=== PATIENT | female | born 1945 | race Caucasian/White ===

== ENCOUNTER 2021-11-02 18:25 | Inpatient (IN) | payer MEDICARE, MEDICAID, SELFPAY ==
--- NOTE | ~2021-11-02 | CT_ITS ---
EXAMINATION: CT ABDOMEN AND PELVIS WITHOUT CONTRAST CLINICAL INFORMATION: suspicion of cirrhosis . COMPARISON: No pertinent prior studies are available for comparison. TECHNIQUE: Multidetector volumetric imaging was performed from the superior aspect of the liver through the pubic symphysis without contrast per request. Sagittal and coronal reformatted images were obtained on the technologist workstation. This CT examination was performed using dose optimization techniques as appropriate, variously including the following: *Automated exposure control *Adjustment of mA and/or kV according to patient size (this includes techniques or standardized protocols for targeted exams where dose is matched to indication/reason for exam; i.e. extremities or head) *Use of iterative reconstruction technique DLP: 1305 mGy-cm. FINDINGS: Examination is degraded by beam hardening artifact and patient motion. LUNG BASES: Mild linear scarring or atelectasis at the left base LIVER, GALLBLADDER, BILIARY TREE: Nodular contour to the liver. No discrete mass lesion seen but this is a noncontrast study. No obvious biliary ductal dilatation. Gallstone in the dependent portion of the otherwise unremarkable gallbladder PANCREAS: Unremarkable. SPLEEN: Unremarkable. ADRENAL GLANDS: Unremarkable. KIDNEYS AND URETERS: The kidneys are normal in size, shape, and attenuation. No hydronephrosis, hydroureter, or calculi seen. No perinephric stranding. BLADDER: Decompressed with Austin catheter GASTROINTESTINAL TRACT: Tortuous colon with a few scattered colonic diverticula but no evidence for diverticulitis. Normal-appearing appendix in the right lower quadrant. Visualized small bowel unremarkable. Although the stomach is decompressed there does appear to be a suggestion of some subtle gastric wall thickening along the greater curve. This could be due to underlying gastritis but unable to be defined further on this study due to motion and lack of contrast ABDOMINAL WALL: Tiny fat-containing umbilical hernia LYMPHOVASCULAR STRUCTURES: Vascular calcification in aorta. Prominent splenic varicosities extending to a splenorenal shunt but otherwise the vessels are not well assessed on this noncontrast exam. PELVIC VISCERA: Uterus is presumably surgically absent OSSEUS STRUCTURES: Degenerative changes in the spine CT/CT abdomen pelvis wo con IMPRESSION: Examination limited by lack of contrast and patient motion. Nodular appearance to the liver could be due to underlying cirrhosis. There is prominent splenic varicosities with a spontaneous spleno renal shunt suggested sequela of portal hypertension. I do not appreciate any significant splenomegaly with the spleen at upper normal limits in size no significant ascites. Stomach likely decompressed although gastritis could have a similar appearance. This could be clinically correlated. Chronic appearing changes otherwise as described.
--- NOTE | ~2021-11-02 | XR_ITS ---
EXAMINATION: XR CHEST CLINICAL INFORMATION: Removal of NG tube. Previously misplaced. COMPARISON: 11/03/2021 TECHNIQUE: Frontal view of the chest was obtained. FINDINGS: Cardiac leads overlie the chest. Enteric tube has been removed. The lungs are well expanded. Patchy airspace opacities throughout both lungs. No edema or effusion. No pneumothorax. The cardiomediastinal silhouette is within normal limits. No acute osseous abnormality. XR/XR chest 1V IMPRESSION: No pneumothorax. Patchy bilateral airspace opacities remain.
--- NOTE | ~2021-11-02 | CT_ITS ---
EXAMINATION: CT HEAD WITHOUT CONTRAST CLINICAL INFORMATION: Altered mental status and headache COMPARISON: 02/12/2017 TECHNIQUE: Contiguous axial imaging was performed from the skull base to vertex without intravenous administration of contrast. This CT examination was performed using dose optimization techniques as appropriate, variously including the following: *Automated exposure control *Adjustment of mA and/or kV according to patient size (this includes techniques or standardized protocols for targeted exams where dose is matched to indication/reason for exam; i.e. extremities or head) *Use of iterative reconstruction technique DLP: 692 mGy-cm FINDINGS: There is no evidence of acute intracranial hemorrhage or territorial infarction. No abnormal mass effect or midline shift is seen. Mena to white matter differentiation is well preserved. No extra-axial fluid collections are identified. The ventricles are normal in size. Mild patchy subcortical and periventricular white matter low-attenuation changes statistically related to chronic white matter small vessel ischemic disease. Cavernous carotid calcifications. The osseous structures and soft tissues are normal. The mastoid air cells and visualized portions of the paranasal sinuses are well aerated. CT/CT head/brain wo con IMPRESSION: No acute intracranial pathology.
--- NOTE | ~2021-11-02 | XR_ITS ---
EXAMINATION: XR CHEST CLINICAL INFORMATION: Enteric tube. COMPARISON: Chest radiograph dated from 11/02/2021. TECHNIQUE: AP view of the chest was obtained. FINDINGS: The enteric tube terminates within the right lower lobe. Stable prominence of the cardiomediastinal silhouette. Similar patchy multifocal airspace opacities. No large pleural effusion or pneumothorax. No acute osseous abnormalities. XR/XR chest 1V IMPRESSION: Enteric tube terminates within the right lower lobe. Recommend repositioning. Multifocal airspace opacities are not significantly changed. This critical result was discussed with Arcenio Bynum MD at 11/03/2021 10:45 PM and it was ascertained that the content and urgency of the report was understood at the time of direct communication.
--- NOTE | ~2021-11-02 | XR_ITS ---
EXAMINATION: XR CHEST CLINICAL INFORMATION: CHF. COMPARISON: Most recent rib radiographs dated 02/13/2017. TECHNIQUE: Frontal view of the chest was obtained. FINDINGS: Interstitial and pulmonary vascular prominence with patchy left basilar airspace opacities. No pleural effusion or pneumothorax. Unremarkable cardiomediastinal silhouette. No acute osseous abnormality. XR/XR chest 1V IMPRESSION: Interstitial and pulmonary vascular prominence with patchy left basilar opacities. Findings can be seen in the setting of pulmonary edema. Alternatively, an infectious or inflammatory process could be considered in the appropriate clinical setting.
--- NOTE | 2021-11-02 18:57 | ECG_ITS ---
Test Reason : WEAKNESS Blood Pressure : / mmHG Vent. Rate : 092 BPM Atrial Rate : 092 BPM P-R Int : 186 ms QRS Dur : 082 ms QT Int : 362 ms P-R-T Axes : 046 -11 121 degrees QTc Int : 447 ms Artifact in tracing Normal sinus rhythm With limitations from artifact, no obvious abnormality When compared with ECG of 12-FEB-2017 12:36, No significant changes seen Referred By: Generic ED Physician Electronically Signed By:YAZMIN SHINE
[2021-11-02 19:02] VITALS: BP 147/60; BP 154/72; PULSE 93; PULSE 97; RESP 17; TEMP 36.4; O2SAT 96; O2SAT 98; BMI 32.7
--- NOTE | 2021-11-02 19:26 | ED_ITS ---
HPI - General Adult General Chief complaint: Weakness Stated complaint: high amonia level Time Seen by Provider: 11/02/21 19:02 Source: family and EMS Mode of arrival: EMS Limitations: altered mental status History of Present Illness HPI narrative: Patient comes to the emergency room by EMS. The family called the ambulance because the patient has altered mental status. Patient is known to have elevated ammonia. Patient traveled from [place] yesterday back to the [facility]. The daughter reports that earlier this afternoon around 14:00 they were shopping at [facility], previously the patient was doing well, at baseline, walking and talking. Then, patient started becoming more confused, talking without making any sense, then patient started becoming more sleepy and very confused. When I asked patient to open her eyes, patient verbalizes that she has a headache. Related Data Home Medications Medication Instructions Recorded Confirmed amlodipine 10 mg tablet (Norvasc) 10 mg PO DAILY 11/02/21 11/02/21 apixaban 2.5 mg tablet (Eliquis) 2.5 mg PO BID 11/02/21 11/02/21 cyanocobalamin (vitamin B-12) 1,000 mcg PO DAILY 11/02/21 11/02/21 1,000 mcg tablet (Vitamin B-12) ferrous fumarate 325 mg (106 mg 325 mg PO DAILY 11/02/21 11/02/21 iron) tablet folic acid 1 mg tablet 1 mg PO DAILY 11/02/21 11/02/21 hydralazine 50 mg tablet 50 mg PO TID 11/02/21 11/02/21 insulin glargine 100 unit/mL (3 20 unit SUBCUT BEDTIME 11/02/21 11/02/21 mL) subcutaneous pen (Lantus Solostar U-100 Insulin) insulin lispro 100 unit/mL 10 unit SUBCUT TIDWM 11/02/21 11/02/21 subcutaneous cartridge (Humalog U-100 Insulin) isosorbide dinitrate 10 mg tablet 10 mg PO BID 11/02/21 11/02/21 lactulose 20 gram/30 mL oral 20 g PO BID 11/02/21 11/02/21 solution levothyroxine 75 mcg tablet 75 mcg PO DAILY 11/02/21 11/02/21 (Synthroid) linagliptin 5 mg tablet (Tradjenta) 5 mg PO DAILY 11/02/21 11/02/21 montelukast 10 mg tablet 10 mg PO BEDTIME 11/02/21 11/02/21 (Singulair) pantoprazole 40 mg tablet,delayed 40 mg PO DAILY 11/02/21 11/02/21 release (Protonix) rifaximin 550 mg tablet 550 mg PO BID 11/02/21 11/02/21 spironolactone 50 mg tablet 50 mg PO DAILY 11/02/21 11/02/21 Allergies Allergy/AdvReac Type Severity Reaction Status Date / Time milk [Milk] AdvReac Mild DIARRHEA Unverified 07/31/20 17:28 Review of Systems Review of Systems: Complaining of a headache Yes Unobtainable due to mental condition and Unobtainable due to mental status PMFSH Past Medical History Medical History Congestive heart failure Diabetes Kidney failure Liver damage Skin cancer Social History Social History Alcohol intake: former Patient Tobacco Use Status: Never used Tobacco Substance Use Frequency: Chronic Longstanding Advance Directives: No Advance Directives Information Provided: No Physical Exam Vital Signs: Vital Signs: Last Vital Signs Temp 97.5 F 11/02/21 19:02 Pulse 93 11/02/21 19:02 Resp 17 11/02/21 19:02 BP 147/60 H 11/02/21 19:02 Pulse Ox 96 11/02/21 19:02 BMI result Body Mass Index 32.7 Const: Other: Appearance: No acute distress, altered, somnolent but easily arousable Eyes: Pupils equal, round and reactive to light. ENT: Pharynx normal. Neck: Normal inspection. Neck supple. No lymph nodes noted. No crepitus CVS: Normal heart rate and rhythm. S1-S2, loud systolic murmur in the left sternal border Respiratory: No respiratory distress. Breath sounds normal. No wheezing Abdomen: Soft and nontender. No rigidity. No distention. Does not seem to have significant ascites buildup Skin: Skin warm and dry. Normal skin color. Normal skin turgor. Extremities: +2 pitting edema bilaterally. No Lacerations. No Rash Neuro: Somnolent, follows some commands, cranial nerves 2-12 grossly intact, moves all extremities Course Course Course Narrative: Lactic acid is 2.6. At this time, we are starting to get labs back, white blood cell count within normal limits, sepsis is not suspected, patient's LFTs are elevated which is likely the cause of patient's elevated lactic. Sepsis is not suspected at this time. Patient's glucose is 345, patient is being given 10 units of insulin, at this time we will not give high-dose volume of IV fluids since patient may have CHF. Labs and x-ray report pending CT of the head and abdomen pending. Lipase is elevated at 178, patient does not seem to have any abdominal pain on abdominal palpation However, patient is a poor historian. Patient's troponin is slightly elevated, likely secondary to BNP, EKG was poor quality but does not show any acute changes to suspect STEMI, patient denies chest pain. I discussed the patient with Dr. Bynum, patient being admitted for hepatic encephalopathy Medical Decision Making Lab Data Result diagrams: 11/02/21 19:45 11/02/21 19:45 Labs: Lab Results 11/02/21 11/02/21 11/02/21 Range/Units 19:42 19:45 19:45 WBC 4.9 (4.8-10.8) X10*3/uL RBC 2.95 L (4.20-5.50) X10*6/uL Hgb 9.1 L (12.0-16.0) g/dl Hct 26.4 L (37.0-47.0) % MCV 89.5 (80.0-98.0) fL MCH 30.8 (27.0-33.0) pg MCHC 34.5 (31.0-35.0) g/dl RDW 14.0 (11.0-16.0) % Plt Count 137 L (160-400) X10*3/uL MPV 11.7 (9.4-12.3) fL Immature Gran % (Auto) 0.4 (0.0-0.4) % Neut % (Auto) 58.9 (45-73) % Lymph % (Auto) 17.6 L (20-40) % Divide % (Auto) 18.4 H (2-11) % Eos % (Auto) 3.9 (0-4) % Baso % (Auto) 0.8 (0-2) % Lymph # (Auto) 0.9 L (1.2-4.9) X10*3/uL Divide # (Auto) 0.9 (0.1-1.2) X10*3/uL Eos # (Auto) 0.2 (0.0-0.4) X10*3/uL Baso # (Auto) 0.0 (0.0-0.2) X10*3/uL Abs Immat Gran (auto) 0.02 (0.00-0.03) X10*3/uL Absolute Neuts (auto) 2.9 (2.0-8.3) x10*3/uL Absolute Nucleated RBC 0.000 (0.0-0.012) X10*3/uL Nucleated RBC % (auto) 0.0 (0.0-0.2) /100WBC PT (9.9-13.0) SEC INR (0.9-1.1) VBG pH 7.48 H (7.32-7.43) VBG pCO2 27 mmHg VBG pO2 142 mmHg VBG HCO3 20 L (22-26) mmol/L VBG O2 Saturation 99.0 % VBG Base Excess -1.9 mmol/L Sodium 137 (135-145) mmol/L Potassium 3.8 (3.3-5.1) mmol/L Chloride 103 (96-108) mmol/L Carbon Dioxide 23 (22-29) mmol/L Anion Gap 15 (12-20) BUN 50 H (9-16) mg/dL Creatinine 2.76 H (0.5-1.4) mg/dL Estim Creat Clear Calc 17.3 Estimated GFR 17 Random Glucose 345 H (60-115) mg/dL Lactic Acid (0.5-2.0) mmol/L Calcium 9.4 (8.4-10.2) mg/dL Magnesium (1.6-2.6) mg/dL Total Bilirubin (0.0-1.0) mg/dL Direct Bilirubin (0.0-0.5) mg/dL AST (5-31) U/L ALT (0-31) U/L Alkaline Phosphatase (39-117) U/L Ammonia (13-55) umol/L Troponin I High Sens (<3.5-17.0) ng/L B-Natriuretic Peptide (<100) pg/mL Total Protein (6.5-8.0) g/dL Albumin (3.5-5.0) g/dL Lipase (8-78) U/L TSH (0.32-4.0) uIU/mL Urine Color Urine Appearance Urine pH (5.0-8.0) Ur Specific [place] (1.005-1.025) Urine Protein (NEG-TRACE) MG/DL Urine Glucose (UA) (NEG) MG/DL Urine Ketones (NEG) MG/DL Urine Blood (NEG) Urine Nitrite (NEG) Ur Leukocyte Esterase (NEG) Ethyl Alcohol mg/dL Acetone, Qual (Negative) COVID-19 (BEN) (Negative) COVID-19 Clin Com 11/02/21 11/02/21 11/02/21 Range/Units 19:45 19:45 19:45 WBC (4.8-10.8) X10*3/uL RBC (4.20-5.50) X10*6/uL Hgb (12.0-16.0) g/dl Hct (37.0-47.0) % MCV (80.0-98.0) fL MCH (27.0-33.0) pg MCHC (31.0-35.0) g/dl RDW (11.0-16.0) % Plt Count (160-400) X10*3/uL MPV (9.4-12.3) fL Immature Gran % (Auto) (0.0-0.4) % Neut % (Auto) (45-73) % Lymph % (Auto) (20-40) % Divide % (Auto) (2-11) % Eos % (Auto) (0-4) % Baso % (Auto) (0-2) % Lymph # (Auto) (1.2-4.9) X10*3/uL Divide # (Auto) (0.1-1.2) X10*3/uL Eos # (Auto) (0.0-0.4) X10*3/uL Baso # (Auto) (0.0-0.2) X10*3/uL Abs Immat Gran (auto) (0.00-0.03) X10*3/uL Absolute Neuts (auto) (2.0-8.3) x10*3/uL Absolute Nucleated RBC (0.0-0.012) X10*3/uL Nucleated RBC % (auto) (0.0-0.2) /100WBC PT (9.9-13.0) SEC INR (0.9-1.1) VBG pH (7.32-7.43) VBG pCO2 mmHg VBG pO2 mmHg VBG HCO3 (22-26) mmol/L VBG O2 Saturation % VBG Base Excess mmol/L Sodium (135-145) mmol/L Potassium (3.3-5.1) mmol/L Chloride (96-108) mmol/L Carbon Dioxide (22-29) mmol/L Anion Gap (12-20) BUN (9-16) mg/dL Creatinine (0.5-1.4) mg/dL Estim Creat Clear Calc Estimated GFR Random Glucose (60-115) mg/dL Lactic Acid (0.5-2.0) mmol/L Calcium (8.4-10.2) mg/dL Magnesium 2.5 (1.6-2.6) mg/dL Total Bilirubin 1.3 H (0.0-1.0) mg/dL Direct Bilirubin 0.6 H (0.0-0.5) mg/dL AST 44 H (5-31) U/L ALT 28 (0-31) U/L Alkaline Phosphatase 138 H (39-117) U/L Ammonia (13-55) umol/L Troponin I High Sens 36.9 H (<3.5-17.0) ng/L B-Natriuretic Peptide (<100) pg/mL Total Protein 7.6 (6.5-8.0) g/dL Albumin 3.4 L (3.5-5.0) g/dL Lipase 178 H (8-78) U/L TSH 2.08 (0.32-4.0) uIU/mL Urine Color Urine Appearance Urine pH (5.0-8.0) Ur Specific [place] (1.005-1.025) Urine Protein (NEG-TRACE) MG/DL Urine Glucose (UA) (NEG) MG/DL Urine Ketones (NEG) MG/DL Urine Blood (NEG) Urine Nitrite (NEG) Ur Leukocyte Esterase (NEG) Ethyl Alcohol mg/dL Acetone, Qual (Negative) COVID-19 (BEN) Negative (Negative) COVID-19 Clin Com See Note 11/02/21 11/02/21 11/02/21 Range/Units 19:45 19:45 19:45 WBC (4.8-10.8) X10*3/uL RBC (4.20-5.50) X10*6/uL Hgb (12.0-16.0) g/dl Hct (37.0-47.0) % MCV (80.0-98.0) fL MCH (27.0-33.0) pg MCHC (31.0-35.0) g/dl RDW (11.0-16.0) % Plt Count (160-400) X10*3/uL MPV (9.4-12.3) fL Immature Gran % (Auto) (0.0-0.4) % Neut % (Auto) (45-73) % Lymph % (Auto) (20-40) % Divide % (Auto) (2-11) % Eos % (Auto) (0-4) % Baso % (Auto) (0-2) % Lymph # (Auto) (1.2-4.9) X10*3/uL Divide # (Auto) (0.1-1.2) X10*3/uL Eos # (Auto) (0.0-0.4) X10*3/uL Baso # (Auto) (0.0-0.2) X10*3/uL Abs Immat Gran (auto) (0.00-0.03) X10*3/uL Absolute Neuts (auto) (2.0-8.3) x10*3/uL Absolute Nucleated RBC (0.0-0.012) X10*3/uL Nucleated RBC % (auto) (0.0-0.2) /100WBC PT 16.2 H (9.9-13.0) SEC INR 1.4 H (0.9-1.1) VBG pH (7.32-7.43) VBG pCO2 mmHg VBG pO2 mmHg VBG HCO3 (22-26) mmol/L VBG O2 Saturation % VBG Base Excess mmol/L Sodium (135-145) mmol/L Potassium (3.3-5.1) mmol/L Chloride (96-108) mmol/L Carbon Dioxide (22-29) mmol/L Anion Gap (12-20) BUN (9-16) mg/dL Creatinine (0.5-1.4) mg/dL Estim Creat Clear Calc Estimated GFR Random Glucose (60-115) mg/dL Lactic Acid 2.6 H* (0.5-2.0) mmol/L Calcium (8.4-10.2) mg/dL Magnesium (1.6-2.6) mg/dL Total Bilirubin (0.0-1.0) mg/dL Direct Bilirubin (0.0-0.5) mg/dL AST (5-31) U/L ALT (0-31) U/L Alkaline Phosphatase (39-117) U/L Ammonia (13-55) umol/L Troponin I High Sens (<3.5-17.0) ng/L B-Natriuretic Peptide 276 H (<100) pg/mL Total Protein (6.5-8.0) g/dL Albumin (3.5-5.0) g/dL Lipase (8-78) U/L TSH (0.32-4.0) uIU/mL Urine Color Urine Appearance Urine pH (5.0-8.0) Ur Specific [place] (1.005-1.025) Urine Protein (NEG-TRACE) MG/DL Urine Glucose (UA) (NEG) MG/DL Urine Ketones (NEG) MG/DL Urine Blood (NEG) Urine Nitrite (NEG) Ur Leukocyte Esterase (NEG) Ethyl Alcohol mg/dL Acetone, Qual (Negative) COVID-19 (BEN) (Negative) COVID-19 Clin Com 11/02/21 11/02/21 11/02/21 Range/Units 19:45 19:58 20:00 WBC (4.8-10.8) X10*3/uL RBC (4.20-5.50) X10*6/uL Hgb (12.0-16.0) g/dl Hct (37.0-47.0) % MCV (80.0-98.0) fL MCH (27.0-33.0) pg MCHC (31.0-35.0) g/dl RDW (11.0-16.0) % Plt Count (160-400) X10*3/uL MPV (9.4-12.3) fL Immature Gran % (Auto) (0.0-0.4) % Neut % (Auto) (45-73) % Lymph % (Auto) (20-40) % Divide % (Auto) (2-11) % Eos % (Auto) (0-4) % Baso % (Auto) (0-2) % Lymph # (Auto) (1.2-4.9) X10*3/uL Divide # (Auto) (0.1-1.2) X10*3/uL Eos # (Auto) (0.0-0.4) X10*3/uL Baso # (Auto) (0.0-0.2) X10*3/uL Abs Immat Gran (auto) (0.00-0.03) X10*3/uL Absolute Neuts (auto) (2.0-8.3) x10*3/uL Absolute Nucleated RBC (0.0-0.012) X10*3/uL Nucleated RBC % (auto) (0.0-0.2) /100WBC PT (9.9-13.0) SEC INR (0.9-1.1) VBG pH (7.32-7.43) VBG pCO2 mmHg VBG pO2 mmHg VBG HCO3 (22-26) mmol/L VBG O2 Saturation % VBG Base Excess mmol/L Sodium (135-145) mmol/L Potassium (3.3-5.1) mmol/L Chloride (96-108) mmol/L Carbon Dioxide (22-29) mmol/L Anion Gap (12-20) BUN (9-16) mg/dL Creatinine (0.5-1.4) mg/dL Estim Creat Clear Calc Estimated GFR Random Glucose (60-115) mg/dL Lactic Acid (0.5-2.0) mmol/L Calcium (8.4-10.2) mg/dL Magnesium (1.6-2.6) mg/dL Total Bilirubin (0.0-1.0) mg/dL Direct Bilirubin (0.0-0.5) mg/dL AST (5-31) U/L ALT (0-31) U/L Alkaline Phosphatase (39-117) U/L Ammonia 137 H (13-55) umol/L Troponin I High Sens (<3.5-17.0) ng/L B-Natriuretic Peptide (<100) pg/mL Total Protein (6.5-8.0) g/dL Albumin (3.5-5.0) g/dL Lipase (8-78) U/L TSH (0.32-4.0) uIU/mL Urine Color Urine Appearance Urine pH (5.0-8.0) Ur Specific [place] (1.005-1.025) Urine Protein (NEG-TRACE) MG/DL Urine Glucose (UA) (NEG) MG/DL Urine Ketones (NEG) MG/DL Urine Blood (NEG) Urine Nitrite (NEG) Ur Leukocyte Esterase (NEG) Ethyl Alcohol < 10 mg/dL Acetone, Qual Negative (Negative) COVID-19 (BEN) (Negative) COVID-19 Clin Com 11/02/21 Range/Units 21:06 WBC (4.8-10.8) X10*3/uL RBC (4.20-5.50) X10*6/uL Hgb (12.0-16.0) g/dl Hct (37.0-47.0) % MCV (80.0-98.0) fL MCH (27.0-33.0) pg MCHC (31.0-35.0) g/dl RDW (11.0-16.0) % Plt Count (160-400) X10*3/uL MPV (9.4-12.3) fL Immature Gran % (Auto) (0.0-0.4) % Neut % (Auto) (45-73) % Lymph % (Auto) (20-40) % Divide % (Auto) (2-11) % Eos % (Auto) (0-4) % Baso % (Auto) (0-2) % Lymph # (Auto) (1.2-4.9) X10*3/uL [place] # (Auto) (0.1-1.2) X10*3/uL Eos # (Auto) (0.0-0.4) X10*3/uL Baso # (Auto) (0.0-0.2) X10*3/uL Abs Immat Gran (auto) (0.00-0.03) X10*3/uL Absolute Neuts (auto) (2.0-8.3) x10*3/uL Absolute Nucleated RBC (0.0-0.012) X10*3/uL Nucleated RBC % (auto) (0.0-0.2) /100WBC PT (9.9-13.0) SEC INR (0.9-1.1) VBG pH (7.32-7.43) VBG pCO2 mmHg VBG pO2 mmHg VBG HCO3 (22-26) mmol/L VBG O2 Saturation % VBG Base Excess mmol/L Sodium (135-145) mmol/L Potassium (3.3-5.1) mmol/L Chloride (96-108) mmol/L Carbon Dioxide (22-29) mmol/L Anion Gap (12-20) BUN (9-16) mg/dL Creatinine (0.5-1.4) mg/dL Estim Creat Clear Calc Estimated GFR Random Glucose (60-115) mg/dL Lactic Acid (0.5-2.0) mmol/L Calcium (8.4-10.2) mg/dL Magnesium (1.6-2.6) mg/dL Total Bilirubin (0.0-1.0) mg/dL Direct Bilirubin (0.0-0.5) mg/dL AST (5-31) U/L ALT (0-31) U/L Alkaline Phosphatase (39-117) U/L Ammonia (13-55) umol/L Troponin I High Sens (<3.5-17.0) ng/L B-Natriuretic Peptide (<100) pg/mL Total Protein (6.5-8.0) g/dL Albumin (3.5-5.0) g/dL Lipase (8-78) U/L TSH (0.32-4.0) uIU/mL Urine Color YELLOW Urine Appearance CLEAR Urine pH 6.0 (5.0-8.0) Ur Specific [place] 1.020 (1.005-1.025) Urine Protein 2+ H (NEG-TRACE) MG/DL Urine Glucose (UA) NEG (NEG) MG/DL Urine Ketones NEG (NEG) MG/DL Urine Blood NEG (NEG) Urine Nitrite NEG (NEG) Ur Leukocyte Esterase NEG (NEG) Ethyl Alcohol mg/dL Acetone, Qual (Negative) COVID-19 (BEN) (Negative) COVID-19 Clin Com Imaging Data Chest x-ray: Radiologist's impression: FINDINGS: Interstitial and pulmonary vascular prominence with patchy left basilar airspace opacities. No pleural effusion or pneumothorax. Unremarkable cardiomediastinal silhouette. No acute osseous abnormality. XR/XR chest 1V IMPRESSION: Interstitial and pulmonary vascular prominence with patchy left basilar opacities. Findings can be seen in the setting of pulmonary edema. Alternatively, an infectious or inflammatory process could be considered in the appropriate clinical setting. ? Discharge Plan Discharge Clinical Impression: Acute hepatic encephalopathy, MARJORIE (acute kidney injury) Patient Disposition: Admitted As Inpatient Prescriptions: No Action folic acid 1 mg Tablet 1 mg PO DAILY RF: 0 ferrous fumarate 325 mg (106 mg iron) Tablet 325 mg PO DAILY RF: 0 Eliquis 2.5 mg Tablet 2.5 mg PO BID RF: 0 isosorbide dinitrate 10 mg Tablet 10 mg PO BID RF: 0 levothyroxine [Synthroid] 75 mcg Tablet 75 mcg PO DAILY RF: 0 amlodipine [Norvasc] 10 mg Tablet 10 mg PO DAILY RF: 0 pantoprazole [Protonix] 40 mg Tablet,Delayed Release (Dr/Ec) 40 mg PO DAILY RF: 0 montelukast [Singulair] 10 mg Tablet 10 mg PO BEDTIME RF: 0 hydralazine 50 mg Tablet 50 mg PO TID RF: 0 spironolactone 50 mg Tablet 50 mg PO DAILY RF: 0 Humalog U-100 Insulin 100 unit/mL Cartridge 10 unit SUBCUT TIDWM RF: 0 Lantus Solostar U-100 Insulin 100 unit/mL (3 mL) Insulin Pen 20 unit SUBCUT BEDTIME RF: 0 rifaximin 550 mg Tablet 550 mg PO BID RF: 0 lactulose 20 gram/30 mL Solution 20 g PO BID RF: 0 cyanocobalamin (vitamin B-12) [Vitamin B-12] 1,000 mcg Tablet 1,000 mcg PO DAILY RF: 0 Tradjenta 5 mg Tablet 5 mg PO DAILY RF: 0
[2021-11-02 19:48] LABS: MANUAL DIFF FLAG NO; Venous Blood Gas Refer to POC result
[2021-11-02 19:49] LABS: VBG Base Excess -1.9 mmol/L; VBG HCO3 20 mmol/L (22-26); VBG pCO2 27 mmHg; VBG pH 7.48 (7.32-7.43); VBG pO2 142 mmHg
[2021-11-02 19:49] LABS: Basophils Percent Auto 0.8 % (0-2); Eosinophils Absolute Auto 0.2 X10*3/uL (0.0-0.4); Eosinophils Percent Auto 3.9 % (0-4); Hematocrit 26.4 % (37.0-47.0); Hemoglobin 9.1 g/dl (12.0-16.0); Imm Gran Abs Auto 0.02 X10*3/uL (0.00-0.03); Imm Gran Pct Auto 0.4 % (0.0-0.4); Lymphocytes Absolute Auto 0.9 X10*3/uL (1.2-4.9); Lymphocytes Percent Auto 17.6 % (20-40); Mean Corpuscular HGB Conc 34.5 g/dl (31.0-35.0); Mean Corpuscular Hemoglobin 30.8 pg (27.0-33.0); Mean Corpuscular Volume 89.5 fL (80.0-98.0); Mean Platelet Volume 11.7 fL (9.4-12.3); Monocytes Absolute Auto 0.9 X10*3/uL (0.1-1.2); Monocytes Percent Auto 18.4 % (2-11); Neutrophils Absolute Auto 2.9 x10*3/uL (2.0-8.3); Neutrophils Percent Auto 58.9 % (45-73); Platelet Count 137 X10*3/uL (160-400); Red Blood Count 2.95 X10*6/uL (4.20-5.50); White Blood Count 4.9 X10*3/uL (4.8-10.8)
[2021-11-02 19:54] LABS: INTERNATIONAL NORM RATIO 1.4 (0.9-1.1); Prothrombin Time 16.2 SEC (9.9-13.0)
[2021-11-02 19:59] LABS: COVID-19 Test Negative (Negative)
[2021-11-02 20:00] LABS: Acetone, serum QL Negative (Negative)
[2021-11-02 20:05] LABS: Anion Gap 15 (12-20); Blood Urea Nitrogen 50 mg/dL (9-16); Calcium 9.4 mg/dL (8.4-10.2); Carbon Dioxide 23 mmol/L (22-29); Chloride 103 mmol/L (96-108); Creatinine Clr Calc Pharmacy 17.3; Estimated Glomerular Filt Rate 17; Glucose Random 345 mg/dL (60-115); Potassium 3.8 mmol/L (3.3-5.1); Sodium 137 mmol/L (135-145)
[2021-11-02 20:06] LABS: Alanine Aminotransferase 28 U/L (0-31); Albumin Level 3.4 g/dL (3.5-5.0); Alkaline Phosphatase 138 U/L (39-117); Aspartate Amino Transferase 44 U/L (5-31); Bilirubin Direct 0.6 mg/dL (0.0-0.5); Bilirubin Total 1.3 mg/dL (0.0-1.0); Lipase 178 U/L (8-78); Magnesium 2.5 mg/dL (1.6-2.6); Total Protein 7.6 g/dL (6.5-8.0)
[2021-11-02 20:07] LABS: Lactic Acid 2.6 mmol/L (0.5-2.0)
[2021-11-02 20:08] LABS: Troponin-I High Sensitivity 36.9 ng/L (<3.5-17.0)
[2021-11-02 20:09] LABS: B Type Natriuretic Peptide 276 pg/mL (<100)
[2021-11-02 20:13] LABS: Ammonia 137 umol/L (13-55)
[2021-11-02 20:17] LABS: Ethanol < 10 mg/dL
[2021-11-02 20:26] LABS: TSH reflex Free T4 2.08 uIU/mL (0.32-4.0)
--- NOTE | 2021-11-02 20:59 | PHA.MEDREC ---
Pharmacy Consult ? Medication Reconciliation Pharmacy has completed the medication reconciliation.
[2021-11-02 21:11] LABS: Appearance Urine CLEAR; Color Urine YELLOW; Glucose Urine UA NEG (NEG); Leukocyte Esterase Urine NEG (NEG); Nitrite Urine NEG (NEG); UACC Culture Trigger NO; Urine Blood NEG (NEG); Urine Ketones NEG (NEG); Urine Protein 2+ MG/DL (NEG-TRACE)
[2021-11-02 21:30] LABS: Bacteria Urine TRACE /LPF; Mucus Urine TRACE /LPF; RBC Urine 0-2 /HPF (0); Renal Epithelial Cells Urine 1+ /LPF; Squamous Epithelial Cell Urine 3+ /LPF; WBC Urine 0-2 /HPF (0-4)
[2021-11-02 21:47] LABS: Reflex Lactate? Lactic Acid Added
--- NOTE | 2021-11-02 21:52 | P.HPHOSP_ITS ---
History of Present Illness Date of Service: 11/02/21 Chief Complaint: Altered mental status 76-year-old female with a past medical history of hypertension, hyperlipidemia, diabetes, COPD, LIUDMILA-noncompliant with CPAP, CHF, liver cirrhosis,? AFib on Eliquis presented to the hospital today with a chief complaint of altered mental status. Patient is drowsy, lying comfortably in the bed; response to simple commands; unable to provide the history; spoke to the patient's daughter at bedside-who mentions that patient has been in the [place] since 2017 and just landed yesterday to stay in [place]. Daughter reports that patient was noted to be generally weak, tired, limited energy to move around, noted to be dyspneic on exertion; denies patient complaining of abdominal pain chest pain, denied patient denied having any fevers. Denied patient complaining of any urinary symptoms. Reports that patient has history of LIUDMILA and has not been using the CPAP for about 6 months Reports that she had liver cirrhosis and had elevated ammonia levels in the past and has been taking lactulose. Also mentioned that patient used to drink but has not had any drink about ER. For patient's daughter in [place] patient was taking Eliquis patient AFib. Denies any history of blood clots. Today patient was noted to be more confused and hence border to the hospital for further evaluation. Denies any falls or trauma. Review of all other systems is limited as the patient is confused. ER course: For ER team patient noted to have drowsiness; lab showed elevated ammonia levels; chest x-ray showed mild conditions; urinalysis was pending; Austin was placed; on labs noted to have creatinine of 2.7; patient has prior and creatinine of 1.5 in 2017; admitted to the hospital for further management. [facility] Medical History Congestive heart failure Diabetes Kidney failure Liver damage Skin cancer Pertinent family history: Patient unable to provide information Social History Alcohol intake: former Patient Tobacco Use Status: Never used Tobacco Substance Use Frequency: Chronic Longstanding Advance Directives: No Advance Directives Information Provided: No Meds Allergies Allergy/AdvReac Type Severity Reaction Status Date / Time milk [Milk] AdvReac Mild DIARRHEA Unverified 07/31/20 17:28 Active Medications: Current Medications Albuterol/Ipratropium (Albuterol/Iprat 2.5/0.5mg 3 Ml Ampul.Neb) 3 ml INHALE RQ4H PRN PRN Reason: Shortness of Breath/Wheezing Apixaban (Apixaban 2.5 Mg Tablet) 2.5 mg PO BID [facility] Cyanocobalamin (Cyanocobalamin (Vitamin B-12) 1,000 Mcg Tablet) 1,000 mcg PO DAILY [facility] Isosorbide Dinitrate (Isosorbide Dinitrate 10 Mg Tablet) 10 mg PO BID [facility]; Protocol Lactulose (Lactulose 20 Gm/30 Ml Solution) 20 gm PO TID [facility] Levothyroxine Sodium (Levothyroxine Sodium 75 Mcg Tablet) 75 mcg PO DAILY [facility] Melatonin (Melatonin 3 Mg Tablet) 6 mg PO BEDTIME PRN PRN Reason: Insomnia Montelukast Sodium (Montelukast Sodium 10 Mg Tablet) 10 mg PO BEDTIME [facility] Non-Formulary Medication (Pantoprazole [Protonix]) 40 mg PO DAILY [facility] Pharmacy Consult (Consult Rx Perform Med Rec) 1 each MISCELLANE ONCE PRN PRN Reason: Consult order Rifaximin (Rifaximin 550 Mg Tablet) 550 mg PO BID [facility] Senna (Sennosides 8.6 Mg Tablet) 17.2 mg PO BEDTIME PRN PRN Reason: Constipation Sodium Chloride (0.9 % Sodium Chloride Flush 3 Ml Syringe) 3 ml IVFLUSH QSHIFT [facility] Home Medications Medication Instructions Recorded Confirmed Last Taken Type amlodipine 10 mg tablet (Norvasc) 10 mg PO DAILY 11/02/21 11/02/21 11/02/21 H istory apixaban 2.5 mg tablet (Eliquis) 2.5 mg PO BID 11/02/21 11/02/21 11/02/21 History cyanocobalamin (vitamin B-12) 1,000 mcg PO DAILY 11/02/21 11/02/21 11/02/21 History 1,000 mcg tablet (Vitamin B-12) ferrous fumarate 325 mg (106 mg 325 mg PO DAILY 11/02/21 11/02/21 11/02/21 History iron) tablet folic acid 1 mg tablet 1 mg PO DAILY 11/02/21 11/02/21 11/02/21 History hydralazine 50 mg tablet 50 mg PO TID 11/02/21 11/02/21 11/02/21 History insulin glargine 100 unit/mL (3 20 unit SUBCUT BEDTIME 11/02/21 11/02/21 11/01/21 History mL) subcutaneous pen (Lantus Solostar U-100 Insulin) insulin lispro 100 unit/mL 10 unit SUBCUT TIDWM 11/02/21 11/02/21 11/02/21 History subcutaneous cartridge (Humalog U-100 Insulin) isosorbide dinitrate 10 mg tablet 10 mg PO BID 11/02/21 11/02/21 11/02/21 History lactulose 20 gram/30 mL oral 20 g PO BID 11/02/21 11/02/21 Unknown History solution levothyroxine 75 mcg tablet 75 mcg PO DAILY 11/02/21 11/02/21 11/02/21 History (Synthroid) linagliptin 5 mg tablet (Tradjenta) 5 mg PO DAILY 11/02/21 11/02/21 11/02/21 History montelukast 10 mg tablet 10 mg PO BEDTIME 11/02/21 11/02/21 11/01/21 History (Singulair) pantoprazole 40 mg tablet,delayed 40 mg PO DAILY 11/02/21 11/02/21 11/02/21 History release (Protonix) rifaximin 550 mg tablet 550 mg PO BID 11/02/21 11/02/21 11/02/21 History spironolactone 50 mg tablet 50 mg PO DAILY 11/02/21 11/02/21 11/02/21 History Physical Exam Vital Signs and Narrative: Vital Signs: Last Vital Signs Temp 97.5 F 11/02/21 19:02 Pulse 93 11/02/21 19:02 Resp 17 11/02/21 19:02 BP 147/60 H 11/02/21 19:02 Pulse Ox 96 11/02/21 19:02 BMI result Body Mass Index 32.7 Gen: Appears be in no acute distress; HEENT: NCAT, Moist mucosa. Pulmonary: Crackles present at the bases. Breathing comfortably on room air. CVS: Normal S1-S2 Abdomen: BS+, Soft, Nontender Extremities: Warm well perfused Neuro: Drowsy; response to verbal commands; follows simple commands; able to m ove all extremities. Flapping tremor present. Results Labs CBC and Chem 7: 11/02/21 19:45 11/02/21 19:45 Labs: Laboratory Results - last 24 hr 11/02/21 11/02/21 11/02/21 19:42 19:45 19:45 MCV 89.5 MCH 30.8 MCHC 34.5 RDW 14.0 Plt Count 137 L MPV 11.7 Immature Gran % (Auto) 0.4 Neut % (Auto) 58.9 Lymph % (Auto) 17.6 L [place] % (Auto) 18.4 H Eos % (Auto) 3.9 Baso % (Auto) 0.8 Lymph # (Auto) 0.9 L [place] # (Auto) 0.9 Eos # (Auto) 0.2 Baso # (Auto) 0.0 Abs Immat Gran (auto) 0.02 Absolute Neuts (auto) 2.9 Absolute Nucleated RBC 0.000 Nucleated RBC % (auto) 0.0 PT INR VBG pH 7.48 H VBG pCO2 27 VBG pO2 142 VBG HCO3 20 L VBG O2 Saturation 99.0 VBG Base Excess -1.9 Anion Gap 15 Estim Creat Clear Calc 17.3 Estimated GFR 17 Random Glucose 345 H Lactic Acid Calcium 9.4 Magnesium Total Bilirubin Direct Bilirubin AST ALT Alkaline Phosphatase Ammonia Troponin I High Sens B-Natriuretic Peptide Total Protein Albumin Lipase TSH Urine Color Urine Appearance Urine pH Ur Specific [place] Urine Protein Urine Glucose (UA) Urine Ketones Urine Blood Urine Nitrite Ur Leukocyte Esterase Urine RBC Urine WBC Ur Squamous Epith Cells Ur Renal Epithelial Cell Urine Bacteria Urine Mucus Ethyl Alcohol Acetone, Qual COVID-19 (BEN) COVID-19 Clin Com 11/02/21 11/02/21 11/02/21 19:45 19:45 19:45 MCV MCH MCHC RDW Plt Count MPV Immature Gran % (Auto) Neut % (Auto) Lymph % (Auto) [place] % (Auto) Eos % (Auto) Baso % (Auto) Lymph # (Auto) [place] # (Auto) Eos # (Auto) Baso # (Auto) Abs Immat Gran (auto) Absolute Neuts (auto) Absolute Nucleated RBC Nucleated RBC % (auto) PT INR VBG pH VBG pCO2 VBG pO2 VBG HCO3 VBG O2 Saturation VBG Base Excess Anion Gap Estim Creat Clear Calc Estimated GFR Random Glucose Lactic Acid Calcium Magnesium 2.5 Total Bilirubin 1.3 H Direct Bilirubin 0.6 H AST 44 H ALT 28 Alkaline Phosphatase 138 H Ammonia Troponin I High Sens 36.9 H B-Natriuretic Peptide Total Protein 7.6 Albumin 3.4 L Lipase 178 H TSH 2.08 Urine Color Urine Appearance Urine pH Ur Specific [place] Urine Protein Urine Glucose (UA) Urine Ketones Urine Blood Urine Nitrite Ur Leukocyte Esterase Urine RBC Urine WBC Ur Squamous Epith Cells Ur Renal Epithelial Cell Urine Bacteria Urine Mucus Ethyl Alcohol Acetone, Qual COVID-19 (BEN) Negative COVID-19 Clin Com See Note 11/02/21 11/02/21 11/02/21 19:45 19:45 19:45 MCV MCH MCHC RDW Plt Count MPV Immature Gran % (Auto) Neut % (Auto) Lymph % (Auto) [place] % (Auto) Eos % (Auto) Baso % (Auto) Lymph # (Auto) [place] # (Auto) Eos # (Auto) Baso # (Auto) Abs Immat Gran (auto) Absolute Neuts (auto) Absolute Nucleated RBC Nucleated RBC % (auto) PT 16.2 H INR 1.4 H VBG pH VBG pCO2 VBG pO2 VBG HCO3 VBG O2 Saturation VBG Base Excess Anion Gap Estim Creat Clear Calc Estimated GFR Random Glucose Lactic Acid 2.6 H* Calcium Magnesium Total Bilirubin Direct Bilirubin AST ALT Alkaline Phosphatase Ammonia Troponin I High Sens B-Natriuretic Peptide 276 H Total Protein Albumin Lipase TSH Urine Color Urine Appearance Urine pH Ur Specific [place] Urine Protein Urine Glucose (UA) Urine Ketones Urine Blood Urine Nitrite Ur Leukocyte Esterase Urine RBC Urine WBC Ur Squamous Epith Cells Ur Renal Epithelial Cell Urine Bacteria Urine Mucus Ethyl Alcohol Acetone, Qual COVID-19 (BEN) COVID-19 Clin Com 11/02/21 11/02/21 11/02/21 19:45 19:58 20:00 MCV MCH MCHC RDW Plt Count MPV Immature Gran % (Auto) Neut % (Auto) Lymph % (Auto) [place] % (Auto) Eos % (Auto) Baso % (Auto) Lymph # (Auto) [place] # (Auto) Eos # (Auto) Baso # (Auto) Abs Immat Gran (auto) Absolute Neuts (auto) Absolute Nucleated RBC Nucleated RBC % (auto) PT INR VBG pH VBG pCO2 VBG pO2 VBG HCO3 VBG O2 Saturation VBG Base Excess Anion Gap Estim Creat Clear Calc Estimated GFR Random Glucose Lactic Acid Calcium Magnesium Total Bilirubin Direct Bilirubin AST ALT Alkaline Phosphatase Ammonia 137 H Troponin I High Sens B-Natriuretic Peptide Total Protein Albumin Lipase TSH Urine Color Urine Appearance Urine pH Ur Specific [place] Urine Protein Urine Glucose (UA) Urine Ketones Urine Blood Urine Nitrite Ur Leukocyte Esterase Urine RBC Urine WBC Ur Squamous Epith Cells Ur Renal Epithelial Cell Urine Bacteria Urine Mucus Ethyl Alcohol < 10 Acetone, Qual Negative COVID-19 (BEN) COVID-19 Clin Com 11/02/21 21:06 MCV MCH MCHC RDW Plt Count MPV Immature Gran % (Auto) Neut % (Auto) Lymph % (Auto) [place] % (Auto) Eos % (Auto) Baso % (Auto) Lymph # (Auto) [place] # (Auto) Eos # (Auto) Baso # (Auto) Abs Immat Gran (auto) Absolute Neuts (auto) Absolute Nucleated RBC Nucleated RBC % (auto) PT INR VBG pH VBG pCO2 VBG pO2 VBG HCO3 VBG O2 Saturation VBG Base Excess Anion Gap Estim Creat Clear Calc Estimated GFR Random Glucose Lactic Acid Calcium Magnesium Total Bilirubin Direct Bilirubin AST ALT Alkaline Phosphatase Ammonia Troponin I High Sens B-Natriuretic Peptide Total Protein Albumin Lipase TSH Urine Color YELLOW Urine Appearance CLEAR Urine pH 6.0 Ur Specific [place] 1.020 Urine Protein 2+ H Urine Glucose (UA) NEG Urine Ketones NEG Urine Blood NEG Urine Nitrite NEG Ur Leukocyte Esterase NEG Urine RBC 0-2 Urine WBC 0-2 Ur Squamous Epith Cells 3+ Ur Renal Epithelial Cell 1+ Urine Bacteria TRACE Urine Mucus TRACE Ethyl Alcohol Acetone, Qual COVID-19 (BEN) COVID-19 Clin Com Imaging Radiologist's Impressions: Impressions Chest X-Ray 11/02/21 19:50 IMPRESSION: Interstitial and pulmonary vascular prominence with patchy left basilar opacities. Findings can be seen in the setting of pulmonary edema. Alternatively, an infectious or inflammatory process could be considered in the appropriate clinical setting. Head CT 11/02/21 20:43 IMPRESSION: No acute intracranial pathology. Assessment and Plan 76-year-old female with a past medical history of hypertension, hyperlipidemia, diabetes, COPD, LIUDMILA-noncompliant with CPAP, CHF, liver cirrhosis,? AFib on Eliquis presented to the hospital today with a chief com plaint of altered mental status. Noted to have flapping tremor, elevated ammonia level; concern for hepatic encephalopathy. Admitted for further management. Hepatic encephalopathy: Patient currently easily arousable. Noted to have a ammonia level elevated to 137. Continue lactulose and rifaximin. Goal bowel movements 2-3 per day. Gastroenterology consult Supportive care Patient currently protecting airways okay. Will continue to monitor. Chest x-ray showed no evidence of pneumonia. Urinalysis negative History of liver cirrhosis: MELD score 21 Likely secondary to the prior history of heavy alcohol use. No mention of variceal status for ascites Gastroenterology consult/follow-up. CT abdomen pending Patient on spironolactone at home-will hold for now MARJORIE on CKD: Patient's creatinine on presentation was 2.7. Avoid nephrotoxins. Patient has prior baseline creatinine was 1.7 in 2017. Will continue to monitor. Renal consult. History of question AFib: Currently normal sinus. Likely paroxysmal AFib. Patient on Eliquis. Will continue for now. History of CHF: Patient noted of congestion chest x-ray. 1+ pitting edema. No prior echocardiogram available-will obtain an echocardiogram. Patient is only on Aldactone at home. Will hold for now. History of COPD: Stable. Nebulizers p.r.n.. Supplemental oxygen p.r.n. History of LIUDMILA: Patient was on CPAP in the past. Reports it is broken. Pulmonology follow-up. DVT prophylaxis: Patient on Eliquis Code status: Full code Quality Stroke Does the patient have a stroke diagnosis?: No VTE Prior VTE?: No VTE Risk Level:: Medical - moderate - high VTE Device Contraindication: Treatment Not Indicated VTE Drug Contraindication: N/A - Med Ordered
[2021-11-02 22:24] LABS: ~Lactic Acid-LAB USE ONLY 2.2 mmol/L (0.5-2.0)
[2021-11-02] MEDS: Lactulose 20 GM/30 ML SOLUTION 30 GM PO (22:47)
[2021-11-02] MEDS: Insulin Regular, Human 100 UNIT/ML 3 ML VIAL 10 UNIT IVPUSH (22:47)
--- NOTE | 2021-11-02 23:11 | MHC.CM.PN ---
CM met with patient and daughter/HCP Lindsay Nunezueroa ([phone]) with Gynecology Teacher, as Pt is Indian speaking. IMM reviewed with HCP and signed per protocol 11/02/2021@2250. Copy given to HCP and one to Medical Records. HCP on file not dated. HCP reviewed, completed and signed per protocol. HCP Lindsay Wilhelm #1 and #2 Moody Wilhelm ([phone]). Copies given and uploaded into [facility] and [facility] [employer]. Pt is fully vaccinted and boosted with Pfizer. Pt arrived from [place] on 11/01/21. Has Medicare of [place]. Referral sent to Financial Services at daughter's request for assistance with completion of application for [employer]. Given flyer. Contact card for CM given. Pt does not have a PCP. Daughter is requesting [facility]. Handout given with primary care contact information. Daughter may need assistance with F/U appointment with [facility]. Pt lives with daughter. Uses a walker and cane. Has no services at this time. D/C plan is to return home with daughter. VNA services dependent on establishment with PCP. Family to provide transportation home. CM to follow for d/c needs.
[2021-11-03] VITALS (7 sets, daily range): BP systolic 126–161; BP diastolic 47–67; PULSE 85–103; RESP 12–23; TEMP 36.6–36.8; O2SAT 95–98
[2021-11-03 00:04] LABS: Reflex Lactate? 2 Y
[2021-11-03 07:26] LABS: MANUAL DIFF FLAG NO
[2021-11-03 07:40] LABS: Basophils Percent Auto 0.5 % (0-2); Eosinophils Absolute Auto 0.1 X10*3/uL (0.0-0.4); Eosinophils Percent Auto 1.4 % (0-4); Hematocrit 25.8 % (37.0-47.0); Hemoglobin 8.8 g/dl (12.0-16.0); Imm Gran Abs Auto 0.01 X10*3/uL (0.00-0.03); Imm Gran Pct Auto 0.2 % (0.0-0.4); Lymphocytes Absolute Auto 0.8 X10*3/uL (1.2-4.9); Lymphocytes Percent Auto 15.2 % (20-40); Mean Corpuscular HGB Conc 34.1 g/dl (31.0-35.0); Mean Corpuscular Hemoglobin 30.7 pg (27.0-33.0); Mean Corpuscular Volume 89.9 fL (80.0-98.0); Monocytes Absolute Auto 0.8 X10*3/uL (0.1-1.2); Neutrophils Absolute Auto 3.7 x10*3/uL (2.0-8.3); Neutrophils Percent Auto 67.7 % (45-73); Platelet Count 129 X10*3/uL (160-400); Red Blood Count 2.87 X10*6/uL (4.20-5.50); Red Cell Distribution Width 14.1 % (11.0-16.0); White Blood Count 5.5 X10*3/uL (4.8-10.8)
[2021-11-03 07:58] LABS: Anion Gap 14 (12-20); Blood Urea Nitrogen 44 mg/dL (9-16); Calcium 9.5 mg/dL (8.4-10.2); Carbon Dioxide 23 mmol/L (22-29); Chloride 107 mmol/L (96-108); Creatinine Clr Calc Pharmacy 18.9; Estimated Glomerular Filt Rate 18; Glucose Random 224 mg/dL (60-115); Potassium 3.5 mmol/L (3.3-5.1); Sodium 140 mmol/L (135-145)
--- NOTE | 2021-11-03 10:08 | PC.NURSE ---
Patient sleeping was not able to assess mental status. Attempted to give thyroid and pantoprazole spit them out. Night nurse reported she was awake all night and had just fallen asleep when we came on at 645a. POC 173 at 1010a. Will attempt to give medications when she wakes up a little more. will continue to monitor.
[2021-11-03 10:12] LABS: Glucose, Whole Blood 173 mg/dL (60-115)
[2021-11-03] MEDS: 0.9 % Sodium Chloride Flush 3 ML SYRINGE IVFLUSH ×2 (10:12→18:36)
--- NOTE | 2021-11-03 10:48 | HO.PM.IMPN ---
Subjective Subjective Date of Service: 11/04/21 Interval History: Seen in f/u for acute encephalopathy d/t hepatic encephalopathy, she remains unresponsive Review of Systems Review of Systems: Yes Unobtainable due to mental status Physical Exam Vital Signs: Vital Signs: Last Vital Signs Temp 97.9 F 11/03/21 05:42 Pulse 91 11/03/21 07:51 Resp 16 11/03/21 07:51 BP 135/52 L 11/03/21 07:51 Pulse Ox 97 11/03/21 07:51 BMI result Body Mass Index 32.7 General: somonlent, difficult to arouse Resp: CTA bilateral CVS: S1,S2,RRR GI: +BS, NT, no distention Skin: No rash Neuro: motor grossly intact Psych: appropriate affect Objective Data Active Medications Albuterol/Ipratropium (Albuterol/Iprat 2.5/0.5mg 3 Ml Ampul.Neb) 3 ml INHALE RQ4H PRN PRN Reason: Shortness of Breath/Wheezing Apixaban (Apixaban 2.5 Mg Tablet) 2.5 mg PO BID [facility] Cyanocobalamin (Cyanocobalamin (Vitamin B-12) 1,000 Mcg Tablet) 1,000 mcg PO DAILY [facility] Dextrose (Dextrose 50 % 25 Gm/50 Ml Vial) 25 gm IVPUSH Q15M PRN; Protocol PRN Reason: per Hypoglycemia Standing Ord. Glucose (Glucose Gel 15 Gm Gel..Gram.) 15 gm PO Q15M PRN; Protocol PRN Reason: per Hypoglycemia Standing Ord. Insulin Human Lispro (Insulin Lispro 100 Unit/Ml 3 Ml Vial) 0 unit SUBCUT QIDACHS [facility]; Protocol Last Admin: 11/03/21 10:11 Dose: Not Given Documented by: OKSANA Non-Admin Reason: NPO Comments: poc 173 Isosorbide Dinitrate (Isosorbide Dinitrate 10 Mg Tablet) 10 mg PO BID [facility]; Protocol Lactulose (Lactulose 20 Gm/30 Ml Solution) 20 gm PO TID [facility] Levothyroxine Sodium (Levothyroxine Sodium 75 Mcg Tablet) 75 mcg PO DAILY@0630 [facility] Last Admin: 11/03/21 07:20 Dose: Not Given Documented by: [place] Non-Admin Reason: Patient Refused Melatonin (Melatonin 3 Mg Tablet) 6 mg PO BEDTIME PRN PRN Reason: Insomnia Montelukast Sodium (Montelukast Sodium 10 Mg Tablet) 10 mg PO BEDTIME [facility] Omeprazole (Omeprazole 20 Mg Capsule.Dr) 20 mg PO DAILY@0630 [facility] Last Admin: 11/03/21 07:20 Dose: Not Given Documented by: [place]NA Non-Admin Reason: Patient Refused Pharmacy Consult (Consult Rx Perform Med Rec) 1 each MISCELLANE ONCE PRN PRN Reason: Consult order Rifaximin (Rifaximin 550 Mg Tablet) 550 mg PO BID [facility] Senna (Sennosides 8.6 Mg Tablet) 17.2 mg PO BEDTIME PRN PRN Reason: Constipation Sodium Chloride (0.9 % Sodium Chloride Flush 3 Ml Syringe) 3 ml IVFLUSH QSHIFT [facility] Last Admin: 11/03/21 10:12 Dose: 3 ml Documented by: OKSANA Labs CBC & Chem 7: 11/03/21 07:14 11/04/21 11:25 Labs: Laboratory Results - last 24 hr 11/02/21 11/02/21 11/02/21 19:42 19:45 19:45 MCV 89.5 MCH 30.8 MCHC 34.5 RDW 14.0 Plt Count 137 L MPV 11.7 Immature Gran % (Auto) 0.4 Neut % (Auto) 58.9 Lymph % (Auto) 17.6 L [place] % (Auto) 18.4 H Eos % (Auto) 3.9 Baso % (Auto) 0.8 Lymph # (Auto) 0.9 L [place] # (Auto) 0.9 Eos # (Auto) 0.2 Baso # (Auto) 0.0 Abs Immat Gran (auto) 0.02 Absolute Neuts (auto) 2.9 Absolute Nucleated RBC 0.000 Nucleated RBC % (auto) 0.0 PT INR VBG pH 7.48 H VBG pCO2 27 VBG pO2 142 VBG HCO3 20 L VBG O2 Saturation 99.0 VBG Base Excess -1.9 Anion Gap 15 Estim Creat Clear Calc 17.3 Estimated GFR 17 POC Glucose Random Glucose 345 H Lactic Acid Lactic Acid F/U @ 2Hr Lactic Acid F/U @ 4Hr Calcium 9.4 Magnesium Total Bilirubin Direct Bilirubin AST ALT Alkaline Phosphatase Ammonia Troponin I High Sens B-Natriuretic Peptide Total Protein Albumin Lipase TSH Urine Color Urine Appearance Urine pH Ur Specific [place] Urine Protein Urine Glucose (UA) Urine Ketones Urine Blood Urine Nitrite Ur Leukocyte Esterase Urine RBC Urine WBC Ur Squamous Epith Cells Ur Renal Epithelial Cell Urine Bacteria Urine Mucus Ethyl Alcohol Acetone, Qual COVID-19 (BEN) COVID-19 [employer] Com 11/02/21 11/02/21 11/02/21 19:45 19:45 19:45 MCV MCH MCHC RDW Plt Count MPV Immature Gran % (Auto) Neut % (Auto) Lymph % (Auto) [place] % (Auto) Eos % (Auto) Baso % (Auto) Lymph # (Auto) [place] # (Auto) Eos # (Auto) Baso # (Auto) Abs Immat Gran (auto) Absolute Neuts (auto) Absolute Nucleated RBC Nucleated RBC % (auto) PT INR VBG pH VBG pCO2 VBG pO2 VBG HCO3 VBG O2 Saturation VBG Base Excess Anion Gap Estim Creat Clear Calc Estimated GFR POC Glucose Random Glucose Lactic Acid Lactic Acid F/U @ 2Hr Lactic Acid F/U @ 4Hr Calcium Magnesium 2.5 Total Bilirubin 1.3 H Direct Bilirubin 0.6 H AST 44 H ALT 28 Alkaline Phosphatase 138 H Ammonia Troponin I High Sens 36.9 H B-Natriuretic Peptide Total Protein 7.6 Albumin 3.4 L Lipase 178 H TSH 2.08 Urine Color Urine Appearance Urine pH Ur Specific [place] Urine Protein Urine Glucose (UA) Urine Ketones Urine Blood Urine Nitrite Ur Leukocyte Esterase Urine RBC Urine WBC Ur Squamous Epith Cells Ur Renal Epithelial Cell Urine Bacteria Urine Mucus Ethyl Alcohol Acetone, Qual COVID-19 (BEN) Negative COVID-19 Clin [facility] See Note 11/02/21 11/02/21 11/02/21 19:45 19:45 19:45 MCV MCH MCHC RDW Plt Count MPV Immature Gran % (Auto) Neut % (Auto) Lymph % (Auto) [place] % (Auto) Eos % (Auto) Baso % (Auto) Lymph # (Auto) [place] # (Auto) Eos # (Auto) Baso # (Auto) Abs Immat Gran (auto) Absolute Neuts (auto) Absolute Nucleated RBC Nucleated RBC % (auto) PT 16.2 H INR 1.4 H VBG pH VBG pCO2 VBG pO2 VBG HCO3 VBG O2 Saturation VBG Base Excess Anion Gap Estim Creat Clear Calc Estimated GFR POC Glucose Random Glucose Lactic Acid 2.6 H* Lactic Acid F/U @ 2Hr Lactic Acid F/U @ 4Hr Calcium Magnesium Total Bilirubin Direct Bilirubin AST ALT Alkaline Phosphatase Ammonia Troponin I High Sens B-Natriuretic Peptide 276 H Total Protein Albumin Lipase TSH Urine Color Urine Appearance Urine pH Ur Specific [place] Urine Protein Urine Glucose (UA) Urine Ketones Urine Blood Urine Nitrite Ur Leukocyte Esterase Urine RBC Urine WBC Ur Squamous Epith Cells Ur Renal Epithelial Cell Urine Bacteria Urine Mucus Ethyl Alcohol Acetone, Qual COVID-19 (BEN) COVID-19 [employer] 11/02/21 11/02/21 11/02/21 19:45 19:58 20:00 MCV MCH MCHC RDW Plt Count MPV Immature Gran % (Auto) Neut % (Auto) Lymph % (Auto) [place] % (Auto) Eos % (Auto) Baso % (Auto) Lymph # (Auto) [place] # (Auto) Eos # (Auto) Baso # (Auto) Abs Immat Gran (auto) Absolute Neuts (auto) Absolute Nucleated RBC Nucleated RBC % (auto) PT INR VBG pH VBG pCO2 VBG pO2 VBG HCO3 VBG O2 Saturation VBG Base Excess Anion Gap Estim Creat Clear Calc Estimated GFR POC Glucose Random Glucose Lactic Acid Lactic Acid F/U @ 2Hr Lactic Acid F/U @ 4Hr Calcium Magnesium Total Bilirubin Direct Bilirubin AST ALT Alkaline Phosphatase Ammonia 137 H Troponin I High Sens B-Natriuretic Peptide Total Protein Albumin Lipase TSH Urine Color Urine Appearance Urine pH Ur Specific [place] Urine Protein Urine Glucose (UA) Urine Ketones Urine Blood Urine Nitrite Ur Leukocyte Esterase Urine RBC Urine WBC Ur Squamous Epith Cells Ur Renal Epithelial Cell Urine Bacteria Urine Mucus Ethyl Alcohol < 10 Acetone, Qual Negative COVID-19 (BEN) COVID-19 [employer] 11/02/21 11/02/21 11/03/21 21:06 22:01 00:17 MCV MCH MCHC RDW Plt Count MPV Immature Gran % (Auto) Neut % (Auto) Lymph % (Auto) [place] % (Auto) Eos % (Auto) Baso % (Auto) Lymph # (Auto) [place] # (Auto) Eos # (Auto) Baso # (Auto) Abs Immat Gran (auto) Absolute Neuts (auto) Absolute Nucleated RBC Nucleated RBC % (auto) PT INR VBG pH VBG pCO2 VBG pO2 VBG HCO3 VBG O2 Saturation VBG Base Excess Anion Gap Estim Creat Clear Calc Estimated GFR POC Glucose Random Glucose Lactic Acid Lactic Acid F/U @ 2Hr 2.2 H* Lactic Acid F/U @ 4Hr 2.0 Calcium Magnesium Total Bilirubin Direct Bilirubin AST ALT Alkaline Phosphatase Ammonia Troponin I High Sens B-Natriuretic Peptide Total Protein Albumin Lipase TSH Urine Color YELLOW Urine Appearance CLEAR Urine pH 6.0 Ur Specific [place] 1.020 Urine Protein 2+ H Urine Glucose (UA) NEG Urine Ketones NEG Urine Blood NEG Urine Nitrite NEG Ur Leukocyte Esterase NEG Urine RBC 0-2 Urine WBC 0-2 Ur Squamous Epith Cells 3+ Ur Renal Epithelial Cell 1+ Urine Bacteria TRACE Urine Mucus TRACE Ethyl Alcohol Acetone, Qual COVID-19 (BEN) COVID-19 [employer] 11/03/21 11/03/21 11/03/21 07:14 07:14 10:09 MCV 89.9 MCH 30.7 MCHC 34.1 RDW 14.1 Plt Count 129 L MPV 12.0 Immature Gran % (Auto) 0.2 Neut % (Auto) 67.7 Lymph % (Auto) 15.2 L [place] % (Auto) 15.0 H Eos % (Auto) 1.4 Baso % (Auto) 0.5 Lymph # (Auto) 0.8 L [place] # (Auto) 0.8 Eos # (Auto) 0.1 Baso # (Auto) 0.0 Abs Immat Gran (auto) 0.01 Absolute Neuts (auto) 3.7 Absolute Nucleated RBC 0.000 Nucleated RBC % (auto) 0.0 PT INR VBG pH VBG pCO2 VBG pO2 VBG HCO3 VBG O2 Saturation VBG Base Excess Anion Gap 14 Estim Creat Clear Calc 18.9 Estimated GFR 18 POC Glucose 173 H Random Glucose 224 H Lactic Acid Lactic Acid F/U @ 2Hr Lactic Acid F/U @ 4Hr Calcium 9.5 Magnesium Total Bilirubin Direct Bilirubin AST ALT Alkaline Phosphatase Ammonia Troponin I High Sens B-Natriuretic Peptide Total Protein Albumin Lipase TSH Urine Color Urine Appearance Urine pH Ur Specific [place] Urine Protein Urine Glucose (UA) Urine Ketones Urine Blood Urine Nitrite Ur Leukocyte Esterase Urine RBC Urine WBC Ur Squamous Epith Cells Ur Renal Epithelial Cell Urine Bacteria Urine Mucus Ethyl Alcohol Acetone, Qual COVID-19 (BEN) COVID-19 [facility] Com Assessment and Plan (1) Alcoholic cirrhosis of liver: Status: Acute (2) Acute hepatic encephalopathy: Status: Acute (3) MARJORIE (acute kidney injury): Status: Acute Assessment and Plan: 76-year-old female with a past medical history of hypertension, hyperlipidemia, diabetes, COPD, LIUDMILA-noncompliant with CPAP, CHF, liver cirrhosis,? AFib on Eliquis presented to the hospital today with a chief complaint of altered mental status. Noted to have flapping tremor, elevated ammonia level; concern for hepatic encephalopathy. Admitted for further management. Hepatic encephalopathy: ammonia level was 137, increase Lactulose to 30 tid and follow clinically History of liver cirrhosis: MELD score 21 Likely secondary to the prior history of heavy alcohol use. No mention of variceal status for ascites Gastroenterology consult/follow-up. CT abdomen pending Patient on spironolactone at home-will hold for now MARJORIE on CKD: Patient's creatinine on presentation was 2.7. Avoid nephrotoxins. Patient has prior baseline creatinine was 1.7 in 2017. Will continue to monitor. Renal consult. History of question AFib: Currently normal sinus. Likely paroxysmal AFib. Patient on Eliquis. Will continue for now. History of CHF: Patient noted of congestion chest x-ray. 1+ pitting edema. No prior echocardiogram available-will obtain an echocardiogram. Patient is only on Aldactone at home. Will hold for now. History of COPD: Stable. Nebulizers p.r.n.. Supplemental oxygen p.r.n. History of LIUDMILA: Patient was on CPAP in the past. Reports it is broken. Pulmonology follow-up. Quality Stroke Does the patient have a stroke diagnosis?: No VTE Prior VTE?: No VTE Risk Level:: Medical - moderate - high VTE Device Contraindication: Treatment Not Indicated VTE Drug Contraindication: N/A - Med Ordered
[2021-11-03] MEDS: Lactulose 20 GM/30 ML SOLUTION PO (11:53)
[2021-11-03] MEDS: Isosorbide Dinitrate 10 MG TABLET PO (11:53)
[2021-11-03] MEDS: Apixaban 2.5 MG TABLET PO (11:53)
[2021-11-03] MEDS: Cyanocobalamin (Vitamin B-12) 1,000 MCG TABLET 1000 MCG PO (11:53)
--- NOTE | 2021-11-03 12:49 | PM.GICN ---
History of Present Illness Data of Consult Service Date: 11/03/21 Requesting physician: Arcenio Bynum Primary Care Provider: Unknown Physician HPI Reason for consult: Hepatic encephalopathy 76 YF with hypertension, hyperlipidemia, diabetes, COPD, LIUDMILA-noncompliant with CPAP, CHF, liver cirrhosis,?? AFib on Eliquis presented to [facility] on 11/02/21 with a change in his mental status.? History obtained from patient's daughter who was at the bedside. Pt was lethargic and confused and unable to provide a meaningful history. Per patient's daughter patient had been in the [place] since 2017 and landed on 11/01/21 to stay in [place].? Daughter reported that patient was noted to be generally weak, tired, limited energy to move around, noted to be dyspneic on exertion; She denied patient complaining of abdominal pain chest pain, fevers, urinary symptoms. Daughter noted that patient had weakness of both upper extremities and was unable to lift her arms to feed herself (hx of stroke in the past) Reports that patient has history of LIUDMILA and has not been using the CPAP for about 6 months Reports that she had liver cirrhosis and had elevated ammonia levels in the past and has been taking lactulose.? She was drinking heavily in the past and would pass out after drinking She quitted [facility] 2 yrs ago Per patient's daughter in [place] patient was taking Eliquis for AFib and Denied any history of blood clots. Daughter took the patient to [facility] and noted that she appeared confused and lethargic and brought pt to [facility]. Denies any falls or trauma. Pt is and has 4 children. 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 Daughter denies known FH of colon polyps. Patient's brother has DM and liver cancer (was an alcoholic). Review of all other systems is limited as the patient is confused. ER course:? For ER team patient noted to have drowsiness; lab showed elevated ammonia levels; chest x-ray showed mild conditions; urinalysis was pending; [place] was placed; on labs noted to have creatinine of 2.7; patient has prior and creatinine of 1.5 in 2017; admitted to the hospital for further management.? IMAGING STUDIES: 11/02/[address] SCAN SHOWED: Examination limited by lack of contrast and patient motion. Nodular appearance to the liver could be due to underlying cirrhosis. There is prominent splenic varicosities with a spontaneous spleno renal shunt suggested sequela of portal hypertension. I do not appreciate any significant splenomegaly with the spleen at upper normal limits in size no significant ascites. ? Stomach likely decompressed although gastritis could have a similar appearance. This could be clinically correlated. ? Chronic appearing changes otherwise as described. ? Review of Systems Review of Systems: Not obtainable due to altered mental status Constitutional: Constitutional: Reports headache(s) ENT: Reports headache(s) Neurologic: Reports confusion and Reports headache(s) Psychiatric: Psychiatric: Reports confusion [facility] Past Medical History Medical History (Updated 11/17/21 @ 10:41 by Noelle Delarosa RN) Alcoholic cirrhosis of liver Anemia Asthma Chronic diastolic CHF (congestive heart failure) CKD (chronic kidney disease) stage 4, GFR 15-29 ml/min CVA (cerebral vascular accident) Diabetes HCV (hepatitis C virus) Moderate pulmonary hypertension Paroxysmal atrial fibrillation Skin cancer Family History Family History Brother Liver cancer Social History Social History Household Members: Children Housing: House Do you presently have visiting nurse or other home services: No Unable to assess alcohol history related to: Unknown Alcohol intake: former Patient Tobacco Use Status: Never used Tobacco Advance Directives Date on File: 11/03/21 service: No Current occupational status: retired Meds Allergies Allergy/AdvReac Type Severity Reaction Status Date / Time milk [Milk] AdvReac Mild DIARRHEA Verified 11/03/21 05:24 Active Medications: Current Medications Albuterol/Ipratropium (Albuterol/Iprat 2.5/0.5mg 3 Ml Ampul.Neb) 3 ml INHALE RQ4H PRN PRN Reason: Shortness of Breath/Wheezing Apixaban (Apixaban 2.5 Mg Tablet) 2.5 mg PO BID [facility] Last Admin: 11/03/21 11:53 Dose: 2.5 mg Documented by: Cyanocobalamin (Cyanocobalamin (Vitamin B-12) 1,000 Mcg Tablet) 1,000 mcg PO DAILY [facility] Last Admin: 11/03/21 11:53 Dose: 1,000 mcg Documented by: Dextrose (Dextrose 50 % 25 Gm/50 Ml Vial) 25 gm IVPUSH Q15M PRN; Protocol PRN Reason: per Hypoglycemia Standing Ord. Glucose (Glucose Gel 15 Gm Gel..Gram.) 15 gm PO Q15M PRN; Protocol PRN Reason: per Hypoglycemia Standing Ord. Insulin Human Lispro (Insulin Lispro 100 Unit/Ml 3 Ml Vial) 0 unit SUBCUT QIDACHS [facility]; Protocol Last Admin: 11/03/21 10:11 Dose: Not Given Documented by: Isosorbide Dinitrate (Isosorbide Dinitrate 10 Mg Tablet) 10 mg PO BID [facility]; Protocol Last Admin: 11/03/21 11:53 Dose: 10 mg Documented by: Lactulose (Lactulose 20 Gm/30 Ml Solution) 20 gm PO TID [facility] Last Admin: 11/03/21 11:53 Dose: 20 gm Documented by: Levothyroxine Sodium (Levothyroxine Sodium 75 Mcg Tablet) 75 mcg PO DAILY@0630 [facility] Last Admin: 11/03/21 07:20 Dose: Not Given Documented by: Melatonin (Melatonin 3 Mg Tablet) 6 mg PO BEDTIME PRN PRN Reason: Insomnia Montelukast Sodium (Montelukast Sodium 10 Mg Tablet) 10 mg PO BEDTIME [facility] Omeprazole (Omeprazole 20 Mg Capsule.Dr) 20 mg PO DAILY@0630 [facility] Last Admin: 11/03/21 07:20 Dose: Not Given Documented by: Pharmacy Consult (Consult Rx Perform Med Rec) 1 each MISCELLANE ONCE PRN PRN Reason: Consult order Rifaximin (Rifaximin 550 Mg Tablet) 550 mg PO BID [facility] Last Admin: 11/03/21 11:57 Dose: Not Given Documented by: Senna (Sennosides 8.6 Mg Tablet) 17.2 mg PO BEDTIME PRN PRN Reason: Constipation Sodium Chloride (0.9 % Sodium Chloride Flush 3 Ml Syringe) 3 ml IVFLUSH QSHIFT [facility] Last Admin: 11/03/21 10:12 Dose: 3 ml Documented by: Home Medications Medication Instructions Recorded Confirmed Last Taken Type amlodipine 10 mg tablet (Norvasc) 10 mg PO DAILY 11/02/21 11/07/21 11/07/21 History apixaban 2.5 mg tablet (Eliquis) 2.5 mg PO BID 11/02/21 11/07/21 11/07/21 History cyanocobalamin (vitamin B-12) 1,000 mcg PO DAILY 11/02/21 11/07/21 11/07/21 History 1,000 mcg tablet (Vitamin B-12) ferrous fumarate 325 mg (106 mg 325 mg PO DAILY 11/02/21 11/07/21 11/07/21 History iron) tablet folic acid 1 mg tablet 1 mg PO DAILY 11/02/21 11/07/21 11/07/21 History hydralazine 50 mg tablet 50 mg PO TID 11/02/21 11/07/21 11/07/21 History insulin glargine 100 unit/mL (3 20 unit SUBCUT BEDTIME 11/02/21 11/07/21 11/06/21 History mL) subcutaneous pen (Lantus Solostar U-100 Insulin) insulin lispro 100 unit/mL 10 unit SUBCUT TIDWM 11/02/21 11/07/21 11/07/21 History subcutaneous cartridge (Humalog U-100 Insulin) isosorbide dinitrate 10 mg tablet 10 mg PO BID 11/02/21 11/07/21 11/07/21 History levothyroxine 75 mcg tablet 75 mcg PO DAILY 11/02/21 11/07/21 11/07/21 History (Synthroid) linagliptin 5 mg tablet (Tradjenta) 5 mg PO DAILY 11/02/21 11/07/21 11/07/21 History montelukast 10 mg tablet 10 mg PO BEDTIME 11/02/21 11/07/21 11/06/21 History (Singulair) pantoprazole 40 mg tablet,delayed 40 mg PO DAILY 11/02/21 11/07/21 11/07/21 History release (Protonix) rifaximin 550 mg tablet 550 mg PO BID 11/02/21 11/07/21 11/07/21 History spironolactone 50 mg tablet 50 mg PO DAILY 11/02/21 11/07/21 11/07/21 History ofloxacin QID 11/09/21 11/09/21 Unknown History timolol 1 BID 11/09/21 11/06/21 08:30 History Physical Exam Vital Signs: Vital Signs: Last Vital Signs Temp 97.9 F 11/03/21 05:42 Pulse 89 11/03/21 11:19 Resp 16 11/03/21 11:19 BP 144/56 H 11/03/21 11:19 Pulse Ox 95 11/03/21 11:19 BMI result Body Mass Index 32.7 Const: General: no acute distress, confusion, ill appearing and lethargic Nutritional Appearance: obese Orientation/consciousness: confusion and lethargic Limitations: No no limitations and language barrier HENMT: Head: Yes normal to inspection Ears: hearing grossly normal bilaterally Mouth: Normal oral and palatal mucosa present Eyes: Sclerae: sclerae normal Pupils: Equal, round and reactive pupils present Neck: Neck: Yes normal visual inspection Chest: Chest palpation & inspection: normal inspection of the chest Resp: Effort & Inspection: normal respiratory effort Auscultation: clear to auscultation bilaterally Cardio: Palpation: normal PMI Rate: regular rate Rhythm: regular rhythm Heart sounds: S1 normal heart sound present, S2 normal heart sound present and no murmurs GI: Palpation (GI): Soft to palpation, nontender and No hepatosplenomegaly present Auscultation: normal bowel sounds Rectal Exam - Female: deferred Skin: General skin exam: no rashes or lesions noted Neuro: General: gait normal, confusion and other (per daughter pt has been having difficulty lifting her upper arms ) Cranial nerves: Yes CN's II-XII intact bilaterally and Yes Equal, round and reactive pupils present Extrem: General: Yes venous stasis dermatitis (both lower extremities) Psych: Appearance: grossly normal Mental Status: mental status grossly normal Results Labs CBC & Chem 7: 11/03/21 07:14 11/05/21 13:19 Labs: Short CBC 11/02/21 11/03/21 Range/Units 19:45 07:14 WBC 4.9 5.5 (4.8-10.8) X10*3/uL Hgb 9.1 L 8.8 L (12.0-16.0) g/dl Hct 26.4 L 25.8 L (37.0-47.0) % Plt Count 137 L 129 L (160-400) X10*3/uL BMP 11/02/21 11/03/21 19:45 07:14 Sodium 137 140 Potassium 3.8 3.5 Chloride 103 107 Carbon Dioxide 23 23 BUN 50 H 44 H Creatinine 2.76 H 2.54 H Calcium 9.4 9.5 Liver Function 11/02/21 Range/Units 19:45 Total Bilirubin 1.3 H (0.0-1.0) mg/dL Direct Bilirubin 0.6 H (0.0-0.5) mg/dL AST 44 H (5-31) U/L ALT 28 (0-31) U/L Alkaline Phosphatase 138 H (39-117) U/L Albumin 3.4 L (3.5-5.0) g/dL Urine 11/02/21 Range/Units 21:06 Urine Color YELLOW Urine Appearance CLEAR Urine pH 6.0 (5.0-8.0) Ur Specific [place] 1.020 (1.005-1.025) Urine Protein 2+ H (NEG-TRACE) MG/DL Urine Glucose (UA) NEG (NEG) MG/DL Assessment and Plan (1) Alcoholic cirrhosis of liver: (2) Acute hepatic encephalopathy: Status: Resolved 76 YF with hypertension, hyperlipidemia, diabetes, COPD, LIUDMILA-noncompliant with CPAP, CHF, liver cirrhosis,?? AFib on Eliquis presented to [facility] ED on 11/02/21 with a change in his mental status due to hepatic encephalopathy possibly due to dehydration (elevated BUN and Cr). Labs showed anemia, thrombocytopenia, coagulopathy, mildly elevated LFTs and elevated ammonia levels. Abd CT scan showed nodular appearance to the liver due to cirrhosis and prominent splenic varicosities with a spontaneous spleno renal shunt suggested sequela of portal hypertension. Spleen at upper normal limits in size and no significant ascites. Per daughter, Pt's mental status has worsened since hospitalization. RECOMMENDATIONS: 1. Pass NG tube and give lactulose 30 ml every hour via NG tube until patient starts having BMs. 2. NG can be removed once patient's MS improves and she can take PO safely. 3. Hepatitis serologies - added to am labs 4. Pt needs to be referred to the GI clinic after discharge to establish care for FU of cirrhosis. 5. Out patient EGD can be scheduled to screen for varices. Procedures Date of Service Date of Service: 11/03/21
[2021-11-03 12:56] LABS: Ammonia 100 umol/L (13-55)
[2021-11-03 13:04] LABS: Anion Gap 12 (12-20); Blood Urea Nitrogen 42 mg/dL (9-16); Calcium 9.3 mg/dL (8.4-10.2); Carbon Dioxide 24 mmol/L (22-29); Chloride 109 mmol/L (96-108); Creatinine Clr Calc Pharmacy 19.6; Estimated Glomerular Filt Rate 19; Glucose Random 212 mg/dL (60-115); Potassium 3.5 mmol/L (3.3-5.1); Sodium 141 mmol/L (135-145)
[2021-11-03 14:49] LABS: Glucose, Whole Blood 171 mg/dL (60-115)
--- NOTE | 2021-11-03 18:28 | PC.NURSE ---
attempted to insert the ng tube, pt not tolerating the procedure at all, swinging and moving away from staff, dr burdick
[2021-11-03 18:49] LABS: Iron 37 mcg/dL (30-160); Percent Iron Saturation 11 % (15-50); Total Iron Binding Capacity 342 mcg/dL (228-428); Unsaturated Iron Binding 305 ug/dL
[2021-11-03 19:09] LABS: Ferritin 82 ng/mL (10-250)
[2021-11-03 19:12] LABS: Glucose, Whole Blood 160 mg/dL (60-115)
--- NOTE | 2021-11-03 21:07 | PC.NURSE ---
Assumed care of pt at 1900. Pt lethargic, sitter at bedside. Per day shift RN, lactulose not administered. NG attempt unsuccessful and daytime MD was made aware. This RN spoke w/ MD, plan to reattempt PO lactulose then to reattempt NG insertion w/ PRN sedation if PO administration unsuccessful.
--- NOTE | 2021-11-03 21:32 | PC.NURSE ---
Pt remains unable to take PO lactulose, agitated when woken for attempt at administration and spit medication out. notified
--- NOTE | 2021-11-03 21:34 | PM.EVENT ---
Event Note Date of Service: 11/04/21 Event Note: ammonia level remains high, not taking meds by mouth, on attempted to insert NGT very agitated and nearly pulled avila. Will try IM haldol to control agitation and insert NGT and if this doens't work then rectal lactulose which will require high amount of lactulose
[2021-11-03] MEDS: Haloperidol Lactate 5 MG/ML VIAL IM (21:56)
--- NOTE | 2021-11-03 22:32 | PC.NURSE ---
Re-attempted NG insertion w/ 5 staff members at bedside, pt unable to cooperate. XR attempted, tube does not seem to be in stomach, no gastric contents aspirated. Tube removed, unable to complete second attempt d/t pt agitation and AMS. notified
[2021-11-04] VITALS (8 sets, daily range): BP systolic 127–166; BP diastolic 52–87; PULSE 66–84; RESP 16–21; TEMP 36.1–38.1; O2SAT 95–98
[2021-11-04 02:07] LABS: Glucose, Whole Blood 177 mg/dL (60-115)
--- NOTE | 2021-11-04 06:05 | PC.NURSE ---
Lactulose given per rectum due to inability to tolerate NG tube insertion.
[2021-11-04 07:36] LABS: Glucose, Whole Blood 146 mg/dL (60-115)
--- NOTE | 2021-11-04 08:30 | CA_ITS ---
Transthoracic Echocardiogram Patient (Last, First, Middle): Michaela Simpson, Gender: Female Date of : 1945 Age: 76 Procedure Date: 11/04/2021 Procedure Type: Transthoracic Echocardiogram Location: ER Height: 157.48 cm Weight: 81.19 kg BSA: 1.82 m2 Heart Rate: bpm BP: 126 / 60 mmHg [employer]: Referring MD: Arcenio Bynum MD Symptoms: chf Study Quality: Fair ECG Rhythm: Sinus Conclusions: - The left ventricular systolic function is normal. The calculated ejection fraction is 60% by biplane method. - The basal inferior segment is hypokinetic. - Based on gradients, probable moderate mitral stenosis. But visually, the leaflets do open well. - There is mild aortic valve stenosis. - There is mild to moderate tricuspid valve regurgitation. - Moderate pulmonary hypertension is present. Findings Left Ventricle Normal left ventricular cavity size. There is mildly increased left ventricular wall thickness. The left ventricular systolic function is normal. The calculated ejection fraction is 60% by biplane method. E/E prime ratio is >15, consistent with elevated filling pressures. Evidence suggests grade I (mild) diastolic dysfunction. Wall Motion Rest Echo Findings The basal inferior segment is hypokinetic. Right Ventricle Normal right ventricular cavity size and systolic function. Atria The left atrium is severely dilated. The right atrium is mildly dilated. Aortic Valve The aortic valve was not well visualized. There is mild aortic valve stenosis. The peak aortic velocity is 2.88 m/s with a calculated peak gradient of 33 mmHg. The mean gradient is 18 mmHg. The aortic valve area is 1.86 cm2. There is no aortic valve regurgitation. Mitral Valve There is mild anterior mitral leaflet thickening. There is mild mitral annular calcification. There is mild mitral valve regurgitation. There is no mitral valve stenosis. Possibly rheumatic mitral involvement. Mean gradient across the mitral valve 7 mm Hg at 80/Min which could indicate moderate mitral stenosis. However, visually, the leaflets open well. Pulmonic Valve The pulmonic valve was not well visualized. Tricuspid Valve Normal tricuspid valve structure. There is mild to moderate tricuspid valve regurgitation. The right ventricular systolic pressure is 59 mmHg. Moderate pulmonary hypertension is present. Great Vessels The aortic annulus, sinuses of valsalva, and asc aorta are normal in size. Venous The inferior vena cava is mildly dilated and collapses greater than 50% with inspiration. Pericardium/Pleural There is no evidence of pericardial effusion. Prior Study Comparison Changes noted compared to prior study dated: 08/19/2014. See comments on valves; diastolic dysfunction not previously reported. Measurements 2D Linear Measurements IVSd: 1.22 0.6-0.9/0.6-1.0 cm LVIDd: 4.31 3.9-5.3/4.2-5.9 cm LVIDd Index: 2.37 2.4-3.2/2.2-3.1 cm/m2 LVIDs: 2.87 2.0-3.6 cm LVPWd: 1.22 0.7-1.1 cm Ao Root: 2.70 2.1-3.5 cm LA Diam: 4.00 2.7-3.8/3.0-4.0 cm LAIDs Index: 2.20 1.5-2.3 cm/m2 LV Mass: 236.58 67-162/88-224 g LV Mass Index: 129.99 43-95/49-115 g/m2 LVOT Diam: 2.10 3.0+(-)1.3 cm 2D Systolic Function EF 4C: 62.70 >55% EF 2C: 55.90 >55% EF BiP: 59.80 >55% Mitral Valve MV VTI: 0.62 MV Pk Jordy: 1.89 MV Mn Jordy: 1.29 MV Pk Grad: 14.00 MV Mn Grad: 7.00 MV Pk E: 1.60 MV PK A: 1.53 MV Decel Time: 265.00 E/A: 1.00 E'Lateral: 6.64 E'Medial: 5.11 E/E' Med: 31.30 E/E' Lat: 24.10 PHT: 78.00 MVA PHT: 2.82 MVA Continuity: 1.95 Decel [place]: 6.05 Aortic Valve AoV Pk Jordy: 2.88 AoV Mn Jordy: 2.00 AoV VTI: 0.65 AoV Pk Grad: 33.00 Aov Mn Grad: 18.00 LICHA Cont.VTI: 1.86 LVOT LVOT Pk Jordy: 1.53 LVOT Mn Jordy: 1.00 LVOT VTI: 0.35 LVOT Pk Grad: 9.00 LVOT Mn Grad: 5.00 LVOT Diam: 2.10 LVOT Area: 3.46 Diastolic Function MV Pk E: 1.60 MV Pk A: 1.53 E/A: 1.00 E'Medial: 5.11 E/E' Med: 31.30 E' Laterial: 6.64 E/E' Lat: 24.10 Right Ventricle TAPSE (mm): 26.00 TVS' Jordy: 19.00 Tricuspid Valve TR Pk Jordy: 3.45 TR Pk Grad: 48.00 RVSP: 59.00 Great Vessels Aorta Ao Root-2D: 2.70 2.0-3.7 cm Ao Asc: 3.10 2.1-3.4 cm Pulmonary Valve PV Pk Jordy: 1.43 Peak PV Grad: 8.00 Updated in Other Vendor System with Status of Final Jon Urbano MD electronically signed on 11/04/2021 5:00:26 PM with status of Final
--- NOTE | 2021-11-04 09:30 | PC.NURSE ---
pt seen by Dr. Kwok, pt no longer NPO, diet changed to regular diet. pt alert, oriented to self. pt asking for personal belongings, her daughter called and verified that she brought all her belongings home yesterday, pt aware. pt given po fluids tolerated well.
[2021-11-04 11:50] LABS: Ammonia 137 umol/L (13-55)
--- NOTE | 2021-11-04 11:59 | PC.NURSE ---
this web content writer attempted to give report, nurse unavailable. nurse to call back.
[2021-11-04 12:02] LABS: Anion Gap 8 (12-20); Blood Urea Nitrogen 33 mg/dL (9-16); Calcium 8.8 mg/dL (8.4-10.2); Carbon Dioxide 26 mmol/L (22-29); Chloride 110 mmol/L (96-108); Creatinine Clr Calc Pharmacy 26.4; Estimated Glomerular Filt Rate 27; Glucose Random 213 mg/dL (60-115); Potassium 3.4 mmol/L (3.3-5.1); Sodium 141 mmol/L (135-145)
--- NOTE | 2021-11-04 12:44 | PC.NURSE ---
report given to receiving nurse RAMIRO Uribe. pt will be transported to room 458 by dialysis registered nurse. pt currently has 1:1 staff at her bedside.
--- NOTE | 2021-11-04 15:27 | P.PNIM_ITS ---
Subjective Subjective Date of Service: 11/04/21 Interval History: f/u hepatic encephalopathy, she is more lucid, alert, talking and eating, ammonia level is still high however Review of Systems no fever no confusion Physical Exam Vital Signs: Vital Signs: Last Vital Signs Temp 100.6 F H 11/04/21 15:24 Pulse 66 11/04/21 15:24 Resp 20 11/04/21 15:24 BP 156/68 H 11/04/21 15:24 Pulse Ox 95 11/04/21 15:24 BMI result Body Mass Index 32.7 Const: Other: General: AO X 3, no acute distress Resp: CTA bilateral CVS: S1,S2,RRR GI: +BS, NT, no distention Skin: No rash Neuro: motor grossly intact Psych: appropriate affect Objective Data Active Medications Albuterol/Ipratropium (Albuterol/Iprat 2.5/0.5mg 3 Ml Ampul.Neb) 3 ml INHALE RQ4H PRN PRN Reason: Shortness of Breath/Wheezing Apixaban (Apixaban 2.5 Mg Tablet) 2.5 mg PO BID [facility] Last Admin: 11/03/21 11:53 Dose: 2.5 mg Documented by: OKSANA Cyanocobalamin (Cyanocobalamin (Vitamin B-12) 1,000 Mcg Tablet) 1,000 mcg PO DAILY [facility] Last Admin: 11/03/21 11:53 Dose: 1,000 mcg Documented by: OKSANA Dextrose (Dextrose 50 % 25 Gm/50 Ml Vial) 25 gm IVPUSH Q15M PRN; Protocol PRN Reason: per Hypoglycemia Standing Ord. Glucose (Glucose Gel 15 Gm Gel..Gram.) 15 gm PO Q15M PRN; Protocol PRN Reason: per Hypoglycemia Standing Ord. Insulin Human Lispro (Insulin Lispro 100 Unit/Ml 3 Ml Vial) 0 unit SUBCUT QIDACHS [facility]; Protocol Last Admin: 11/04/21 07:35 Dose: Not Given Documented by: ROBIN Non-Admin Reason: No Insulin Coverage Isosorbide Dinitrate (Isosorbide Dinitrate 10 Mg Tablet) 10 mg PO BID [facility]; Protocol Last Admin: 11/03/21 11:53 Dose: 10 mg Documented by: OKSANA Lactulose (Lactulose 20 Gm/30 Ml Solution) 30 gm PO TID [facility] Levothyroxine Sodium (Levothyroxine Sodium 75 Mcg Tablet) 75 mcg PO DAILY@30 [facility] Last Admin: 11/04/21 08:15 Dose: Not Given Documented by: ROBIN Non-Admin Reason: NPO Melatonin (Melatonin 3 Mg Tablet) 6 mg PO BEDTIME PRN PRN Reason: Insomnia Montelukast Sodium (Montelukast Sodium 10 Mg Tablet) 10 mg PO BEDTIME [facility] Omeprazole (Omeprazole 20 Mg Capsule.Dr) 20 mg PO DAILY@629 [facility] Last Admin: 11/04/21 08:15 Dose: Not Given Documented by: ROBIN Non-Admin Reason: NPO Pharmacy Consult (Consult Rx Perform Med Rec) 1 each MISCELLANE ONCE PRN PRN Reason: Consult order Rifaximin (Rifaximin 550 Mg Tablet) 550 mg PO BID [facility] Last Admin: 11/03/21 11:57 Dose: Not Given Documented by: OKSANA Non-Admin Reason: See Note Comments: pt unable to swallow Senna (Sennosides 8.6 Mg Tablet) 17.2 mg PO BEDTIME PRN PRN Reason: Constipation Sodium Chloride (0.9 % Sodium Chloride Flush 3 Ml Syringe) 3 ml IVFLUSH QSHIFT [facility] Last Admin: 11/03/21 18:36 Dose: 3 ml Documented by: ROSY Labs CBC & Chem 7: 11/03/21 07:14 11/04/21 11:25 Labs: Laboratory Results - last 24 hr 11/03/21 11/03/21 11/04/21 12:40 19:06 01:38 Anion Gap Estim Creat Clear Calc Estimated GFR POC Glucose 160 H 177 H Random Glucose Calcium Phosphorus 3.0 Iron 37 TIBC 342 % Saturation 11 L Unsat Iron Binding 305 Ferritin 82 Ammonia 11/04/21 11/04/21 11/04/21 07:31 11:25 11:25 Anion Gap 8 L Estim Creat Clear Calc 26.4 Estimated GFR 27 POC Glucose 146 H Random Glucose 213 H Calcium 8.8 Phosphorus Iron TIBC % Saturation Unsat Iron Binding Ferritin Ammonia 137 H Microbiology Microbiology Results: Microbiology 11/02/21 20:36 Blood Culture - Preliminary Blood - Venous No growth after 24 hours. 11/02/21 20:36 Blood Culture - Preliminary Blood - Venous No growth after 24 hours. Assessment and Plan (1) Alcoholic cirrhosis of liver: Status: Acute (2) Acute hepatic encephalopathy: Status: Acute (3) MARJORIE (acute kidney injury): Status: Acute Assessment and Plan: 76-year-old female with a past medical history of hypertension, hyperlipidemia, diabetes, COPD, LIUDMILA-noncompliant with CPAP, CHF, liver cirrhosis,? AFib on Eliquis presented to the hospital today with a chief complaint of altered mental status. Noted to have flapping tremor, elevated ammonia level; concern for hepatic encephalopathy. Admitted for further management. Hepatic encephalopathy: ammonia level was 137, changed lactulose from rectal to oral now that she awake History of liver cirrhosis: MELD score 21 Likely secondary to the prior history of heavy alcohol use. No mention of variceal status for ascites Gastroenterology consult/follow-up. CT abdomen pending Patient on spironolactone at home-will hold for now MARJORIE on CKD: Patient's creatinine on presentation was 2.7. Avoid nephrotoxins. Patient has prior baseline creatinine was 1.7 in 2017. Will continue to monitor. Renal consult. History of question AFib: Currently normal sinus. Likely paroxysmal AFib. Patient on Eliquis. Will continue for now. History of CHF: Patient noted of congestion chest x-ray. 1+ pitting edema. No prior echocardiogram available-will obtain an echocardiogram. Patient is only on Aldactone at home. Will hold for now. History of COPD: Stable. Nebulizers p.r.n.. Supplemental oxygen p.r.n. History of LIUDMILA: Patient was on CPAP in the past. Reports it is broken. Pulmonology follow-up. Quality Stroke Does the patient have a stroke diagnosis?: No VTE Prior VTE?: No VTE Risk Level:: Medical - moderate - high VTE Device Contraindication: Treatment Not Indicated VTE Drug Contraindication: N/A - Med Ordered
[2021-11-04 16:14] LABS: Glucose, Whole Blood 193 mg/dL (60-115)
--- NOTE | 2021-11-04 16:16 | CONS_ITS ---
DATE OF SERVICE: 11/03/2021 HISTORY OF PRESENT ILLNESS: I was asked to see patient to assist in evaluation management of patient's worsening renal function as reflected by BUN and creatinine of 44 and 2.5 for an admission and all we know is back in 2017, her creatinine is 1.7. I did get some information from the family member that stated that she has recently relocated from [place]. 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 In summary, patient is a 76-year-old female with a history of hypertension, hyperlipidemia, diabetes, COPD, obstructive sleep apnea, liver cirrhosis, AFib maintained on Eliquis, and chronic kidney disease severity, which we were not completely sure of, who was admitted to the hospital with altered mental status. Apparently, family noted that since she came from [place], she was doing okay until the past several days, where she became increasingly withdrawn and lethargic, and minimally responsive. Apparently, patient was in the hospital in [place], it is unclear exactly what transpired there, not too long ago. She is generally weak and tired with low energy levels at baseline. There is mention that in the past, she was a user of alcohol, but has not used alcohol for over a year if not longer. PAST MEDICAL HISTORY: As noted above, including congestive heart failure, diabetes, chronic kidney disease, liver cirrhosis, skin cancer, hyperlipidemia, COPD, obstructive sleep apnea, AFib maintained on Eliquis are all listed. MEDICATIONS: Her home medications are listed including Norvasc, Eliquis, hydralazine, insulin, lactulose, Synthroid, Protonix, rifaximin, and spironolactone are all listed. Her current medications are noted in the MAR. ALLERGIES: SHE HAS ALLERGIES TO MILK CAUSING DIARRHEA. OTHERWISE, NO LISTED ALLERGIES. SOCIAL HISTORY: As mentioned, she has a history of alcohol heavy use in the past, but not for least the past year. Nonsmoker. No illicit drug use. FAMILY HISTORY: Unobtainable. PHYSICAL EXAMINATION: GENERAL: Very lethargic, but opens eyes. Does not follow commands. VITAL SIGNS: Blood pressure 150/60, with a heart rate in the 80s, room air saturations are 96%. HEAD: Atraumatic and normocephalic. NECK: Supple. Mucous membranes are moist. LUNGS: Breath sounds bilaterally. CARDIAC: Regular rate and rhythm. ABDOMEN: Soft. EXTREMITIES: Minimal pedal edema. LABORATORY DATA: Sodium 141, potassium 3.5, chloride 109, bicarb 24, BUN 42, creatinine 2.44, blood sugar 212, calcium 9.3, ammonia level of 100, which is down from 137 when she was admitted. Hemoglobin 8.8, hematocrit 25.8, white blood cell count 5.5, platelet count 129. Blood gas; pH 7.48, pCO2 of 27, pO2 of 142. Urine showed 2+ protein by dipstick. She had a CAT scan without IV contrast showed the kidneys to be normal in size. No hydronephrosis. There is mention made of splenic varicosities with what appears to be a spontaneous splenorenal shunt suggestive of portal hypertension. There is also nodular liver suggestive of liver cirrhosis. IMPRESSION: 76-YEAR-OLD WITH MARKED RENAL DYSFUNCTION WITH A HISTORY OF CHRONIC KIDNEY DISEASE, LIVER CIRRHOSIS, DIABETES, ADMITTED WITH ALTERED MENTAL STATUS. 1. Advanced renal dysfunction. It is unclear what her baseline renal function is. We know back in 2017, she had stage 3 chronic kidney disease and is very likely she has progressive chronic kidney disease and is close to her baseline. Certainly, a new acute kidney injury insult is possible on top of chronic kidney disease. We will try and track down renal labs from [place]. 2. Chronic kidney disease. Her history is most consistent with a combination of diabetic nephropathy and perhaps hepatic-associated nephrosclerosis. She may have chronic hepatorenal syndrome type 2 with compromised renal perfusion chronically. 3. Other possibilities need to be ruled out with serologic and urine studies. 4. Altered mental status. This is likely to be from hepatic encephalopathy. She is on lactulose. Her ammonia level is coming down. Hopefully, her mental status will improve. 5. Anemia. Again, this is multifactorial. Needs further evaluation of the iron B12 deficiency. She may be an EPO candidate at some point. 6. Question of metabolic bone disease associated with chronic kidney disease. We will check an intact PTH and phosphorus level and treat accordingly. SUGGESTIONS: At this time include, continued treatment of her elevated ammonia level and what appears to be hepatic encephalopathy and track urine output and renal function. We will send urine studies and some serologies as we evaluate her renal dysfunction. Further evaluation depending on what these labs show. Avoid nephrotoxins. We will follow patient closely with the team. MD EVA Pineda/JANIE / [phone]
--- NOTE | 2021-11-04 18:42 | PM.PNNEP ---
Subjective Subjective Date of Service: 11/04/21 Principal diagnosis: MARJORIE, CKD Interval history: Seen and examined, evets noted More awake this am Physical Exam Vital Signs: Vital Signs: Last Vital Signs Temp 100.6 F H 11/04/21 15:24 Pulse 66 11/04/21 15:24 Resp 20 11/04/21 15:24 BP 156/68 H 11/04/21 15:24 Pulse Ox 95 11/04/21 15:24 BMI result Body Mass Index 32.7 Resp: Effort & Inspection: normal respiratory effort Cardio: Jugular venous distension: no JVD Objective Data Labs CBC & Chem 7: 11/03/21 07:14 11/04/21 11:25 Labs: Laboratory Results - last 24 hr 11/03/21 11/03/21 11/04/21 12:40 19:06 01:38 Sodium Potassium Chloride Carbon Dioxide Anion Gap BUN Creatinine Estim Creat Clear Calc Estimated GFR POC Glucose 160 H 177 H Random Glucose Calcium Phosphorus 3.0 Iron 37 TIBC 342 % Saturation 11 L Unsat Iron Binding 305 Ferritin 82 Ammonia 11/04/21 11/04/21 11/04/21 07:31 11:25 11:25 Sodium 141 Potassium 3.4 Chloride 110 H Carbon Dioxide 26 Anion Gap 8 L BUN 33 H Creatinine 1.82 H Estim Creat Clear Calc 26.4 Estimated GFR 27 POC Glucose 146 H Random Glucose 213 H Calcium 8.8 Phosphorus Iron TIBC % Saturation Unsat Iron Binding Ferritin Ammonia 137 H 11/04/21 16:11 Sodium Potassium Chloride Carbon Dioxide Anion Gap BUN Creatinine Estim Creat Clear Calc Estimated GFR POC Glucose 193 H Random Glucose Calcium Phosphorus Iron TIBC % Saturation Unsat Iron Binding Ferritin Ammonia Microbiology Microbiology Results: Microbiology 11/02/21 20:36 Blood - Venous Blood Culture - Preliminary No growth after 24 hours. 11/02/21 20:36 Blood - Venous Blood Culture - Preliminary No growth after 24 hours. Procedures Date of Service Date of Service: 11/04/21 Assessment & Plan Assessment and plan (1) MARJORIE (acute kidney injury): Status: Acute Assessment and Plan: 1. Non-Oliguric MARJORIE: resolving with IVF 2. CKD4: ques SCr close to bsl vs furhter improvement; suspect DN 3. Anemia 4. AMS: incr NH3 c/w HEncephalopathy 5. Cirrhosis REC: cont to track UOP/renal func; avoid Ntoxins Time Spent With Patient Time: Total time spent is greater than 50% in coordination of care (as documented) at patient's floor/unit and/or counseling patient: Progress Note: Quality Stroke Does the patient have a stroke diagnosis?: No
[2021-11-04 19:42] LABS: Glucose, Whole Blood 209 mg/dL (60-115)
[2021-11-04] MEDS: Apixaban 2.5 MG TABLET PO (19:48)
[2021-11-04] MEDS: Montelukast Sodium 10 MG TABLET PO (19:49)
[2021-11-04] MEDS: rifAXIMin 550 MG TABLET PO (19:49)
[2021-11-04] MEDS: Lactulose 20 GM/30 ML SOLUTION 30 GM PO (19:50)
[2021-11-04] MEDS: Isosorbide Dinitrate 10 MG TABLET PO (19:52)
[2021-11-04] MEDS: 0.9 % Sodium Chloride Flush 3 ML SYRINGE IVFLUSH (19:56)
[2021-11-04] MEDS: Insulin Lispro 100 UNIT/ML 3 ML VIAL SUBCUT (20:09)
[2021-11-05] VITALS (8 sets, daily range): BP systolic 128–154; BP diastolic 58–63; PULSE 68–74; RESP 17–20; TEMP 37.1–37.6; O2SAT 94–98
[2021-11-05] MEDS: Omeprazole 20 MG CAPSULE.DR PO (05:23)
[2021-11-05] MEDS: Levothyroxine Sodium 75 MCG TABLET PO (05:23)
--- NOTE | 2021-11-05 05:35 | PC.NURSE ---
Pt is more alert and oriented but still forgetfull during the shift, mostly off with time, tolerated po meds, slept good during the night, woke upo later with a sore throat, nofever noted, Dr. Bynum was paged for some prn tylenol.
[2021-11-05 07:02] LABS: HBc Num1 0.21 S/CO (0.00-0.79); HBsAGNum1 0.28 S/CO (0.00-0.99); Hepatitis B Core Antibody Nonreactive (Nonreactive); Hepatitis B Surface Antigen Negative (Negative); ~HepC Num1 2.52 S/CO (0.00-0.79); ~Hepatitis C Antibody Reactive (Nonreactive)
[2021-11-05 07:05] LABS: HBS Num1 1.04 mIU/mL (0-7.99); ~Hepatitis B Surface Antibody NONREACTIVE (Nonreactive)
[2021-11-05 07:20] LABS: Glucose, Whole Blood 123 mg/dL (60-115)
[2021-11-05] MEDS: Cyanocobalamin (Vitamin B-12) 1,000 MCG TABLET 1000 MCG PO (09:26)
[2021-11-05] MEDS: rifAXIMin 550 MG TABLET PO ×2 (09:26→20:39)
[2021-11-05] MEDS: Apixaban 2.5 MG TABLET PO ×2 (09:26→20:38)
[2021-11-05] MEDS: Lactulose 20 GM/30 ML SOLUTION 30 GM PO ×3 (09:28→20:39)
[2021-11-05] MEDS: Isosorbide Dinitrate 10 MG TABLET PO ×2 (09:30→20:38)
[2021-11-05] MEDS: 0.9 % Sodium Chloride Flush 3 ML SYRINGE IVFLUSH ×2 (09:30→14:41)
[2021-11-05 11:03] LABS: Glucose, Whole Blood 148 mg/dL (60-115)
--- NOTE | 2021-11-05 11:50 | P.PNIM_ITS ---
Subjective Subjective Date of Service: 11/05/21 Interval History: f/u on hepatic encephalopathy, renal failure Review of Systems less confused no fever Physical Exam Vital Signs: Vital Signs: Last Vital Signs Temp 99.2 F 11/05/21 11:08 Pulse 69 11/05/21 11:08 Resp 17 11/05/21 11:08 BP 128/60 11/05/21 11:08 Pulse Ox 96 11/05/21 11:08 BMI result Body Mass Index 32.7 Const: Other: General: AO X2, no acute distress Resp: CTA bilateral CVS: S1,S2,RRR GI: +BS, NT, no distention Skin: No rash Neuro: motor grossly intact Psych: appropriate affect Objective Data Active Medications Albuterol/Ipratropium (Albuterol/Iprat 2.5/0.5mg 3 Ml Ampul.Neb) 3 ml INHALE RQ4H PRN PRN Reason: Shortness of Breath/Wheezing Apixaban (Apixaban 2.5 Mg Tablet) 2.5 mg PO BID [facility] Last Admin: 11/05/21 09:26 Dose: 2.5 mg Documented by: SAVAGE Cyanocobalamin (Cyanocobalamin (Vitamin B-12) 1,000 Mcg Tablet) 1,000 mcg PO DAILY [facility] Last Admin: 11/05/21 09:26 Dose: 1,000 mcg Documented by: SAVAGE Dextrose (Dextrose 50 % 25 Gm/50 Ml Vial) 25 gm IVPUSH Q15M PRN; Protocol PRN Reason: per Hypoglycemia Standing Ord. Glucose (Glucose Gel 15 Gm Gel..Gram.) 15 gm PO Q15M PRN; Protocol PRN Reason: per Hypoglycemia Standing Ord. Insulin Human Lispro (Insulin Lispro 100 Unit/Ml 3 Ml Vial) 0 unit SUBCUT QIDACHS [facility]; Protocol Last Admin: 11/05/21 07:38 Dose: Not Given Documented by: ADINA Non-Admin Reason: No Insulin Coverage Isosorbide Dinitrate (Isosorbide Dinitrate 10 Mg Tablet) 10 mg PO BID [facility]; Protocol Last Admin: 11/05/21 09:30 Dose: 10 mg Documented by: SAVAGE Lactulose (Lactulose 20 Gm/30 Ml Solution) 30 gm PO TID [facility] Last Admin: 11/05/21 09:28 Dose: 30 gm Documented by: SAVAGE Levothyroxine Sodium (Levothyroxine Sodium 75 Mcg Tablet) 75 mcg PO DAILY@0630 [facility] Last Admin: 11/05/21 05:23 Dose: 75 mcg Documented by: FREDDY Melatonin (Melatonin 3 Mg Tablet) 6 mg PO BEDTIME PRN PRN Reason: Insomnia Montelukast Sodium (Montelukast Sodium 10 Mg Tablet) 10 mg PO BEDTIME [facility] Last Admin: 11/04/21 19:49 Dose: 10 mg Documented by: FREDDY Omeprazole (Omeprazole 20 Mg Capsule.) 20 mg PO DAILY@629 [facility] Last Admin: 11/05/21 05:23 Dose: 20 mg Documented by: FREDDY Pharmacy Consult (Consult Rx Perform Med Rec) 1 each MISCELLANE ONCE PRN PRN Reason: Consult order Rifaximin (Rifaximin 550 Mg Tablet) 550 mg PO BID [facility] Last Admin: 11/05/21 09:26 Dose: 550 mg Documented by: SAVAGE Senna (Sennosides 8.6 Mg Tablet) 17.2 mg PO BEDTIME PRN PRN Reason: Constipation Sodium Chloride (0.9 % Sodium Chloride Flush 3 Ml Syringe) 3 ml IVFLUSH QSHIFT [facility] Last Admin: 11/05/21 09:30 Dose: 3 ml Documented by: SAVAGE Labs CBC & Chem 7: 11/03/21 07:14 11/04/21 11:25 Labs: Laboratory Results - last 24 hr 11/04/21 11/04/21 11/04/21 11:25 11:25 16:11 Anion Gap 8 L Estim Creat Clear Calc 26.4 Estimated GFR 27 POC Glucose 193 H Random Glucose 213 H Calcium 8.8 Ammonia 137 H Hep Bs Antigen Hep Bs Antibody Hep B Core Total Ab Hepatitis C Ab (EIA) 11/04/21 11/05/21 11/05/21 19:36 06:19 07:03 Anion Gap Estim Creat Clear Calc Estimated GFR POC Glucose 209 H 123 H Random Glucose Calcium Ammonia Hep Bs Antigen Negative Hep Bs Antibody NONREACTIVE Hep B Core Total Ab Nonreactive Hepatitis C Ab (EIA) Reactive H 11/05/21 10:56 Anion Gap Estim Creat Clear Calc Estimated GFR POC Glucose 148 H Random Glucose Calcium Ammonia Hep Bs Antigen Hep Bs Antibody Hep B Core Total Ab Hepatitis C Ab (EIA) Microbiology Microbiology Results: Microbiology 11/02/21 20:36 Blood Culture - Preliminary Blood - Venous No growth after 48 hours. 11/02/21 20:36 Blood Culture - Preliminary Blood - Venous No growth after 48 hours. Assessment and Plan (1) Alcoholic cirrhosis of liver: Status: Acute (2) Acute hepatic encephalopathy: Status: Acute (3) MARJORIE (acute kidney injury): Status: Acute Assessment and Plan: 76-year-old female with a past medical history of hypertension, hyperlipidemia, diabetes, COPD, LIUDMILA-noncompliant with CPAP, CHF, liver cirrhosis,? AFib on Eliquis presented to the hospital today with a chief complaint of altered mental status. Noted to have flapping tremor, elevated ammonia level; concern for hepatic encephalopathy. Admitted for further management. Hepatic encephalopathy: ammonia level was 137, changed lactulose from rectal to oral now that she awake--For some reason did not get meds yesterday, continue Lctulose, recheck ammonia tomorrow History of liver cirrhosis: MELD score 21 Likely secondary to the prior history of heavy alcohol use. No mention of variceal status for ascites Gastroenterology consult/follow-up. CT abdomen pending Patient on spironolactone at home-will hold for now MARJORIE on CKD: Patient's creatinine on presentation was 2.7. Avoid nephrotoxins. Patient has prior baseline creatinine was 1.7 in 2017. Will continue to monitor. Renal consult. History of question AFib: Currently normal sinus. Likely paroxysmal AFib. Patient on Eliquis. Will continue for now. History of CHF: Patient noted of congestion chest x-ray. 1+ pitting edema. No prior echocardiogram available-will obtain an echocardiogram. Patient is only on Aldactone at home. Will hold for now. History of COPD: Stable. Nebulizers p.r.n.. Supplemental oxygen p.r.n. History of LIUDMILA: Patient was on CPAP in the past. Reports it is broken. Pulmonology follow-up. Positive hepatitis C serology, no prior history.. Will need viral load check this can be done on outpatient basis Quality Stroke Does the patient have a stroke diagnosis?: No VTE Prior VTE?: No VTE Risk Level:: Medical - moderate - high VTE Device Contraindication: Treatment Not Indicated VTE Drug Contraindication: N/A - Med Ordered
[2021-11-05 12:14] LABS: Ammonia 93 umol/L (13-55)
--- NOTE | 2021-11-05 13:07 | P.PNNP_ITS ---
Subjective Subjective Date of Service: 11/05/21 Principal diagnosis: MARJORIE, CKD Interval history: Seen and examined, events noted Physical Exam Vital Signs: Vital Signs: Last Vital Signs Temp 99.2 F 11/05/21 11:08 Pulse 69 11/05/21 11:08 Resp 17 11/05/21 11:08 BP 128/60 11/05/21 11:08 Pulse Ox 96 11/05/21 11:08 BMI result Body Mass Index 32.7 Resp: Effort & Inspection: normal respiratory effort Cardio: Jugular venous distension: no JVD Objective Data Labs CBC & Chem 7: 11/03/21 07:14 11/04/21 11:25 Labs: Laboratory Results - last 24 hr 11/04/21 11/04/21 11/05/21 16:11 19:36 06:19 POC Glucose 193 H 209 H Ammonia Hep Bs Antigen Negative Hep Bs Antibody NONREACTIVE Hep B Core Total Ab Nonreactive Hepatitis C Ab (EIA) Reactive H 11/05/21 11/05/21 11/05/21 07:03 10:56 11:58 POC Glucose 123 H 148 H Ammonia 93 H Hep Bs Antigen Hep Bs Antibody Hep B Core Total Ab Hepatitis C Ab (EIA) Microbiology Microbiology Results: Microbiology 11/02/21 20:36 Blood - Venous Blood Culture - Preliminary No growth after 48 hours. 11/02/21 20:36 Blood - Venous Blood Culture - Preliminary No growth after 48 hours. Procedures Date of Service Date of Service: 11/05/21 Assessment & Plan Assessment and plan (1) MARJORIE (acute kidney injury): Start date: 11/05/21 Start time: 13:09 Status: Acute Assessment and Plan: 1. Non-Oliguric MARJORIE: resolving with IVF 2. CKD4: ques SCr close to bsl vs furhter improvement; suspect underlying DN 3. Anemia 4. AMS: incr NH3 c/w HEncephalopathy 5. Cirrhosis REC: cont to track UOP/renal func; avoid Ntoxins; check Fe studies as may need IV FE and/or EPO Time Spent With Patient Time: Total time spent is greater than 50% in coordination of care (as documente d) at patient's floor/unit and/or counseling patient: Progress Note: Quality Stroke Does the patient have a stroke diagnosis?: No
[2021-11-05 13:58] LABS: Anion Gap 11 (12-20); Blood Urea Nitrogen 29 mg/dL (9-16); Calcium 8.5 mg/dL (8.4-10.2); Carbon Dioxide 23 mmol/L (22-29); Chloride 105 mmol/L (96-108); Creatinine Clr Calc Pharmacy 25.1; Estimated Glomerular Filt Rate 26; Glucose Random 216 mg/dL (60-115); Iron 46 mcg/dL (30-160); Percent Iron Saturation 15 % (15-50); Potassium 3.4 mmol/L (3.3-5.1); Sodium 136 mmol/L (135-145); Total Iron Binding Capacity 310 mcg/dL (228-428); Unsaturated Iron Binding 264 ug/dL
[2021-11-05 14:17] LABS: Ferritin 81 ng/mL (10-250)
[2021-11-05 16:25] LABS: Glucose, Whole Blood 215 mg/dL (60-115)
[2021-11-05] MEDS: Insulin Lispro 100 UNIT/ML 3 ML VIAL SUBCUT (16:42)
[2021-11-05 20:09] LABS: Glucose, Whole Blood 125 mg/dL (60-115)
[2021-11-05] MEDS: Montelukast Sodium 10 MG TABLET PO (20:38)
[2021-11-05] MEDS: Melatonin 3 MG TABLET 6 MG PO (20:38)
[2021-11-06] VITALS: BP 121/59; PULSE 70; RESP 16; TEMP 36.6; O2SAT 97
[2021-11-06] MEDS: 0.9 % Sodium Chloride Flush 3 ML SYRINGE IVFLUSH (00:15)
[2021-11-06 02:53] LABS: Creatinine Urine 79.45 mg/dL; Sodium Urine Random < 20.0 mmol/L; Total Protein Urine Random 52 mg/dL (<12)
[2021-11-06 04:00] VITALS: BP 126/62; PULSE 75; RESP 17; TEMP 36.6; O2SAT 97
[2021-11-06] MEDS: Levothyroxine Sodium 75 MCG TABLET PO (05:34)
[2021-11-06] MEDS: Omeprazole 20 MG CAPSULE.DR PO (05:34)
[2021-11-06 07:33] VITALS: BP 137/64; PULSE 64; RESP 18; TEMP 37.1; O2SAT 96
[2021-11-06 07:40] LABS: Glucose, Whole Blood 119 mg/dL (60-115)
[2021-11-06 08:12] LABS: Hepatitis A Antibody IgG REACTIVE (Nonreactive); ~Hepatitis A Antibody IgG 7.76 S/CO (0.00-0.99)
[2021-11-06 09:23] VITALS: BP 137/64; PULSE 64
[2021-11-06] MEDS: rifAXIMin 550 MG TABLET PO (09:23)
[2021-11-06] MEDS: Isosorbide Dinitrate 10 MG TABLET PO (09:23)
[2021-11-06] MEDS: Apixaban 2.5 MG TABLET PO (09:23)
[2021-11-06] MEDS: Cyanocobalamin (Vitamin B-12) 1,000 MCG TABLET 1000 MCG PO (09:23)
--- NOTE | 2021-11-06 09:50 | PM.PNNEP ---
Subjective Subjective Date of Service: 11/06/21 Principal diagnosis: MARJORIE, CKD Interval history: Seen and examined, events noted no complaints Physical Exam Vital Signs: Vital Signs: Last Vital Signs Temp 98.8 F 11/06/21 07:33 Pulse 64 11/06/21 09:23 Resp 18 11/06/21 07:33 BP 137/64 11/06/21 09:23 Pulse Ox 96 11/06/21 07:33 BMI result Body Mass Index 32.7 Const: General: no acute distress HENMT: Head: Yes normocephalic and Yes atraumatic Neck: Neck: Yes supple Resp: Auscultation: diminished lung sounds Cardio: Heart sounds: S1 normal heart sound present and S2 normal heart sound present GI: Palpation (GI): Soft to palpation and nontender Extrem: General: Yes edema Objective Data Labs CBC & Chem 7: 11/03/21 07:14 11/05/21 13:19 Labs: Laboratory Results - last 24 hr 11/05/21 11/05/21 11/05/21 06:19 10:56 11:58 Sodium Potassium Chloride Carbon Dioxide Anion Gap BUN Creatinine Estim Creat Clear Calc Estimated GFR POC Glucose 148 H Random Glucose Calcium Iron TIBC % Saturation Unsat Iron Binding Ferritin Ammonia 93 H U Random Total Protein Ur Random Sodium Urine Creatinine Urine Microalbumin Microalb/Creat Ratio Hepatitis A IgG Ab REACTIVE 11/05/21 11/05/21 11/05/21 12:01 13:19 16:22 Sodium 136 Potassium 3.4 Chloride 105 Carbon Dioxide 23 Anion Gap 11 L BUN 29 H Creatinine 1.91 H Estim Creat Clear Calc 25.1 Estimated GFR 26 POC Glucose 215 H Random Glucose 216 H Calcium 8.5 Iron 46 TIBC 310 % Saturation 15 Unsat Iron Binding 264 Ferritin 81 Ammonia Cancelled U Random Total Protein Ur Random Sodium Urine Creatinine Urine Microalbumin Microalb/Creat Ratio Hepatitis A IgG Ab 11/05/21 11/06/21 11/06/21 20:00 02:00 07:36 Sodium Potassium Chloride Carbon Dioxide Anion Gap BUN Creatinine Estim Creat Clear Calc Estimated GFR POC Glucose 125 H 119 H Random Glucose Calcium Iron TIBC % Saturation Unsat Iron Binding Ferritin Ammonia U Random Total Protein 52 H Ur Random Sodium < 20.0 Urine Creatinine 79.45 Urine Microalbumin 325.0 Microalb/Creat Ratio 409.0 Hepatitis A IgG Ab Microbiology Microbiology Results: Microbiology 11/02/21 20:36 Blood - Venous Blood Culture - Preliminary No growth after 48 hours. 11/02/21 20:36 Blood - Venous Blood Culture - Preliminary No growth after 48 hours. Procedures Date of Service Date of Service: 11/06/21 Assessment & Plan Assessment and plan (1) MARJORIE (acute kidney injury): Status: Acute (2) Alcoholic cirrhosis of liver: Status: Acute (3) Anemia: Status: Acute (4) CKD (chronic kidney disease) stage 4, GFR 15-29 ml/min: Status: Acute Assessment and Plan: MARJORIE due to renal hypoperfusion urine sodium < 20 history of ETOH cirrhosis known severe CKD anemia in the setting of liver disease and CKD serum immunofixaion pending REC no need for further IVF follow kidney function and electrolytes Time Spent With Patient Time: Total time spent is greater than 50% in coordination of care (as documented) at patient's floor/unit and/or counseling patient: Progress Note: Quality Stroke Does the patient have a stroke diagnosis?: No
[2021-11-06 10:06] LABS: Ammonia 94 umol/L (13-55)
--- NOTE | 2021-11-06 10:49 | P.DS_ITS ---
DS: Providers Provider Date of Service: 11/06/21 Date of admission: 11/02/21 21:47 Primary care physician: Unknown Physician Consults: 11/02/21 21:47 Consult to Gastroenterology Routine Consulting Provider: Haris Malik Reason for consultation: Hepatic encephalopathy Consult to Nephrology Routine Consulting Provider: Keith Redmond Reason for consultation: MARJORIE on CKD DS: Diagnosis Discharge Diagnosis (1) MARJORIE (acute kidney injury): Status: Resolved (2) Alcoholic cirrhosis of liver: (3) Anemia: Status: Acute (4) CKD (chronic kidney disease) stage 4, GFR 15-29 ml/min: Status: Acute DS: Summary Hospital Course Hospital Course: Patient with known liver cirrosis and CKD presented with confusion and found to have elevated ammonia level consitent with hepatic encephlopathy, also noted to have MARJORIE on CKD, there was no evidence of infection. She was treated wtih lactulose, initially with rectal lactulse as she was unable to take it by mouth at that time and once awake was given oral lactulose as is now lucid. Ammonia level has come down from 137 to 90, I will increase lactulse to 30 tid from 20 and to continue rifaximin. Hepatic serology shows positive Hep C antiboies and should have viral load check on outpatient basis and be considered for antiviral therapy. As for MARJORIE on CKD, her creatine has improved to 1.91from 2.76, baseline is not quite clear and should follow up with Nephrology. Se was hydratated for this. 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 New 4d Resp 18 11/06/21 07:33 BP 137/64 11/06/21 09:23 Pulse Ox 96 11/06/21 07:33 BMI result Body Mass Index 32.7 Const: Other: General: AO X 3, no acute distress Resp: CTA bilateral CVS: S1,S2,RRR GI: +BS, NT, no distention Skin: No rash Neuro: motor grossly intact Psych: appropriate affect DS: Data Data Completed and Pending Labs on day of discharge: Laboratory Results - last 24 hr 11/05/21 11/05/21 11/05/21 06:19 10:56 11:58 Sodium Potassium Chloride Carbon Dioxide Anion Gap BUN Creatinine Estim Creat Clear Calc Estimated GFR POC Glucose 148 H Random Glucose Calcium Iron TIBC % Saturation Unsat Iron Binding Ferritin Ammonia 93 H U Random Total Protein Ur Random Sodium Urine Creatinine Urine Microalbumin Microalb/Creat Ratio Hepatitis A IgG Ab REACTIVE 11/05/21 11/05/21 11/05/21 12:01 13:19 16:22 Sodium 136 Potassium 3.4 Chloride 105 Carbon Dioxide 23 Anion Gap 11 L BUN 29 H Creatinine 1.91 H Estim Creat Clear Calc 25.1 Estimated GFR 26 POC Glucose 215 H Random Glucose 216 H Calcium 8.5 Iron 46 TIBC 310 % Saturation 15 Unsat Iron Binding 264 Ferritin 81 Ammonia Cancelled U Random Total Protein Ur Random Sodium Urine Creatinine Urine Microalbumin Microalb/Creat Ratio Hepatitis A IgG Ab 11/05/21 11/06/21 11/06/21 20:00 02:00 07:36 Sodium Potassium Chloride Carbon Dioxide Anion Gap BUN Creatinine Estim Creat Clear Calc Estimated GFR POC Glucose 125 H 119 H Random Glucose Calcium Iron TIBC % Saturation Unsat Iron Binding Ferritin Ammonia U Random Total Protein 52 H Ur Random Sodium < 20.0 Urine Creatinine 79.45 Urine Microalbumin 325.0 Microalb/Creat Ratio 409.0 Hepatitis A IgG Ab 11/06/21 09:20 Sodium Potassium Chloride Carbon Dioxide Anion Gap BUN Creatinine Estim Creat Clear Calc Estimated GFR POC Glucose Random Glucose Calcium Iron TIBC % Saturation Unsat Iron Binding Ferritin Ammonia 94 H U Random Total Protein Ur Random Sodium Urine Creatinine Urine Microalbumin Microalb/Creat Ratio Hepatitis A IgG Ab Preliminary micro results at discharge 11/02/21 20:36 Blood Culture - Preliminary Blood - Venous No growth after 48 hours. 11/02/21 20:36 Blood Culture - Preliminary Blood - Venous No growth after 48 hours. Discharge Plan Discharge Anticipated Discharge Date/Time: 11/06/21 10:45 Patient Disposition: Home Health Service Discharge Diagnosis: Hepatic encephalopathy, and MARJORIE Referrals: Physician,Unknown J [Primary Care Provider] - 1 Week Discharge Medications: Discontinued lactulose 20 gram/30 mL Solution 20 g PO BID 0RF No Action pantoprazole [Protonix] 40 mg tablet,delayed release (DR/EC) 40 mg PO DAILY Qty: 30 1RF hydralazine 50 mg tablet 50 mg PO TID Qty: 90 0RF (DME) pen needle, diabetic [BD Ultra-Fine Mini Pen Needle] 31 gauge x 3/16 needle See Rx Instructions .Route Qty: 100 0RF Rx Instructions: As directed ofloxacin 0.3 % Drops 1 drp ophthalmic-Right QID 0RF levothyroxine [Synthroid] 75 mcg tablet 75 mcg PO DAILY@0600 0RF timolol 0.5 % drops 1 drp ophthalmic-Right BID 0RF Rx Instructions: right eye sodium bicarbonate 650 mg Tablet 650 mg PO BID Qty: 60 0RF rifaximin 550 mg tablet 550 mg PO BID Qty: 60 0RF lactulose 20 gram/30 mL solution 45 g PO TID Qty: 3000 0RF amlodipine [Norvasc] 10 mg tablet 10 mg PO DAILY Qty: 90 0RF Eliquis 2.5 mg tablet 2.5 mg PO BID Qty: 180 0RF cyanocobalamin (vitamin B-12) [Vitamin B-12] 1,000 mcg tablet 1,000 mcg PO DAILY Qty: 90 0RF ferrous fumarate 325 mg (106 mg iron) tablet 325 mg PO DAILY Qty: 90 0RF folic acid 1 mg tablet 1 mg PO DAILY Qty: 90 0RF Lantus Solostar U-100 Insulin 100 unit/mL (3 mL) insulin pen 20 unit SUBCUT BEDTIME Qty: 15 0RF Humalog U-100 Insulin 100 unit/mL cartridge 10 unit SUBCUT TIDWM Qty: 15 0RF isosorbide dinitrate 10 mg tablet 10 mg PO BID Qty: 180 0RF Tradjenta 5 mg tablet 5 mg PO DAILY Qty: 90 0RF montelukast [Singulair] 10 mg tablet 10 mg PO BEDTIME Qty: 90 0RF (DME) diabetic supplies, miscellan. Misc See Rx Instructions .Route Qty: 1 0RF Rx Instructions: glucose monitor (DME) diabetic supplies, miscellan. Misc See Rx Instructions .Route Qty: 25 0RF Rx Instructions: lancets for diabetic monitor furosemide [Lasix] 20 mg tablet 10 mg PO QAM 4 Days Qty: 2 0RF Discharge Orders: Discharge Order (Routine); Ordered 11/06/21 Ordered By: Troy Tillman Diet: advance to usual diet Activity on Discharge: As tolerated Stand Alone Forms: Patient Portal Discharge page Care Plan Goals: To prevent rehospitalization and encephalopath Health Concerns: Hepatic encephalopathy Plan of Treatment: Take Lacutlose at increased dose of 30 mg tid a day, follow up with your doctor in a week Assessment: as above Discharge Date/Time: 11/06/21 13:52
--- NOTE | 2021-11-06 10:54 | P.F2F_ITS ---
Service Date Service Date: 11/06/21 Reasons for Services Signs and symptoms assessed: Homebound due to weakness, confusion from hepatic encephalopathy, needs directing and supervision and therefore needs the assitance of another person Reason for [facility]: medication treatment and teach disease management Reason for physical therapy: home safety and mobility, therapeutic exercises and ADL training Homebound: Leaving the home is medically contraindicated at this time without the asist of a device and/or another person due th the listed conditions above and below. Certification: Based on the above findings, I certify that this patient is confined to the home and needs intermittent [facility] care, physical therapy and/or speech therapy, or continues to need occupational therapy. The patient is under my care, and I have initiated the establishment of the plan of care. The patient will be followed by a physician who will periodically review the plan of care.
[2021-11-06] MEDS: Lactulose 20 GM/30 ML SOLUTION 30 GM PO (10:55)
[2021-11-06 12:01] VITALS: BP 139/63; PULSE 69; RESP 18; TEMP 36.9; O2SAT 96
[2021-11-06 12:25] LABS: Glucose, Whole Blood 150 mg/dL (60-115)
--- NOTE | 2021-11-06 14:40 | MHC.CM.PN ---
PT IS CLEARED TO DC HOME TODAY WITH [facility] HOWEVER BECAUSE SHE DOES NOT HAVE A PCP SHE IS NOT ELIGIBLE FOR SKILLED HOME CARE. INFORMED PT WILL DC HOME WITH NO SERVICES. FAMILY TO TRANSPORT
[2021-11-09 21:41] LABS: Kappa Light Chain, Free Serum 124.8 mg/L (3.3-19.4); Kappa/Lambda Lt Ch Free Ratio 1.45 (0.26-1.65); Lambda Light Chain, Free Serum 86.2 mg/L (5.7-26.3)
[2021-11-09 21:47] LABS: IgA 502 mg/dL (70-320); IgG 1830 mg/dL (600-1540); IgM 56 mg/dL (50-300)
== END 2021-11-06 13:52 | disposition home health service (06) | DRG 442 ==
LOC: HO.ED 21:17 → HO.EDOVER 21:54 → HO.IMC 11-04 11:24
PROVIDERS: Internal Medicine Gastroenterology; Internal Medicine Nephrology; Admitting Provider Hospitalist; Emergency Provider Emergency Medicine; Visit Provider Internal Medicine
DX: K72.00 Acute and subacute hepatic failure without coma (principal); N17.9 Acute kidney failure, unspecified; I50.32 Chronic diastolic (congestive) heart failure; N18.4 Chronic kidney disease, stage 4 (severe); E78.5 Hyperlipidemia, unspecified; E11.65 Type 2 diabetes mellitus with hyperglycemia; I48.91 Unspecified atrial fibrillation; K70.30 Alcoholic cirrhosis of liver without ascites; E11.22 Type 2 diabetes mellitus with diabetic chronic kidney disease; D63.1 Anemia in chronic kidney disease; G47.33 Obstructive sleep apnea (adult) (pediatric); Z99.89 Dependence on other enabling machines and devices; Z91.19 Patient's noncompliance with other medical treatment and regimen; Z20.822 Contact with and (suspected) exposure to COVID-19; Z79.4 Long term (current) use of insulin; Z79.01 Long term (current) use of anticoagulants; Z79.899 Other long term (current) drug therapy
CPT/HCPCS: 36415; 70450; 71045; 74176; 80048; 80076; 81001; 82009; 82043; 82077; 82140; 82728; 82784; 82803; 82947; 83520; 83540; 83605; 83690; 83735; 83880; 84100; 84156; 84300; 84443; 84484; 85025; 85610; 86334; 86704; 86706; 86708; 86803; 87040; 87340; 87635; 93005; 93306; 96374; 97116; 97162; 99285

== ENCOUNTER 2021-11-07 13:49 | Inpatient (IN) | payer MEDICARE, MEDICAID, SELFPAY ==
--- NOTE | ~2021-11-07 | XR_ITS ---
EXAMINATION: XR BILATERAL HIPS WITH AP PELVIS CLINICAL INFORMATION: Status post fall. COMPARISON: CT abdomen/pelvis dated from 11/02/2021. TECHNIQUE: AP view of the pelvis and single views of each hip were obtained. FINDINGS: No evidence of acute fractures or malalignment. The femoral heads are well-seated in their respective acetabula. There are mild to moderate degenerative change in both hips with joint space narrowing, subcortical sclerosis and bony productive changes. Enthesophytes are identified in the right greater than left greater trochanters and ischial tuberosities. There are also mild degenerative changes in the pubic symphysis and sacroiliac joints. No unexpected radiopaque foreign bodies. XR/XR hip BI w [id number] IMPRESSION: No acute fractures or malalignment. 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
--- NOTE | ~2021-11-07 | XR_ITS ---
EXAMINATION: XR CHEST CLINICAL INFORMATION: Increased lethargy/confusion COMPARISON: November 03, 2021 TECHNIQUE: AP portable view of the chest was obtained. FINDINGS: There are again noted to be some bilateral regions of interstitial disease but with improvement from previous study. No pneumothorax or pleural effusion. Heart upper limits of normal in size. No evidence of pulmonary edema. There is calcific tendinitis of the left shoulder. XR/XR chest 1V IMPRESSION: Improving bilateral regions of parenchymal disease.
[2021-11-07 14:07] VITALS: BP 131/62; PULSE 72; O2SAT 99
[2021-11-07 14:08] VITALS: BP 136/59; PULSE 72; RESP 18; TEMP 36.6; O2SAT 97; BMI 18.5
--- NOTE | 2021-11-07 14:23 | PC.NURSE ---
dtr states that initially the pt was fine on discharge yesterday but has become more weak since 2099 last night, now id more confused than usual and needed to be fed by the dtr this morning, sleeping more than usual, ? ammonia high, JIMMY Carmona informed, dtr will attempt to come in to be w pt
--- NOTE | 2021-11-07 14:26 | ECG_ITS ---
Test Reason : confusion Blood Pressure : / mmHG Vent. Rate : 073 BPM Atrial Rate : 073 BPM P-R Int : 154 ms QRS Dur : 078 ms QT Int : 412 ms P-R-T Axes : 057 -02 037 degrees QTc Int : 453 ms Artifact in tracing Normal sinus rhythm Possibly Nonspecific ST and T wave abnormality Abnormal ECG When compared with ECG of 02-NOV-2021 19:03, No significant changes seen Referred By: Kristine Ledesma Electronically Signed By:YAZMIN SHINE
--- NOTE | 2021-11-07 14:31 | ED_ITS ---
HPI - General Adult General Chief complaint: General Medical Stated complaint: malaise Time Seen by Provider: 11/07/21 14:12 Source: patient Mode of arrival: EMS History of Present Illness HPI narrative: 76-year-old female with a PMHx of liver cirrhosis, CKD, discharged from our facility yesterday for elevated ammonia/hepatic encephalopathy, presenting to the ED today for increasing confusion/lethargy and urinary retention since 9:00 p.m. last night. 521 cc noted on bladder scan. Patient reports mild abdominal discomfort and headache although poor historian. Per daughter patient confused at baseline however worse than normal. Denies fever, nausea/vomiting, CP/SOB. Onset (ago): hour(s) Related Data Home Medications Medication Instructions Recorded Confirmed amlodipine 10 mg tablet (Norvasc) 10 mg PO DAILY 11/02/21 11/07/21 apixaban 2.5 mg tablet (Eliquis) 2.5 mg PO BID 11/02/21 11/07/21 cyanocobalamin (vitamin B-12) 1,000 mcg PO DAILY 11/02/21 11/07/21 1,000 mcg tablet (Vitamin B-12) ferrous fumarate 325 mg (106 mg 325 mg PO DAILY 11/02/21 11/07/21 iron) tablet folic acid 1 mg tablet 1 mg PO DAILY 11/02/21 11/07/21 hydralazine 50 mg tablet 50 mg PO TID 11/02/21 11/07/21 insulin glargine 100 unit/mL (3 20 unit SUBCUT BEDTIME 11/02/21 11/07/21 mL) subcutaneous pen (Lantus Solostar U-100 Insulin) insulin lispro 100 unit/mL 10 unit SUBCUT TIDWM 11/02/21 11/07/21 subcutaneous cartridge (Humalog U-100 Insulin) isosorbide dinitrate 10 mg tablet 10 mg PO BID 11/02/21 11/07/21 levothyroxine 75 mcg tablet 75 mcg PO DAILY 11/02/21 11/07/21 (Synthroid) linagliptin 5 mg tablet (Tradjenta) 5 mg PO DAILY 11/02/21 11/07/21 montelukast 10 mg tablet 10 mg PO BEDTIME 11/02/21 11/07/21 (Singulair) pantoprazole 40 mg tablet,delayed 40 mg PO DAILY 11/02/21 11/07/21 release (Protonix) rifaximin 550 mg tablet 550 mg PO BID 11/02/21 11/07/21 spironolactone 50 mg tablet 50 mg PO DAILY 11/02/21 11/07/21 Previous Rx's Medication Instructions Recorded lactulose 20 gram/30 mL oral 30 g (45 mL) PO BID #0 ml 11/06/21 solution Allergies Allergy/AdvReac Type Severity Reaction Status Date / Time milk [Milk] AdvReac Mild DIARRHEA Verified 11/03/21 05:24 Review of Systems Review of Systems: Constitutional: No Fever, No Chills,+ Fatigue, + [place] Cardiovascular: No Chest Pain, No SOB Respiratory: No Cough, No Dyspnea Gastrointestinal: No Nausea, No Vomiting, No Diarrhea, +Abdominal pain Genitourinary: + urinary retention Musculoskeletal: No joint pain, No Myalgias, No Joint Swelling Skin: No Skin Lesions, No rash Neuro: + Weakness, + confusion ROS limited secondary to patient's acute mental status Yes all other systems are reviewed and are negative [facility] Past Medical History Attestation statement: The following information was validated with the patient. Medical History (Updated 11/07/21 @ 17:05 by Francis Gomez MD) Congestive heart failure Diabetes HCV (hepatitis C virus) Kidney failure Liver damage Skin cancer Family History Family History (Updated 11/07/21 @ 17:06 by Francis Gomez MD) Brother Liver cancer Social History Social History Household Members: Family and Other Housing: House Do you presently have visiting nurse or other home services: No Unable to assess alcohol history related to: Unknown Alcohol intake: former Patient Tobacco Use Status: Never used Tobacco Advance Directives: Yes Advance Directives on File: Yes Advance Directives Date on File: 11/03/21 service: No Current occupational status: retired Physical Exam Vital Signs: Vital Signs: Last Vital Signs Temp 98 F 11/07/21 14:08 Pulse 72 11/07/21 14:08 Resp 18 11/07/21 14:08 BP 136/59 L 11/07/21 14:08 Pulse Ox 97 11/07/21 14:08 BMI result Body Mass Index 18.5 Const: Other: increasingly lethargic/confused. easily arousable General: lethargic Orientation/consciousness: patient oriented x3 and lethargic HENMT: Head: Yes normal to inspection and Yes atraumatic Ears: hearing grossly normal bilaterally General nose exam: Normal external nose present Face and sinus: Yes normal facial exam Eyes: General: appearance normal, both eyes and all related structures EOM: EOMs intact bilaterally Neck: Neck: Yes normal visual inspection and Yes no meningeal signs Resp: Effort & Inspection: normal respiratory effort Auscultation: clear to auscultation bilaterally, no rales, no rhonchi and no wheezes Cardio: Rate: regular rate Heart sounds: S1 normal heart sound present and S2 normal heart sound present GI: Inspection: Yes normal to inspection Palpation (GI): Soft to palpation, nontender, no guarding and not rigid : General: Yes no CVA tenderness Back/Spine/Pelvis: Back: no CVA tenderness Skin: Rashes: no rashes Wounds: no wounds Neuro: General: patient oriented x3, tone normal, moves all extremities and no meningeal signs Extrem: Other: +1 bilaterally LE pitting edema General: Yes normal to inspection Course Course Course Narrative: -[id number]--no leukocytosis. H&H stable. Acute on chronic CKD. Bilirubin/AST/ALT chronically elevated -ammonia 94 > rectal lactulose ordered. Troponin 139.9 > likely from renal dysfunction, patient already on Eliquis, will obtain 3 hour repeat. BNP 507 XR chest 1V IMPRESSION: Improving bilateral regions of parenchymal disease. ? > plan for admission Medical Decision Making MDM Narrative Medical decision making narrative: 76-year-old female with a PMHx of liver cirrhosis, CKD, discharged from our facility yesterday for elevated ammonia/hepatic encephalopathy, presenting to the ED today for increasing confusion/lethargy and urinary retention since 9:00 p.m. last night. On exam vital signs stable, NAD, lethargic however easily arousable. Bladder scan of 521 cc noted abdomen is soft/nontender. Concern for hepatic encephalopathy vs infectious/metabolic etiologies. Low concern for severe sepsis at this time Plan: EKG, labs, UA, CXR. No need to repeat head/abdomen/pelvis CT at this time as was obtained 5 days ago when patient presented for similar symptoms Medical Records Medical records reviewed: Yes I reviewed the patient's medical records. Lab Data Lab results reviewed: Yes I reviewed the patient's lab results. Result diagrams: 11/07/21 15:34 11/07/21 15:34 Labs: Lab Results 11/07/21 11/07/21 11/07/21 Range/Units 14:57 15:34 15:34 WBC 6.0 (4.8-10.8) X10*3/uL RBC 2.85 L (4.20-5.50) X10*6/uL Hgb 8.5 L (12.0-16.0) g/dl Hct 25.8 L (37.0-47.0) % MCV 90.5 (80.0-98.0) fL MCH 29.8 (27.0-33.0) pg MCHC 32.9 (31.0-35.0) g/dl RDW 13.5 (11.0-16.0) % Plt Count 142 L (160-400) X10*3/uL MPV 11.4 (9.4-12.3) fL Immature Gran % (Auto) 0.5 H (0.0-0.4) % Neut % (Auto) 57.3 (45-73) % Lymph % (Auto) 16.4 L (20-40) % [place] % (Auto) 20.7 H (2-11) % Eos % (Auto) 4.6 H (0-4) % Baso % (Auto) 0.5 (0-2) % Lymph # (Auto) 1.0 L (1.2-4.9) X10*3/uL [place] # (Auto) 1.3 H (0.1-1.2) X10*3/uL Eos # (Auto) 0.3 (0.0-0.4) X10*3/uL Baso # (Auto) 0.0 (0.0-0.2) X10*3/uL Abs Immat Gran (auto) 0.03 (0.00-0.03) X10*3/uL Absolute Neuts (auto) 3.5 (2.0-8.3) x10*3/uL Absolute Nucleated RBC 0.000 (0.0-0.012) X10*3/uL Nucleated RBC % (auto) 0.0 (0.0-0.2) /100WBC Smear Tech's Comments VERIFIED Sodium 140 (135-145) mmol/L Potassium 3.6 (3.3-5.1) mmol/L Chloride 109 H (96-108) mmol/L Carbon Dioxide 23 (22-29) mmol/L Anion Gap 12 (12-20) BUN 40 H (9-16) mg/dL Creatinine 2.06 H (0.5-1.4) mg/dL Estim Creat Clear Calc 18.2 Estimated GFR 23 Random Glucose 110 (60-115) mg/dL Lactic Acid (0.5-2.0) mmol/L Calcium 8.6 (8.4-10.2) mg/dL Magnesium 2.3 (1.6-2.6) mg/dL Total Bilirubin 1.1 H (0.0-1.0) mg/dL Direct Bilirubin 0.6 H (0.0-0.5) mg/dL AST 56 H (5-31) U/L ALT 38 H (0-31) U/L Alkaline Phosphatase 190 H D (39-117) U/L Ammonia (13-55) umol/L Troponin I High Sens (<3.5-17.0) ng/L B-Natriuretic Peptide (<100) pg/mL Total Protein 6.7 (6.5-8.0) g/dL Albumin 2.9 L (3.5-5.0) g/dL Lipase 73 (8-78) U/L Urine Color YELLOW Urine Appearance CLEAR Urine pH 6.0 (5.0-8.0) Ur Specific [place] <= 1.005 (1.005-1.025) Urine Protein 2+ H (NEG-TRACE) MG/DL Urine Glucose (UA) NEG (NEG) MG/DL Urine Ketones NEG (NEG) MG/DL Urine Blood NEG (NEG) Urine Nitrite NEG (NEG) Ur Leukocyte Esterase NEG (NEG) Urine RBC 1-4 (0) /HPF Urine WBC 0-2 (0-4) /HPF Ur Squamous Epith Cells TRACE /LPF Urine Bacteria NONE /LPF COVID-19 (BEN) (Negative) COVID-19 Clin Com 11/07/21 11/07/21 11/07/21 Range/Units 15:34 15:34 15:34 WBC (4.8-10.8) X10*3/uL RBC (4.20-5.50) X10*6/uL Hgb (12.0-16.0) g/dl Hct (37.0-47.0) % MCV (80.0-98.0) fL MCH (27.0-33.0) pg MCHC (31.0-35.0) g/dl RDW (11.0-16.0) % Plt Count (160-400) X10*3/uL MPV (9.4-12.3) fL Immature Gran % (Auto) (0.0-0.4) % Neut % (Auto) (45-73) % Lymph % (Auto) (20-40) % [place] % (Auto) (2-11) % Eos % (Auto) (0-4) % Baso % (Auto) (0-2) % Lymph # (Auto) (1.2-4.9) X10*3/uL [place] # (Auto) (0.1-1.2) X10*3/uL Eos # (Auto) (0.0-0.4) X10*3/uL Baso # (Auto) (0.0-0.2) X10*3/uL Abs Immat Gran (auto) (0.00-0.03) X10*3/uL Absolute Neuts (auto) (2.0-8.3) x10*3/uL Absolute Nucleated RBC (0.0-0.012) X10*3/uL Nucleated RBC % (auto) (0.0-0.2) /100WBC Smear Tech's Comments Sodium (135-145) mmol/L Potassium (3.3-5.1) mmol/L Chloride (96-108) mmol/L Carbon Dioxide (22-29) mmol/L Anion Gap (12-20) BUN (9-16) mg/dL Creatinine (0.5-1.4) mg/dL Estim Creat Clear Calc Estimated GFR Random Glucose (60-115) mg/dL Lactic Acid 1.1 (0.5-2.0) mmol/L Calcium (8.4-10.2) mg/dL Magnesium (1.6-2.6) mg/dL Total Bilirubin (0.0-1.0) mg/dL Direct Bilirubin (0.0-0.5) mg/dL AST (5-31) U/L ALT (0-31) U/L Alkaline Phosphatase (39-117) U/L Ammonia 94 H (13-55) umol/L Troponin I High Sens 139.9 H* D (<3.5-17.0) ng/L B-Natriuretic Peptide (<100) pg/mL Total Protein (6.5-8.0) g/dL Albumin (3.5-5.0) g/dL Lipase (8-78) U/L Urine Color Urine Appearance Urine pH (5.0-8.0) Ur Specific [place] (1.005-1.025) Urine Protein (NEG-TRACE) MG/DL Urine Glucose (UA) (NEG) MG/DL Urine Ketones (NEG) MG/DL Urine Blood (NEG) Urine Nitrite (NEG) Ur Leukocyte Esterase (NEG) Urine RBC (0) /HPF Urine WBC (0-4) /HPF Ur Squamous Epith Cells /LPF Urine Bacteria /LPF COVID-19 (BEN) (Negative) COVID-19 Clin Com 11/07/21 11/07/21 Range/Units 15:34 15:34 WBC (4.8-10.8) X10*3/uL RBC (4.20-5.50) X10*6/uL Hgb (12.0-16.0) g/dl Hct (37.0-47.0) % MCV (80.0-98.0) fL MCH (27.0-33.0) pg MCHC (31.0-35.0) g/dl RDW (11.0-16.0) % Plt Count (160-400) X10*3/uL MPV (9.4-12.3) fL Immature Gran % (Auto) (0.0-0.4) % Neut % (Auto) (45-73) % Lymph % (Auto) (20-40) % [place] % (Auto) (2-11) % Eos % (Auto) (0-4) % Baso % (Auto) (0-2) % Lymph # (Auto) (1.2-4.9) X10*3/uL [place] # (Auto) (0.1-1.2) X10*3/uL Eos # (Auto) (0.0-0.4) X10*3/uL Baso # (Auto) (0.0-0.2) X10*3/uL Abs Immat Gran (auto) (0.00-0.03) X10*3/uL Absolute Neuts (auto) (2.0-8.3) x10*3/uL Absolute Nucleated RBC (0.0-0.012) X10*3/uL Nucleated RBC % (auto) (0.0-0.2) /100WBC Smear Tech's Comments Sodium (135-145) mmol/L Potassium (3.3-5.1) mmol/L Chloride (96-108) mmol/L Carbon Dioxide (22-29) mmol/L Anion Gap (12-20) BUN (9-16) mg/dL Creatinine (0.5-1.4) mg/dL Estim Creat Clear Calc Estimated GFR Random Glucose (60-115) mg/dL Lactic Acid (0.5-2.0) mmol/L Calcium (8.4-10.2) mg/dL Magnesium (1.6-2.6) mg/dL Total Bilirubin (0.0-1.0) mg/dL Direct Bilirubin (0.0-0.5) mg/dL AST (5-31) U/L ALT (0-31) U/L Alkaline Phosphatase (39-117) U/L Ammonia (13-55) umol/L Troponin I High Sens (<3.5-17.0) ng/L B-Natriuretic Peptide 507 H (<100) pg/mL Total Protein (6.5-8.0) g/dL Albumin (3.5-5.0) g/dL Lipase (8-78) U/L Urine Color Urine Appearance Urine pH (5.0-8.0) Ur Specific [place] (1.005-1.025) Urine Protein (NEG-TRACE) MG/DL Urine Glucose (UA) (NEG) MG/DL Urine Ketones (NEG) MG/DL Urine Blood (NEG) Urine Nitrite (NEG) Ur Leukocyte Esterase (NEG) Urine RBC (0) /HPF Urine WBC (0-4) /HPF Ur Squamous Epith Cells /LPF Urine Bacteria /LPF COVID-19 (BEN) Negative (Negative) COVID-19 Clin Com See Note ECG Data Attestation: I personally reviewed and interpreted this ECG as follows: Interpretation: EKG normal sinus rhythm at a rate of 73. QTC 453. No STEMI. AK interval 154. Artifact present Critical Care Time Critical Care Time Critical Care Time: Yes Total Critical Care Time: 36 Attestation: I have personally provided critical care time exclusive of time spent on separately billable procedures. Time includes review of lab data, radiology results, discussion with consultants, and monitoring for potential decompensation. Intervention performed as documented. Discharge Plan Discharge Clinical Impression: Acute hepatic encephalopathy, Acute kidney injury superimposed on CKD, Acute urinary retention Patient Disposition: Admitted As Inpatient
--- NOTE | 2021-11-07 14:55 | PHA.MEDREC ---
Pharmacy Consult ? Medication Reconciliation Pharmacy has completed the medication reconciliation. Per daughter, patient did not take lactulose today
[2021-11-07 15:06] LABS: Appearance Urine CLEAR; Color Urine YELLOW; Glucose Urine UA NEG (NEG); Leukocyte Esterase Urine NEG (NEG); Nitrite Urine NEG (NEG); Specific Gravity - Urine <= 1.005 (1.005-1.025); UACC Culture Trigger NO; Urine Blood NEG (NEG); Urine Ketones NEG (NEG); Urine Protein 2+ MG/DL (NEG-TRACE)
[2021-11-07 15:47] LABS: Basophils Percent Auto 0.5 % (0-2); Eosinophils Absolute Auto 0.3 X10*3/uL (0.0-0.4); Eosinophils Percent Auto 4.6 % (0-4); Hematocrit 25.8 % (37.0-47.0); Hemoglobin 8.5 g/dl (12.0-16.0); Imm Gran Abs Auto 0.03 X10*3/uL (0.00-0.03); Imm Gran Pct Auto 0.5 % (0.0-0.4); Lymphocytes Percent Auto 16.4 % (20-40); MANUAL DIFF FLAG SCAN; Mean Corpuscular HGB Conc 32.9 g/dl (31.0-35.0); Mean Corpuscular Hemoglobin 29.8 pg (27.0-33.0); Mean Corpuscular Volume 90.5 fL (80.0-98.0); Mean Platelet Volume 11.4 fL (9.4-12.3); Monocytes Absolute Auto 1.3 X10*3/uL (0.1-1.2); Monocytes Percent Auto 20.7 % (2-11); Neutrophils Absolute Auto 3.5 x10*3/uL (2.0-8.3); Neutrophils Percent Auto 57.3 % (45-73); Platelet Count 142 X10*3/uL (160-400); Red Blood Count 2.85 X10*6/uL (4.20-5.50); Red Cell Distribution Width 13.5 % (11.0-16.0); SCAN SMEAR FLAG 1
[2021-11-07 15:48] LABS: Squamous Epithelial Cell Urine TRACE /LPF; WBC Urine 0-2 /HPF (0-4)
[2021-11-07 15:56] LABS: Ammonia 94 umol/L (13-55)
[2021-11-07 16:00] LABS: Lactic Acid 1.1 mmol/L (0.5-2.0)
[2021-11-07 16:06] LABS: COVID-19 Test Negative (Negative)
[2021-11-07 16:08] LABS: B Type Natriuretic Peptide 507 pg/mL (<100)
[2021-11-07 16:14] LABS: Troponin-I High Sensitivity 139.9 ng/L (<3.5-17.0)
[2021-11-07 16:16] LABS: Alanine Aminotransferase 38 U/L (0-31); Albumin Level 2.9 g/dL (3.5-5.0); Alkaline Phosphatase 190 U/L (39-117); Anion Gap 12 (12-20); Aspartate Amino Transferase 56 U/L (5-31); Bilirubin Direct 0.6 mg/dL (0.0-0.5); Bilirubin Total 1.1 mg/dL (0.0-1.0); Blood Urea Nitrogen 40 mg/dL (9-16); Calcium 8.6 mg/dL (8.4-10.2); Carbon Dioxide 23 mmol/L (22-29); Chloride 109 mmol/L (96-108); Creatinine Clr Calc Pharmacy 18.2; Estimated Glomerular Filt Rate 23; Glucose Random 110 mg/dL (60-115); Lipase 73 U/L (8-78); Magnesium 2.3 mg/dL (1.6-2.6); Potassium 3.6 mmol/L (3.3-5.1); Sodium 140 mmol/L (135-145); Total Protein 6.7 g/dL (6.5-8.0)
[2021-11-07 16:26] LABS: SLIDE REVIEW VERIFIED
--- NOTE | 2021-11-07 17:27 | P.HPHOSP_ITS ---
History of Present Illness Date of Service: 11/07/21 Chief Complaint: ams 76F with alcohol and HCV cirrhosis, discharged one day ptp after hospitalization for hepatic encephalopathy. at discharge patient was alert oriented times three and ambulating with assistance. daughter notes that patient did well that day un til the evening at which point she started to become more confused, delerius, hallucinating. she did not sleep very well. the next morning patient was even more confused, unable to feed herself as she was the day before. she also had not urinated since night before. so she decided to bring her back to ED. in ED patient noted to have about 500cc urinary retention. ammonia 94, same as on discharge. creatinine around 2, at baseline. avila was placed, patient now more calm, but not quite at baseline. Review of Systems Review of Systems: Constitutional: Denies fever, denies Chills Eyes: denies blurry vision ENT: denies sore throat CVS: denies chest pain Respiratory: Denies dyspnea GI: no abdominal pain : denies dysuria MSK: denies neck pain Skin: denies rash Neuro: denies specific motor weakness Psych: denies suicidal ideation Endocrine: denies heat/cold intolerance Hematologic: denies easy bleeding Allergy: denies hives [facility] Medical History (Updated 11/07/21 @ 17:33 by Francis Gomez MD) Alcoholic cirrhosis of liver Anemia Chronic diastolic CHF (congestive heart failure) CKD (chronic kidney disease) stage 4, GFR 15-29 ml/min CVA (cerebral vascular accident) Diabetes HCV (hepatitis C virus) Moderate pulmonary hypertension Paroxysmal atrial fibrillation Skin cancer Family History Brother Liver cancer Social History Household Members: Family and Other Housing: House Do you presently have visiting nurse or other home services: No Unable to assess alcohol history related to: Unknown Alcohol intake: former Patient Tobacco Use Status: Never used Tobacco Advance Directives: Yes Advance Directives on File: Yes Advance Directives Date on File: 11/03/21 service: No Current occupational status: retired Meds Allergies Allergy/AdvReac Type Severity Reaction Status Date / Time milk [Milk] AdvReac Mild DIARRHEA Verified 11/03/21 05:24 Active Medications: Current Medications Amlodipine Besylate (Amlodipine Besylate 10 Mg Tablet) 10 mg PO DAILY [facility]; Protocol Apixaban (Apixaban 2.5 Mg Tablet) 2.5 mg PO BID [facility] Cyanocobalamin (Cyanocobalamin (Vitamin B-12) 1,000 Mcg Tablet) 1,000 mcg PO DAILY [facility] Dextrose (Dextrose 50 % 25 Gm/50 Ml Vial) 25 gm IVPUSH Q15M PRN; Protocol PRN Reason: per Hypoglycemia Standing Ord. Ferrous Sulfate (Ferrous Sulfate 324 Mg Tablet.) 324 mg PO DAILY [facility] Folic Acid (Folic Acid 1 Mg Tablet) 1 mg PO DAILY [facility] Glucose (Glucose Gel 15 Gm Gel..Gram.) 15 gm PO Q15M PRN; Protocol PRN Reason: per Hypoglycemia Standing Ord. Hydralazine HCl (Hydralazine Hcl 50 Mg Tablet) 50 mg PO TID [facility]; Protocol Insulin Glargine (Insulin Glargine,Hum.Rec.Anlog 100 Unit/Ml 10 Ml Vial) 20 unit SUBCUT BEDTIME [facility] Insulin Human Lispro (Insulin Lispro 100 Unit/Ml 3 Ml Vial) 0 unit SUBCUT QIDACHS [facility]; Protocol Isosorbide Dinitrate (Isosorbide Dinitrate 10 Mg Tablet) 10 mg PO BID [facility]; Protocol Lactulose (Lactulose 20 Gm/30 Ml Solution) 30 gm PO BID [facility] Levothyroxine Sodium (Levothyroxine Sodium 75 Mcg Tablet) 75 mcg PO DAILY@0600 [facility] Montelukast Sodium (Montelukast Sodium 10 Mg Tablet) 10 mg PO BEDTIME [facility] Omeprazole (Omeprazole 20 Mg Capsule.) 20 mg PO DAILY@0630 [facility] Pharmacy Consult (Consult Rx Perform Med Rec) 1 each MISCELLANE ONCE PRN PRN Reason: Consult order Rifaximin (Rifaximin 550 Mg Tablet) 550 mg PO BID [facility] Sodium Chloride (0.9 % Sodium Chloride Flush 3 Ml Syringe) 3 ml IVFLUSH QSHIFT [facility] Spironolactone (Spironolactone 25 Mg Tablet) 50 mg PO DAILY [facility]; Protocol Home Medications Medication Instructions Recorded Confirmed Last Taken Type amlodipine 10 mg tablet (Norvasc) 10 mg PO DAILY 11/02/21 11/07/21 11/07/21 History apixaban 2.5 mg tablet (Eliquis) 2.5 mg PO BID 11/02/21 11/07/2111/07/21 History cyanocobalamin (vitamin B-12) 1,000 mcg PO DAILY 11/02/21 11/07/21 11/07/21 History 1,000 mcg tablet (Vitamin B-12) ferrous fumarate 325 mg (106 mg 325 mg PO DAILY 11/02/21 11/07/21 11/07/21 History iron) tablet folic acid 1 mg tablet 1 mg PO DAILY 11/02/21 11/07/21 11/07/21 History hydralazine 50 mg tablet 50 mg PO TID 11/02/21 11/07/21 11/07/21 History insulin glargine 100 unit/mL (3 20 unit SUBCUT BEDTIME 11/02/21 11/07/21 11/06/21 History mL) subcutaneous pen (Lantus Solostar U-100 Insulin) insulin lispro 100 unit/mL 10 unit SUBCUT TIDWM 11/02/21 11/07/21 11/07/21 History subcutaneous cartridge (Humalog U-100 Insulin) isosorbide dinitrate 10 mg tablet 10 mg PO BID 11/02/21 11/07/21 11/07/21 History levothyroxine 75 mcg tablet 75 mcg PO DAILY 11/02/21 11/07/21 11/07/21 History (Synthroid) linagliptin 5 mg tablet (Tradjenta) 5 mg PO DAILY 11/02/21 11/07/21 11/07/21 History montelukast 10 mg tablet 10 mg PO BEDTIME 11/02/21 11/07/21 11/06/21 History (Singulair) pantoprazole 40 mg tablet,delayed 40 mg PO DAILY 11/02/21 11/07/21 11/07/21 History release (Protonix) rifaximin 550 mg tablet 550 mg PO BID 11/02/21 11/07/21 11/07/21 History spironolactone 50 mg tablet 50 mg PO DAILY 11/02/21 11/07/21 11/07/21 History Physical Exam Vital Signs and Narrative: Vital Signs: Last Vital Signs Temp 98 F 11/07/21 14:08 Pulse 72 11/07/21 14:08 Resp 18 11/07/21 14:08 BP 136/59 L 11/07/21 14:08 Pulse Ox 97 11/07/21 14:08 BMI result Body Mass Index 18.5 General: no acute distress HEENT: atraumatic Neck: normal to visual inspection CVS: S1, S2, RRR Resp: CTA bilateral Chest: non tender GI: soft, non tender, non distended : no CVA tenderness Skin: no rashes Extremities: no edema Neuro: Oriented X3, grossly intact Psych: cooperative Results Labs CBC and Chem 7: 11/07/21 15:34 11/07/21 15:34 Labs: Laboratory Results - last 24 hr 11/07/21 11/07/21 11/07/21 14:57 15:34 15:34 MCV 90.5 MCH 29.8 MCHC 32.9 RDW 13.5 Plt Count 142 L MPV 11.4 Immature Gran % (Auto) 0.5 H Neut % (Auto) 57.3 Lymph % (Auto) 16.4 L [place] % (Auto) 20.7 H Eos % (Auto) 4.6 H Baso % (Auto) 0.5 Lymph # (Auto) 1.0 L [place] # (Auto) 1.3 H Eos # (Auto) 0.3 Baso # (Auto) 0.0 Abs Immat Gran (auto) 0.03 Absolute Neuts (auto) 3.5 Absolute Nucleated RBC 0.000 Nucleated RBC % (auto) 0.0 Smear Tech's Comments VERIFIED Anion Gap 12 Estim Creat Clear Calc 18.2 Estimated GFR 23 Random Glucose 110 Lactic Acid Calcium 8.6 Magnesium 2.3 Total Bilirubin 1.1 H Direct Bilirubin 0.6 H AST 56 H ALT 38 H Alkaline Phosphatase 190 H D Ammonia Troponin I High Sens B-Natriuretic Peptide Total Protein 6.7 Albumin 2.9 L Lipase 73 Urine Color YELLOW Urine Appearance CLEAR Urine pH 6.0 Ur Specific [place] <= 1.005 Urine Protein 2+ H Urine Glucose (UA) NEG Urine Ketones NEG Urine Blood NEG Urine Nitrite NEG Ur Leukocyte Esterase NEG Urine RBC 1-4 Urine WBC 0-2 Ur Squamous Epith Cells TRACE Urine Bacteria NONE COVID-19 ([facility]) COVID-19 Clin Com 11/07/21 11/07/21 11/07/21 15:34 15:34 15:34 MCV MCH MCHC RDW Plt Count MPV Immature Gran % (Auto) Neut % (Auto) Lymph % (Auto) [place] % (Auto) Eos % (Auto) Baso % (Auto) Lymph # (Auto) [place] # (Auto) Eos # (Auto) Baso # (Auto) Abs Immat Gran (auto) Absolute Neuts (auto) Absolute Nucleated RBC Nucleated RBC % (auto) Smear Tech's Comments Anion Gap Estim Creat Clear Calc Estimated GFR Random Glucose Lactic Acid 1.1 Calcium Magnesium Total Bilirubin Direct Bilirubin AST ALT Alkaline Phosphatase Ammonia 94 H Troponin I High Sens 139.9 H* D B-Natriuretic Peptide Total Protein Albumin Lipase Urine Color Urine Appearance Urine pH Ur Specific [place] Urine Protein Urine Glucose (UA) Urine Ketones Urine Blood Urine Nitrite Ur Leukocyte Esterase Urine RBC Urine WBC Ur Squamous Epith Cells Urine Bacteria COVID-19 (BEN) COVID-19 Clin Com 11/07/21 11/07/21 15:34 15:34 MCV MCH MCHC RDW Plt Count MPV Immature Gran % (Auto) Neut % (Auto) Lymph % (Auto) [place] % (Auto) Eos % (Auto) Baso % (Auto) Lymph # (Auto) [place] # (Auto) Eos # (Auto) Baso # (Auto) Abs Immat Gran (auto) Absolute Neuts (auto) Absolute Nucleated RBC Nucleated RBC % (auto) Smear Tech's Comments Anion Gap Estim Creat Clear Calc Estimated GFR Random Glucose Lactic Acid Calcium Magnesium Total Bilirubin Direct Bilirubin AST ALT Alkaline Phosphatase Ammonia Troponin I High Sens B-Natriuretic Peptide 507 H Total Protein Albumin Lipase Urine Color Urine Appearance Urine pH Ur Specific [place] Urine Protein Urine Glucose (UA) Urine Ketones Urine Blood Urine Nitrite Ur Leukocyte Esterase Urine RBC Urine WBC Ur Squamous Epith Cells Urine Bacteria COVID-19 ([facility]EN) Negative COVID-19 Clin Com See Note Imaging Radiologist's Impressions: Impressions Chest X-Ray 11/07/21 14:40 IMPRESSION: Improving bilateral regions of parenchymal disease. Assessment and Plan (1) Paroxysmal atrial fibrillation: Status: Acute (2) Alcoholic cirrhosis of liver: Status: Acute (3) Acute urinary retention: Status: Acute 76F presented with confusion acute metabolic encephalopathy due to: delerium from urinary retention vs recurrent hepatic encephalopathy (less likely, as she was clear yesterday, ammonia unchanged, and was compliant with lactulose, and significant improvement after avila) continue avila for now lactulose, rifaximin alcohol and hcv cirhosis continue aldactone htn amlodinpie, isodril, hydralazine chronic diastolic chf euvolemic dm basal bolus insulin, monitor poc CKD IV at baseline, monitor paroxysmal atrial fibrilaliton eliquis history of CVA reported mild residual defecits, unable to detect on exam continue eliquis debility pt eval hypothryoid synthroid Quality Stroke Does the patient have a stroke diagnosis?: No VTE Prior VTE?: No VTE Risk Level:: Medical - moderate - high VTE Device Contraindication: Treatment Not Indicated VTE Drug Contraindication: N/A - Med Ordered
[2021-11-07] MEDS: Lactulose 20 GM/30 ML SOLUTION 200 GM PR (18:33)
[2021-11-07 19:22] LABS: Troponin-I High Sensitivity 124.5 ng/L (<3.5-17.0)
[2021-11-07 20:22] VITALS: BP 110/39; PULSE 73; RESP 18; TEMP 37.1; O2SAT 95
[2021-11-07 20:38] LABS: Glucose, Whole Blood 98 mg/dL (60-115)
[2021-11-07 20:41] VITALS: BP 137/41; PULSE 71
[2021-11-07] MEDS: Isosorbide Dinitrate 10 MG TABLET PO (20:41)
[2021-11-07] MEDS: Lactulose 20 GM/30 ML SOLUTION 30 GM PO (20:41)
[2021-11-07] MEDS: Insulin Glargine,Hum.rec.anlog 100 UNIT/ML 10 ML VIAL 20 UNIT SUBCUT (20:41)
[2021-11-07 20:42] VITALS: BP 137/41; PULSE 71
[2021-11-07] MEDS: Montelukast Sodium 10 MG TABLET PO (20:42)
[2021-11-07] MEDS: Apixaban 2.5 MG TABLET PO (20:42)
[2021-11-07] MEDS: hydrALAZINE HCl 50 MG TABLET PO (20:42)
[2021-11-07] MEDS: rifAXIMin 550 MG TABLET PO (20:42)
[2021-11-08] VITALS (9 sets, daily range): BP systolic 116–156; BP diastolic 51–64; PULSE 69–81; RESP 14–18; TEMP 36.8–37.4; O2SAT 96–97; BMI 18.5
[2021-11-08] MEDS: 0.9 % Sodium Chloride Flush 3 ML SYRINGE IVFLUSH ×3 (01:02→18:02)
[2021-11-08 02:49] LABS: Glucose, Whole Blood 84 mg/dL (60-115)
[2021-11-08] MEDS: Levothyroxine Sodium 75 MCG TABLET PO (05:47)
[2021-11-08] MEDS: Omeprazole 20 MG CAPSULE.DR PO (05:47)
[2021-11-08 07:46] LABS: Glucose, Whole Blood 79 mg/dL (60-115)
[2021-11-08 08:03] LABS: Hematocrit 22.7 % (37.0-47.0); Hemoglobin 7.6 g/dl (12.0-16.0); Mean Corpuscular HGB Conc 33.5 g/dl (31.0-35.0); Mean Corpuscular Hemoglobin 30.3 pg (27.0-33.0); Mean Corpuscular Volume 90.4 fL (80.0-98.0); Platelet Count 128 X10*3/uL (160-400); Red Blood Count 2.51 X10*6/uL (4.20-5.50); Red Cell Distribution Width 13.5 % (11.0-16.0); White Blood Count 4.3 X10*3/uL (4.8-10.8)
[2021-11-08 08:24] LABS: Anion Gap 10 (12-20); Blood Urea Nitrogen 38 mg/dL (9-16); Calcium 8.5 mg/dL (8.4-10.2); Carbon Dioxide 22 mmol/L (22-29); Chloride 111 mmol/L (96-108); Creatinine Clr Calc Pharmacy 19.6; Estimated Glomerular Filt Rate 25; Glucose Fasting 83 mg/dL (60-99); Magnesium 2.4 mg/dL (1.6-2.6); Potassium 3.3 mmol/L (3.3-5.1); Sodium 140 mmol/L (135-145)
[2021-11-08 08:47] LABS: Glucose, Whole Blood 131 mg/dL (60-115)
--- NOTE | 2021-11-08 09:43 | MHC.CM.PN ---
PATIENT WAS RECENTLY DC HOME WITH FAMILY. SHE HAS NO PCP AND NO [facility] (YET, ALTHOUGH ATTEMPTS ARE IN PROCESS) PER REVIEW OF RECENT STAY, PATIENT MADE HER DAUGHTER [facility] ([phone]) HER PRIMARY HCP AGENT. PATIENT RELIES ON A CANE AND A WALKER. FAMILY TO PROVIDE TRANSPORT AT TIME OF DISCHARGE. CASE MANAGEMENT TO FOLLOW UP ON M/S UNIT.
[2021-11-08] MEDS: Folic Acid 1 MG TABLET PO (09:52)
[2021-11-08] MEDS: Spironolactone 25 MG TABLET 50 MG PO (09:52)
[2021-11-08] MEDS: Isosorbide Dinitrate 10 MG TABLET PO ×2 (09:52→21:27)
[2021-11-08] MEDS: hydrALAZINE HCl 50 MG TABLET PO ×3 (09:53→21:27)
[2021-11-08] MEDS: Cyanocobalamin (Vitamin B-12) 1,000 MCG TABLET 1000 MCG PO (09:53)
[2021-11-08] MEDS: Lactulose 20 GM/30 ML SOLUTION 30 GM PO ×2 (09:53→21:27)
[2021-11-08] MEDS: Ferrous Sulfate 324 MG TABLET.DR PO (09:53)
[2021-11-08] MEDS: Apixaban 2.5 MG TABLET PO ×2 (09:53→21:27)
[2021-11-08] MEDS: amLODIPine Besylate 10 MG TABLET PO (09:53)
[2021-11-08] MEDS: rifAXIMin 550 MG TABLET PO ×2 (09:54→21:27)
--- NOTE | 2021-11-08 10:43 | P.PNIM_ITS ---
Subjective Subjective Date of Service: 11/09/21 Interval History: Seen in f/u for delirium... She is kelsey lucid today Review of Systems Baseline confusion, no fever Physical Exam Vital Signs: Vital Signs: Last Vital Signs Temp 99.0 F 11/08/21 09:37 Pulse 69 11/08/21 09:53 Resp 14 11/08/21 09:37 BP 140/57 H 11/08/21 09:53 Pulse Ox 97 11/08/21 09:37 BMI result Body Mass Index 18.5 Const: Other: General: AO X 2, no acute distress Resp: CTA bilateral CVS: S1,S2,RRR GI: +BS, NT, no distention Skin: No rash Neuro: motor grossly intact Psych: appropriate affect Objective Data Active Medications Amlodipine Besylate (Amlodipine Besylate 10 Mg Tablet) 10 mg PO DAILY [facility]; Protocol Last Admin: 11/08/21 09:53 Dose: 10 mg Documented by: IVANIA Apixaban (Apixaban 2.5 Mg Tablet) 2.5 mg PO BID [facility] Last Admin: 11/08/21 09:53 Dose: 2.5 mg Documented by: IVANIA Cyanocobalamin (Cyanocobalamin (Vitamin B-12) 1,000 Mcg Tablet) 1,000 mcg PO DAILY [facility] Last Admin: 11/08/21 09:53 Dose: 1,000 mcg Documented by: IVANIA Dextrose (Dextrose 50 % 25 Gm/50 Ml Vial) 25 gm IVPUSH Q15M PRN; Protocol PRN Reason: per Hypoglycemia Standing Ord. Ferrous Sulfate (Ferrous Sulfate 324 Mg Lindsay.) 324 mg PO DAILY [facility] Last Admin: 11/08/21 09:53 Dose: 324 mg Documented by: IVANIA Folic Acid (Folic Acid 1 Mg Tablet) 1 mg PO DAILY [facility] Last Admin: 11/08/21 09:52 Dose: 1 mg Documented by: IVANIA Glucose (Glucose Gel 15 Gm Gel..Gram.) 15 gm PO Q15M PRN; Protocol PRN Reason: per Hypoglycemia Standing Ord. Hydralazine HCl (Hydralazine Hcl 50 Mg Tablet) 50 mg PO TID [facility]; Protocol Last Admin: 11/08/21 09:53 Dose: 50 mg Documented by: IVANIA Insulin Glargine (Insulin Glargine,Hum.Rec.Anlog 100 Unit/Ml 10 Ml Vial) 20 unit SUBCUT BEDTIME [facility] Last Admin: 11/07/21 20:41 Dose: 20 unit Documented by: STEFANO Insulin Human Lispro (Insulin Lispro 100 Unit/Ml 3 Ml Vial) 0 unit SUBCUT QIDACHS [facility]; Protocol Last Admin: 11/08/21 07:51 Dose: Not Given Documented by: IVANIA Non-Admin Reason: No Insulin Coverage Isosorbide Dinitrate (Isosorbide Dinitrate 10 Mg Tablet) 10 mg PO BID [facility]; Protocol Last Admin: 11/08/21 09:52 Dose: 10 mg Documented by: IVNAIA Lactulose (Lactulose 20 Gm/30 Ml Solution) 30 gm PO BID [facility] Last Admin: 11/08/21 09:53 Dose: 30 gm Documented by: IVANIA Levothyroxine Sodium (Levothyroxine Sodium 75 Mcg Tablet) 75 mcg PO DAILY@0600 [facility] Last Admin: 11/08/21 05:47 Dose: 75 mcg Documented by: REYNOLD Montelukast Sodium (Montelukast Sodium 10 Mg Tablet) 10 mg PO BEDTIME [facility] Last Admin: 11/07/21 20:42 Dose: 10 mg Documented by: STEFANO Omeprazole (Omeprazole 20 Mg Capsule.) 20 mg PO DAILY@0630 [facility] Last Admin: 11/08/21 05:47 Dose: 20 mg Documented by: REYNOLD Pharmacy Consult (Consult Rx Perform Med Rec) 1 each MISCELLANE ONCE PRN PRN Reason: Consult order Rifaximin (Rifaximin 550 Mg Tablet) 550 mg PO BID [facility] Last Admin: 11/08/21 09:54 Dose: 550 mg Documented by: IVANIA Sodium Chloride (0.9 % Sodium Chloride Flush 3 Ml Syringe) [facility] Last Admin: 11/08/21 09:53 Dose: 3 ml Documented by: IVANIA Spironolactone (Spironolactone 25 Mg Tablet) 50 mg PO DAILY [facility]; Protocol Last Admin: 11/08/21 09:52 Dose: 50 mg Documented by: IVANIA Labs CBC & Chem 7: 11/08/21 07:21 11/09/21 09:13 Labs: Laboratory Results - last 24 hr 11/07/21 11/07/21 11/07/21 14:57 15:34 15:34 MCV 90.5 MCH 29.8 MCHC 32.9 RDW 13.5 Plt Count 142 L MPV 11.4 Immature Gran % (Auto) 0.5 H Neut % (Auto) 57.3 Lymph % (Auto) 16.4 L Lassen % (Auto) 20.7 H Eos % (Auto) 4.6 H Baso % (Auto) 0.5 Lymph # (Auto) 1.0 L Lassen # (Auto) 1.3 H Eos # (Auto) 0.3 Baso # (Auto) 0.0 Abs Immat Gran (auto) 0.03 Absolute Neuts (auto) 3.5 Absolute Nucleated RBC 0.000 Nucleated RBC % (auto) 0.0 Smear Tech's Comments VERIFIED Anion Gap 12 Estim Creat Clear Calc 18.2 Estimated GFR 23 POC Glucose Random Glucose 110 Fasting Glucose Lactic Acid Calcium 8.6 Magnesium 2.3 Total Bilirubin 1.1 H Direct Bilirubin 0.6 H AST 56 H ALT 38 H Alkaline Phosphatase 190 H D Ammonia Troponin I High Sens B-Natriuretic Peptide Total Protein 6.7 Albumin 2.9 L Lipase 73 Urine Color YELLOW Urine Appearance CLEAR Urine pH 6.0 Ur Specific [place] <= 1.005 Urine Protein 2+ H Urine Glucose (UA) NEG Urine Ketones NEG Urine Blood NEG Urine Nitrite NEG Ur Leukocyte Esterase NEG Urine RBC 1-4 Urine WBC 0-2 Ur Squamous Epith Cells TRACE Urine Bacteria NONE COVID-19 (BEN) COVID-19 Clin Com 11/07/21 11/07/21 11/07/21 15:34 15:34 15:34 MCV MCH MCHC RDW Plt Count MPV Immature Gran % (Auto) Neut % (Auto) Lymph % (Auto) Lassen % (Auto) Eos % (Auto) Baso % (Auto) Lymph # (Auto) Lassen # (Auto) Eos # (Auto) Baso # (Auto) Abs Immat Gran (auto) Absolute Neuts (auto) Absolute Nucleated RBC Nucleated RBC % (auto) Smear Tech's Comments Anion Gap Estim Creat Clear Calc Estimated GFR POC Glucose Random Glucose Fasting Glucose Lactic Acid 1.1 Calcium Magnesium Total Bilirubin Direct Bilirubin AST ALT Alkaline Phosphatase Ammonia 94 H Troponin I High Sens 139.9 H* D B-Natriuretic Peptide Total Protein Albumin Lipase Urine Color Urine Appearance Urine pH Ur Specific [place] Urine Protein Urine Glucose (UA) Urine Ketones Urine Blood Urine Nitrite Ur Leukocyte Esterase Urine RBC Urine WBC Ur Squamous Epith Cells Urine Bacteria COVID-19 (BEN) COVID-19 Clin Com 11/07/21 11/07/21 11/07/21 15:34 15:34 18:45 MCV MCH MCHC RDW Plt Count MPV Immature Gran % (Auto) Neut % (Auto) Lymph % (Auto) Lassen % (Auto) Eos % (Auto) Baso % (Auto) Lymph # (Auto) Lassen # (Auto) Eos # (Auto) Baso # (Auto) Abs Immat Gran (auto) Absolute Neuts (auto) Absolute Nucleated RBC Nucleated RBC % (auto) Smear Tech's Comments Anion Gap Estim Creat Clear Calc Estimated GFR POC Glucose Random Glucose Fasting Glucose Lactic Acid Calcium Magnesium Total Bilirubin Direct Bilirubin AST ALT Alkaline Phosphatase Ammonia Troponin I High Sens 124.5 H* B-Natriuretic Peptide 507 H Total Protein Albumin Lipase Urine Color Urine Appearance Urine pH Ur Specific [place] Urine Protein Urine Glucose (UA) Urine Ketones Urine Blood Urine Nitrite Ur Leukocyte Esterase Urine RBC Urine WBC Ur Squamous Epith Cells Urine Bacteria COVID-19 (BEN) Negative COVID-19 Clin Com See Note 11/07/21 11/08/21 11/08/21 20:32 02:44 07:21 MCV 90.4 MCH 30.3 MCHC 33.5 RDW 13.5 Plt Count 128 L MPV 12.0 Immature Gran % (Auto) Neut % (Auto) Lymph % (Auto) Lassen % (Auto) Eos % (Auto) Baso % (Auto) Lymph # (Auto) Lassen # (Auto) Eos # (Auto) Baso # (Auto) Abs Immat Gran (auto) Absolute Neuts (auto) Absolute Nucleated RBC 0.000 Nucleated RBC % (auto) 0.0 Smear Tech's Comments Anion Gap Estim Creat Clear Calc Estimated GFR POC Glucose 98 84 Random Glucose Fasting Glucose Lactic Acid Calcium Magnesium Total Bilirubin Direct Bilirubin AST ALT Alkaline Phosphatase Ammonia Troponin I High Sens B-Natriuretic Peptide Total Protein Albumin Lipase Urine Color Urine Appearance Urine pH Ur Specific [place] Urine Protein Urine Glucose (UA) Urine Ketones Urine Blood Urine Nitrite Ur Leukocyte Esterase Urine RBC Urine WBC Ur Squamous Epith Cells Urine Bacteria COVID-19 (BEN) COVID-19 Clin Com 11/08/21 11/08/21 11/08/21 07:21 07:39 08:43 MCV MCH MCHC RDW Plt Count MPV Immature Gran % (Auto) Neut % (Auto) Lymph % (Auto) Lassen % (Auto) Eos % (Auto) Baso % (Auto) Lymph # (Auto) Lassen # (Auto) Eos # (Auto) Baso # (Auto) Abs Immat Gran (auto) Absolute Neuts (auto) Absolute Nucleated RBC Nucleated RBC % (auto) Smear Tech's Comments Anion Gap 10 L Estim Creat Clear Calc 19.6 Estimated GFR 25 POC Glucose 79 131 H Random Glucose Fasting Glucose 83 Lactic Acid Calcium 8.5 Magnesium 2.4 Total Bilirubin Direct Bilirubin AST ALT Alkaline Phosphatase Ammonia Troponin I High Sens B-Natriuretic Peptide Total Protein Albumin Lipase Urine Color Urine Appearance Urine pH Ur Specific [place] Urine Protein Urine Glucose (UA) Urine Ketones Urine Blood Urine Nitrite Ur Leukocyte Esterase Urine RBC Urine WBC Ur Squamous Epith Cells Urine Bacteria COVID-19 (BEN) COVID-19 Clin Com Assessment and Plan (1) Paroxysmal atrial fibrillation: Status: Acute (2) Moderate pulmonary hypertension: Status: Acute (3) Chronic diastolic CHF (congestive heart failure): Status: Acute (4) Anemia: Status: Acute (5) CKD (chronic kidney disease) stage 4, GFR 15-29 ml/min: Status: Acute Assessment and Plan: 76F presented with confusion acute metabolic encephalopathy due to: delerium from urinary retention vs recurrent hepatic encephalopathy (less likely, as she was clear yesterday, ammonia unchanged, and was compliant with lactulose, and significant improvement after avila) continue avila for now lactulose, rifaximin alcohol and hcv cirhosis continue aldactone htn amlodinpie, isodril, hydralazine chronic diastolic chf euvolemic dm basal bolus insulin, monitor poc CKD IV at baseline, monitor paroxysmal atrial fibrilaliton eliquis Quality Stroke Does the patient have a stroke diagnosis?: No VTE Prior VTE?: No VTE Risk Level:: Medical - moderate - high VTE Device Contraindication: Treatment Not Indicated VTE Drug Contraindication: N/A - Med Ordered
--- NOTE | 2021-11-08 11:03 | PC.NURSE ---
Patient's POC at 0730 was 79, recheck after breakfast was 131.
[2021-11-08 13:03] LABS: Glucose, Whole Blood 115 mg/dL (60-115)
[2021-11-08 17:28] LABS: Glucose, Whole Blood 202 mg/dL (60-115)
[2021-11-08] MEDS: Insulin Lispro 100 UNIT/ML 3 ML VIAL SUBCUT (18:02)
[2021-11-08 21:22] LABS: Glucose, Whole Blood 156 mg/dL (60-115)
[2021-11-08] MEDS: Montelukast Sodium 10 MG TABLET PO (21:27)
[2021-11-08] MEDS: Insulin Glargine,Hum.rec.anlog 100 UNIT/ML 10 ML VIAL 20 UNIT SUBCUT (21:28)
[2021-11-09] VITALS (11 sets, daily range): BP systolic 127–146; BP diastolic 58–80; PULSE 79–84; RESP 17–18; TEMP 36.7–37; O2SAT 96–97
[2021-11-09] MEDS: 0.9 % Sodium Chloride Flush 3 ML SYRINGE IVFLUSH ×4 (02:08→21:16)
[2021-11-09] MEDS: Levothyroxine Sodium 75 MCG TABLET PO (06:44)
[2021-11-09] MEDS: Omeprazole 20 MG CAPSULE.DR PO (06:44)
[2021-11-09 07:44] LABS: Glucose, Whole Blood 125 mg/dL (60-115)
[2021-11-09] MEDS: Cyanocobalamin (Vitamin B-12) 1,000 MCG TABLET 1000 MCG PO (08:36)
[2021-11-09] MEDS: Spironolactone 25 MG TABLET 50 MG PO (08:36)
[2021-11-09] MEDS: hydrALAZINE HCl 50 MG TABLET PO ×3 (08:37→21:02)
[2021-11-09] MEDS: rifAXIMin 550 MG TABLET PO ×2 (08:37→21:03)
[2021-11-09] MEDS: Folic Acid 1 MG TABLET PO (08:37)
[2021-11-09] MEDS: Ferrous Sulfate 324 MG TABLET.DR PO (08:37)
[2021-11-09] MEDS: Apixaban 2.5 MG TABLET PO ×2 (08:37→21:03)
[2021-11-09] MEDS: Isosorbide Dinitrate 10 MG TABLET PO ×2 (08:38→21:03)
[2021-11-09] MEDS: amLODIPine Besylate 10 MG TABLET PO (08:38)
[2021-11-09] MEDS: Lactulose 20 GM/30 ML SOLUTION 30 GM PO ×2 (08:40→21:03)
[2021-11-09 09:28] LABS: Ammonia 146 umol/L (13-55)
[2021-11-09 09:36] LABS: Anion Gap 12 (12-20); Blood Urea Nitrogen 36 mg/dL (9-16); Calcium 8.8 mg/dL (8.4-10.2); Carbon Dioxide 22 mmol/L (22-29); Chloride 109 mmol/L (96-108); Creatinine Clr Calc Pharmacy 16.8; Estimated Glomerular Filt Rate 21; Glucose Random 161 mg/dL (60-115); Potassium 3.7 mmol/L (3.3-5.1); Sodium 139 mmol/L (135-145)
[2021-11-09 12:07] LABS: Glucose, Whole Blood 225 mg/dL (60-115)
[2021-11-09] MEDS: Insulin Lispro 100 UNIT/ML 3 ML VIAL SUBCUT ×2 (12:11→16:58)
--- NOTE | 2021-11-09 13:13 | MHC.CLN ---
Addendum entered by Stephanie Grover, EVANGELINA 11/09/21 14:04: ADDED 2 GRAM SODIUM TO DIABETIC 1800 KCAL DIET DUE TO DX CKD STAGE 4. Original Note: NUTRITION WEIGHT AT PRIOR VISIT, 11/02/21=81.193 KG. WEIGHT 11/08/21=49 KG (UNDERWEIGHT WITH BMI=18.5). VISITED WITH PATIENT IN ROOM AND APPEARS OVERWEIGHT. LIKELY ERROR IN WEIGHT=49 KG. IF WEIGHT=81.193 KG, BMI=30.8, OBESE. ATE WELL ATE LUNCH TODAY.
--- NOTE | 2021-11-09 14:29 | P.PNIM_ITS ---
Subjective Subjective Date of Service: 11/09/21 Interval History: Seen in f/u for delirium... She is alert, and clear, despite ammonia level going up, she reportedly refused her doses Review of Systems no fever, some confusion but seems baseline Physical Exam Vital Signs: Vital Signs: Last Vital Signs Temp 98.4 F 11/09/21 11:47 Pulse 79 11/09/21 11:47 Resp 18 11/09/21 11:47 BP 146/64 H 11/09/21 11:47 Pulse Ox 97 11/09/21 11:47 BMI result Body Mass Index 18.5 Const: Other: General: AO X 2, no acute distress Resp: CTA bilateral CVS: S1,S2,RRR GI: +BS, NT, no distention Skin: No rash Neuro: motor grossly intact Psych: appropriate affect Objective Data Active Medications Amlodipine Besylate (Amlodipine Besylate 10 Mg Tablet) 10 mg PO DAILY [facility]; Protocol Last Admin: 11/09/21 08:38 Dose: 10 mg Documented by: SPENCER Apixaban (Apixaban 2.5 Mg Tablet) 2.5 mg PO BID [facility] Last Admin: 11/09/21 08:37 Dose: 2.5 mg Documented by: SPENCER Cyanocobalamin (Cyanocobalamin (Vitamin B-12) 1,000 Mcg Tablet) 1,000 mcg PO DAILY [facility] Last Admin: 11/09/21 08:36 Dose: 1,000 mcg Documented by: SPENCER Dextrose (Dextrose 50 % 25 Gm/50 Ml Vial) 25 gm IVPUSH Q15M PRN; Protocol PRN Reason: per Hypoglycemia Standing Ord. Ferrous Sulfate (Ferrous Sulfate 324 Mg Tablet.) 324 mg PO DAILY [facility] Last Admin: 11/09/21 08:37 Dose: 324 mg Documented by: SPENCER Folic Acid (Folic Acid 1 Mg Tablet) 1 mg PO DAILY [facility] Last Admin: 11/09/21 08:37 Dose: 1 mg Documented by: SPENCER Glucose (Glucose Gel 15 Gm Gel..Gram.) 15 gm PO Q15M PRN; Protocol PRN Reason: per Hypoglycemia Standing Ord. Hydralazine HCl (Hydralazine Hcl 50 Mg Tablet) 50 mg PO TID [facility]; Protocol Last Admin: 11/09/21 08:37 Dose: 50 mg Documented by: SPENCER Insulin Glargine (Insulin Glargine,Hum.Rec.Anlog 100 Unit/Ml 10 Ml Vial) 20 uni t SUBCUT BEDTIME [facility] Last Admin: 11/08/21 21:28 Dose: 20 unit Documented by: SAM Insulin Human Lispro (Insulin Lispro 100 Unit/Ml 3 Ml Vial) 0 unit SUBCUT QIDACHS [facility]; Protocol Last Admin: 11/09/21 12:11 Dose: 4 unit Documented by: BONNIE Isosorbide Dinitrate (Isosorbide Dinitrate 10 Mg Tablet) 10 mg PO BID [facility]; Protocol Last Admin: 11/09/21 08:38 Dose: 10 mg Documented by: SPENCER Lactulose (Lactulose 20 Gm/30 Ml Solution) 30 gm PO BID [facility] Last Admin: 11/09/21 08:40 Dose: 30 gm Documented by: SPENCER Levothyroxine Sodium (Levothyroxine Sodium 75 Mcg Tablet) 75 mcg PO DAILY@0600 [facility] Last Admin: 11/09/21 06:44 Dose: 75 mcg Documented by: LEONIE Montelukast Sodium (Montelukast Sodium 10 Mg Tablet) 10 mg PO BEDTIME [facility] Last Admin: 11/08/21 21:27 Dose: 10 mg Documented by: SAM Omeprazole (Omeprazole 20 Mg Capsule.Dr) 20 mg PO DAILY@0630 [facility] Last Admin: 11/09/21 06:44 Dose: 20 mg Documented by: LEONIE Pharmacy Consult (Consult Rx Perform Med Rec) 1 each MISCELLANE ONCE PRN PRN Reason: Consult order Rifaximin (Rifaximin 550 Mg Tablet) 550 mg PO BID [facility] Last Admin: 11/09/21 08:37 Dose: 550 mg Documented by: SPENCER Sodium Chloride (0.9 % Sodium Chloride Flush 3 Ml Syringe) 3 ml IVFLUSH QSHIFT [facility] Last Admin: 11/09/21 09:23 Dose: 3 ml Documented by: SPENCER Spironolactone (Spironolactone 25 Mg Tablet) 50 mg PO DAILY [facility]; Protocol Last Admin: 11/09/21 08:36 Dose: 50 mg Documented by: SPENCER Labs CBC & Chem 7: 11/08/21 07:21 11/09/21 09:13 Labs: Laboratory Results - last 24 hr 11/08/21 11/08/21 11/09/21 17:23 21:17 07:16 Anion Gap Estim Creat Clear Calc Estimated GFR POC Glucose 202 H 156 H 125 H Random Glucose Calcium Ammonia 11/09/21 11/09/21 11/09/21 09:13 09:13 11:46 Anion Gap 12 Estim Creat Clear Calc 16.8 Estimated GFR 21 POC Glucose 225 H Random Glucose 161 H Calcium 8.8 Ammonia 146 H Microbiology Microbiology Results: Microbiology 11/07/21 17:38 Blood Culture - Preliminary Blood - Venous No growth after 24 hours. 11/07/21 15:34 Blood Culture - Preliminary Blood - Venous No growth after 24 hours. Assessment and Plan (1) Paroxysmal atrial fibrillation: Status: Acute (2) Moderate pulmonary hypertension: Status: Acute (3) Chronic diastolic CHF (congestive heart failure): Status: Acute (4) Anemia: Status: Acute (5) CKD (chronic kidney disease) stage 4, GFR 15-29 ml/min: Status: Acute Assessment and Plan: 76F presented with confusion acute metabolic encephalopathy due hepatic encephalopathy, ammonia level has gone up to 145 today. She is taking the doses today, continue Rifaximin and present dose of lactulose, and repeat level tomorrow alcohol and hcv cirhosis continue aldactone htn amlodinpie, isodril, hydralazine chronic diastolic chf euvolemic dm basal bolus insulin, monitor poc CKD IV at baseline, monitor paroxysmal atrial fibrilaliton eliquis Quality Stroke Does the patient have a stroke diagnosis?: No VTE Prior VTE?: No VTE Risk Level:: Medical - moderate - high VTE Device Contraindication: Treatment Not Indicated VTE Drug Contraindication: N/A - Med Ordered
[2021-11-09 16:41] LABS: Glucose, Whole Blood 214 mg/dL (60-115)
[2021-11-09 20:10] LABS: Glucose, Whole Blood 112 mg/dL (60-115)
[2021-11-09] MEDS: Montelukast Sodium 10 MG TABLET PO (21:02)
[2021-11-09] MEDS: Insulin Glargine,Hum.rec.anlog 100 UNIT/ML 10 ML VIAL 20 UNIT SUBCUT (21:03)
[2021-11-09] MEDS: timoloL maleate 0.5 % Oph Sol 5 ML DRBTL 1 DROP EYE-RIGHT (21:16)
[2021-11-10] VITALS (8 sets, daily range): BP systolic 110–145; BP diastolic 61–65; PULSE 71–85; RESP 17–20; TEMP 36.3–37; O2SAT 94–98
[2021-11-10] MEDS: Omeprazole 20 MG CAPSULE.DR PO (05:28)
[2021-11-10] MEDS: Levothyroxine Sodium 75 MCG TABLET PO (05:28)
[2021-11-10 07:53] LABS: Glucose, Whole Blood 94 mg/dL (60-115)
[2021-11-10] MEDS: 0.9 % Sodium Chloride Flush 3 ML SYRINGE IVFLUSH ×3 (09:27→21:28)
[2021-11-10] MEDS: Cyanocobalamin (Vitamin B-12) 1,000 MCG TABLET 1000 MCG PO (09:28)
[2021-11-10] MEDS: Folic Acid 1 MG TABLET PO (09:28)
[2021-11-10] MEDS: hydrALAZINE HCl 50 MG TABLET PO ×3 (09:28→21:26)
[2021-11-10] MEDS: Spironolactone 25 MG TABLET 50 MG PO (09:29)
[2021-11-10] MEDS: amLODIPine Besylate 10 MG TABLET PO (09:29)
[2021-11-10] MEDS: Ferrous Sulfate 324 MG TABLET.DR PO (09:30)
[2021-11-10] MEDS: rifAXIMin 550 MG TABLET PO ×2 (09:30→21:26)
[2021-11-10] MEDS: Isosorbide Dinitrate 10 MG TABLET PO ×2 (09:31→21:26)
[2021-11-10] MEDS: Apixaban 2.5 MG TABLET PO ×2 (09:31→21:26)
[2021-11-10] MEDS: Lactulose 20 GM/30 ML SOLUTION 30 GM PO ×2 (09:34→14:56)
[2021-11-10] MEDS: timoloL maleate 0.5 % Oph Sol 5 ML DRBTL 1 DROP EYE-RIGHT ×2 (09:46→21:35)
[2021-11-10 11:31] LABS: Glucose, Whole Blood 134 mg/dL (60-115)
--- NOTE | 2021-11-10 13:36 | HO.PM.IMPN ---
Subjective Subjective Date of Service: 11/10/21 Interval History: Seen in f/u for delirium... She is alert, and clear, despite ammonia level going up. Review of Systems seems more awake , trying to talk to her daughter over the phone As per her daughter - she is somewhat more talkative than yesterday, could able to feed herself little bit but seems weak denies any abdominal pain or nausea or vomiting or chest pain or shortness of breath answers only few questions Physical Exam Vital Signs: Vital Signs: Last Vital Signs Temp 97.4 F 11/10/21 11:43 Pulse 73 11/10/21 11:43 Resp 20 11/10/21 11:43 BP 134/61 11/10/21 11:43 Pulse Ox 97 11/10/21 11:43 BMI result Body Mass Index 18.5 General: AO X 2, no acute distress Resp:? CTA bilateral CVS: S1,S2,RRR GI: +BS, NT, no distention Skin: No rash Neuro:? motor grossly intact Psych: appropriate affect Objective Data Active Medications Amlodipine Besylate (Amlodipine Besylate 10 Mg Tablet) 10 mg PO DAILY [facility]; Protocol Last Admin: 11/10/21 09:29 Dose: 10 mg Documented by: BONNIE Apixaban (Apixaban 2.5 Mg Tablet) 2.5 mg PO BID [facility] Last Admin: 11/10/21 09:31 Dose: 2.5 mg Documented by: BONNIE Cyanocobalamin (Cyanocobalamin (Vitamin B-12) 1,000 Mcg Tablet) 1,000 mcg PO DAILY [facility] Last Admin: 11/10/21 09:28 Dose: 1,000 mcg Documented by: BONNIE Dextrose (Dextrose 50 % 25 Gm/50 Ml Vial) 25 gm IVPUSH Q15M PRN; Protocol PRN Reason: per Hypoglycemia Standing Ord. Ferrous Sulfate (Ferrous Sulfate 324 Mg Lindsay.) 324 mg PO DAILY [facility] Last Admin: 11/10/21 09:30 Dose: 324 mg Documented by: BONNIE Folic Acid (Folic Acid 1 Mg Tablet) 1 mg PO DAILY [facility] Last Admin: 11/10/21 09:28 Dose: 1 mg Documented by: BONNIE Glucose (Glucose Gel 15 Gm Gel..Gram.) 15 gm PO Q15M PRN; Protocol PRN Reason: per Hypoglycemia Standing Ord. Hydralazine HCl (Hydralazine Hcl 50 Mg Tablet) 50 mg PO TID [facility]; Protocol Last Admin: 11/10/21 09:28 Dose: 50 mg Documented by: BONNIE Insulin Glargine (Insulin Glargine,Hum.Rec.Anlog 100 Unit/Ml 10 Ml Vial) 20 unit SUBCUT BEDTIME [facility] Last Admin: 11/09/21 21:03 Dose: 20 unit Documented by: PATRICIA Insulin Human Lispro (Insulin Lispro 100 Unit/Ml 3 Ml Vial) 0 unit SUBCUT QIDACHS [facility]; Protocol Last Admin: 11/10/21 12:39 Dose: Not Given Documented by: WILLIAM Non-Admin Reason: No Insulin Coverage Isosorbide Dinitrate (Isosorbide Dinitrate 10 Mg Tablet) 10 mg PO BID [facility]; Protocol Last Admin: 11/10/21 09:31 Dose: 10 mg Documented by: BONNIE Lactulose (Lactulose 20 Gm/30 Ml Solution) 30 gm PO TID [facility] Last Admin: 11/10/21 09:34 Dose: 30 gm Documented by: BONNIE Levothyroxine Sodium (Levothyroxine Sodium 75 Mcg Tablet) 75 mcg PO DAILY@0600 [facility] Last Admin: 11/10/21 05:28 Dose: 75 mcg Documented by: PATRICIA Montelukast Sodium (Montelukast Sodium 10 Mg Tablet) 10 mg PO BEDTIME [facility] Last Admin: 11/09/21 21:02 Dose: 10 mg Documented by: PATRICIA Omeprazole (Omeprazole 20 Mg Guy.) 20 mg PO DAILY@0630 [facility] Last Admin: 11/10/21 05:28 Dose: 20 mg Documented by: PATRICIA Pharmacy Consult (Consult Rx Perform Med Rec) 1 each MISCELLANE ONCE PRN PRN Reason: Consult order Rifaximin (Rifaximin 550 Mg Tablet) 550 mg PO BID [facility] Last Admin: 11/10/21 09:30 Dose: 550 mg Documented by: BONNIE Sodium Chloride (0.9 % Sodium Chloride Flush 3 Ml Syringe) [address] [facility] Last Admin: 11/10/21 09:27 Dose: 3 ml Documented by: BONNIE Spironolactone (Spironolactone 25 Mg Tablet) 50 mg PO DAILY [facility]; Protocol Last Admin: 11/10/21 09:29 Dose: 50 mg Documented by: BONNIE Timolol Maleate (Timolol Maleate 0.5 % Oph Alexandra 5 Ml Drbtl) 1 drop EYE-RIGHT BID [facility] Last Admin: 11/10/21 09:46 Dose: 1 drop Documented by: BONNIE Labs CBC & Chem 7: 11/08/21 07:21 11/09/21 09:13 Labs: Laboratory Results - last 24 hr 11/09/21 11/09/21 11/10/21 16:05 19:38 07:33 POC Glucose 214 H 112 94 11/10/21 11:18 POC Glucose 134 H Microbiology Microbiology Results: Microbiology 11/07/21 17:38 Blood Culture - Preliminary Blood - Venous No growth after 48 hours. 11/07/21 15:34 Blood Culture - Preliminary Blood - Venous No growth after 48 hours. Assessment and Plan (1) Acute hepatic encephalopathy: Status: Acute (2) CKD (chronic kidney disease) stage 4, GFR 15-29 ml/min: Status: Acute Assessment and Plan: 76F presented with confusion 2.acute metabolic encephalopathy due? hepatic encephalopathy, ammonia level has gone up to 145 yesterday as per staff -taking her lactulose , but no bm's over night patient is passing gases , no abd pain continue Rifaximin and adjusted lactulose 30 mg tid , also we will add 1 dose IA lactulose if helps with bm and repeat ammonis level tomorrow 3.alcohol and hcv cirhosis continue aldactone 4.htn: continue amlodinpie, isodril, hydralazine 5.chronic diastolic chf euvolemic 6.dm:fs flactuating between 100-200 range basal bolus insulin, adjusted lantus to 10 units, monitor poc avoid coverage below 200 mg/dl 7.CKD IV at baseline, monitor 8.paroxysmal atrial fibrilaliton eliquis Quality Stroke Does the patient have a stroke diagnosis?: No VTE Prior VTE?: No VTE Risk Level:: Medical - moderate - high VTE Device Contraindication: Treatment Not Indicated VTE Drug Contraindication: N/A - Med Ordered
--- NOTE | 2021-11-10 15:44 | MHC.CM.PN ---
NURSE CLASSROOM ASSISTANT NOTE CASE DISCUSSED ON UTLIPLE DISCIPLAINRY ROUNDS, MESSAGE SENT TO [employer] IN FINANCIAL COUNSEL[employer] TO CHECK TO SEE IF PATIENTS DAUGHTER HAD CHANGED FROM [place] MEDICARE TO AND APPLIED YET FOR [employer] , DISCHARGE PLAN FOLLOW UP WITH FINANCIAL SERVICES , CURRENTLY NO INS FOR PCP COVERAGE, LIVES WITH DAUGHTER
[2021-11-10 16:28] LABS: Glucose, Whole Blood 134 mg/dL (60-115)
[2021-11-10] MEDS: Albumin Human 25 % 100 ML IV ×2 (18:14→21:30)
--- NOTE | 2021-11-10 19:30 | MHC.PIE ---
P- elvated ammonia level of 146 I- Luctalose administered TID E-Pt had 2xlg BMs thius evening. Luctulose RI not given due to pt having a BM.
[2021-11-10 19:40] LABS: Glucose, Whole Blood 168 mg/dL (60-115)
[2021-11-10] MEDS: Montelukast Sodium 10 MG TABLET PO (21:26)
[2021-11-10] MEDS: Insulin Glargine,Hum.rec.anlog 100 UNIT/ML 10 ML VIAL 10 UNIT SUBCUT (21:27)
[2021-11-11] VITALS (12 sets, daily range): BP systolic 128–142; BP diastolic 51–63; PULSE 68–85; RESP 16–18; TEMP 36.5–37.3; O2SAT 97–99
[2021-11-11 06:12] LABS: Anion Gap 10 (12-20); Blood Urea Nitrogen 33 mg/dL (9-16); Calcium 9.2 mg/dL (8.4-10.2); Carbon Dioxide 23 mmol/L (22-29); Chloride 106 mmol/L (96-108); Creatinine Clr Calc Pharmacy 19.2; Estimated Glomerular Filt Rate 25; Glucose Random 73 mg/dL (60-115); Potassium 3.7 mmol/L (3.3-5.1); Sodium 135 mmol/L (135-145)
[2021-11-11 06:15] LABS: Ammonia 80 umol/L (13-55)
[2021-11-11] MEDS: Levothyroxine Sodium 75 MCG TABLET PO (06:26)
[2021-11-11] MEDS: Omeprazole 20 MG CAPSULE.DR PO (06:26)
[2021-11-11 07:58] LABS: Glucose, Whole Blood 76 mg/dL (60-115)
[2021-11-11 09:10] LABS: Hematocrit 23.1 % (37.0-47.0); Hemoglobin 7.7 g/dl (12.0-16.0)
[2021-11-11] MEDS: hydrALAZINE HCl 50 MG TABLET PO ×3 (09:39→22:44)
[2021-11-11] MEDS: Lactulose 20 GM/30 ML SOLUTION 30 GM PO ×3 (09:39→22:47)
[2021-11-11] MEDS: 0.9 % Sodium Chloride Flush 3 ML SYRINGE IVFLUSH ×3 (09:40→22:48)
[2021-11-11] MEDS: Isosorbide Dinitrate 10 MG TABLET PO ×2 (09:40→22:45)
[2021-11-11] MEDS: Spironolactone 25 MG TABLET 50 MG PO (09:40)
[2021-11-11] MEDS: amLODIPine Besylate 10 MG TABLET PO (09:40)
[2021-11-11] MEDS: Folic Acid 1 MG TABLET PO (09:40)
[2021-11-11] MEDS: Apixaban 2.5 MG TABLET PO ×2 (09:41→22:45)
[2021-11-11] MEDS: Cyanocobalamin (Vitamin B-12) 1,000 MCG TABLET 1000 MCG PO (09:41)
[2021-11-11] MEDS: rifAXIMin 550 MG TABLET PO ×2 (09:41→22:44)
[2021-11-11] MEDS: Ferrous Sulfate 324 MG TABLET.DR PO (09:41)
[2021-11-11] MEDS: timoloL maleate 0.5 % Oph Sol 5 ML DRBTL 1 DROP EYE-RIGHT ×2 (09:42→22:59)
[2021-11-11 10:18] LABS: Folate > 20.0 ng/mL (> or = 4.0); Vitamin B12 1644 pg/mL (200-900)
[2021-11-11 11:38] LABS: Glucose, Whole Blood 144 mg/dL (60-115)
--- NOTE | 2021-11-11 13:18 | P.PNIM_ITS ---
Subjective Subjective Date of Service: 11/11/21 Interval History: hepatic encephalopathy Review of Systems patient seems more awake today, but still somewhat confused denies any chest pain or abdominal pain or fever or chills. Physical Exam Vital Signs: Vital Signs: Last Vital Signs Temp 98.9 F 11/11/21 11:17 Pulse 68 11/11/21 11:17 Resp 18 11/11/21 11:17 BP 135/53 L 11/11/21 11:17 Pulse Ox 98 11/11/21 11:17 BMI result Body Mass Index 18.5 ? General: AO X 2, no acute distress Resp:? CTA bilateral CVS: S1,S2,RRR GI: +BS, NT, no distention Skin: No rash Neuro:? motor grossly intact Psych: appropriate affect Objective Data Active Medications Amlodipine Besylate (Amlodipine Besylate 10 Mg Tablet) 10 mg PO DAILY [facility]; Protocol Last Admin: 11/11/21 09:40 Dose: 10 mg Documented by: SPENCER Apixaban (Apixaban 2.5 Mg Tablet) 2.5 mg PO BID [facility] Last Admin: 11/11/21 09:41 Dose: 2.5 mg Documented by: SPENCER Cyanocobalamin (Cyanocobalamin (Vitamin B-12) 1,000 Mcg Tablet) 1,000 mcg PO DAILY [facility] Last Admin: 11/11/21 09:41 Dose: 1,000 mcg Documented by: SPENCER Dextrose (Dextrose 50 % 25 Gm/50 Ml Vial) 25 gm IVPUSH Q15M PRN; Protocol PRN Reason: per Hypoglycemia Standing Ord. Ferrous Sulfate (Ferrous Sulfate 324 Mg Lindsay.) 324 mg PO DAILY [facility] Last Admin: 11/11/21 09:41 Dose: 324 mg Documented by: SPENCER Folic Acid (Folic Acid 1 Mg Tablet) 1 mg PO DAILY [facility] Last Admin: 11/11/21 09:40 Dose: 1 mg Documented by: SPENCER Glucose (Glucose Gel 15 Gm Gel..Gram.) 15 gm PO Q15M PRN; Protocol PRN Reason: per Hypoglycemia Standing Ord. Hydralazine HCl (Hydralazine Hcl 50 Mg Tablet) 50 mg PO TID [facility]; Protocol Last Admin: 11/11/21 09:39 Dose: 50 mg Documented by: SPENCER Insulin Glargine (Insulin Glargine,Hum.Rec.Anlog 100 Unit/Ml 10 Ml Vial) 10 unit SUBCUT BEDTIME [facility] Last Admin: 11/10/21 21:27 Dose: 10 unit Documented by: PATRICIA Insulin Human Lispro (Insulin Lispro 100 Unit/Ml 3 Ml Vial) 0 unit SUBCUT QIDACHS [facility]; Protocol Last Admin: 11/11/21 11:45 Dose: Not Given Documented by: SPENCER Non-Admin Reason: No Insulin Coverage Isosorbide Dinitrate (Isosorbide Dinitrate 10 Mg Tablet) 10 mg PO BID [facility]; Protocol Last Admin: 11/11/21 09:40 Dose: 10 mg Documented by: SPENCER Lactulose (Lactulose 20 Gm/30 Ml Solution) 30 gm PO TID [facility] Last Admin: 11/11/21 09:39 Dose: 30 gm Documented by: SPENCER Levothyroxine Sodium (Levothyroxine Sodium 75 Mcg Tablet) 75 mcg PO DAILY@0600 [facility] Last Admin: 11/11/21 06:26 Dose: 75 mcg Documented by: PATRICIA Montelukast Sodium (Montelukast Sodium 10 Mg Tablet) 10 mg PO BEDTIME [facility] Last Admin: 11/10/21 21:26 Dose: 10 mg Documented by: PATRICIA Omeprazole (Omeprazole 20 Mg Capsule.Dr) 20 mg PO DAILY@0630 [facility] Last Admin: 11/11/21 06:26 Dose: 20 mg Documented by: PATRICIA Pharmacy Consult (Consult Rx Perform Med Rec) 1 each MISCELLANE ONCE PRN PRN Reason: Consult order Rifaximin (Rifaximin 550 Mg Tablet) 550 mg PO BID [facility] Last Admin: 11/11/21 09:41 Dose: 550 mg Documented by: SPENCER Sodium Chloride (0.9 % Sodium Chloride Flush 3 Ml Syringe) 3 ml IVFLUSH QSHIFT [facility] Last Admin: 11/11/21 09:40 Dose: 3 ml Documented by: SPECNER Spironolactone (Spironolactone 25 Mg Tablet) 50 mg PO DAILY [facility]; Protocol Last Admin: 11/11/21 09:40 Dose: 50 mg Documented by: SPENCER Timolol Maleate (Timolol Maleate 0.5 % Oph Alexandra 5 Ml Drbtl) 1 drop EYE-RIGHT BID [facility] Last Admin: 11/11/21 09:42 Dose: 1 drop Documented by: SPENCER Labs CBC & Chem 7: 11/11/21 08:46 11/11/21 05:30 Labs: Laboratory Results - last 24 hr 11/10/21 11/10/21 11/11/21 16:18 19:24 05:30 Anion Gap 10 L Estim Creat Clear Calc 19.2 Estimated GFR 25 POC Glucose 134 H 168 H Random Glucose 73 Calcium 9.2 Ammonia Vitamin B12 Folate Blood Type Antibody Screen 11/11/21 11/11/21 11/11/21 05:30 07:51 08:46 Anion Gap Estim Creat Clear Calc Estimated GFR POC Glucose 76 Random Glucose Calcium Ammonia 80 H Vitamin B12 Folate Blood Type O Positive Antibody Screen NEGATIVE 11/11/21 11/11/21 08:46 11:25 Anion Gap Estim Creat Clear Calc Estimated GFR POC Glucose 144 H Random Glucose Calcium Ammonia Vitamin B12 1644 H Folate > 20.0 Blood Type Antibody Screen Assessment and Plan (1) Acute hepatic encephalopathy: Status: Acute (2) CKD (chronic kidney disease) stage 4, GFR 15-29 ml/min: Status: Acute Assessment and Plan: 76F presented with confusion 1..acute metabolic encephalopathy due? hepatic encephalopathy, ammonia level has gone up to 145 yesterday as per staff -taking her lactulose , but no bm's over night patient is passing gases , bm's also overnight x3,no abd pain continue Rifaximin and lactulose 30 mg tid , also we will add 1 dose [place] lactulose if helps with bm and repeat ammonis level tomorrow 2.alcohol and hcv cirhosis continue aldactone 3.htn: continue amlodinpie, isodril, hydralazine 4.chronic diastolic chf euvolemic 5.dm:fs flactuating between 100-200 range basal bolus insulin, adjusted lantus to 10 units, monitor poc avoid coverage below 200 mg/dl 6.CKD IV at baseline, monitor 7.paroxysmal atrial fibrilaliton eliquis Quality Stroke Does the patient have a stroke diagnosis?: No VTE Prior VTE?: No VTE Risk Level:: Medical - moderate - high VTE Device Contraindication: Treatment Not Indicated VTE Drug Contraindication: N/A - Med Ordered
[2021-11-11 16:35] LABS: Glucose, Whole Blood 175 mg/dL (60-115)
[2021-11-11 20:54] LABS: Glucose, Whole Blood 173 mg/dL (60-115)
[2021-11-11] MEDS: Montelukast Sodium 10 MG TABLET PO (22:44)
[2021-11-11] MEDS: Insulin Glargine,Hum.rec.anlog 100 UNIT/ML 10 ML VIAL 10 UNIT SUBCUT (22:46)
[2021-11-12 03:21] VITALS: BP 135/77; PULSE 75; RESP 18; TEMP 37; O2SAT 97
[2021-11-12] MEDS: Omeprazole 20 MG CAPSULE.DR PO (05:29)
[2021-11-12] MEDS: Levothyroxine Sodium 75 MCG TABLET PO (05:29)
[2021-11-12 07:42] VITALS: BP 169/73; PULSE 78; RESP 18; TEMP 36.2; O2SAT 98
[2021-11-12 07:49] LABS: Glucose, Whole Blood 139 mg/dL (60-115)
[2021-11-12 09:27] VITALS: BP 169/73; PULSE 78; O2SAT 98
[2021-11-12] MEDS: Ferrous Sulfate 324 MG TABLET.DR PO (09:49)
[2021-11-12] MEDS: Apixaban 2.5 MG TABLET PO ×2 (09:49→22:30)
[2021-11-12] MEDS: amLODIPine Besylate 10 MG TABLET PO (09:49)
[2021-11-12] MEDS: Spironolactone 25 MG TABLET 50 MG PO (09:49)
[2021-11-12] MEDS: rifAXIMin 550 MG TABLET PO ×2 (09:49→22:30)
[2021-11-12] MEDS: hydrALAZINE HCl 50 MG TABLET PO ×3 (09:49→22:30)
[2021-11-12] MEDS: Isosorbide Dinitrate 10 MG TABLET PO ×2 (09:49→22:30)
[2021-11-12] MEDS: Folic Acid 1 MG TABLET PO (09:49)
[2021-11-12] MEDS: Cyanocobalamin (Vitamin B-12) 1,000 MCG TABLET 1000 MCG PO (09:49)
[2021-11-12] MEDS: 0.9 % Sodium Chloride Flush 3 ML SYRINGE IVFLUSH ×3 (09:50→22:32)
[2021-11-12] MEDS: timoloL maleate 0.5 % Oph Sol 5 ML DRBTL 1 DROP EYE-RIGHT ×2 (09:51→22:33)
[2021-11-12 11:35] LABS: Glucose, Whole Blood 145 mg/dL (60-115)
[2021-11-12 12:00] VITALS: BP 131/54; PULSE 74; RESP 18; TEMP 36.7; O2SAT 97
[2021-11-12] MEDS: Lactulose 20 GM/30 ML SOLUTION 30 GM PO ×3 (13:03→22:31)
--- NOTE | 2021-11-12 13:03 | HO.PM.IMPN ---
Subjective Subjective Date of Service: 11/12/21 Interval History: toxic metabolic encephalopathy, fall Review of Systems this morning patient still feels is awake but was slightly confused than yesterday and slid down from her chair she said on her buttocks- did not hit her head. denies any chest pain or shortness of breath or abdominal pain Physical Exam Vital Signs: Vital Signs: Last Vital Signs Temp 98.1 F 11/12/21 12:00 Pulse 74 11/12/21 12:00 Resp 18 11/12/21 12:00 BP 131/54 L 11/12/21 12:00 Pulse Ox 97 11/12/21 12:00 BMI result Body Mass Index 18.5 General: AO X 2, no acute distress Resp:? CTA bilateral CVS: S1,S2,RRR GI: +BS, NT, no distention Skin: No rash Neuro:? motor grossly intact Psych: appropriate affect Objective Data Active Medications Amlodipine Besylate (Amlodipine Besylate 10 Mg Tablet) 10 mg PO DAILY [facility]; Protocol Last Admin: 11/12/21 09:49 Dose: 10 mg Documented by: AIDA Apixaban (Apixaban 2.5 Mg Tablet) 2.5 mg PO BID [facility] Last Admin: 11/12/21 09:49 Dose: 2.5 mg Documented by: AIDA Cyanocobalamin (Cyanocobalamin (Vitamin B-12) 1,000 Mcg Tablet) 1,000 mcg PO DAILY [facility] Last Admin: 11/12/21 09:49 Dose: 1,000 mcg Documented by: AIDA Dextrose (Dextrose 50 % 25 Gm/50 Ml Vial) 25 gm IVPUSH Q15M PRN; Protocol PRN Reason: per Hypoglycemia Standing Ord. Ferrous Sulfate (Ferrous Sulfate 324 Mg Tablet.) 324 mg PO DAILY [facility] Last Admin: 11/12/21 09:49 Dose: 324 mg Documented by: AIDA Folic Acid (Folic Acid 1 Mg Tablet) 1 mg PO DAILY [facility] Last Admin: 11/12/21 09:49 Dose: 1 mg Documented by: AIDA Glucose (Glucose Gel 15 Gm Gel..Gram.) 15 gm PO Q15M PRN; Protocol PRN Reason: per Hypoglycemia Standing Ord. Hydralazine HCl (Hydralazine Hcl 50 Mg Tablet) 50 mg PO TID [facility]; Protocol Last Admin: 11/12/21 09:49 Dose: 50 mg Documented by: AIDA Insulin Glargine (Insulin Glargine,Hum.Rec.Anlog 100 Unit/Ml 10 Ml Vial) 10 unit SUBCUT BEDTIME [facility] Last Admin: 11/11/21 22:46 Dose: 10 unit Documented by: ALEJANDRA Insulin Human Lispro (Insulin Lispro 100 Unit/Ml 3 Ml Vial) 0 unit SUBCUT QIDACHS [facility]; Protocol Last Admin: 11/12/21 09:50 Dose: Not Given Documented by: AIDA Non-Admin Reason: No Insulin Coverage Isosorbide Dinitrate (Isosorbide Dinitrate 10 Mg Tablet) 10 mg PO BID [facility]; Protocol Last Admin: 11/12/21 09:49 Dose: 10 mg Documented by: AIDA Lactulose (Lactulose 20 Gm/30 Ml Solution) 30 gm PO QID [facility] Levothyroxine Sodium (Levothyroxine Sodium 75 Mcg Tablet) 75 mcg PO DAILY@0600 [facility] Last Admin: 11/12/21 05:29 Dose: 75 mcg Documented by: ALEJANDRA Montelukast Sodium (Montelukast Sodium 10 Mg Tablet) 10 mg PO BEDTIME [facility] Last Admin: 11/11/21 22:44 Dose: 10 mg Documented by: ALEJANDRA Omeprazole (Omeprazole 20 Mg Capsule.Dr) 20 mg PO DAILY@0630 [facility] Last Admin: 11/12/21 05:29 Dose: 20 mg Documented by: ALEJANDRA Pharmacy Consult (Consult Rx Perform Med Rec) 1 each MISCELLANE ONCE PRN PRN Reason: Consult order Rifaximin (Rifaximin 550 Mg Tablet) 550 mg PO BID [facility] Last Admin: 11/12/21 09:49 Dose: 550 mg Documented by: AIDA Sodium Chloride (0.9 % Sodium Chloride Flush 3 Ml Syringe) [facility] Last Admin: 11/12/21 09:50 Dose: 3 ml Documented by: AIDA Spironolactone (Spironolactone 25 Mg Tablet) 50 mg PO DAILY [facility]; Protocol Last Admin: 11/12/21 09:49 Dose: 50 mg Documented by: AIDA Timolol Maleate (Timolol Maleate 0.5 % Oph Alexandra 5 Ml Drbtl) 1 drop EYE-RIGHT BID [facility] Last Admin: 11/12/21 09:51 Dose: 1 drop Documented by: AIDA Labs CBC & Chem 7: 11/11/21 08:46 11/11/21 05:30 Labs: Laboratory Results - last 24 hr 11/11/21 11/11/21 11/12/21 16:28 20:44 07:25 POC Glucose 175 H 173 H 139 H 11/12/21 11:17 POC Glucose 145 H Assessment and Plan (1) Acute hepatic encephalopathy: Status: Acute Assessment and Plan: 76F presented with confusion 1..acute metabolic encephalopathy due? hepatic encephalopathy, ammonia level has gone down to 80 as per staff -taking her lactulose , but no bm's over night bm's also overnight x2,no abd pain continue Rifaximin and adjusted lactulose 30 mg qid , also we will add 1 dose [place] lactulose if helps with bm and repeat ammonis level tomorrow fall added-hip/pevis xary-otherwise non focal and moving all extermities. 2.alcohol and hcv cirhosis continue aldactone 3.htn: continue amlodinpie, isodril, hydralazine 4.chronic diastolic chf euvolemic 5.dm:fs flactuating between 100-200 range basal bolus insulin, adjusted lantus to 10 units, monitor poc avoid coverage below 200 mg/dl 6.CKD IV at baseline, monitor 7.paroxysmal atrial fibrilaliton eliquis Pt-recomended rehab . Quality Stroke Does the patient have a stroke diagnosis?: No VTE Prior VTE?: No VTE Risk Level:: Medical - moderate - high VTE Device Contraindication: Treatment Not Indicated VTE Drug Contraindication: N/A - Med Ordered
[2021-11-12 15:46] LABS: Glucose, Whole Blood 167 mg/dL (60-115)
[2021-11-12 20:00] VITALS: BP 164/67; PULSE 82; RESP 18; TEMP 36.4; O2SAT 98
[2021-11-12 21:02] LABS: Glucose, Whole Blood 151 mg/dL (60-115)
[2021-11-12 22:30] VITALS: BP 164/67; PULSE 82
[2021-11-12] MEDS: Montelukast Sodium 10 MG TABLET PO (22:30)
[2021-11-12] MEDS: Insulin Glargine,Hum.rec.anlog 100 UNIT/ML 10 ML VIAL 10 UNIT SUBCUT (22:31)
[2021-11-13] VITALS (10 sets, daily range): BP systolic 133–161; BP diastolic 63–75; PULSE 69–76; RESP 17–18; TEMP 36.2–36.8; O2SAT 95–98
[2021-11-13] MEDS: Levothyroxine Sodium 75 MCG TABLET PO (06:20)
[2021-11-13] MEDS: Omeprazole 20 MG CAPSULE.DR PO (06:20)
[2021-11-13 06:54] LABS: Anion Gap 11 (12-20); Blood Urea Nitrogen 35 mg/dL (9-16); Calcium 9.3 mg/dL (8.4-10.2); Carbon Dioxide 21 mmol/L (22-29); Chloride 108 mmol/L (96-108); Creatinine Clr Calc Pharmacy 17.2; Estimated Glomerular Filt Rate 22; Glucose Random 111 mg/dL (60-115); Potassium 3.8 mmol/L (3.3-5.1); Sodium 136 mmol/L (135-145)
[2021-11-13 06:54] LABS: Ammonia 74 umol/L (13-55)
[2021-11-13 08:51] LABS: Hemoglobin 6.7 g/dl (12.0-16.0)
[2021-11-13] MEDS: Lactulose 20 GM/30 ML SOLUTION 30 GM PO ×4 (09:16→22:13)
[2021-11-13] MEDS: Cyanocobalamin (Vitamin B-12) 1,000 MCG TABLET 1000 MCG PO (09:16)
[2021-11-13] MEDS: rifAXIMin 550 MG TABLET PO ×2 (09:16→22:19)
[2021-11-13] MEDS: Ferrous Sulfate 324 MG TABLET.DR PO (09:16)
[2021-11-13] MEDS: 0.9 % Sodium Chloride Flush 3 ML SYRINGE IVFLUSH ×3 (09:16→22:10)
[2021-11-13] MEDS: hydrALAZINE HCl 50 MG TABLET PO ×3 (09:16→22:09)
[2021-11-13] MEDS: timoloL maleate 0.5 % Oph Sol 5 ML DRBTL 1 DROP EYE-RIGHT ×2 (09:16→22:10)
[2021-11-13] MEDS: amLODIPine Besylate 10 MG TABLET PO (09:17)
[2021-11-13] MEDS: Folic Acid 1 MG TABLET PO (09:17)
[2021-11-13] MEDS: Isosorbide Dinitrate 10 MG TABLET PO ×2 (09:17→22:05)
[2021-11-13] MEDS: Spironolactone 25 MG TABLET 50 MG PO (09:17)
--- NOTE | 2021-11-13 10:30 | P.PNIM_ITS ---
Subjective Subjective Date of Service: 11/13/21 Interval History: ?toxic metabolic encephalopathy, Review of Systems Seems more awake today, denies any chest pain or shortness of breath or any buttock pain. Ammonia levels improving, H&H dropping down. Patient denies any zechariah blood in the stool or any melena history. Physical Exam Vital Signs: Vital Signs: Last Vital Signs Temp 97.7 F 11/13/21 08:00 Pulse 72 11/13/21 08:00 Resp 18 11/13/21 08:00 BP 134/64 11/13/21 08:00 Pulse Ox 97 11/13/21 08:00 BMI result Body Mass Index 18.5 General: AO X 2, no acute distress Resp:? CTA bilateral CVS: S1,S2,RRR GI: +BS, NT, no distention Skin: No rash Neuro:? motor grossly intact Psych: appropriate affect Objective Data Active Medications Amlodipine Besylate (Amlodipine Besylate 10 Mg Tablet) 10 mg PO DAILY [facility]; Protocol Last Admin: 11/13/21 09:17 Dose: 10 mg Documented by: ELENA Cyanocobalamin (Cyanocobalamin (Vitamin B-12) 1,000 Mcg Tablet) 1,000 mcg PO DAILY [facility] Last Admin: 11/13/21 09:16 Dose: 1,000 mcg Documented by: ELENA Dextrose (Dextrose 50 % 25 Gm/50 Ml Vial) 25 gm IVPUSH Q15M PRN; Protocol PRN Reason: per Hypoglycemia Standing Ord. Ferrous Sulfate (Ferrous Sulfate 324 Mg Tablet.) 324 mg PO DAILY [facility] Last Admin: 11/13/21 09:16 Dose: 324 mg Documented by: ELENA Folic Acid (Folic Acid 1 Mg Tablet) 1 mg PO DAILY [facility] Last Admin: 11/13/21 09:17 Dose: 1 mg Documented by: ELENA Glucose (Glucose Gel 15 Gm Gel..Gram.) 15 gm PO Q15M PRN; Protocol PRN Reason: per Hypoglycemia Standing Ord. Hydralazine HCl (Hydralazine Hcl 50 Mg Tablet) 50 mg PO TID [facility]; Protocol Last Admin: 11/13/21 09:16 Dose: 50 mg Documented by: ELENA Insulin Glargine (Insulin Glargine,Hum.Rec.Anlog 100 Unit/Ml 10 Ml Vial) 10 unit SUBCUT BEDTIME [facility] Last Admin: 11/12/21 22:31 Dose: 10 unit Documented by: ALEJANDRA Insulin Human Lispro (Insulin Lispro 100 Unit/Ml 3 Ml Vial) 0 unit SUBCUT QIDACHS [facility]; Protocol Last Admin: 11/13/21 07:47 Dose: Not Given Documented by: ELENA Non-Admin Reason: No Insulin Coverage Isosorbide Dinitrate (Isosorbide Dinitrate 10 Mg Tablet) 10 mg PO BID [facility]; Protocol Last Admin: 11/13/21 09:17 Dose: 10 mg Documented by: ELENA Lactulose (Lactulose 20 Gm/30 Ml Solution) 30 gm PO QID [facility] Last Admin: 11/13/21 09:16 Dose: 30 gm Documented by: ELENA Levothyroxine Sodium (Levothyroxine Sodium 75 Mcg Tablet) 75 mcg PO DAILY@0600 [facility] Last Admin: 11/13/21 06:20 Dose: 75 mcg Documented by: ALEJANDRA Montelukast Sodium (Montelukast Sodium 10 Mg Tablet) 10 mg PO BEDTIME [facility] Last Admin: 11/12/21 22:30 Dose: 10 mg Documented by: ALEJANDRA Omeprazole (Omeprazole 20 Mg Capsule.Dr) 20 mg PO DAILY@0630 [facility] Last Admin: 11/13/21 06:20 Dose: 20 mg Documented by: ALEJANDRA Pharmacy Consult (Consult Rx Perform Med Rec) 1 each MISCELLANE ONCE PRN PRN Reason: Consult order Rifaximin (Rifaximin 550 Mg Tablet) 550 mg PO BID [facility] Last Admin: 11/13/21 09:16 Dose: 550 mg Documented by: ELENA Sodium Chloride (0.9 % Sodium Chloride Flush 3 Ml Syringe) 3 ml IVFLUSH QSHIFT [facility] Last Admin: 11/13/21 09:16 Dose: 3 ml Documented by: ELENA Spironolactone (Spironolactone 25 Mg Tablet) 50 mg PO DAILY [facility]; Protocol Last Admin: 11/13/21 09:17 Dose: 50 mg Documented by: ELENA Timolol Maleate (Timolol Maleate 0.5 % Oph Alexandra 5 Ml Drbtl) 1 drop EYE-RIGHT BID [facility] Last Admin: 11/13/21 09:16 Dose: 1 drop Documented by: HO.VENLA Labs CBC & Chem 7: 11/13/21 08:29 11/13/21 05:58 Labs: Laboratory Results - last 24 hr 11/11/21 11/12/21 11/12/21 08:46 11:17 15:32 Anion Gap Estim Creat Clear Calc Estimated GFR POC Glucose 145 H 167 H Random Glucose Calcium Ammonia Blood Type O Positive Antibody Screen NEGATIVE Crossmatch See Detail 11/12/21 11/13/21 11/13/21 20:53 05:58 06:39 Anion Gap 11 L Estim Creat Clear Calc 17.2 Estimated GFR 22 POC Glucose 151 H Random Glucose 111 Calcium 9.3 Ammonia 74 H Blood Type Antibody Screen Crossmatch Microbiology Microbiology Results: Microbiology 11/07/21 17:38 Blood Culture - Final Blood - Venous No growth after 5 days. 11/07/21 15:34 Blood Culture - Final Blood - Venous No growth after 5 days. Assessment and Plan (1) Anemia: Status: Acute (2) CKD (chronic kidney disease) stage 4, GFR 15-29 ml/min: Status: Acute Assessment and Plan: 76F presented with confusion 1.acute metabolic encephalopathy due? hepatic encephalopathy, ammonia level has gone down to 80-74 as per staff -taking her lactulose , but no bm's over night ?bm's also overnight x2,no abd pain continue Rifaximin and adjusted lactulose 30 mg qid , also we will add 1 dose [place] lactulose if helps with bm and repeat ammonia level tomorrow fall added-hip/pevis xary-otherwise non focal and moving all extermities. 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 multifactorial hold eliquis iron panel-studies normal, b12 and folate normal, fobt added. added 1 prbc . Pt-recomended rehab . Quality Stroke Does the patient have a stroke diagnosis?: No VTE Prior VTE?: No VTE Risk Level:: Medical - moderate - high VTE Device Contraindication: Treatment Not Indicated VTE Drug Contraindication: N/A - Med Ordered
[2021-11-13] MEDS: Acetaminophen 325 MG TABLET 650 MG PO (10:47)
[2021-11-13 11:53] LABS: Glucose, Whole Blood 180 mg/dL (60-115)
[2021-11-13 11:53] LABS: Glucose, Whole Blood 106 mg/dL (60-115)
--- NOTE | 2021-11-13 13:10 | MHC.CM.PN ---
Addendum entered by Sarah Finch 11/13/21 13:42: t/c to justin glynn i informed her of the message financial services sent me , she was very happy her mother was approved , she is accepting of having her mother go to short term rehab and hopes we can find one in the near [place] area, ([facility], [facility] , [facility]) Addendum entered by Sarah Finch 11/13/21 13:34: [facility] was approved (ID # [id number])- EFFECTIVE 10/14/2021. Her daughter did call Medicare to update her information, the Medicare y [employer] should be canceling at the end of this month. 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
[2021-11-13 16:51] LABS: Glucose, Whole Blood 135 mg/dL (60-115)
[2021-11-13 20:39] LABS: Glucose, Whole Blood 167 mg/dL (60-115)
[2021-11-13] MEDS: Lactulose 20 GM/30 ML SOLUTION 200 GM PR (22:03)
[2021-11-13] MEDS: Insulin Glargine,Hum.rec.anlog 100 UNIT/ML 10 ML VIAL 10 UNIT SUBCUT (22:12)
[2021-11-13] MEDS: Montelukast Sodium 10 MG TABLET PO (22:23)
[2021-11-14] VITALS (7 sets, daily range): BP systolic 121–154; BP diastolic 57–83; PULSE 71–77; RESP 17–19; TEMP 36.3–36.8; O2SAT 95–97
[2021-11-14] MEDS: Omeprazole 20 MG CAPSULE.DR PO (05:58)
[2021-11-14] MEDS: Levothyroxine Sodium 75 MCG TABLET PO (05:58)
[2021-11-14 07:16] LABS: Hematocrit 22.6 % (37.0-47.0); Hemoglobin 7.7 g/dl (12.0-16.0)
[2021-11-14 07:45] LABS: Glucose, Whole Blood 104 mg/dL (60-115)
[2021-11-14] MEDS: Cyanocobalamin (Vitamin B-12) 1,000 MCG TABLET 1000 MCG PO (10:11)
[2021-11-14] MEDS: hydrALAZINE HCl 50 MG TABLET PO ×3 (10:11→21:17)
[2021-11-14] MEDS: Ferrous Sulfate 324 MG TABLET.DR PO (10:11)
[2021-11-14] MEDS: Lactulose 20 GM/30 ML SOLUTION 30 GM PO ×4 (10:11→21:18)
[2021-11-14] MEDS: amLODIPine Besylate 10 MG TABLET PO (10:11)
[2021-11-14] MEDS: Folic Acid 1 MG TABLET PO (10:11)
[2021-11-14] MEDS: Isosorbide Dinitrate 10 MG TABLET PO ×2 (10:11→21:17)
[2021-11-14] MEDS: polyethylene glycoL 3350 17 GM POWD.PACK PO (10:11)
[2021-11-14] MEDS: rifAXIMin 550 MG TABLET PO (10:11)
[2021-11-14] MEDS: 0.9 % Sodium Chloride Flush 3 ML SYRINGE IVFLUSH ×2 (10:12→18:59)
[2021-11-14] MEDS: Spironolactone 25 MG TABLET 50 MG PO (10:12)
[2021-11-14] MEDS: timoloL maleate 0.5 % Oph Sol 5 ML DRBTL 1 DROP EYE-RIGHT ×2 (10:15→21:20)
--- NOTE | 2021-11-14 11:33 | P.PNIM_ITS ---
Subjective Subjective Date of Service: 11/14/21 Interval History: anemia , hepatic encephalopathy Review of Systems seems more awake , denies any chest pain or sob generlaly weak denies any blood in stool Physical Exam Vital Signs: Vital Signs: Last Vital Signs Temp 97.8 F 11/14/21 08:00 Pulse 76 11/14/21 08:00 Resp 17 11/14/21 08:00 BP 130/83 11/14/21 08:00 Pulse Ox 97 11/14/21 08:00 BMI result Body Mass Index 18.5 General: AO X 2, no acute distress Resp:? CTA bilateral CVS: S1,S2,RRR GI: +BS, NT, no distention Skin: No rash Neuro:? motor grossly intact Psych: appropriate affect Objective Data Active Medications Amlodipine Besylate (Amlodipine Besylate 10 Mg Tablet) 10 mg PO DAILY [facility]; Protocol Last Admin: 11/14/21 10:11 Dose: 10 mg Documented by: ELENA Cyanocobalamin (Cyanocobalamin (Vitamin B-12) 1,000 Mcg Tablet) 1,000 mcg PO DAILY [facility] Last Admin: 11/14/21 10:11 Dose: 1,000 mcg Documented by: ELENA Dextrose (Dextrose 50 % 25 Gm/50 Ml Vial) 25 gm IVPUSH Q15M PRN; Protocol PRN Reason: per Hypoglycemia Standing Ord. Ferrous Sulfate (Ferrous Sulfate 324 Mg Tablet.Dr) 324 mg PO DAILY [facility] Last Admin: 11/14/21 10:11 Dose: 324 mg Documented by: ELENA Folic Acid (Folic Acid 1 Mg Tablet) 1 mg PO DAILY [facility] Last Admin: 11/14/21 10:11 Dose: 1 mg Documented by: ELENA Glucose (Glucose Gel 15 Gm Gel..Gram.) 15 gm PO Q15M PRN; Protocol PRN Reason: per Hypoglycemia Standing Ord. Hydralazine HCl (Hydralazine Hcl 50 Mg Tablet) 50 mg PO TID [facility]; Protocol Last Admin: 11/14/21 10:11 Dose: 50 mg Documented by: ELENA Insulin Glargine (Insulin Glargine,Hum.Rec.Anlog 100 Unit/Ml 10 Ml Vial) 10 unit SUBCUT BEDTIME [facility] Last Admin: 11/13/21 22:12 Dose: 10 unit Documented by: RENNY Insulin Human Lispro (Insulin Lispro 100 Unit/Ml 3 Ml Vial) 0 unit SUBCUT QIDACHS [facility]; Protocol Last Admin: 11/14/21 07:39 Dose: Not Given Documented by: ELENA Non-Admin Reason: No Insulin Coverage Isosorbide Dinitrate (Isosorbide Dinitrate 10 Mg Tablet) 10 mg PO BID [facility]; Protocol Last Admin: 11/14/21 10:11 Dose: 10 mg Documented by: ELENA Lactulose (Lactulose 20 Gm/30 Ml Solution) 30 gm PO QID [facility] Last Admin: 11/14/21 10:11 Dose: 30 gm Documented by: ELENA Levothyroxine Sodium (Levothyroxine Sodium 75 Mcg Tablet) 75 mcg PO DAILY@0600 [facility] Last Admin: 11/14/21 05:58 Dose: 75 mcg Documented by: LEONIE Montelukast Sodium (Montelukast Sodium 10 Mg Tablet) 10 mg PO BEDTIME [facility] Last Admin: 11/13/21 22:23 Dose: 10 mg Documented by: RENNY Omeprazole (Omeprazole 20 Mg Capsule.Dr) 20 mg PO DAILY@0630 [facility] Last Admin: 11/14/21 05:58 Dose: 20 mg Documented by: LEONIE Pharmacy Consult (Consult Rx Perform Med Rec) 1 each MISCELLANE ONCE PRN PRN Reason: Consult order Polyethylene Glycol (Polyethylene Glycol 3350 17 Gm Powd.Pack) 17 gm PO DAILY [facility] Last Admin: 11/14/21 10:11 Dose: 17 gm Documented by: ELENA Rifaximin (Rifaximin 550 Mg Tablet) 550 mg PO BID [facility] Last Admin: 11/14/21 10:11 Dose: 550 mg Documented by: ELENA Sodium Chloride (0.9 % Sodium Chloride Flush 3 Ml Syringe) 3 ml IVFLUSH QSHIFT [facility] Last Admin: 11/14/21 10:12 Dose: 3 ml Documented by: ELENA Spironolactone (Spironolactone 25 Mg Tablet) 50 mg PO DAILY [facility]; Protocol Last Admin: 11/14/21 10:12 Dose: 50 mg Documented by: ELENA Timolol Maleate (Timolol Maleate 0.5 % Oph Alexandra 5 Ml Drbtl) 1 drop EYE-RIGHT BID [facility] Last Admin: 11/14/21 10:15 Dose: 1 drop Documented by: ELENA Labs CBC & Chem 7: 11/14/21 06:05 11/13/21 05:58 Labs: Laboratory Results - last 24 hr 11/11/21 11/13/21 11/13/21 08:46 07:21 11:23 POC Glucose 106 180 H Crossmatch See Detail 11/13/21 11/13/21 11/14/21 16:40 19:58 07:29 POC Glucose 135 H 167 H 104 Crossmatch Assessment and Plan (1) Hepatic encephalopathy: Status: Acute Assessment and Plan: 76F presented with confusion 1.acute metabolic encephalopathy due? hepatic encephalopathy, ammonia level has gone down to 80-74 as per staff -taking her lactulose , but no bm's over night ?bm's also overnight x2,no abd pain continue Rifaximin and adjusted lactulose 30 mg qid , also we will add 1 dose [place] lactulose if helps with bm and repeat ammonia level tomorrow fall added-hip/pevis xary-otherwise non focal and moving all extermities. 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 multifactorial ckd , poor oral inatke hold eliquis iron panel-studies normal, b12 and folate? normal, fobt added-staff is aware. s/p 1 prbc:7.7/22.6 . Pt-recomended rehab . Quality Stroke Does the patient have a stroke diagnosis?: No VTE Prior VTE?: No VTE Risk Level:: Medical - moderate - high VTE Device Contraindication: Treatment Not Indicated VTE Drug Contraindication: N/A - Med Ordered
[2021-11-14 11:37] LABS: Glucose, Whole Blood 101 mg/dL (60-115)
[2021-11-14 17:05] LABS: Glucose, Whole Blood 132 mg/dL (60-115)
[2021-11-14 18:47] LABS: OBS Int Ctl Valid YES; OBS1 POSITIVE (NEGATIVE)
--- NOTE | 2021-11-14 18:54 | PC.NURSE ---
P stool positive for OB IDr. Drew notified E will monitor
[2021-11-14 20:31] LABS: Glucose, Whole Blood 135 mg/dL (60-115)
[2021-11-14] MEDS: Insulin Glargine,Hum.rec.anlog 100 UNIT/ML 10 ML VIAL 10 UNIT SUBCUT (21:16)
[2021-11-14] MEDS: Montelukast Sodium 10 MG TABLET PO (21:16)
[2021-11-15] VITALS (8 sets, daily range): BP systolic 119–143; BP diastolic 57–65; PULSE 65–71; RESP 17–20; TEMP 36.4–37.2; O2SAT 91–98
[2021-11-15] MEDS: 0.9 % Sodium Chloride Flush 3 ML SYRINGE IVFLUSH ×3 (00:46→15:54)
--- NOTE | 2021-11-15 03:20 | PC.NURSE ---
Addendum entered by Sarah Alexander RN 11/15/21 19:26: NOTE ON WRONG PATIENT, THIS PERTAINS TO ROOM 370 Original Note: PATIENT NOTED ON [employer]ELOPMENT ANALYST WITH RHYTHM OF ATRIAL FIBRILLATION, HR RANGE 118-150. HOSPITALIST ON DUTY ALERTED, NURSING RADIO ANTENNA INSTALLER TO UNIT. MD ORDERED IVP CARDIZEM, THEN WITH LITTLE EFFECT ORDERS FOR CARDIZEM DRIP. BOTH IVP AND DRIP INITIATED BY NURSING RADIO ANTENNA INSTALLER AND PATIENT TRANSFERRED TO [facility], ROOM 444-1. REPORT GIVEN TO [facility] RN AND PT TRANSPORTED BY NSG RADIO ANTENNA INSTALLER AND IMC RN AT APPROX., 0150
[2021-11-15] MEDS: Omeprazole 20 MG CAPSULE.DR PO (06:09)
[2021-11-15] MEDS: Levothyroxine Sodium 75 MCG TABLET PO (06:09)
[2021-11-15 07:56] LABS: Glucose, Whole Blood 93 mg/dL (60-115)
[2021-11-15] MEDS: Folic Acid 1 MG TABLET PO (08:03)
[2021-11-15] MEDS: Isosorbide Dinitrate 10 MG TABLET PO ×2 (08:03→21:09)
[2021-11-15] MEDS: Lactulose 20 GM/30 ML SOLUTION 30 GM PO ×3 (08:04→17:18)
[2021-11-15] MEDS: hydrALAZINE HCl 50 MG TABLET PO ×2 (08:04→21:09)
[2021-11-15] MEDS: Cyanocobalamin (Vitamin B-12) 1,000 MCG TABLET 1000 MCG PO (08:04)
[2021-11-15] MEDS: Ferrous Sulfate 324 MG TABLET.DR PO (08:04)
[2021-11-15] MEDS: Spironolactone 25 MG TABLET 50 MG PO (08:04)
[2021-11-15] MEDS: amLODIPine Besylate 10 MG TABLET PO (08:04)
[2021-11-15] MEDS: timoloL maleate 0.5 % Oph Sol 5 ML DRBTL 1 DROP EYE-RIGHT ×2 (08:12→21:14)
[2021-11-15 08:41] LABS: Hematocrit 23.1 % (37.0-47.0); Hemoglobin 7.7 g/dl (12.0-16.0); Mean Corpuscular HGB Conc 33.3 g/dl (31.0-35.0); Mean Corpuscular Hemoglobin 30.1 pg (27.0-33.0); Mean Corpuscular Volume 90.2 fL (80.0-98.0); Mean Platelet Volume 11.8 fL (9.4-12.3); Platelet Count 113 X10*3/uL (160-400); Red Blood Count 2.56 X10*6/uL (4.20-5.50); White Blood Count 4.5 X10*3/uL (4.8-10.8)
--- NOTE | 2021-11-15 10:54 | P.PNIM_ITS ---
Subjective Subjective Date of Service: 11/16/21 Interval History: Toxic metabolic encephalopathy secondary to hepatic disease. Right conjunctivitis Question of GI bleed Review of Systems Patient denies any chest pain or shortness of breath or abdominal pain or range blood in the stool Has right eye pain and very little discharge Physical Exam Vital Signs: Vital Signs: Last Vital Signs Temp 97.7 F 11/15/21 07:36 Pulse 71 11/15/21 07:36 Resp 18 11/15/21 07:36 BP 143/65 H 11/15/21 07:36 Pulse Ox 97 11/15/21 07:36 BMI result Body Mass Index 18.5 HEENT: Right eye: Has conductiveerythema, mild discharge serous Also has eye pain Vision seems fine,eomi AO X 2, no acute distress Resp:? CTA bilateral CVS: S1,S2,RRR GI: +BS, NT, no distention Skin: No rash Neuro:? motor grossly intact Psych: appropriate affect ysical exam: Objective Data Active Medications Amlodipine Besylate (Amlodipine Besylate 10 Mg Tablet) 10 mg PO DAILY [facility]; Protocol Last Admin: 11/15/21 08:04 Dose: 10 mg Documented by: RIKKI Cyanocobalamin (Cyanocobalamin (Vitamin B-12) 1,000 Mcg Tablet) 1,000 mcg PO DAILY [facility] Last Admin: 11/15/21 08:04 Dose: 1,000 mcg Documented by: RIKKI Dextrose (Dextrose 50 % 25 Gm/50 Ml Vial) 25 gm IVPUSH Q15M PRN; Protocol PRN Reason: per Hypoglycemia Standing Ord. Erythromycin (Erythromycin Base 0.5% Oph Oin 1 Gm Tube) 1 cm EYE-RIGHT TID [facility] Ferrous Sulfate (Ferrous Sulfate 324 Mg Tablet.) 324 mg PO DAILY [facility] Last Admin: 11/15/21 08:04 Dose: 324 mg Documented by: RIKKI Folic Acid (Folic Acid 1 Mg Tablet) 1 mg PO DAILY [facility] Last Admin: 11/15/21 08:03 Dose: 1 mg Documented by: RIKKI Glucose (Glucose Gel 15 Gm Gel..Gram.) 15 gm PO Q15M PRN; Protocol PRN Reason: per Hypoglycemia Standing Ord. Hydralazine HCl (Hydralazine Hcl 50 Mg Tablet) 50 mg PO TID [facility]; Protocol Last Admin: 11/15/21 08:04 Dose: 50 mg Documented by: RIKKI Insulin Glargine (Insulin Glargine,Hum.Rec.Anlog 100 Unit/Ml 10 Ml Vial) 10 unit SUBCUT BEDTIME [facility] Last Admin: 11/14/21 21:16 Dose: 10 unit Documented by: CARMEN Insulin Human Lispro (Insulin Lispro 100 Unit/Ml 3 Ml Vial) 0 unit SUBCUT QIDACHS [facility]; Protocol Last Admin: 11/15/21 08:06 Dose: Not Given Documented by: RIKKI Non-Admin Reason: No Insulin Coverage Isosorbide Dinitrate (Isosorbide Dinitrate 10 Mg Tablet) 10 mg PO BID [facility]; Protocol Last Admin: 11/15/21 08:03 Dose: 10 mg Documented by: RIKKI Lactulose (Lactulose 20 Gm/30 Ml Solution) 30 gm PO QID [facility] Last Admin: 11/15/21 08:04 Dose: 30 gm Documented by: RIKKI Levothyroxine Sodium (Levothyroxine Sodium 75 Mcg Tablet) 75 mcg PO DAILY@0600 [facility] Last Admin: 11/15/21 06:09 Dose: 75 mcg Documented by: LEONIE Montelukast Sodium (Montelukast Sodium 10 Mg Tablet) 10 mg PO BEDTIME [facility] Last Admin: 11/14/21 21:16 Dose: 10 mg Documented by: CARMEN Omeprazole (Omeprazole 20 Mg Capsule.Dr) 20 mg PO DAILY@0630 [facility] Last Admin: 11/15/21 06:09 Dose: 20 mg Documented by: LEONIE Pharmacy Consult (Consult Rx Perform Med Rec) 1 each MISCELLANE ONCE PRN PRN Reason: Consult order Polyethylene Glycol (Polyethylene Glycol 3350 17 Gm Powd.Pack) 17 gm PO DAILY [facility] Last Admin: 11/15/21 09:47 Dose: Not Given Documented by: RIKKI Non-Admin Reason: Patient Refused Sodium Chloride (0.9 % Sodium Chloride Flush 3 Ml Syringe) 3 ml IVFLUSH QSHIFT [facility] Last Admin: 11/15/21 08:05 Dose: 3 ml Documented by: RIKKI Spironolactone (Spironolactone 25 Mg Tablet) 50 mg PO DAILY [facility]; Protocol Last Admin: 11/15/21 08:04 Dose: 50 mg Documented by: RIKKI Timolol Maleate (Timolol Maleate 0.5 % Oph Alexandra 5 Ml Drbtl) 1 drop EYE-RIGHT BID [facility] Last Admin: 11/15/21 08:12 Dose: 1 drop Documented by: RIKKI Labs CBC & Chem 7: 11/16/21 05:32 11/16/21 05:32 Labs: Laboratory Results - last 24 hr 11/14/21 11/14/21 11/14/21 11:10 16:33 18:20 MCV MCH MCHC RDW Plt Count MPV Absolute Nucleated RBC Nucleated RBC % (auto) POC Glucose 101 132 H Stool Occult Blood POSITIVE 11/14/21 11/15/21 11/15/21 20:04 07:33 07:40 MCV 90.2 MCH 30.1 MCHC 33.3 RDW 14.0 Plt Count 113 L MPV 11.8 Absolute Nucleated RBC 0.000 Nucleated RBC % (auto) 0.0 POC Glucose 135 H 93 Stool Occult Blood Assessment and Plan (1) Hepatic encephalopathy: Status: Acute Assessment and Plan: 76F presented with confusion 1.acute metabolic encephalopathy due? hepatic encephalopathy, ammonia level has gone down to 80-74 as per staff -taking her lactulose , but no bm's over night ?bm's also overnight x1 big bm,no abd pain continue Rifaximin and adjusted lactulose 30 mg qid , she is somewhat sleepy in afternoon but still easy aurosable and tried ngt for lactluse she declined ammonia seems improving from 210-to 195 GI- recomended continue po lactulose-dose adjusted 45 mg qid, one dose pr lactulose also given-after that also had 1 bm in afternoon morninglabs added fall few days back-hip/pevis xary-otherwise non focal and moving all extermities. 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 multifactorial ckd , poor oral inatke hold eliquis iron panel-studies normal, b12 and folate? normal, fobt added-staff is aware. s/p 1 prbc on -h/h today:7.6/22.6 . may need egd once hepati encephalopathy improves. Pt-recomended rehab? Quality Stroke Does the patient have a stroke diagnosis?: No VTE Prior VTE?: No VTE Risk Level:: Medical - moderate - high VTE Device Contraindication: Treatment Not Indicated VTE Drug Contraindication: N/A - Med Ordered
[2021-11-15 12:13] LABS: Glucose, Whole Blood 170 mg/dL (60-115)
[2021-11-15] MEDS: Erythromycin Base 0.5% Oph Oin 1 GM TUBE 1 CM EYE-RIGHT ×2 (12:15→21:09)
[2021-11-15 15:26] LABS: MANUAL DIFF FLAG NO
[2021-11-15 15:29] LABS: Basophils Percent Auto 0.4 % (0-2); Eosinophils Absolute Auto 0.2 X10*3/uL (0.0-0.4); Hematocrit 22.7 % (37.0-47.0); Hemoglobin 7.6 g/dl (12.0-16.0); Imm Gran Abs Auto 0.02 X10*3/uL (0.00-0.03); Imm Gran Pct Auto 0.4 % (0.0-0.4); Lymphocytes Absolute Auto 1.1 X10*3/uL (1.2-4.9); Lymphocytes Percent Auto 22.4 % (20-40); Mean Corpuscular HGB Conc 33.5 g/dl (31.0-35.0); Mean Corpuscular Hemoglobin 30.4 pg (27.0-33.0); Mean Corpuscular Volume 90.8 fL (80.0-98.0); Mean Platelet Volume 10.9 fL (9.4-12.3); Monocytes Absolute Auto 0.7 X10*3/uL (0.1-1.2); Monocytes Percent Auto 14.5 % (2-11); Neutrophils Absolute Auto 2.7 x10*3/uL (2.0-8.3); Neutrophils Percent Auto 57.3 % (45-73); Platelet Count 123 X10*3/uL (160-400); Red Cell Distribution Width 14.1 % (11.0-16.0); White Blood Count 4.8 X10*3/uL (4.8-10.8)
--- NOTE | 2021-11-15 15:34 | PM.EVENT ---
Event Note Date of Service: 11/15/21 Event Note: GI Consult-Hx via RN, EMR, and hospitalist Imp: 76 yo female with EtOH-related cirrhosis with associated encephalopathy. She was just discharged in late 10/2021 after a similar presentation. She remains sleepy but is arouseable. Her last NH3 was improved on 11/13 and a repeat is pending. She had a drop in Hgb on 11/13 requiring 1 u PRBC's, but without any reported signs of bleeding and a subsequent stable Hgb since then. Her abdominal exam is benign and without obvious ascites. She has apparently been on Eliquis and Iron at home. Diff dx: Hepatic encephalopathy, ? GI bleed. No clinical signs of SBP. Rec: NPO for now except meds/ice/sips. IV PPI. F/U labs this afternoon and in AM including NH3, PT/INR, CBC, BMP, LFT's. Continue lactulose, preferably po, and Rifaximin. May need an EGD at some point if she shows signs of GI bleeding. D/W RN and Dr. Russell. Thanks
[2021-11-15 15:37] LABS: INTERNATIONAL NORM RATIO 1.2 (0.9-1.1); Prothrombin Time 14.1 SEC (9.9-13.0)
[2021-11-15 15:38] LABS: Ammonia 210 umol/L (13-55)
[2021-11-15 15:48] LABS: Alanine Aminotransferase 22 U/L (0-31); Albumin Level 3.2 g/dL (3.5-5.0); Alkaline Phosphatase 84 U/L (39-117); Aspartate Amino Transferase 31 U/L (5-31); Bilirubin Direct 0.5 mg/dL (0.0-0.5); Bilirubin Total 1.1 mg/dL (0.0-1.0); Total Protein 6.8 g/dL (6.5-8.0)
[2021-11-15 15:48] LABS: Anion Gap 9 (12-20); Blood Urea Nitrogen 27 mg/dL (9-16); Calcium 9.7 mg/dL (8.4-10.2); Carbon Dioxide 22 mmol/L (22-29); Chloride 111 mmol/L (96-108); Estimated Glomerular Filt Rate 23; Glucose Random 159 mg/dL (60-115); Potassium 4.1 mmol/L (3.3-5.1); Sodium 138 mmol/L (135-145)
[2021-11-15] MEDS: Dextrose 5 % and 0.45 % NaCl 1,000 ML 80 ML IVCONT (15:54)
--- NOTE | 2021-11-15 15:54 | PC.NURSE ---
at lunchtime pt was very difficult to arouse. was unable to to arouse enough to eat lunch. Bp 119/65 p 65 r 20 sat 95% room air. blood sugar was 170. pt was evaluated by Dr Russell. ammonia level drawn was wnl. lactulose give pr did not retain well.
[2021-11-15 16:07] LABS: Glucose, Whole Blood 149 mg/dL (60-115)
[2021-11-15 16:25] LABS: Ammonia 195 umol/L (13-55)
[2021-11-15] MEDS: rifAXIMin 550 MG TABLET PO ×2 (16:26→21:09)
[2021-11-15] MEDS: Lactulose 20 GM/30 ML SOLUTION 200 GM PR (16:53)
[2021-11-15] MEDS: Pantoprazole Sodium 40 MG/10 ML VIAL IVPUSH (17:17)
[2021-11-15] MEDS: Lactulose 20 GM/30 ML SOLUTION 15 GM PO (17:49)
--- NOTE | 2021-11-15 19:16 | PC.NURSE ---
PATIENT REPORT AT 1500 INDICATED PT WAS VERY SLEEPY, NOT TAKING PO, AND NOT OPENING EYES WITH CALLING NAME OR GENTLE SHAKE. HOSPITALIST CONCERNED AND LACTULOSE CT WAS ORDERED AND GIVEN BY 7-3 RN. PT NOTED IN BED RESTING AT 1515, DR FRIEND ON GI CONSULT IN TO SEE PT, PT NOW OPENING HER EYES, AND HOSPITALIST ENTERED ORDERS FOR LABWORK, NPO DIET, AND NGT FOR LACTULOSE ADMINISTRATION. AMMONIA LEVEL NOTED ELEVATED AT B210, AND SECOND LACTULOSE ENEMA GIVEN BY THIS DIRECTOR OF OPERATIONS SUPPORT ORDERED. RN COWORKER WAS AT BEDSIDE TO ASSIST WITH NGT INSERTION AND PT AWAKENED FOR EXPLANATION, VERY AGITATED WITH START OF PROCEDURE, YELLING OUT AND PULLING AT TUBE. RN COWORKER UNABLE TO ADVANCE AND SCANT AMOUNT OF NOSEBLEED PRESENT. PATIENT NOW VERBAL, WISHING TO SPEAK TO HER DAUGHTER, ASSISTED TO COMMODE WITH SMALL BM, AMBULATED WITH WALKER AND ASSIST OF ONE TO RECLINER PER CHOICE. FAMILY MEMBER CALLED AND SPOKE TO PT, ALSO UPDATED ON ALL WRITTEN IN THIS NOTE BY THIS DIRECTOR OF OPERATIONS SUPPORT. EXPLAINED LAB VALUES AND NO NGT FOR NOW. PT ABLE TO TOLERATE PO LACTULOSE. POC 149 WITH NO COVERAGE PER ISS. IVF INITIATED AFTER NEW IV SITE OF 22 ANGIO AT RIGHT AC. HOSPITALIST UPDATED ON ALL.
[2021-11-15 19:56] LABS: Glucose, Whole Blood 130 mg/dL (60-115)
[2021-11-15] MEDS: Lactulose 20 GM/30 ML SOLUTION 45 GM PO (21:08)
[2021-11-15] MEDS: Montelukast Sodium 10 MG TABLET PO (21:09)
--- NOTE | 2021-11-15 21:20 | CONS_ITS ---
DATE OF SERVICE: 11/15/2021 REASON FOR CONSULTATION: Hepatic encephalopathy, cirrhosis, and anemia. HISTORY OF PRESENT ILLNESS: This has been obtained from the medical record, her nurse, and the hospitalist. The patient is a 76-year-old female with underlying alcohol-related cirrhosis, who had just been admitted here toward the end of October. According to the GI consultation from , she has a history of alcohol-related cirrhosis and encephalopathy. During the hospitalization on November 03, she was treated with lactulose, which appears to have been given through nasogastric tube for part of the hospitalization with improvement in her mental status. There was no sign of any GI bleeding at that time and she was discharged on November 06. She returned to the hospital the following day with recurrent mental status issues and was readmitted on November 07 and has remained in the hospital. She has been receiving oral lactulose, but has presently required some lactulose enemas as her mental status has been waxing and waning. She did have a drop in hemoglobin on November 13 requiring 1 unit of blood, but without any obvious signs of GI bleeding. At the present time, she has not shown any signs of melena nor hematochezia. She has been afebrile. There has been no vomiting. MEDICATIONS: From home included Eliquis, iron, amlodipine, folic acid, insulin, hydralazine, isosorbide, lactulose, rifaximin, pantoprazole, Singulair, spironolactone, and Tradjenta. Her medications here in the hospital include amlodipine, iron, folic acid, hydralazine, insulin, isosorbide, lactulose, levothyroxine, Singulair, MiraLAX, spironolactone, and omeprazole. PAST MEDICAL HISTORY: Cirrhosis in relation to apparent alcohol abuse according to the medical record, encephalopathy, CHF, renal insufficiency, history of previous cerebrovascular disease, diabetes, atrial fibrillation, anemia. She does have COPD, sleep apnea, hypertension, and hyperlipidemia as well. SOCIAL HISTORY: She is from [place], but recently moved back here. She apparently has not used any alcohol for a couple of years. She lives with her family. FAMILY HISTORY: Noncontributory. REVIEW OF SYSTEMS: Not obtainable given her mental status. PHYSICAL EXAMINATION: GENERAL: The patient is sleepy, but is arousable to voice. She does open her eyes and answer some questions, although not completely appropriately. Anicteric sclerae. She has multiple spider angiomata on her chest wall. NECK: Supple. ABDOMEN: Soft, nondistended and without any signs of ascites. There is no focal tenderness nor mass. Neuro:There was no definitive asterixis, but she cannot hold her hands up in the air. LABORATORY DATA: From this afternoon showed sodium 138, potassium 4.1, BUN 27, creatinine 2.1, glucose 159, total bilirubin 1.1, AST 31, ALT 22, alkaline phosphatase 84, ammonia level 210, albumin 3.2. White blood cell count 4.8, hemoglobin stable at 7.6, platelets 123,000. PT 14.1 with INR 1.2. Most recent abdominal imaging was on November 02, which was a CT scan describing cirrhosis, but no discrete liver lesion. No biliary disease. There was a gallstone noted in the gallbladder, but there was no sign of cholecystitis. Pancreas and spleen were unremarkable. There is no evidence of any significant GI tract disease. There was no significant ascites at that time. IMPRESSION: The patient is a 76-year-old female with cirrhosis, presumably due to alcohol use, presenting with recurrent encephalopathy, which has persisted here in the hospital. She did have a slight drop in hemoglobin, but no signs of any active bleeding. She may have some slow and chronic GI bleeding that is contributing to the ongoing encephalopathy. At this point, I would continue lactulose, but try to do it orally as that tends to work better than lactulose enemas. If need be, she would require a temporary placement of a nasogastric tube for that. I would restart her rifaximin. I shall switch her to IV PPI and keep her n.p.o. for now to be sure there is no evidence of bleeding in the next 24 hours that might require upper endoscopy. She does not have any sign of ascites that would suggest spontaneous bacterial peritonitis. She did have the above-mentioned laboratories just this afternoon and she will have repeat laboratories tomorrow. If things stabilize with her mental status and no sign of bleeding, I would then restart her diet. I will continue to follow blood count closely as well as her other laboratories including the ammonia level and renal function. This has been discussed with the hospitalist. Thank you for the consultation. MD KEVIN Alvarez/JANIE / [id number] [email or web address]
[2021-11-16] VITALS (8 sets, daily range): BP systolic 117–142; BP diastolic 61–90; PULSE 10–76; RESP 17–20; TEMP 36.2–36.8; O2SAT 96–98
[2021-11-16 05:49] LABS: MANUAL DIFF FLAG NO
[2021-11-16 05:56] LABS: Basophils Percent Auto 0.9 % (0-2); Eosinophils Absolute Auto 0.2 X10*3/uL (0.0-0.4); Eosinophils Percent Auto 5.1 % (0-4); Hematocrit 23.1 % (37.0-47.0); Hemoglobin 7.4 g/dl (12.0-16.0); Imm Gran Abs Auto 0.02 X10*3/uL (0.00-0.03); Imm Gran Pct Auto 0.5 % (0.0-0.4); Lymphocytes Absolute Auto 1.2 X10*3/uL (1.2-4.9); Lymphocytes Percent Auto 27.6 % (20-40); Mean Corpuscular Hemoglobin 29.5 pg (27.0-33.0); Mean Platelet Volume 11.5 fL (9.4-12.3); Monocytes Absolute Auto 0.6 X10*3/uL (0.1-1.2); Monocytes Percent Auto 14.8 % (2-11); Neutrophils Absolute Auto 2.2 x10*3/uL (2.0-8.3); Neutrophils Percent Auto 51.1 % (45-73); Platelet Count 112 X10*3/uL (160-400); Red Blood Count 2.51 X10*6/uL (4.20-5.50); Red Cell Distribution Width 14.1 % (11.0-16.0); White Blood Count 4.3 X10*3/uL (4.8-10.8)
[2021-11-16] MEDS: Pantoprazole Sodium 40 MG/10 ML VIAL IVPUSH ×2 (05:57→17:09)
[2021-11-16] MEDS: Levothyroxine Sodium 75 MCG TABLET PO (05:57)
[2021-11-16 05:59] LABS: Ammonia 73 umol/L (13-55)
[2021-11-16] MEDS: Dextrose 5 % and 0.45 % NaCl 1,000 ML 80 ML IVCONT ×2 (06:08→18:31)
[2021-11-16 06:11] LABS: Anion Gap 10 (12-20); Blood Urea Nitrogen 22 mg/dL (9-16); Calcium 9.7 mg/dL (8.4-10.2); Carbon Dioxide 19 mmol/L (22-29); Chloride 113 mmol/L (96-108); Estimated Glomerular Filt Rate 22; Glucose Fasting 123 mg/dL (60-99); Potassium 3.6 mmol/L (3.3-5.1); Sodium 138 mmol/L (135-145)
[2021-11-16 07:49] LABS: Glucose, Whole Blood 121 mg/dL (60-115)
[2021-11-16] MEDS: Folic Acid 1 MG TABLET PO (08:01)
[2021-11-16] MEDS: Isosorbide Dinitrate 10 MG TABLET PO ×2 (08:01→21:58)
[2021-11-16] MEDS: hydrALAZINE HCl 50 MG TABLET PO ×3 (08:01→21:59)
[2021-11-16] MEDS: polyethylene glycoL 3350 17 GM POWD.PACK PO (08:02)
[2021-11-16] MEDS: rifAXIMin 550 MG TABLET PO ×2 (08:02→21:58)
[2021-11-16] MEDS: Ferrous Sulfate 324 MG TABLET.DR PO (08:02)
[2021-11-16] MEDS: Erythromycin Base 0.5% Oph Oin 1 GM TUBE 1 CM EYE-RIGHT ×3 (08:02→21:59)
[2021-11-16] MEDS: Cyanocobalamin (Vitamin B-12) 1,000 MCG TABLET 1000 MCG PO (08:02)
[2021-11-16] MEDS: amLODIPine Besylate 10 MG TABLET PO (08:02)
[2021-11-16] MEDS: timoloL maleate 0.5 % Oph Sol 5 ML DRBTL 1 DROP EYE-RIGHT ×2 (08:09→22:01)
[2021-11-16] MEDS: 0.9 % Sodium Chloride Flush 3 ML SYRINGE IVFLUSH ×2 (08:09→17:09)
--- NOTE | 2021-11-16 09:58 | MHC.CM.PN ---
PER HOSPITALIST PT SLOWLY IMPROVING, PT WILL NEED SCOPE PRIOR TO D/C AND ANTIC PT WILL REMAIN INPT 1-2 DAYS, CM WILL CONT TO FOLLOW D/C NEEDS.
[2021-11-16] MEDS: Lactulose 20 GM/30 ML SOLUTION 45 GM PO ×4 (10:13→21:59)
--- NOTE | 2021-11-16 10:48 | P.PNIM_ITS ---
Subjective Subjective Date of Service: 11/16/21 Interval History: anemia, hepatic encephalopathy Review of Systems She seems little more awake today, passed 3 BMs overnight as per staff. Declined NG tube yesterday, probably does not need since more awake today Physical Exam Vital Signs: Vital Signs: Last Vital Signs Temp 98.1 F 11/16/21 08:00 Pulse 10 L 11/16/21 08:02 Resp 17 11/16/21 08:00 BP 136/63 11/16/21 08:02 Pulse Ox 98 11/16/21 08:00 BMI result Body Mass Index 18.5 Right eye:? Has conductive erythema mild improvemnt, no discharge, eye pain Vision seems fine ?AO X 2, no acute distress Resp:? CTA bilateral CVS: S1,S2,RRR GI: +BS, NT, no distention Skin: No rash Neuro:? motor grossly intact Psych: appropriate affect ysical exam: Objective Data Active Medications Amlodipine Besylate (Amlodipine Besylate 10 Mg Tablet) 10 mg PO DAILY [facility]; Protocol Last Admin: 11/16/21 08:02 Dose: 10 mg Documented by: KERRI Cyanocobalamin (Cyanocobalamin (Vitamin B-12) 1,000 Mcg Tablet) 1,000 mcg PO DAILY [facility] Last Admin: 11/16/21 08:02 Dose: 1,000 mcg Documented by: KERRI Dextrose (Dextrose 50 % 25 Gm/50 Ml Vial) 25 gm IVPUSH Q15M PRN; Protocol PRN Reason: per Hypoglycemia Standing Ord. Erythromycin (Erythromycin Base 0.5% Oph Oin 1 Gm Tube) 1 cm EYE-RIGHT TID [facility] Last Admin: 11/16/21 08:02 Dose: 1 cm Documented by: KERRI Ferrous Sulfate (Ferrous Sulfate 324 Mg Tablet.Dr) 324 mg PO DAILY [facility] Last Admin: 11/16/21 08:02 Dose: 324 mg Documented by: KERRI Folic Acid (Folic Acid 1 Mg Tablet) 1 mg PO DAILY [facility] Last Admin: 11/16/21 08:01 Dose: 1 mg Documented by: KERRI Glucose (Glucose Gel 15 Gm Gel..Gram.) 15 gm PO Q15M PRN; Protocol PRN Reason: per Hypoglycemia Standing Ord. Hydralazine HCl (Hydralazine Hcl 50 Mg Tablet) 50 mg PO TID [facility]; Protocol Last Admin: 11/16/21 08:01 Dose: 50 mg Documented by: KERRI Dextrose/Sodium Chloride (D51/2ns) 1,000 mls @ 80 mls/hr IVCONT .[id number] [facility] Last Admin: 11/16/21 06:08 Dose: 80 mls/hr Documented by: SAM Insulin Glargine (Insulin Glargine,Hum.Rec.Anlog 100 Unit/Ml 10 Ml Vial) 10 unit SUBCUT BEDTIME [facility] Last Admin: 11/14/21 21:16 Dose: 10 unit Documented by: CARMEN Insulin Human Lispro (Insulin Lispro 100 Unit/Ml 3 Ml Vial) 0 unit SUBCUT QIDACHS [facility]; Protocol Last Admin: 11/16/21 07:49 Dose: Not Given Documented by: KERRI Non-Admin Reason: No Insulin Coverage Isosorbide Dinitrate (Isosorbide Dinitrate 10 Mg Tablet) 10 mg PO BID [facility]; Protocol Last Admin: 11/16/21 08:01 Dose: 10 mg Documented by: KERRI Lactulose (Lactulose 20 Gm/30 Ml Solution) 45 gm PO QID [facility] Last Admin: 11/16/21 10:13 Dose: 45 gm Documented by: KERRI Levothyroxine Sodium (Levothyroxine Sodium 75 Mcg Tablet) 75 mcg PO DAILY@0600 [facility] Last Admin: 11/16/21 05:57 Dose: 75 mcg Documented by: SAM Montelukast Sodium (Montelukast Sodium 10 Mg Tablet) 10 mg PO BEDTIME [facility] Last Admin: 11/15/21 21:09 Dose: 10 mg Documented by: SAM Pantoprazole Sodium (Pantoprazole Sodium 40 Mg/10 Ml Vial) 40 mg IVPUSH BID@0630,1630 [facility] Last Admin: 11/16/21 05:57 Dose: 40 mg Documented by: SAM Pharmacy Consult (Consult Rx Perform Med Rec) 1 each MISCELLANE ONCE PRN PRN Reason: Consult order Polyethylene Glycol (Polyethylene Glycol 3350 17 Gm Powd.Pack) 17 gm PO DAILY [facility] Last Admin: 11/16/21 08:02 Dose: 17 gm Documented by: KERRI Rifaximin (Rifaximin 550 Mg Tablet) 550 mg PO BID [facility] Last Admin: 11/16/21 08:02 Dose: 550 mg Documented by: KERRI Sodium Chloride (0.9 % Sodium Chloride Flush 3 Ml Syringe) 3 ml IVFLUSH QSHIFT [facility] Last Admin: 11/16/21 08:09 Dose: 3 ml Documented by: KERRI Spironolactone (Spironolactone 25 Mg Tablet) 50 mg PO DAILY [facility]; Protocol Last Admin: 11/15/21 08:04 Dose: 50 mg Documented by: RIKKI Timolol Maleate (Timolol Maleate 0.5 % Oph Alexandra 5 Ml Drbtl) 1 drop EYE-RIGHT BID [facility] Last Admin: 11/16/21 08:09 Dose: 1 drop Documented by: KERRI Labs CBC & Chem 7: 11/16/21 05:32 11/16/21 05:32 Labs: Laboratory Results - last 24 hr 11/13/21 11/15/21 11/15/21 08:29 12:08 15:16 MCV MCH MCHC RDW Plt Count MPV Immature Gran % (Auto) Neut % (Auto) Lymph % (Auto) [place] % (Auto) Eos % (Auto) Baso % (Auto) Lymph # (Auto) [place] # (Auto) Eos # (Auto) Baso # (Auto) Abs Immat Gran (auto) Absolute Neuts (auto) Absolute Nucleated RBC Nucleated RBC % (auto) Smear Path Review SEE NOTE PT INR Anion Gap 9 L Estim Creat Clear Calc 18.0 Estimated GFR 23 POC Glucose 170 H Random Glucose 159 H Fasting Glucose Calcium 9.7 Total Bilirubin Direct Bilirubin AST ALT Alkaline Phosphatase Ammonia Total Protein Albumin 11/15/21 11/15/21 11/15/21 15:16 15:18 15:18 MCV 90.8 MCH 30.4 MCHC 33.5 RDW 14.1 Plt Count 123 L MPV 10.9 Immature Gran % (Auto) 0.4 Neut % (Auto) 57.3 Lymph % (Auto) 22.4 [place] % (Auto) 14.5 H Eos % (Auto) 5.0 H Baso % (Auto) 0.4 Lymph # (Auto) 1.1 L [place] # (Auto) 0.7 Eos # (Auto) 0.2 Baso # (Auto) 0.0 Abs Immat Gran (auto) 0.02 Absolute Neuts (auto) 2.7 Absolute Nucleated RBC 0.000 Nucleated RBC % (auto) 0.0 Smear Path Review PT 14.1 H INR 1.2 H Anion Gap Estim Creat Clear Calc Estimated GFR POC Glucose Random Glucose Fasting Glucose Calcium Total Bilirubin Direct Bilirubin AST ALT Alkaline Phosphatase Ammonia 210 H Total Protein Albumin 11/15/21 11/15/21 11/15/21 15:18 15:32 16:11 MCV MCH MCHC RDW Plt Count MPV Immature Gran % (Auto) Neut % (Auto) Lymph % (Auto) [place] % (Auto) Eos % (Auto) Baso % (Auto) Lymph # (Auto) [place] # (Auto) Eos # (Auto) Baso # (Auto) Abs Immat Gran (auto) Absolute Neuts (auto) Absolute Nucleated RBC Nucleated RBC % (auto) Smear Path Review PT INR Anion Gap Estim Creat Clear Calc Estimated GFR POC Glucose 149 H Random Glucose Fasting Glucose Calcium Total Bilirubin 1.1 H Direct Bilirubin 0.5 AST 31 D ALT 22 Alkaline Phosphatase 84 D Ammonia 195 H Total Protein 6.8 Albumin 3.2 L 11/15/21 11/16/21 11/16/21 19:23 05:32 05:32 MCV 92.0 MCH 29.5 MCHC 32.0 RDW 14.1 Plt Count 112 L MPV 11.5 Immature Gran % (Auto) 0.5 H Neut % (Auto) 51.1 Lymph % (Auto) 27.6 [place] % (Auto) 14.8 H Eos % (Auto) 5.1 H Baso % (Auto) 0.9 Lymph # (Auto) 1.2 [place] # (Auto) 0.6 Eos # (Auto) 0.2 Baso # (Auto) 0.0 Abs Immat Gran (auto) 0.02 Absolute Neuts (auto) 2.2 Absolute Nucleated RBC 0.000 Nucleated RBC % (auto) 0.0 Smear Path Review PT INR Anion Gap Estim Creat Clear Calc Estimated GFR POC Glucose 130 H Random Glucose Fasting Glucose Calcium Total Bilirubin Direct Bilirubin AST ALT Alkaline Phosphatase Ammonia 73 H Total Protein Albumin 11/16/21 11/16/21 11/16/21 05:32 05:32 07:24 MCV MCH MCHC RDW Plt Count MPV Immature Gran % (Auto) Neut % (Auto) Lymph % (Auto) [place] % (Auto) Eos % (Auto) Baso % (Auto) Lymph # (Auto) [place] # (Auto) Eos # (Auto) Baso # (Auto) Abs Immat Gran (auto) Absolute Neuts (auto) Absolute Nucleated RBC Nucleated RBC % (auto) Smear Path Review PT INR Anion Gap 10 L Cancelled Estim Creat Clear Calc 17.0 Cancelled Estimated GFR 22 Cancelled POC Glucose 121 H Random Glucose Cancelled Fasting Glucose 123 H Calcium 9.7 Cancelled Total Bilirubin Direct Bilirubin AST ALT Alkaline Phosphatase Ammonia Total Protein Albumin Assessment and Plan (1) Hepatic encephalopathy: Status: Acute Assessment and Plan: 76F presented with confusion 1.acute metabolic encephalopathy due? hepatic encephalopathy, ammonia level has gone down to 80-74 adjusted lactulose 45 mg qid , but no bm's over night ?bm's also overnight x3 ,no abd pain continue Rifaximin and adjusted lactulose 30 mg qid , seems more awake ammonia seems improving from 210-to 195-73 GI- recomended continue po lactulose-dose adjusted 45 mg qid,rifaximine GI follow up for possible egd when encephalopathy improves. fall few days back-hip/pevis xary-otherwise non focal and moving all extermities. 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 multifactorial ckd , poor oral inatke hold eliquis iron panel-studies normal, b12 and folate? normal, fobt added-staff is aware. s/p 1 prbc on -h/h today:7.6/22.6 . may need egd once hepati encephalopathy improves. Pt-recomended rehab? Quality Stroke Does the patient have a stroke diagnosis?: No VTE Prior VTE?: No VTE Risk Level:: Medical - moderate - high VTE Device Contraindication: Treatment Not Indicated VTE Drug Contraindication: N/A - Med Ordered
[2021-11-16 11:58] LABS: Glucose, Whole Blood 142 mg/dL (60-115)
--- NOTE | 2021-11-16 12:02 | MHC.CLN ---
F/U PATIENT APPEARS OVERWEIGHT AND SUSPECT 11/02/21=81.193 KG MORE ACCURATE THAN CURRENT RECORDED WEIGHT. INTAKE VARIABLE WITH MOST MEALS 50-100%. DECREASE IN INTAKE NOTED 1/2 DUE TO DIFFICULT TO AROUSE. CURRENTLY NPO. CONTINUE TO FOLLOW FOR DIET ADVANCEMENT AND INTAKE.
[2021-11-16 16:11] LABS: Glucose, Whole Blood 154 mg/dL (60-115)
[2021-11-16 19:53] LABS: Glucose, Whole Blood 137 mg/dL (60-115)
[2021-11-16] MEDS: Montelukast Sodium 10 MG TABLET PO (21:58)
[2021-11-17] VITALS (10 sets, daily range): BP systolic 113–146; BP diastolic 48–67; PULSE 68–87; RESP 16–20; TEMP 36.5–37.2; O2SAT 93–100
[2021-11-17] MEDS: Pantoprazole Sodium 40 MG/10 ML VIAL IVPUSH ×2 (05:38→17:08)
[2021-11-17] MEDS: Levothyroxine Sodium 75 MCG TABLET PO (05:38)
[2021-11-17 06:09] LABS: Hematocrit 22.5 % (37.0-47.0); Hemoglobin 7.3 g/dl (12.0-16.0); Mean Corpuscular HGB Conc 32.4 g/dl (31.0-35.0); Mean Corpuscular Hemoglobin 29.9 pg (27.0-33.0); Mean Corpuscular Volume 92.2 fL (80.0-98.0); Mean Platelet Volume 11.9 fL (9.4-12.3); Platelet Count 107 X10*3/uL (160-400); Red Blood Count 2.44 X10*6/uL (4.20-5.50); Red Cell Distribution Width 14.3 % (11.0-16.0); White Blood Count 3.8 X10*3/uL (4.8-10.8)
[2021-11-17 06:37] LABS: Alanine Aminotransferase 23 U/L (0-31); Albumin Level 3.1 g/dL (3.5-5.0); Alkaline Phosphatase 75 U/L (39-117); Anion Gap 11 (12-20); Aspartate Amino Transferase 33 U/L (5-31); Bilirubin Direct 0.5 mg/dL (0.0-0.5); Bilirubin Total 0.9 mg/dL (0.0-1.0); Blood Urea Nitrogen 19 mg/dL (9-16); Calcium 9.5 mg/dL (8.4-10.2); Carbon Dioxide 19 mmol/L (22-29); Chloride 114 mmol/L (96-108); Creatinine Clr Calc Pharmacy 15.7; Estimated Glomerular Filt Rate 20; Glucose Random 183 mg/dL (60-115); Potassium 3.5 mmol/L (3.3-5.1); Sodium 140 mmol/L (135-145); Total Protein 6.5 g/dL (6.5-8.0)
[2021-11-17 07:40] LABS: Glucose, Whole Blood 140 mg/dL (60-115)
[2021-11-17] MEDS: Dextrose 5 % and 0.45 % NaCl 1,000 ML 80 ML IVCONT (09:00)
[2021-11-17] MEDS: Isosorbide Dinitrate 10 MG TABLET PO ×2 (09:03→20:19)
[2021-11-17] MEDS: Folic Acid 1 MG TABLET PO (09:03)
[2021-11-17] MEDS: rifAXIMin 550 MG TABLET PO ×2 (09:03→20:19)
[2021-11-17] MEDS: Ferrous Sulfate 324 MG TABLET.DR PO (09:03)
[2021-11-17] MEDS: amLODIPine Besylate 10 MG TABLET PO (09:03)
[2021-11-17] MEDS: hydrALAZINE HCl 50 MG TABLET PO ×3 (09:03→20:20)
[2021-11-17] MEDS: Lactulose 20 GM/30 ML SOLUTION 45 GM PO ×3 (09:04→20:22)
[2021-11-17] MEDS: Cyanocobalamin (Vitamin B-12) 1,000 MCG TABLET 1000 MCG PO (09:04)
[2021-11-17] MEDS: timoloL maleate 0.5 % Oph Sol 5 ML DRBTL 1 DROP EYE-RIGHT ×2 (09:04→20:30)
[2021-11-17] MEDS: Erythromycin Base 0.5% Oph Oin 1 GM TUBE 1 CM EYE-RIGHT ×3 (09:04→20:20)
--- NOTE | 2021-11-17 10:28 | P.CONAN_ITS ---
HPI - Anesthesia Eval Consult details Narrative: 76 F for EGD metabolic encephalopathy , HCV Cirrhosis , pA-fib, dHF , CKD , Asthma, Anemia , LIUDMILA , pulmonary HTN . [facility] Active Problems Active Problems: All Active Problems (Updated 11/14/21 @ 11:40 by Gilbert Russell MD) Hepatic encephalopathy (Acute) Paroxysmal atrial fibrillation (Acute) Moderate pulmonary hypertension (Acute) Chronic diastolic CHF (congestive heart failure) (Acute) HCV (hepatitis C virus) (Acute) Acute urinary retention (Acute) Past Medical History Medical History (Updated 11/17/21 @ 10:41 by Noelle Delarosa RN) Alcoholic cirrhosis of liver Anemia Asthma Chronic diastolic CHF (congestive heart failure) CKD (chronic kidney disease) stage 4, GFR 15-29 ml/min CVA (cerebral vascular accident) Diabetes HCV (hepatitis C virus) Moderate pulmonary hypertension Paroxysmal atrial fibrillation Skin cancer Family History Family History Brother Liver cancer Family history of problems with anesthesia: No Surgical History History of Problems with Anesthesia: No Social History Social History Household Members: Children Housing: House Do you presently have visiting nurse or other home services: No Unable to assess alcohol history related to: Unknown Alcohol intake: former Patient Tobacco Use Status: Never used Tobacco Advance Directives Date on File: 11/03/21 service: No Current occupational status: retired Meds Allergies Allergy/AdvReac Type Severity Reaction Status Date / Time milk [Milk] AdvReac Mild DIARRHEA Verified 11/03/21 05:24 Active Medications: Current Medications Amlodipine Besylate (Amlodipine Besylate 10 Mg Tablet) 10 mg PO DAILY JACK; Protocol Last Admin: 11/17/21 09:03 Dose: 10 mg Documented by: Cyanocobalamin (Cyanocobalamin (Vitamin B-12) 1,000 Mcg Tablet) 1,000 mcg PO DAILY JACK Last Admin: 11/17/21 09:04 Dose: 1,000 mcg Documented by: Dextrose (Dextrose 50 % 25 Gm/50 Ml Vial) 25 gm IVPUSH Q15M PRN; Protocol PRN Reason: per Hypoglycemia Standing Ord. Erythromycin (Erythromycin Base 0.5% Oph Oin 1 Gm Tube) 1 cm EYE-RIGHT TID JACK Last Admin: 11/17/21 09:04 Dose: 1 cm Documented by: Ferrous Sulfate (Ferrous Sulfate 324 Mg Tablet.) 324 mg PO DAILY REPLACED BY [facility] Last Admin: 11/17/21 09:03 Dose: 324 mg Documented by: Folic Acid (Folic Acid 1 Mg Tablet) 1 mg PO DAILY REPLACED BY [facility] Last Admin: 11/17/21 09:03 Dose: 1 mg Documented by: Glucose (Glucose Gel 15 Gm Gel..Gram.) 15 gm PO Q15M PRN; Protocol PRN Reason: per Hypoglycemia Standing Ord. Hydralazine HCl (Hydralazine Hcl 50 Mg Tablet) 50 mg PO TID REPLACED BY [facility]; Protocol Last Admin: 11/17/21 09:03 Dose: 50 mg Documented by: Dextrose/Sodium Chloride (D51/2ns) 1,000 mls @ 80 mls/hr IVCONT .[id number] REPLACED BY [facility] Last Infusion: 11/17/21 09:46 Dose: 0 mls/hr Documented by: Insulin Glargine (Insulin Glargine,Hum.Rec.Anlog 100 Unit/Ml 10 Ml Vial) 10 unit SUBCUT BEDTIME REPLACED BY [facility] Last Admin: 11/14/21 21:16 Dose: 10 unit Documented by: Insulin Human Lispro (Insulin Lispro 100 Unit/Ml 3 Ml Vial) 0 unit SUBCUT QIDACHS REPLACED BY [facility]; Protocol Last Admin: 11/17/21 08:10 Dose: Not Given Documented by: Isosorbide Dinitrate (Isosorbide Dinitrate 10 Mg Tablet) 10 mg PO BID REPLACED BY [facility]; Protocol Last Admin: 11/17/21 09:03 Dose: 10 mg Documented by: Lactulose (Lactulose 20 Gm/30 Ml Solution) 45 gm PO QID REPLACED BY [facility] Last Admin: 11/17/21 09:04 Dose: 45 gm Documented by: Levothyroxine Sodium (Levothyroxine Sodium 75 Mcg Tablet) 75 mcg PO DAILY@0600 REPLACED BY [facility] Last Admin: 11/17/21 05:38 Dose: 75 mcg Documented by: Montelukast Sodium (Montelukast Sodium 10 Mg Tablet) 10 mg PO BEDTIME REPLACED BY [facility] Last Admin: 11/16/21 21:58 Dose: 10 mg Documented by: Pantoprazole Sodium (Pantoprazole Sodium 40 Mg/10 Ml Vial) 40 mg IVPUSH BID@0630,1630 REPLACED BY [facility] Last Admin: 11/17/21 05:38 Dose: 40 mg Documented by: Pharmacy Consult (Consult Rx Perform Med Rec) 1 each MISCELLANE ONCE PRN PRN Reason: Consult order Polyethylene Glycol (Polyethylene Glycol 3350 17 Gm Powd.Pack) 17 gm PO DAILY REPLACED BY [facility] Last Admin: 11/17/21 09:09 Dose: Not Given Documented by: Rifaximin (Rifaximin 550 Mg Tablet) 550 mg PO BID REPLACED BY [facility] Last Admin: 11/17/21 09:03 Dose: 550 mg Documented by: Sodium Chloride (0.9 % Sodium Chloride Flush 3 Ml Syringe) 3 ml IVFLUSH QSHIFT REPLACED BY [facility] Last Admin: 11/17/21 07:26 Dose: Not Given Documented by: Spironolactone (Spironolactone 25 Mg Tablet) 50 mg PO DAILY REPLACED BY [facility]; Protocol Last Admin: 11/15/21 08:04 Dose: 50 mg Documented by: Timolol Maleate (Timolol Maleate 0.5 % Oph Alexandra 5 Ml Drbtl) 1 drop EYE-RIGHT BID REPLACED BY [facility] Last Admin: 11/17/21 09:04 Dose: 1 drop Documented by: Home Medications Medication Instructions Recorded Confirmed Last Taken Type amlodipine 10 mg tablet (Norvasc) 10 mg PO DAILY 11/02/21 11/07/21 11/07/21 History apixaban 2.5 mg tablet (Eliquis) 2.5 mg PO BID 11/02/21 11/07/21 11/07/21 History cyanocobalamin (vitamin B-12) 1,000 mcg PO DAILY 11/02/21 11/07/21 11/07/21 History 1,000 mcg tablet (Vitamin B-12) ferrous fumarate 325 mg (106 mg 325 mg PO DAILY 11/02/21 11/07/21 11/07/21 History iron) tablet folic acid 1 mg tablet 1 mg PO DAILY 11/02/21 11/07/21 11/07/21 History hydralazine 50 mg tablet 50 mg PO TID 11/02/21 11/07/21 11/07/21 History insulin glargine 100 unit/mL (3 20 unit SUBCUT BEDTIME 11/02/21 11/07/21 11/06/21 History mL) subcutaneous pen (Lantus Solostar U-100 Insulin) insulin lispro 100 unit/mL 10 unit SUBCUT TIDWM 11/02/21 11/07/21 11/07/21 History subcutaneous cartridge (Humalog U-100 Insulin) isosorbide dinitrate 10 mg tablet 10 mg PO BID 11/02/21 11/07/21 11/07/21 History levothyroxine 75 mcg tablet 75 mcg PO DAILY 11/02/21 11/07/21 11/07/21 History (Synthroid) linagliptin 5 mg tablet (Tradjenta) 5 mg PO DAILY 11/02/21 11/07/21 11/07/21 History montelukast 10 mg tablet 10 mg PO BEDTIME 11/02/21 11/07/21 11/06/21 History (Singulair) pantoprazole 40 mg tablet,delayed 40 mg PO DAILY 11/02/21 11/07/21 11/07/21 History release (Protonix) rifaximin 550 mg tablet 550 mg PO BID 11/02/21 11/07/21 11/07/21 History spironolactone 50 mg tablet 50 mg PO DAILY 11/02/21 11/07/21 11/07/21 History ofloxacin QID 11/09/21 11/09/21 Unknown History timolol 1 BID 11/09/21 11/06/21 08:30 History Exam Exam Date and Time: November 17, 2021 1028 Height,Weight and Vital Signs: Height 5 ft 4 in Weight 49 kg Last Vital Signs Temp 97.9 F 11/17/21 07:25 Pulse 68 11/17/21 07:25 Resp 17 11/17/21 07:25 BP 142/66 H 11/17/21 07:25 Pulse Ox 98 11/17/21 07:25 Pertinent Lab Results Pertinent Lab Results: Laboratory Tests 11/07/21 11/07/21 11/07/21 14:57 15:34 15:34 WBC 6.0 RBC 2.85 L Hgb 8.5 L Hct 25.8 L MCV 90.5 MCH 29.8 MCHC 32.9 RDW 13.5 Plt Count 142 L MPV 11.4 Immature Gran % (Auto) 0.5 H Neut % (Auto) 57.3 Lymph % (Auto) 16.4 L [place] % (Auto) 20.7 H Eos % (Auto) 4.6 H Baso % (Auto) 0.5 Lymph # (Auto) 1.0 L [place] # (Auto) 1.3 H Eos # (Auto) 0.3 Baso # (Auto) 0.0 Abs Immat Gran (auto) 0.03 Absolute Neuts (auto) 3.5 Absolute Nucleated RBC 0.000 Nucleated RBC % (auto) 0.0 Smear Tech's Comments VERIFIED Smear Path Review PT INR Sodium 140 Potassium 3.6 Chloride 109 H Carbon Dioxide 23 Anion Gap 12 BUN 40 H Creatinine 2.06 H Estim Creat Clear Calc 18.2 Estimated GFR 23 POC Glucose Random Glucose 110 Fasting Glucose Lactic Acid Calcium 8.6 Magnesium 2.3 Total Bilirubin 1.1 H Direct Bilirubin 0.6 H AST 56 H ALT 38 H Alkaline Phosphatase 190 H D Ammonia Troponin I High Sens B-Natriuretic Peptide Total Protein 6.7 Albumin 2.9 L Lipase 73 Vitamin B12 Folate Urine Color YELLOW Urine Appearance CLEAR Urine pH 6.0 Ur Specific [place] <= 1.005 Urine Protein 2+ H Urine Glucose (UA) NEG Urine Ketones NEG Urine Blood NEG Urine Nitrite NEG Ur Leukocyte Esterase NEG Urine RBC 1-4 Urine WBC 0-2 Ur Squamous Epith Cells TRACE Urine Bacteria NONE Stool Occult Blood COVID-19 (BEN) COVID-19 [employer] Blood Type Antibody Screen Crossmatch 11/07/21 11/07/21 11/07/21 15:34 15:34 15:34 WBC RBC Hgb Hct MCV MCH MCHC RDW Plt Count MPV Immature Gran % (Auto) Neut % (Auto) Lymph % (Auto) [place] % (Auto) Eos % (Auto) Baso % (Auto) Lymph # (Auto) [place] # (Auto) Eos # (Auto) Baso # (Auto) Abs Immat Gran (auto) Absolute Neuts (auto) Absolute Nucleated RBC Nucleated RBC % (auto) Smear Tech's Comments Smear Path Review PT INR Sodium Potassium Chloride Carbon Dioxide Anion Gap BUN Creatinine Estim Creat Clear Calc Estimated GFR POC Glucose Random Glucose Fasting Glucose Lactic Acid 1.1 Calcium Magnesium Total Bilirubin Direct Bilirubin AST ALT Alkaline Phosphatase Ammonia 94 H Troponin I High Sens 139.9 H* D B-Natriuretic Peptide Total Protein Albumin Lipase Vitamin B12 Folate Urine Color Urine Appearance Urine pH Ur Specific [place] Urine Protein Urine Glucose (UA) Urine Ketones Urine Blood Urine Nitrite Ur Leukocyte Esterase Urine RBC Urine WBC Ur Squamous Epith Cells Urine Bacteria Stool Occult Blood COVID-19 (BEN) COVID-19 [employer] Blood Type Antibody Screen Crossmatch 11/07/21 11/07/21 11/07/21 15:34 15:34 18:45 WBC RBC Hgb Hct MCV MCH MCHC RDW Plt Count MPV Immature Gran % (Auto) Neut % (Auto) Lymph % (Auto) [place] % (Auto) Eos % (Auto) Baso % (Auto) Lymph # (Auto) [place] # (Auto) Eos # (Auto) Baso # (Auto) Abs Immat Gran (auto) Absolute Neuts (auto) Absolute Nucleated RBC Nucleated RBC % (auto) Smear Tech's Comments Smear Path Review PT INR Sodium Potassium Chloride Carbon Dioxide Anion Gap BUN Creatinine Estim Creat Clear Calc Estimated GFR POC Glucose Random Glucose Fasting Glucose Lactic Acid Calcium Magnesium Total Bilirubin Direct Bilirubin AST ALT Alkaline Phosphatase Ammonia Troponin I High Sens 124.5 H* B-Natriuretic Peptide 507 H Total Protein Albumin Lipase Vitamin B12 Folate Urine Color Urine Appearance Urine pH Ur Specific [place] Urine Protein Urine Glucose (UA) Urine Ketones Urine Blood Urine Nitrite Ur Leukocyte Esterase Urine RBC Urine WBC Ur Squamous Epith Cells Urine Bacteria Stool Occult Blood COVID-19 (BEN) Negative COVID-19 Vidient Com See Note Blood Type Antibody Screen Crossmatch 11/07/21 11/08/21 11/08/21 20:32 02:44 07:21 WBC 4.3 L RBC 2.51 L Hgb 7.6 L Hct 22.7 L MCV 90.4 MCH 30.3 MCHC 33.5 RDW 13.5 Plt Count 128 L MPV 12.0 Immature Gran % (Auto) Neut % (Auto) Lymph % (Auto) [place] % (Auto) Eos % (Auto) Baso % (Auto) Lymph # (Auto) [place] # (Auto) Eos # (Auto) Baso # (Auto) Abs Immat Gran (auto) Absolute Neuts (auto) Absolute Nucleated RBC 0.000 Nucleated RBC % (auto) 0.0 Smear Tech's Comments Smear Path Review PT INR Sodium Potassium Chloride Carbon Dioxide Anion Gap BUN Creatinine Estim Creat Clear Calc Estimated GFR POC Glucose 98 84 Random Glucose Fasting Glucose Lactic Acid Calcium Magnesium Total Bilirubin Direct Bilirubin AST ALT Alkaline Phosphatase Ammonia Troponin I High Sens B-Natriuretic Peptide Total Protein Albumin Lipase Vitamin B12 Folate Urine Color Urine Appearance Urine pH Ur Specific [place] Urine Protein Urine Glucose (UA) Urine Ketones Urine Blood Urine Nitrite Ur Leukocyte Esterase Urine RBC Urine WBC Ur Squamous Epith Cells Urine Bacteria Stool Occult Blood COVID-19 (BEN) COVID-19 [facility]ient Com Blood Type Antibody Screen Crossmatch 11/08/21 11/08/21 11/08/21 07:21 07:39 08:43 WBC RBC Hgb Hct MCV MCH MCHC RDW Plt Count MPV Immature Gran % (Auto) Neut % (Auto) Lymph % (Auto) [place] % (Auto) Eos % (Auto) Baso % (Auto) Lymph # (Auto) [place] # (Auto) Eos # (Auto) Baso # (Auto) Abs Immat Gran (auto) Absolute Neuts (auto) Absolute Nucleated RBC Nucleated RBC % (auto) Smear Tech's Comments Smear Path Review PT INR Sodium 140 Potassium 3.3 Chloride 111 H Carbon Dioxide 22 Anion Gap 10 L BUN 38 H Creatinine 1.92 H Estim Creat Clear Calc 19.6 Estimated GFR 25 POC Glucose 79 131 H Random Glucose Fasting Glucose 83 Lactic Acid Calcium 8.5 Magnesium 2.4 Total Bilirubin Direct Bilirubin AST ALT Alkaline Phosphatase Ammonia Troponin I High Sens B-Natriuretic Peptide Total Protein Albumin Lipase Vitamin B12 Folate Urine Color Urine Appearance Urine pH Ur Specific [place] Urine Protein Urine Glucose (UA) Urine Ketones Urine Blood Urine Nitrite Ur Leukocyte Esterase Urine RBC Urine WBC Ur Squamous Epith Cells Urine Bacteria Stool Occult Blood COVID-19 (BEN) [employer] Blood Type Antibody Screen Crossmatch 11/08/21 11/08/21 11/08/21 12:53 17:23 21:17 WBC RBC Hgb Hct MCV MCH MCHC RDW Plt Count MPV Immature Gran % (Auto) Neut % (Auto) Lymph % (Auto) [place] % (Auto) Eos % (Auto) Baso % (Auto) Lymph # (Auto) [place] # (Auto) Eos # (Auto) Baso # (Auto) Abs Immat Gran (auto) Absolute Neuts (auto) Absolute Nucleated RBC Nucleated RBC % (auto) Smear Tech's Comments Smear Path Review PT INR Sodium Potassium Chloride Carbon Dioxide Anion Gap BUN Creatinine Estim Creat Clear Calc Estimated GFR POC Glucose 115 202 H 156 H Random Glucose Fasting Glucose Lactic Acid Calcium Magnesium Total Bilirubin Direct Bilirubin AST ALT Alkaline Phosphatase Ammonia Troponin I High Sens B-Natriuretic Peptide Total Protein Albumin Lipase Vitamin B12 Folate Urine Color Urine Appearance Urine pH Ur Specific [place] Urine Protein Urine Glucose (UA) Urine Ketones Urine Blood Urine Nitrite Ur Leukocyte Esterase Urine RBC Urine WBC Ur Squamous Epith Cells Urine Bacteria Stool Occult Blood COVID-19 (BEN) [employer] Blood Type Antibody Screen Crossmatch 11/09/21 11/09/21 11/09/21 07:16 09:13 09:13 WBC RBC Hgb Hct MCV MCH MCHC RDW Plt Count MPV Immature Gran % (Auto) Neut % (Auto) Lymph % (Auto) [place] % (Auto) Eos % (Auto) Baso % (Auto) Lymph # (Auto) [place] # (Auto) Eos # (Auto) Baso # (Auto) Abs Immat Gran (auto) Absolute Neuts (auto) Absolute Nucleated RBC Nucleated RBC % (auto) Smear Tech's Comments Smear Path Review PT INR Sodium 139 Potassium 3.7 Chloride 109 H Carbon Dioxide 22 Anion Gap 12 BUN 36 H Creatinine 2.23 H Estim Creat Clear Calc 16.8 Estimated GFR 21 POC Glucose 125 H Random Glucose 161 H Fasting Glucose Lactic Acid Calcium 8.8 Magnesium Total Bilirubin Direct Bilirubin AST ALT Alkaline Phosphatase Ammonia 146 H Troponin I High Sens B-Natriuretic Peptide Total Protein Albumin Lipase Vitamin B12 Folate Urine Color Urine Appearance Urine pH Ur Specific [place] Urine Protein Urine Glucose (UA) Urine Ketones Urine Blood Urine Nitrite Ur Leukocyte Esterase Urine RBC Urine WBC Ur Squamous Epith Cells Urine Bacteria Stool Occult Blood COVID-19 (BEN) [employer] Blood Type Antibody Screen Crossmatch 11/09/21 11/09/21 11/09/21 11:46 16:05 19:38 WBC RBC Hgb Hct MCV MCH MCHC RDW Plt Count MPV Immature Gran % (Auto) Neut % (Auto) Lymph % (Auto) [place] % (Auto) Eos % (Auto) Baso % (Auto) Lymph # (Auto) [place] # (Auto) Eos # (Auto) Baso # (Auto) Abs Immat Gran (auto) Absolute Neuts (auto) Absolute Nucleated RBC Nucleated RBC % (auto) Smear Tech's Comments Smear Path Review PT INR Sodium Potassium Chloride Carbon Dioxide Anion Gap BUN Creatinine Estim Creat Clear Calc Estimated GFR POC Glucose 225 H 214 H 112 Random Glucose Fasting Glucose Lactic Acid Calcium Magnesium Total Bilirubin Direct Bilirubin AST ALT Alkaline Phosphatase Ammonia Troponin I High Sens B-Natriuretic Peptide Total Protein Albumin Lipase Vitamin B12 Folate Urine Color Urine Appearance Urine pH Ur Specific [place] Urine Protein Urine Glucose (UA) Urine Ketones Urine Blood Urine Nitrite Ur Leukocyte Esterase Urine RBC Urine WBC Ur Squamous Epith Cells Urine Bacteria Stool Occult Blood COVID-19 (BEN) [employer] Blood Type Antibody Screen Crossmatch 11/10/21 11/10/21 11/10/21 07:33 11:18 16:18 WBC RBC Hgb Hct MCV MCH MCHC RDW Plt Count MPV Immature Gran % (Auto) Neut % (Auto) Lymph % (Auto) [place] % (Auto) Eos % (Auto) Baso % (Auto) Lymph # (Auto) [place] # (Auto) Eos # (Auto) Baso # (Auto) Abs Immat Gran (auto) Absolute Neuts (auto) Absolute Nucleated RBC Nucleated RBC % (auto) Smear Tech's Comments Smear Path Review PT INR Sodium Potassium Chloride Carbon Dioxide Anion Gap BUN Creatinine Estim Creat Clear Calc Estimated GFR POC Glucose 94 134 H 134 H Random Glucose Fasting Glucose Lactic Acid Calcium Magnesium Total Bilirubin Direct Bilirubin AST ALT Alkaline Phosphatase Ammonia Troponin I High Sens B-Natriuretic Peptide Total Protein Albumin Lipase Vitamin B12 Folate Urine Color Urine Appearance Urine pH Ur Specific [place] Urine Protein Urine Glucose (UA) Urine Ketones Urine Blood Urine Nitrite Ur Leukocyte Esterase Urine RBC Urine WBC Ur Squamous Epith Cells Urine Bacteria Stool Occult Blood COVID-19 (BEN) COVID-[address] [facility] Blood Type Antibody Screen Crossmatch 11/10/21 11/11/21 11/11/21 19:24 05:30 05:30 WBC RBC Hgb Hct MCV MCH MCHC RDW Plt Count MPV Immature Gran % (Auto) Neut % (Auto) Lymph % (Auto) [place] % (Auto) Eos % (Auto) Baso % (Auto) Lymph # (Auto) [place] # (Auto) Eos # (Auto) Baso # (Auto) Abs Immat Gran (auto) Absolute Neuts (auto) Absolute Nucleated RBC Nucleated RBC % (auto) Smear Tech's Comments Smear Path Review PT INR Sodium 135 Potassium 3.7 Chloride 106 Carbon Dioxide 23 Anion Gap 10 L BUN 33 H Creatinine 1.95 H Estim Creat Clear Calc 19.2 Estimated GFR 25 POC Glucose 168 H Random Glucose 73 Fasting Glucose Lactic Acid Calcium 9.2 Magnesium Total Bilirubin Direct Bilirubin AST ALT Alkaline Phosphatase Ammonia 80 H Troponin I High Sens B-Natriuretic Peptide Total Protein Albumin Lipase Vitamin B12 Folate Urine Color Urine Appearance Urine pH Ur Specific [place] Urine Protein Urine Glucose (UA) Urine Ketones Urine Blood Urine Nitrite Ur Leukocyte Esterase Urine RBC Urine WBC Ur Squamous Epith Cells Urine Bacteria Stool Occult Blood COVID-19 (BEN) COVID-[address] [facility] Blood Type Antibody Screen Crossmatch 11/11/21 11/11/21 11/11/21 07:51 08:46 08:46 WBC RBC Hgb 7.7 L Hct 23.1 L MCV MCH MCHC RDW Plt Count MPV Immature Gran % (Auto) Neut % (Auto) Lymph % (Auto) [place] % (Auto) Eos % (Auto) Baso % (Auto) Lymph # (Auto) [place] # (Auto) Eos # (Auto) Baso # (Auto) Abs Immat Gran (auto) Absolute Neuts (auto) Absolute Nucleated RBC Nucleated RBC % (auto) Smear Tech's Comments Smear Path Review PT INR Sodium Potassium Chloride Carbon Dioxide Anion Gap BUN Creatinine Estim Creat Clear Calc Estimated GFR POC Glucose 76 Random Glucose Fasting Glucose Lactic Acid Calcium Magnesium Total Bilirubin Direct Bilirubin AST ALT Alkaline Phosphatase Ammonia Troponin I High Sens B-Natriuretic Peptide Total Protein Albumin Lipase Vitamin B12 Folate Urine Color Urine Appearance Urine pH Ur Specific [place] Urine Protein Urine Glucose (UA) Urine Ketones Urine Blood Urine Nitrite Ur Leukocyte Esterase Urine RBC Urine WBC Ur Squamous Epith Cells Urine Bacteria Stool Occult Blood COVID-19 (BEN) COVID-Float: [place] Blood Type O Positive Antibody Screen NEGATIVE Crossmatch See Detail 11/11/21 11/11/21 11/11/21 08:46 11:25 16:28 WBC RBC Hgb Hct MCV MCH MCHC RDW Plt Count MPV Immature Gran % (Auto) Neut % (Auto) Lymph % (Auto) [place] % (Auto) Eos % (Auto) Baso % (Auto) Lymph # (Auto) [place] # (Auto) Eos # (Auto) Baso # (Auto) Abs Immat Gran (auto) Absolute Neuts (auto) Absolute Nucleated RBC Nucleated RBC % (auto) Smear Tech's Comments Smear Path Review PT INR Sodium Potassium Chloride Carbon Dioxide Anion Gap BUN Creatinine Estim Creat Clear Calc Estimated GFR POC Glucose 144 H 175 H Random Glucose Fasting Glucose Lactic Acid Calcium Magnesium Total Bilirubin Direct Bilirubin AST ALT Alkaline Phosphatase Ammonia Troponin I High Sens B-Natriuretic Peptide Total Protein Albumin Lipase Vitamin B12 1644 H Folate > 20.0 Urine Color Urine Appearance Urine pH Ur Specific [place] Urine Protein Urine Glucose (UA) Urine Ketones Urine Blood Urine Nitrite Ur Leukocyte Esterase Urine RBC Urine WBC Ur Squamous Epith Cells Urine Bacteria Stool Occult Blood COVID-19 (BEN) COVID-Float: [place] Blood Type Antibody Screen Crossmatch 12/11/12/21 11/12/21 20:44 07:25 11:17 WBC RBC Hgb Hct MCV MCH MCHC RDW Plt Count MPV Immature Gran % (Auto) Neut % (Auto) Lymph % (Auto) [place] % (Auto) Eos % (Auto) Baso % (Auto) Lymph # (Auto) [place] # (Auto) Eos # (Auto) Baso # (Auto) Abs Immat Gran (auto) Absolute Neuts (auto) Absolute Nucleated RBC Nucleated RBC % (auto) Smear Tech's Comments Smear Path Review PT INR Sodium Potassium Chloride Carbon Dioxide Anion Gap BUN Creatinine Estim Creat Clear Calc Estimated GFR POC Glucose 173 H 139 H 145 H Random Glucose Fasting Glucose Lactic Acid Calcium Magnesium Total Bilirubin Direct Bilirubin AST ALT Alkaline Phosphatase Ammonia Troponin I High Sens B-Natriuretic Peptide Total Protein Albumin Lipase Vitamin B12 Folate Urine Color Urine Appearance Urine pH Ur Specific [place] Urine Protein Urine Glucose (UA) Urine Ketones Urine Blood Urine Nitrite Ur Leukocyte Esterase Urine RBC Urine WBC Ur Squamous Epith Cells Urine Bacteria Stool Occult Blood COVID-19 (BEN) COVID-19 [facility] Blood Type Antibody Screen Crossmatch 11/12/21 11/12/21 11/13/21 15:32 20:53 05:58 WBC RBC Hgb Hct MCV MCH MCHC RDW Plt Count MPV Immature Gran % (Auto) Neut % (Auto) Lymph % (Auto) [place] % (Auto) Eos % (Auto) Baso % (Auto) Lymph # (Auto) [place] # (Auto) Eos # (Auto) Baso # (Auto) Abs Immat Gran (auto) Absolute Neuts (auto) Absolute Nucleated RBC Nucleated RBC % (auto) Smear Tech's Comments Smear Path Review PT INR Sodium 136 Potassium 3.8 Chloride 108 Carbon Dioxide 21 L Anion Gap 11 L BUN 35 H Creatinine 2.18 H Estim Creat Clear Calc 17.2 Estimated GFR 22 POC Glucose 167 H 151 H Random Glucose 111 Fasting Glucose Lactic Acid Calcium 9.3 Magnesium Total Bilirubin Direct Bilirubin AST ALT Alkaline Phosphatase Ammonia Troponin I High Sens B-Natriuretic Peptide Total Protein Albumin Lipase Vitamin B12 Folate Urine Color Urine Appearance Urine pH Ur Specific [place] Urine Protein Urine Glucose (UA) Urine Ketones Urine Blood Urine Nitrite Ur Leukocyte Esterase Urine RBC Urine WBC Ur Squamous Epith Cells Urine Bacteria Stool Occult Blood COVID-19 (BEN) COVID-19 [facility] Blood Type Antibody Screen Crossmatch 11/13/21 11/13/2111/13/21 06:39 07:21 08:29 WBC RBC Hgb 6.7 L* Hct 20.0 L* MCV MCH MCHC RDW Plt Count MPV Immature Gran % (Auto) Neut % (Auto) Lymph % (Auto) [place] % (Auto) Eos % (Auto) Baso % (Auto) Lymph # (Auto) [place] # (Auto) Eos # (Auto) Baso # (Auto) Abs Immat Gran (auto) Absolute Neuts (auto) Absolute Nucleated RBC Nucleated RBC % (auto) Smear Tech's Comments Smear Path Review SEE NOTE PT INR Sodium Potassium Chloride Carbon Dioxide Anion Gap BUN Creatinine Estim Creat Clear Calc Estimated GFR POC Glucose 106 Random Glucose Fasting Glucose Lactic Acid Calcium Magnesium Total Bilirubin Direct Bilirubin AST ALT Alkaline Phosphatase Ammonia 74 H Troponin I High Sens B-Natriuretic Peptide Total Protein Albumin Lipase Vitamin B12 Folate Urine Color Urine Appearance Urine pH Ur Specific [place] Urine Protein Urine Glucose (UA) Urine Ketones Urine Blood Urine Nitrite Ur Leukocyte Esterase Urine RBC Urine WBC Ur Squamous Epith Cells Urine Bacteria Stool Occult Blood COVID-19 (BEN) [employer] Blood Type Antibody Screen Crossmatch 11/13/21 11/13/21 11/13/21 11:23 16:40 19:58 WBC RBC Hgb Hct MCV MCH MCHC RDW Plt Count MPV Immature Gran % (Auto) Neut % (Auto) Lymph % (Auto) [place] % (Auto) Eos % (Auto) Baso % (Auto) Lymph # (Auto) [place] # (Auto) Eos # (Auto) Baso # (Auto) Abs Immat Gran (auto) Absolute Neuts (auto) Absolute Nucleated RBC Nucleated RBC % (auto) Smear Tech's Comments Smear Path Review PT INR Sodium Potassium Chloride Carbon Dioxide Anion Gap BUN Creatinine Estim Creat Clear Calc Estimated GFR POC Glucose 180 H 135 H 167 H Random Glucose Fasting Glucose Lactic Acid Calcium Magnesium Total Bilirubin Direct Bilirubin AST ALT Alkaline Phosphatase Ammonia Troponin I High Sens B-Natriuretic Peptide Total Protein Albumin Lipase Vitamin B12 Folate Urine Color Urine Appearance Urine pH Ur Specific [place] Urine Protein Urine Glucose (UA) Urine Ketones Urine Blood Urine Nitrite Ur Leukocyte Esterase Urine RBC Urine WBC Ur Squamous Epith Cells Urine Bacteria Stool Occult Blood COVID-19 (BEN) [employer] Blood Type Antibody Screen Crossmatch 11/14/21 11/14/21 11/14/21 06:05 07:29 11:10 WBC RBC Hgb 7.7 L Hct 22.6 L MCV MCH MCHC RDW Plt Count MPV Immature Gran % (Auto) Neut % (Auto) Lymph % (Auto) [place] % (Auto) Eos % (Auto) Baso % (Auto) Lymph # (Auto) [place] # (Auto) Eos # (Auto) Baso # (Auto) Abs Immat Gran (auto) Absolute Neuts (auto) Absolute Nucleated RBC Nucleated RBC % (auto) Smear Tech's Comments Smear Path Review PT INR Sodium Potassium Chloride Carbon Dioxide Anion Gap BUN Creatinine Estim Creat Clear Calc Estimated GFR POC Glucose 104 101 Random Glucose Fasting Glucose Lactic Acid Calcium Magnesium Total Bilirubin Direct Bilirubin AST ALT Alkaline Phosphatase Ammonia Troponin I High Sens B-Natriuretic Peptide Total Protein Albumin Lipase Vitamin B12 Folate Urine Color Urine Appearance Urine pH Ur Specific [place] Urine Protein Urine Glucose (UA) Urine Ketones Urine Blood Urine Nitrite Ur Leukocyte Esterase Urine RBC Urine WBC Ur Squamous Epith Cells Urine Bacteria Stool Occult Blood COVID-19 (BEN) COVID-Float: [place] Blood Type Antibody Screen Crossmatch 11/14/21 11/14/21 11/14/21 16:33 18:20 20:04 WBC RBC Hgb Hct MCV MCH MCHC RDW Plt Count MPV Immature Gran % (Auto) Neut % (Auto) Lymph % (Auto) [place] % (Auto) Eos % (Auto) Baso % (Auto) Lymph # (Auto) [place] # (Auto) Eos # (Auto) Baso # (Auto) Abs Immat Gran (auto) Absolute Neuts (auto) Absolute Nucleated RBC Nucleated RBC % (auto) Smear Tech's Comments Smear Path Review PT INR Sodium Potassium Chloride Carbon Dioxide Anion Gap BUN Creatinine Estim Creat Clear Calc Estimated GFR POC Glucose 132 H 135 H Random Glucose Fasting Glucose Lactic Acid Calcium Magnesium Total Bilirubin Direct Bilirubin AST ALT Alkaline Phosphatase Ammonia Troponin I High Sens B-Natriuretic Peptide Total Protein Albumin Lipase Vitamin B12 Folate Urine Color Urine Appearance Urine pH Ur Specific [place] Urine Protein Urine Glucose (UA) Urine Ketones Urine Blood Urine Nitrite Ur Leukocyte Esterase Urine RBC Urine WBC Ur Squamous Epith Cells Urine Bacteria Stool Occult Blood POSITIVE COVID-19 (BEN) COVID-Float: [place] Blood Type Antibody Screen Crossmatch 11/15/21 11/15/21 11/15/21 07:33 07:40 12:08 WBC 4.5 L RBC 2.56 L Hgb 7.7 L Hct 23.1 L MCV 90.2 MCH 30.1 MCHC 33.3 RDW 14.0 Plt Count 113 L MPV 11.8 Immature Gran % (Auto) Neut % (Auto) Lymph % (Auto) [place] % (Auto) Eos % (Auto) Baso % (Auto) Lymph # (Auto) [place] # (Auto) Eos # (Auto) Baso # (Auto) Abs Immat Gran (auto) Absolute Neuts (auto) Absolute Nucleated RBC 0.000 Nucleated RBC % (auto) 0.0 Smear Tech's Comments Smear Path Review PT INR Sodium Potassium Chloride Carbon Dioxide Anion Gap BUN Creatinine Estim Creat Clear Calc Estimated GFR POC Glucose 93 170 H Random Glucose Fasting Glucose Lactic Acid Calcium Magnesium Total Bilirubin Direct Bilirubin AST ALT Alkaline Phosphatase Ammonia Troponin I High Sens B-Natriuretic Peptide Total Protein Albumin Lipase Vitamin B12 Folate Urine Color Urine Appearance Urine pH Ur Specific [place] Urine Protein Urine Glucose (UA) Urine Ketones Urine Blood Urine Nitrite Ur Leukocyte Esterase Urine RBC Urine WBC Ur Squamous Epith Cells Urine Bacteria Stool Occult Blood COVID-19 (BEN) COVID-19 Clin Com Blood Type Antibody Screen Crossmatch 11/15/21 11/15/21 11/15/21 15:16 15:16 15:18 WBC 4.8 RBC 2.50 L Hgb 7.6 L Hct 22.7 L MCV 90.8 MCH 30.4 MCHC 33.5 RDW 14.1 Plt Count 123 L MPV 10.9 Immature Gran % (Auto) 0.4 Neut % (Auto) 57.3 Lymph % (Auto) 22.4 [place] % (Auto) 14.5 H Eos % (Auto) 5.0 H Baso % (Auto) 0.4 Lymph # (Auto) 1.1 L [place] # (Auto) 0.7 Eos # (Auto) 0.2 Baso # (Auto) 0.0 Abs Immat Gran (auto) 0.02 Absolute Neuts (auto) 2.7 Absolute Nucleated RBC 0.000 Nucleated RBC % (auto) 0.0 Smear Tech's Comments Smear Path Review PT INR Sodium 138 Potassium 4.1 Chloride 111 H Carbon Dioxide 22 Anion Gap 9 L BUN 27 H Creatinine 2.08 H Estim Creat Clear Calc 18.0 Estimated GFR 23 POC Glucose Random Glucose 159 H Fasting Glucose Lactic Acid Calcium 9.7 Magnesium Total Bilirubin Direct Bilirubin AST ALT Alkaline Phosphatase Ammonia 210 H Troponin I High Sens B-Natriuretic Peptide Total Protein Albumin Lipase Vitamin B12 Folate Urine Color Urine Appearance Urine pH Ur Specific [place] Urine Protein Urine Glucose (UA) Urine Ketones Urine Blood Urine Nitrite Ur Leukocyte Esterase Urine RBC Urine WBC Ur Squamous Epith Cells Urine Bacteria Stool Occult Blood COVID-19 (BEN) COVID-19 [facility] Blood Type Antibody Screen Crossmatch 11/15/21 11/15/21 11/15/21 15:18 15:18 15:32 WBC RBC Hgb Hct MCV MCH MCHC RDW Plt Count MPV Immature Gran % (Auto) Neut % (Auto) Lymph % (Auto) [place] % (Auto) Eos % (Auto) Baso % (Auto) Lymph # (Auto) [place] # (Auto) Eos # (Auto) Baso # (Auto) Abs Immat Gran (auto) Absolute Neuts (auto) Absolute Nucleated RBC Nucleated RBC % (auto) Smear Tech's Comments Smear Path Review PT 14.1 H INR 1.2 H Sodium Potassium Chloride Carbon Dioxide Anion Gap BUN Creatinine Estim Creat Clear Calc Estimated GFR POC Glucose 149 H Random Glucose Fasting Glucose Lactic Acid Calcium Magnesium Total Bilirubin 1.1 H Direct Bilirubin 0.5 AST 31 D ALT 22 Alkaline Phosphatase 84 D Ammonia Troponin I High Sens B-Natriuretic Peptide Total Protein 6.8 Albumin 3.2 L Lipase Vitamin B12 Folate Urine Color Urine Appearance Urine pH Ur Specific [place] Urine Protein Urine Glucose (UA) Urine Ketones Urine Blood Urine Nitrite Ur Leukocyte Esterase Urine RBC Urine WBC Ur Squamous Epith Cells Urine Bacteria Stool Occult Blood COVID-19 (BEN) COVID-19 [facility] Blood Type Antibody Screen Crossmatch 11/15/21 11/15/21 11/16/21 16:11 19:23 05:32 WBC RBC Hgb Hct MCV MCH MCHC RDW Plt Count MPV Immature Gran % (Auto) Neut % (Auto) Lymph % (Auto) [place] % (Auto) Eos % (Auto) Baso % (Auto) Lymph # (Auto) [place] # (Auto) Eos # (Auto) Baso # (Auto) Abs Immat Gran (auto) Absolute Neuts (auto) Absolute Nucleated RBC Nucleated RBC % (auto) Smear Tech's Comments Smear Path Review PT INR Sodium Potassium Chloride Carbon Dioxide Anion Gap BUN Creatinine Estim Creat Clear Calc Estimated GFR POC Glucose 130 H Random Glucose Fasting Glucose Lactic Acid Calcium Magnesium Total Bilirubin Direct Bilirubin AST ALT Alkaline Phosphatase Ammonia 195 H 73 H Troponin I High Sens B-Natriuretic Peptide Total Protein Albumin Lipase Vitamin B12 Folate Urine Color Urine Appearance Urine pH Ur Specific [place] Urine Protein Urine Glucose (UA) Urine Ketones Urine Blood Urine Nitrite Ur Leukocyte Esterase Urine RBC Urine WBC Ur Squamous Epith Cells Urine Bacteria Stool Occult Blood COVID-19 (BEN) COVID-19 [facility] Com Blood Type Antibody Screen Crossmatch 11/16/21 11/16/21 11/16/21 05:32 05:32 05:32 WBC 4.3 L RBC 2.51 L Hgb 7.4 L Hct 23.1 L MCV 92.0 MCH 29.5 MCHC 32.0 RDW 14.1 Plt Count 112 L MPV 11.5 Immature Gran % (Auto) 0.5 H Neut % (Auto) 51.1 Lymph % (Auto) 27.6 [place] % (Auto) 14.8 H Eos % (Auto) 5.1 H Baso % (Auto) 0.9 Lymph # (Auto) 1.2 [place] # (Auto) 0.6 Eos # (Auto) 0.2 Baso # (Auto) 0.0 Abs Immat Gran (auto) 0.02 Absolute Neuts (auto) 2.2 Absolute Nucleated RBC 0.000 Nucleated RBC % (auto) 0.0 Smear Tech's Comments Smear Path Review PT INR Sodium 138 Cancelled Potassium 3.6 Cancelled Chloride 113 H Cancelled Carbon Dioxide 19 L Cancelled Anion Gap 10 L Cancelled BUN 22 H Cancelled Creatinine 2.21 H Cancelled Estim Creat Clear Calc 17.0 Cancelled Estimated GFR 22 Cancelled POC Glucose Random Glucose Cancelled Fasting Glucose 123 H Lactic Acid Calcium 9.7 Cancelled Magnesium Total Bilirubin Direct Bilirubin AST ALT Alkaline Phosphatase Ammonia Troponin I High Sens B-Natriuretic Peptide Total Protein Albumin Lipase Vitamin B12 Folate Urine Color Urine Appearance Urine pH Ur Specific [place] Urine Protein Urine Glucose (UA) Urine Ketones Urine Blood Urine Nitrite Ur Leukocyte Esterase Urine RBC Urine WBC Ur Squamous Epith Cells Urine Bacteria Stool Occult Blood COVID-19 (BEN) COVID-19 [employer] Blood Type Antibody Screen Crossmatch 11/16/21 11/16/21 11/16/21 07:24 11:31 16:00 WBC RBC Hgb Hct MCV MCH MCHC RDW Plt Count MPV Immature Gran % (Auto) Neut % (Auto) Lymph % (Auto) [place] % (Auto) Eos % (Auto) Baso % (Auto) Lymph # (Auto) [place] # (Auto) Eos # (Auto) Baso # (Auto) Abs Immat Gran (auto) Absolute Neuts (auto) Absolute Nucleated RBC Nucleated RBC % (auto) Smear Tech's Comments Smear Path Review PT INR Sodium Potassium Chloride Carbon Dioxide Anion Gap BUN Creatinine Estim Creat Clear Calc Estimated GFR POC Glucose 121 H 142 H 154 H Random Glucose Fasting Glucose Lactic Acid Calcium Magnesium Total Bilirubin Direct Bilirubin AST ALT Alkaline Phosphatase Ammonia Troponin I High Sens B-Natriuretic Peptide Total Protein Albumin Lipase Vitamin B12 Folate Urine Color Urine Appearance Urine pH Ur Specific [place] Urine Protein Urine Glucose (UA) Urine Ketones Urine Blood Urine Nitrite Ur Leukocyte Esterase Urine RBC Urine WBC Ur Squamous Epith Cells Urine Bacteria Stool Occult Blood COVID-19 (BEN) COVID-19 [employer] Blood Type Antibody Screen Crossmatch 11/16/21 11/17/21 11/17/21 19:42 05:45 05:45 WBC 3.8 L RBC 2.44 L Hgb 7.3 L Hct 22.5 L MCV 92.2 MCH 29.9 MCHC 32.4 RDW 14.3 Plt Count 107 L MPV 11.9 Immature Gran % (Auto) Neut % (Auto) Lymph % (Auto) [place] % (Auto) Eos % (Auto) Baso % (Auto) Lymph # (Auto) [place] # (Auto) Eos # (Auto) Baso # (Auto) Abs Immat Gran (auto) Absolute Neuts (auto) Absolute Nucleated RBC 0.000 Nucleated RBC % (auto) 0.0 Smear Tech's Comments Smear Path Review PT INR Sodium 140 Potassium 3.5 Chloride 114 H Carbon Dioxide 19 L Anion Gap 11 L BUN 19 H Creatinine 2.38 H Estim Creat Clear Calc 15.7 Estimated GFR 20 POC Glucose 137 H Random Glucose 183 H Fasting Glucose Lactic Acid Calcium 9.5 Magnesium Total Bilirubin 0.9 Direct Bilirubin 0.5 AST 33 H ALT 23 Alkaline Phosphatase 75 Ammonia Troponin I High Sens B-Natriuretic Peptide Total Protein 6.5 Albumin 3.1 L Lipase Vitamin B12 Folate Urine Color Urine Appearance Urine pH Ur Specific [place] Urine Protein Urine Glucose (UA) Urine Ketones Urine Blood Urine Nitrite Ur Leukocyte Esterase Urine RBC Urine WBC Ur Squamous Epith Cells Urine Bacteria Stool Occult Blood COVID-19 (BEN) COVID-19 [employer] Blood Type Antibody Screen Crossmatch 11/17/21 07:24 WBC RBC Hgb Hct MCV MCH MCHC RDW Plt Count MPV Immature Gran % (Auto) Neut % (Auto) Lymph % (Auto) [place] % (Auto) Eos % (Auto) Baso % (Auto) Lymph # (Auto) [place] # (Auto) Eos # (Auto) Baso # (Auto) Abs Immat Gran (auto) Absolute Neuts (auto) Absolute Nucleated RBC Nucleated RBC % (auto) Smear Tech's Comments Smear Path Review PT INR Sodium Potassium Chloride Carbon Dioxide Anion Gap BUN Creatinine Estim Creat Clear Calc Estimated GFR POC Glucose 140 H Random Glucose Fasting Glucose Lactic Acid Calcium Magnesium Total Bilirubin Direct Bilirubin AST ALT Alkaline Phosphatase Ammonia Troponin I High Sens B-Natriuretic Peptide Total Protein Albumin Lipase Vitamin B12 Folate Urine Color Urine Appearance Urine pH Ur Specific [place] Urine Protein Urine Glucose (UA) Urine Ketones Urine Blood Urine Nitrite Ur Leukocyte Esterase Urine RBC Urine WBC Ur Squamous Epith Cells Urine Bacteria Stool Occult Blood COVID-19 (BEN) COVID-19 Clin Com Blood Type Antibody Screen Crossmatch Airway Mallampati Class: III (Large Tongue ) Neck ROM: Limited Partial: Upper and Lower Loose/Missing/Broken Teeth: Yes Heart: rrr Lungs: bl breath sounds Assessment and Plan Assessment Anesthesia Assessment: Anesthesia Plan Discussed (Discussed with patient and daughter ) Final Anesthetic Review Family History of Problems with Anesthesia: No History of Problems with Anesthesia: No NPO: Yes ASA Class: IV and Emergency Final Preanesthetic Review: Meds/Allgs Chart Reviewed, Consent Obtained/Reviewed and Anes Risks/Benef Reviewed Patient Risk: High Procedure Risk: Intermediate Anesthetic Plan Anesthetic Plan: GA Disposition: Inp. Admit - Standard Bed
--- NOTE | 2021-11-17 11:02 | P.PNIM_ITS ---
Subjective Subjective Date of Service: 11/17/21 Interval History: F/u anemia, hepatic encephalopathy--seems less confused today Review of Systems no fever confusion but less Physical Exam Vital Signs: Vital Signs: Last Vital Signs Temp 97.9 F 11/17/21 07:25 Pulse 68 11/17/21 07:25 Resp 17 11/17/21 07:25 BP 142/66 H 11/17/21 07:25 Pulse Ox 98 11/17/21 07:25 BMI result Body Mass Index 18.5 Const: Other: General: AO X 1, no acute distress Resp: CTA bilateral CVS: S1,S2,RRR GI: +BS, NT, no distention Skin: No rash Neuro: motor grossly intact Psych: appropriate affect Objective Data Active Medications Amlodipine Besylate (Amlodipine Besylate 10 Mg Tablet) 10 mg PO DAILY [facility]; Protocol Last Admin: 11/17/21 09:03 Dose: 10 mg Documented by: THEODORE Cyanocobalamin (Cyanocobalamin (Vitamin B-12) 1,000 Mcg Tablet) 1,000 mcg PO DAILY [facility] Last Admin: 11/17/21 09:04 Dose: 1,000 mcg Documented by: THEODORE Dextrose (Dextrose 50 % 25 Gm/50 Ml Vial) 25 gm IVPUSH Q15M PRN; Protocol PRN Reason: per Hypoglycemia Standing Ord. Erythromycin (Erythromycin Base 0.5% Oph Oin 1 Gm Tube) 1 cm EYE-RIGHT TID [facility] Last Admin: 11/17/21 09:04 Dose: 1 cm Documented by: THEODORE Ferrous Sulfate (Ferrous Sulfate 324 Mg Tablet.) 324 mg PO DAILY [facility] Last Admin: 11/17/21 09:03 Dose: 324 mg Documented by: THEODORE Folic Acid (Folic Acid 1 Mg Tablet) 1 mg PO DAILY [facility] Last Admin: 11/17/21 09:03 Dose: 1 mg Documented by: THEODORE Glucose (Glucose Gel 15 Gm Gel..Gram.) 15 gm PO Q15M PRN; Protocol PRN Reason: per Hypoglycemia Standing Ord. Hydralazine HCl (Hydralazine Hcl 50 Mg Tablet) 50 mg PO TID [facility]; Protocol Last Admin: 11/17/21 09:03 Dose: 50 mg Documented by: THEODORE Dextrose/Sodium Chloride (D51/2ns) 1,000 mls @ 80 mls/hr IVCONT .[id number] [facility] Last Infusion: 11/17/21 09:46 Dose: 0 mls/hr Documented by: THEODORE Insulin Glargine (Insulin Glargine,Hum.Rec.Anlog 100 Unit/Ml 10 Ml Vial) 10 unit SUBCUT BEDTIME [facility] Last Admin: 11/14/21 21:16 Dose: 10 unit Documented by: CARMEN Insulin Human Lispro (Insulin Lispro 100 Unit/Ml 3 Ml Vial) 0 unit SUBCUT QIDACHS [facility]; Protocol Last Admin: 11/17/21 08:10 Dose: Not Given Documented by: THEODORE Non-Admin Reason: No Insulin Coverage Isosorbide Dinitrate (Isosorbide Dinitrate 10 Mg Tablet) 10 mg PO BID [facility]; Protocol Last Admin: 11/17/21 09:03 Dose: 10 mg Documented by: THEODORE Lactulose (Lactulose 20 Gm/30 Ml Solution) 45 gm PO QID [facility] Last Admin: 11/17/21 09:04 Dose: 45 gm Documented by: THEODORE Levothyroxine Sodium (Levothyroxine Sodium 75 Mcg Tablet) 75 mcg PO DAILY@0600 [facility] Last Admin: 11/17/21 05:38 Dose: 75 mcg Documented by: MARYANN Montelukast Sodium (Montelukast Sodium 10 Mg Tablet) 10 mg PO BEDTIME [facility] Last Admin: 11/16/21 21:58 Dose: 10 mg Documented by: MARYANN Pantoprazole Sodium (Pantoprazole Sodium 40 Mg/10 Ml Vial) 40 mg IVPUSH BID@0630,1630 [facility] Last Admin: 11/17/21 05:38 Dose: 40 mg Documented by: MARYANN Pharmacy Consult (Consult Rx Perform Med Rec) 1 each MISCELLANE ONCE PRN PRN Reason: Consult order Polyethylene Glycol (Polyethylene Glycol 3350 17 Gm Powd.Pack) 17 gm PO DAILY [facility] Last Admin: 11/17/21 09:09 Dose: Not Given Documented by: THEODORE Non-Admin Reason: increased diarrhea Rifaximin (Rifaximin 550 Mg Tablet) 550 mg PO BID [facility] Last Admin: 11/17/21 09:03 Dose: 550 mg Documented by: THEODORE Sodium Chloride (0.9 % Sodium Chloride Flush 3 Ml Syringe) 3 ml IVFLUSH QSHIFT [facility] Last Admin: 11/17/21 07:26 Dose: Not Given Documented by: THEODORE Non-Admin Reason: IV Running Spironolactone (Spironolactone 25 Mg Tablet) 50 mg PO DAILY [facility]; Protocol Last Admin: 11/15/21 08:04 Dose: 50 mg Documented by: RIKKI Timolol Maleate (Timolol Maleate 0.5 % Oph Alexandra 5 Ml Drbtl) 1 drop EYE-RIGHT BID [facility] Last Admin: 11/17/21 09:04 Dose: 1 drop Documented by: THEODORE Labs CBC & Chem 7: 11/17/21 05:45 11/17/21 05:45 Labs: Laboratory Results - last 24 hr 11/11/21 11/16/21 11/16/21 08:46 11:31 16:00 MCV MCH MCHC RDW Plt Count MPV Absolute Nucleated RBC Nucleated RBC % (auto) Anion Gap Estim Creat Clear Calc Estimated GFR POC Glucose 142 H 154 H Random Glucose Calcium Total Bilirubin Direct Bilirubin AST ALT Alkaline Phosphatase Total Protein Albumin Blood Type Antibody Screen Crossmatch See Detail 11/16/21 11/17/21 11/17/21 19:42 05:45 05:45 MCV 92.2 MCH 29.9 MCHC 32.4 RDW 14.3 Plt Count 107 L MPV 11.9 Absolute Nucleated RBC 0.000 Nucleated RBC % (auto) 0.0 Anion Gap 11 L Estim Creat Clear Calc 15.7 Estimated GFR 20 POC Glucose 137 H Random Glucose 183 H Calcium 9.5 Total Bilirubin 0.9 Direct Bilirubin 0.5 AST 33 H ALT 23 Alkaline Phosphatase 75 Total Protein 6.5 Albumin 3.1 L Blood Type Antibody Screen Crossmatch 11/17/21 11/17/21 07:24 10:00 MCV MCH MCHC RDW Plt Count MPV Absolute Nucleated RBC Nucleated RBC % (auto) Anion Gap Estim Creat Clear Calc Estimated GFR POC Glucose 140 H Random Glucose Calcium Total Bilirubin Direct Bilirubin AST ALT Alkaline Phosphatase Total Protein Albumin Blood Type O Positive Antibody Screen NEGATIVE Crossmatch See Detail Assessment and Plan (1) Hepatic encephalopathy: Status: Acute Assessment and Plan: 76F presented with confusion 1.acute metabolic encephalopathy due? hepatic encephalopathy, ammonia level has gone down, she is more awake continue lactulose @ 45 mg qid , b continue Rifaximin and adjusted lactulose 30 mg qid , seems more awake To have EGD today Fall back-hip/pevis xary-otherwise non focal and moving all extermities. 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 multifactorial ckd , poor oral inatke hold eliquis iron panel-studies normal, b12 and folate? normal, fobt added-staff is aware. s/p 1 prbc on -h/h today:7.6/22.6 . may need egd once hepati encephalopathy improves. Pt-recomended rehab? Quality Stroke Does the patient have a stroke diagnosis?: No VTE Prior VTE?: No VTE Risk Level:: Medical - moderate - high VTE Device Contraindication: Treatment Not Indicated VTE Drug Contraindication: N/A - Med Ordered
[2021-11-17 11:07] LABS: Glucose, Whole Blood 107 mg/dL (60-115)
--- NOTE | 2021-11-17 11:20 | MHC.SHP ---
Pre-Procedural Eval Section A Date of Service: 11/17/21 The patient is an INPATIENT: Yes Changes since office visit: Yes New Medical Problems, Yes Changes in Medication and Yes Patient answered all questions; No Cold of Flu in the past 2 weeks The History & Physical has been completed within 30 days and I have reviewed it.: Yes Section B Chief Complaint: delerium, ?hepatic encephalopathy Allergies: Allergies Allergy/AdvReac Type Severity Reaction Status Date / Time milk [Milk] AdvReac Mild DIARRHEA Verified 11/03/21 05:24 Plan I have reviewed the history and physical and performed a pertinent physical examination on my patient. No changes have occurred unless specified.
--- NOTE | 2021-11-17 11:21 | P.BOP_ITS ---
Brief Operative Note Date of Service: 11/17/21 Pre-op diagnosis: Anemia, heme positive stools, cirrhosis - screen for varices Post-op diagnosis: other (portal gastropathy, duodenal nodule) Procedure: FLEXIBLE TRANSORAL UPPER GASTROINTESTINAL ENDOSCOPY WITH BIOPSIES Consent: Indications for the procedure and potential complications of bleeding, perforation, reaction to medications and missed diagnosis were discussed with the patient and informed consent was obtained. Instrument: Olympus GIF H 190 mid size upper endoscope Monitoring: Vital signs and clinical assessment, continuous EKG monitoring, Pulse oximetry, Carbon Dioxide monitoring and blood pressure monitoring were done throughout the procedure. Procedure: The patient was placed in the left lateral decubitis position and pre-procedure medications were administered and a bite block was placed. The endoscope was inserted into the mouth and advanced under direct vision to the third part of duodenum. A careful inspection was made as the upper endoscope was withdrawn including a retroflexed examination of the proximal stomach; Findings and interventions are described below. Findings: Larynx: Normal with ETT in place Esophagus: GE junction at 38 cms. No esophagitis or esophageal varices noted. Stomach: Diffuse gastric erythema with snake skin appearance of the gastric mucosa due to portal hypertensive gastropathy. Antral biopsies were obtained. No gastric varices seen and grade 2 flap valve on retroflexed examination of the cardia. Duodenum: A 1 cms benign appearing nodule in the floor of the apex of the bulb - biopsied. Normal descending duodenum Intervention: Biopsies as noted above Impression and Post Procedure Diagnosis: Endoscopy Findings: LARYNX: Normal with ETT in place ESOPHAGUS: GE junction at 38 cms. No esophagitis or esophageal varices noted. STOMACH: Diffuse gastric erythema with snake skin appearance of the gastric mucosa due to portal hypertensive gastropathy. Antral biopsies were obtained. No gastric varices seen and grade 2 flap valve on retroflexed examination of the cardia. DUODENUM: A 1 cms benign appearing nodule in the floor of the apex of the bulb - biopsied. Plan: Await pathology results Patient to schedule a FU appointment in the GI Clinic with Haris Malik M.D. after discharge for follow up of cirrhosis Above findings were reviewed with the patient and her daughter, Lindsay at [phone]. Surgeon: Haris Malik MD Anesthesia: GETA (Elisa Kim CRNA and Dr Alonzo) Was an Poultry Hatchery Supervisor used for this Procedure?: Yes Poultry Hatchery Supervisor: Yasmin Rodriguez Estimated blood loss (mL): 0 Pathology: other ( A. duodenal nodule B. gastric antrum bxs, R/O H. pylori) Condition: stable Disposition: PACU
[2021-11-17] MEDS: 0.9 % Sodium Chloride Flush 3 ML SYRINGE IVFLUSH ×2 (15:18→20:19)
[2021-11-17 16:59] LABS: Glucose, Whole Blood 174 mg/dL (60-115)
[2021-11-17 20:13] LABS: Glucose, Whole Blood 178 mg/dL (60-115)
[2021-11-17] MEDS: Montelukast Sodium 10 MG TABLET PO (20:19)
[2021-11-18 02:49] VITALS: BP 147/68; PULSE 80; RESP 20; TEMP 37.3; O2SAT 99
[2021-11-18] MEDS: Levothyroxine Sodium 75 MCG TABLET PO (05:32)
[2021-11-18] MEDS: Pantoprazole Sodium 40 MG/10 ML VIAL IVPUSH (05:32)
[2021-11-18 07:25] VITALS: BP 124/60; PULSE 76; RESP 20; TEMP 37.2; O2SAT 95
[2021-11-18] MEDS: Isosorbide Dinitrate 10 MG TABLET PO ×2 (07:35→21:37)
[2021-11-18] MEDS: hydrALAZINE HCl 50 MG TABLET PO ×3 (07:35→21:37)
[2021-11-18] MEDS: rifAXIMin 550 MG TABLET PO ×2 (07:35→21:37)
[2021-11-18] MEDS: Folic Acid 1 MG TABLET PO (07:35)
[2021-11-18] MEDS: Ferrous Sulfate 324 MG TABLET.DR PO (07:35)
[2021-11-18] MEDS: Erythromycin Base 0.5% Oph Oin 1 GM TUBE 1 CM EYE-RIGHT ×3 (07:35→21:38)
[2021-11-18] MEDS: amLODIPine Besylate 10 MG TABLET PO (07:35)
[2021-11-18] MEDS: Lactulose 20 GM/30 ML SOLUTION 45 GM PO ×4 (07:35→21:38)
[2021-11-18] MEDS: Cyanocobalamin (Vitamin B-12) 1,000 MCG TABLET 1000 MCG PO (07:35)
[2021-11-18] MEDS: polyethylene glycoL 3350 17 GM POWD.PACK PO (07:36)
[2021-11-18] MEDS: timoloL maleate 0.5 % Oph Sol 5 ML DRBTL 1 DROP EYE-RIGHT (07:40)
[2021-11-18 07:48] LABS: Glucose, Whole Blood 160 mg/dL (60-115)
[2021-11-18 07:48] LABS: Ammonia 70 umol/L (13-55); Hematocrit 23.4 % (37.0-47.0); Hemoglobin 7.6 g/dl (12.0-16.0); Mean Corpuscular HGB Conc 32.5 g/dl (31.0-35.0); Mean Corpuscular Hemoglobin 30.5 pg (27.0-33.0); Mean Platelet Volume 11.6 fL (9.4-12.3); Platelet Count 117 X10*3/uL (160-400); Red Blood Count 2.49 X10*6/uL (4.20-5.50); Red Cell Distribution Width 14.4 % (11.0-16.0); White Blood Count 4.9 X10*3/uL (4.8-10.8)
[2021-11-18 07:51] LABS: Anion Gap 10 (12-20); Blood Urea Nitrogen 17 mg/dL (9-16); Calcium 9.4 mg/dL (8.4-10.2); Carbon Dioxide 20 mmol/L (22-29); Chloride 113 mmol/L (96-108); Creatinine Clr Calc Pharmacy 14.8; Estimated Glomerular Filt Rate 19; Glucose Random 171 mg/dL (60-115); Potassium 3.8 mmol/L (3.3-5.1); Sodium 139 mmol/L (135-145)
--- NOTE | 2021-11-18 10:40 | P.PNIM_ITS ---
Subjective Subjective Date of Service: 11/18/21 Interval History: F/u anemia, hepatic encephalopathy--oriented x 3, and wants to go home Review of Systems no fever confusion but less Physical Exam Vital Signs: Vital Signs: Last Vital Signs Temp 98.9 F 11/18/21 07:25 Pulse 76 11/18/21 07:25 Resp 20 11/18/21 07:25 BP 124/60 11/18/21 07:25 Pulse Ox 95 11/18/21 07:25 BMI result Body Mass Index 18.5 Const: Other: General: AO X 3, no acute distress Resp: CTA bilateral CVS: S1,S2,RRR GI: +BS, NT, no distention Skin: No rash Neuro: motor grossly intact Psych: appropriate affect Objective Data Active Medications Amlodipine Besylate (Amlodipine Besylate 10 Mg Tablet) 10 mg PO DAILY [facility]; Protocol Last Admin: 11/18/21 07:35 Dose: 10 mg Documented by: MCKAY Cyanocobalamin (Cyanocobalamin (Vitamin B-12) 1,000 Mcg Tablet) 1,000 mcg PO DAILY [facility] Last Admin: 11/18/21 07:35 Dose: 1,000 mcg Documented by: MCKAY Dextrose (Dextrose 50 % 25 Gm/50 Ml Vial) 25 gm IVPUSH Q15M PRN; Protocol PRN Reason: per Hypoglycemia Standing Ord. Erythromycin (Erythromycin Base 0.5% Oph Oin 1 Gm Tube) 1 cm EYE-RIGHT TID [facility] Last Admin: 11/18/21 07:35 Dose: 1 cm Documented by: MCKAY Fentanyl (Fentanyl Citrate/Pf 100 Mcg/2 Ml Vial) 25 mcg IVPUSH Q5M PRN; Protocol PRN Reason: Pain, Moderate (Pain Scale 4-6 Ferrous Sulfate (Ferrous Sulfate 324 Mg Tablet.) 324 mg PO DAILY [facility] Last Admin: 11/18/21 07:35 Dose: 324 mg Documented by: MCKAY Folic Acid (Folic Acid 1 Mg Tablet) 1 mg PO DAILY [facility] Last Admin: 11/18/21 07:35 Dose: 1 mg Documented by: MCKAY Glucose (Glucose Gel 15 Gm Gel..Gram.) 15 gm PO Q15M PRN; Protocol PRN Reason: per Hypoglycemia Standing Ord. Hydralazine HCl (Hydralazine Hcl 50 Mg Tablet) 50 mg PO TID [facility]; Protocol Last Admin: 11/18/21 07:35 Dose: 50 mg Documented by: MCKAY Dextrose/Sodium Chloride (D51/2ns) 1,000 mls @ 80 mls/hr IVCONT .[id number] [facility] Last Admin: 11/18/21 07:27 Dose: Not Given Documented by: MCKAY Non-Admin Reason: IV Running Insulin Glargine (Insulin Glargine,Hum.Rec.Anlog 100 Unit/Ml 10 Ml Vial) 10 unit SUBCUT BEDTIME [facility] Last Admin: 11/14/21 21:16 Dose: 10 unit Documented by: CARMEN Insulin Human Lispro (Insulin Lispro 100 Unit/Ml 3 Ml Vial) 0 unit SUBCUT QIDACHS [facility]; Protocol Last Admin: 11/18/21 07:28 Dose: Not Given Documented by: MCKAY Non-Admin Reason: No Insulin Coverage Isosorbide Dinitrate (Isosorbide Dinitrate 10 Mg Tablet) 10 mg PO BID [facility]; Protocol Last Admin: 11/18/21 07:35 Dose: 10 mg Documented by: MCKAY Lactulose (Lactulose 20 Gm/30 Ml Solution) 45 gm PO QID [facility] Last Admin: 11/18/21 07:35 Dose: 45 gm Documented by: MCKAY Levothyroxine Sodium (Levothyroxine Sodium 75 Mcg Tablet) 75 mcg PO DAILY@0600 [facility] Last Admin: 11/18/21 05:32 Dose: 75 mcg Documented by: MELLO Montelukast Sodium (Montelukast Sodium 10 Mg Tablet) 10 mg PO BEDTIME [facility] Last Admin: 11/17/21 20:19 Dose: 10 mg Documented by: MELLO Ondansetron HCl (Ondansetron Hcl 4 Mg/2 Ml Vial) 4 mg IVPUSH ONCE PRN PRN Reason: Nausea and Vomiting Pantoprazole Sodium (Pantoprazole Sodium 40 Mg/10 Ml Vial) 40 mg IVPUSH BID@0630,1630 [facility] Last Admin: 11/18/21 05:32 Dose: 40 mg Documented by: MELLO Pharmacy Consult (Consult Rx Perform Med Rec) 1 each MISCELLANE ONCE PRN PRN Reason: Consult order Polyethylene Glycol (Polyethylene Glycol 3350 17 Gm Powd.Pack) 17 gm PO DAILY [facility] Last Admin: 11/18/21 07:36 Dose: 17 gm Documented by: MCKAY Rifaximin (Rifaximin 550 Mg Tablet) 550 mg PO BID [facility] Last Admin: 11/18/21 07:35 Dose: 550 mg Documented by: MCKAY Sodium Chloride (0.9 % Sodium Chloride Flush 3 Ml Syringe) 3 ml IVFLUSH QSHIFT [facility] Last Admin: 11/18/21 07:27 Dose: Not Given Documented by: MCKAY Non-Admin Reason: IV Running Spironolactone (Spironolactone 25 Mg Tablet) 50 mg PO DAILY [facility]; Protocol Last Admin: 11/15/21 08:04 Dose: 50 mg Documented by: RIKKI Timolol Maleate (Timolol Maleate 0.5 % Oph Alexandra 5 Ml Drbtl) 1 drop EYE-RIGHT BID [facility] Last Admin: 11/18/21 07:40 Dose: 1 drop Documented by: MCKAY Labs CBC & Chem 7: 11/18/21 07:18 11/18/21 07:18 Labs: Laboratory Results - last 24 hr 11/17/21 11/17/21 11/17/21 10:00 11:00 16:45 MCV MCH MCHC RDW Plt Count MPV Absolute Nucleated RBC Nucleated RBC % (auto) Anion Gap Estim Creat Clear Calc Estimated GFR POC Glucose 107 174 H Random Glucose Calcium Ammonia Blood Type O Positive Antibody Screen NEGATIVE Crossmatch See Detail 11/17/21 11/18/21 11/18/21 19:50 07:18 07:18 MCV 94.0 MCH 30.5 MCHC 32.5 RDW 14.4 Plt Count 117 L MPV 11.6 Absolute Nucleated RBC 0.000 Nucleated RBC % (auto) 0.0 Anion Gap 10 L Estim Creat Clear Calc 14.8 Estimated GFR 19 POC Glucose 178 H Random Glucose 171 H Calcium 9.4 Ammonia Blood Type Antibody Screen Crossmatch 11/18/21 11/18/21 07:18 07:22 MCV MCH MCHC RDW Plt Count MPV Absolute Nucleated RBC Nucleated RBC % (auto) Anion Gap Estim Creat Clear Calc Estimated GFR POC Glucose 160 H Random Glucose Calcium Ammonia 70 H Blood Type Antibody Screen Crossmatch Assessment and Plan (1) Hepatic encephalopathy: Status: Acute Assessment and Plan: 76F presented with confusion 1.acute metabolic encephalopathy due? hepatic encephalopathy, ammonia level has gone down, she is fully alert. continue lactulose @ 45 mg qid , b continue Rifaximin 2. GIB/acute blood loss anemic on chronic anemia. Her hematocrit dropped to 20, and was transfused 1 unit on and hematocrit is now 23 which is her baseline. She had EGD by on 11/17/[address] Cardoso with findings of portal gastropathy, duodenal nodule--biopsy pending. Fall back-hip/pevis xary-otherwise non focal and moving all extermities. 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 multifactorial ckd , poor oral inatke hold eliquis iron panel-studies normal, b12 and folate? normal, fobt added-staff is aware. s/p 1 prbc on -h/h today:7.05/05.6 . may need egd once hepati encephalopathy improves. Pt-recomended rehab, will discuss with daughter and discharged. ? Quality Stroke Does the patient have a stroke diagnosis?: No VTE Prior VTE?: No VTE Risk Level:: Medical - moderate - high VTE Device Contraindication: Treatment Not Indicated VTE Drug Contraindication: N/A - Med Ordered
[2021-11-18 10:49] VITALS: BP 124/60; PULSE 76; O2SAT 95
[2021-11-18 11:22] VITALS: BP 132/61; PULSE 71; RESP 20; TEMP 37.1; O2SAT 94
[2021-11-18 11:44] LABS: Glucose, Whole Blood 187 mg/dL (60-115)
[2021-11-18 12:52] LABS: COVID-19 Test Negative (Negative)
--- NOTE | 2021-11-18 13:38 | MHC.CM.PN ---
NURSE CASE MANAGEE NOTE ELECTRONIC MEDICAL RECORD REFIEWED ALONG WITH CASE DISUCSSED ON MULTIPLE DISCIPLAINRY ROUNDS MET WITH PATIENT AND SPOKE WITH HER DAUGHTER CHAR SHER, SHE REPORTED SHE IS STILL WAITING FOR THE P.R. MEDICARE TO CONVERT TO THE NEW MEDICARE , SHE DID RECIVE THE [employer] STANDARD CARD IN THE MAIL . ILIANA Rose DAUGHTER HAS OVID AND HIS HAVING SOB, SHE HAS TRIED TO MAKE A CALL TO MEDICARE TO CHECK ON HER MOM STATUS, T/C TP [facility] REGISTRATION MESSSGAGE LEFT FOR CALL BACK , CHECKED WITH FINANCIAL COUNSELORE TO IF THYE COULD CHECK , THIS IS ALSO PENDING . DAUGHTER REPORTED THAT PATIENT DID GET VACCCINATED IN P.R. WITH THE PFIER VACCINATION JANUARY 27FEBRUARY 20 2021 AND THE BOOSTER . THIS INFORMATION WAS SENT TO THE [facility] DISCHARGE PLAN STR , HAS HCP AND BEEN VACINATED , CLINICAL UPDATES SENT TO REFERRALS SOURCES [employer] COMMUNICATOR TO CONT TO FOLLOW
[2021-11-18] MEDS: 0.9 % Sodium Chloride Flush 3 ML SYRINGE IVFLUSH ×2 (14:16→21:38)
--- NOTE | 2021-11-18 15:06 | HO.POSTANES ---
Post Anesthesia Evaluation Post Anesthesia Evaluation Vital Signs: Vital Signs Temp Pulse Resp BP Pulse Ox 11/18/21 11:22 98.8 F 71 20 132/61 94 11/18/21 10:49 76 124/60 95 11/18/21 07:25 98.9 F 76 20 124/60 95 Anesthesia: General Mental Status: Awake Pain Control: Satisfactory Nausea/Vomiting: None Hydration: Adequate Anesthesia-Related Issues: No Anes. Related Issues
[2021-11-18 15:30] VITALS: BP 131/60; PULSE 75; RESP 16; TEMP 36.8; O2SAT 93
[2021-11-18 15:55] LABS: Glucose, Whole Blood 173 mg/dL (60-115)
[2021-11-18 19:37] VITALS: BP 129/89; PULSE 76; RESP 16; TEMP 36.7; O2SAT 98
[2021-11-18 20:20] LABS: Glucose, Whole Blood 177 mg/dL (60-115)
[2021-11-18] MEDS: Montelukast Sodium 10 MG TABLET PO (21:37)
[2021-11-19] VITALS: BP 123/59; PULSE 78; RESP 20; TEMP 36.1; O2SAT 95
[2021-11-19 03:49] VITALS: BP 122/56; PULSE 75; RESP 18; TEMP 36.4; O2SAT 93
[2021-11-19] MEDS: Levothyroxine Sodium 75 MCG TABLET PO (05:48)
[2021-11-19] MEDS: Ferrous Sulfate 324 MG TABLET.DR PO (07:25)
[2021-11-19] MEDS: Cyanocobalamin (Vitamin B-12) 1,000 MCG TABLET 1000 MCG PO (07:25)
[2021-11-19] MEDS: rifAXIMin 550 MG TABLET PO ×2 (07:25→20:18)
[2021-11-19] MEDS: Isosorbide Dinitrate 10 MG TABLET PO ×2 (07:25→20:18)
[2021-11-19] MEDS: Folic Acid 1 MG TABLET PO (07:26)
[2021-11-19] MEDS: amLODIPine Besylate 10 MG TABLET PO (07:26)
[2021-11-19] MEDS: hydrALAZINE HCl 50 MG TABLET PO ×3 (07:26→20:18)
[2021-11-19] MEDS: Erythromycin Base 0.5% Oph Oin 1 GM TUBE 1 CM EYE-RIGHT ×3 (07:26→20:18)
[2021-11-19] MEDS: polyethylene glycoL 3350 17 GM POWD.PACK PO (07:26)
[2021-11-19] MEDS: Lactulose 20 GM/30 ML SOLUTION 45 GM PO ×4 (07:26→20:18)
[2021-11-19] MEDS: 0.9 % Sodium Chloride Flush 3 ML SYRINGE IVFLUSH ×3 (07:27→20:17)
[2021-11-19] MEDS: timoloL maleate 0.5 % Oph Sol 5 ML DRBTL 1 DROP EYE-RIGHT ×2 (07:34→21:18)
[2021-11-19 07:38] LABS: Glucose, Whole Blood 142 mg/dL (60-115)
[2021-11-19 07:49] VITALS: BP 132/62; PULSE 72; RESP 18; TEMP 36.7; O2SAT 98
[2021-11-19 11:05] VITALS: BP 117/58; PULSE 69; RESP 20; TEMP 36.6; O2SAT 95
[2021-11-19 11:34] LABS: Glucose, Whole Blood 196 mg/dL (60-115)
--- NOTE | 2021-11-19 11:43 | HO.PM.IMPN ---
Subjective Subjective Date of Service: 11/19/21 Interval History: F/u anemia, hepatic encephalopathy--oriented x 3, Review of Systems no fever confusion but less Physical Exam Vital Signs: Vital Signs: Last Vital Signs Temp 97.9 F 11/19/21 11:05 Pulse 69 11/19/21 11:05 Resp 20 11/19/21 11:05 BP 117/58 L 11/19/21 11:05 Pulse Ox 95 11/19/21 11:05 BMI result Body Mass Index 18.5 Const: Other: General: AO X 3, no acute distress Resp: CTA bilateral CVS: S1,S2,RRR GI: +BS, NT, no distention Skin: No rash Neuro: motor grossly intact Psych: appropriate affect Objective Data Active Medications Amlodipine Besylate (Amlodipine Besylate 10 Mg Tablet) 10 mg PO DAILY [facility]; Protocol Last Admin: 11/19/21 07:26 Dose: 10 mg Documented by: MCKAY Cyanocobalamin (Cyanocobalamin (Vitamin B-12) 1,000 Mcg Tablet) 1,000 mcg PO DAILY [facility] Last Admin: 11/19/21 07:25 Dose: 1,000 mcg Documented by: MCKAY Dextrose (Dextrose 50 % 25 Gm/50 Ml Vial) 25 gm IVPUSH Q15M PRN; Protocol PRN Reason: per Hypoglycemia Standing Ord. Erythromycin (Erythromycin Base 0.5% Oph Oin 1 Gm Tube) 1 cm EYE-RIGHT TID [facility] Last Admin: 11/19/21 07:26 Dose: 1 cm Documented by: MCKAY Fentanyl (Fentanyl Citrate/Pf 100 Mcg/2 Ml Vial) 25 mcg IVPUSH Q5M PRN; Protocol PRN Reason: Pain, Moderate (Pain Scale 4-6 Ferrous Sulfate (Ferrous Sulfate 324 Mg Tablet.Dr) 324 mg PO DAILY [facility] Last Admin: 11/19/21 07:25 Dose: 324 mg Documented by: MCKAY Folic Acid (Folic Acid 1 Mg Tablet) 1 mg PO DAILY [facility] Last Admin: 11/19/21 07:26 Dose: 1 mg Documented by: MCKAY Glucose (Glucose Gel 15 Gm Gel..Gram.) 15 gm PO Q15M PRN; Protocol PRN Reason: per Hypoglycemia Standing Ord. Hydralazine HCl (Hydralazine Hcl 50 Mg Tablet) 50 mg PO TID [facility]; Protocol Last Admin: 11/19/21 07:26 Dose: 50 mg Documented by: MCKAY Insulin Glargine (Insulin Glargine,Hum.Rec.Anlog 100 Unit/Ml 10 Ml Vial) 10 unit SUBCUT BEDTIME [facility] Last Admin: 11/14/21 21:16 Dose: 10 unit Documented by: CARMEN Insulin Human Lispro (Insulin Lispro 100 Unit/Ml 3 Ml Vial) 0 unit SUBCUT QIDACHS [facility]; Protocol Last Admin: 11/19/21 07:27 Dose: Not Given Documented by: MCKAY Non-Admin Reason: No Insulin Coverage Isosorbide Dinitrate (Isosorbide Dinitrate 10 Mg Tablet) 10 mg PO BID [facility]; Protocol Last Admin: 11/19/21 07:25 Dose: 10 mg Documented by: MCKAY Lactulose (Lactulose 20 Gm/30 Ml Solution) 45 gm PO QID [facility] Last Admin: 11/19/21 07:26 Dose: 45 gm Documented by: MCKAY Levothyroxine Sodium (Levothyroxine Sodium 75 Mcg Tablet) 75 mcg PO DAILY@0600 [facility] Last Admin: 11/19/21 05:48 Dose: 75 mcg Documented by: MELLO Montelukast Sodium (Montelukast Sodium 10 Mg Tablet) 10 mg PO BEDTIME [facility] Last Admin: 11/18/21 21:37 Dose: 10 mg Documented by: MELLO Ondansetron HCl (Ondansetron Hcl 4 Mg/2 Ml Vial) 4 mg IVPUSH ONCE PRN PRN Reason: Nausea and Vomiting Pharmacy Consult (Consult Rx Perform Med Rec) 1 each MISCELLANE ONCE PRN PRN Reason: Consult order Polyethylene Glycol (Polyethylene Glycol 3350 17 Gm Powd.Pack) 17 gm PO DAILY [facility] Last Admin: 11/19/21 07:26 Dose: 17 gm Documented by: MCKAY Rifaximin (Rifaximin 550 Mg Tablet) 550 mg PO BID [facility] Last Admin: 11/19/21 07:25 Dose: 550 mg Documented by: MCKAY Sodium Chloride (0.9 % Sodium Chloride Flush 3 Ml Syringe) 3 ml IVFLUSH QSHIFT [facility] Last Admin: 11/19/21 07:27 Dose: 3 ml Documented by: MCKAY Spironolactone (Spironolactone 25 Mg Tablet) 50 mg PO DAILY [facility]; Protocol Last Admin: 11/15/21 08:04 Dose: 50 mg Documented by: RIKKI Timolol Maleate (Timolol Maleate 0.5 % Oph Alexandra 5 Ml Drbtl) 1 drop EYE-RIGHT BID [facility] Last Admin: 11/19/21 07:34 Dose: 1 drop Documented by: MCKAY Labs CBC & Chem 7: 11/18/21 07:18 11/18/21 07:18 Labs: Laboratory Results - last 24 hr 11/18/21 11/18/21 11/18/21 11:21 12:25 15:34 POC Glucose 187 H 173 H COVID-19 ([facility]) Negative COVID-19 Clin Com See Note 11/18/21 11/19/21 11/19/21 19:40 07:21 11:22 POC Glucose 177 H 142 H 196 H COVID-19 ([facility]) COVID-19 Clin Com Assessment and Plan (1) Hepatic encephalopathy: Status: Acute Assessment and Plan: 76F presented with confusion 1.acute metabolic encephalopathy due? hepatic encephalopathy, ammonia level has gone down, she is fully alert. continue lactulose @ 45 mg qid, she is having lots of diarrhea so will reduce lactulose to tid continue Rifaximin 2. GIB/acute blood loss anemic on chronic anemia. Her hematocrit dropped to 20, and was transfused 1 unit on and hematocrit is now 23 which is her baseline. She had EGD by on 11/17/[address] Cardoso with findings of portal gastropathy, duodenal nodule--biopsy pending. Fall back-hip/pevis xary-otherwise non focal and moving all extermities. 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 multifactorial ckd , poor oral inatke hold eliquis iron panel-studies normal, b12 and folate? normal, fobt added-staff is aware. s/p 1 prbc on -h/h today:7.6/22.6 . may need egd once hepati encephalopathy improves. Pt-recomended rehab, will discuss with daughter and discharged. awaiting placement ? Quality Stroke Does the patient have a stroke diagnosis?: No VTE Prior VTE?: No VTE Risk Level:: Medical - moderate - high VTE Device Contraindication: Treatment Not Indicated VTE Drug Contraindication: N/A - Med Ordered
[2021-11-19 15:18] VITALS: BP 120/53; PULSE 69; RESP 18; TEMP 36.8; O2SAT 93
[2021-11-19 15:45] LABS: Glucose, Whole Blood 210 mg/dL (60-115)
[2021-11-19] MEDS: Insulin Lispro 100 UNIT/ML 3 ML VIAL SUBCUT (17:02)
[2021-11-19 19:31] VITALS: BP 129/60; PULSE 69; RESP 18; TEMP 36.8; O2SAT 97
[2021-11-19 19:49] LABS: Glucose, Whole Blood 153 mg/dL (60-115)
[2021-11-19] MEDS: Montelukast Sodium 10 MG TABLET PO (20:18)
[2021-11-20] VITALS (8 sets, daily range): BP systolic 119–141; BP diastolic 52–66; PULSE 62–84; RESP 16–20; TEMP 36.2–37.6; O2SAT 94–98
[2021-11-20] MEDS: Levothyroxine Sodium 75 MCG TABLET PO (06:05)
[2021-11-20 07:45] LABS: Glucose, Whole Blood 133 mg/dL (60-115)
[2021-11-20] MEDS: 0.9 % Sodium Chloride Flush 3 ML SYRINGE IVFLUSH ×2 (08:35→15:34)
[2021-11-20] MEDS: hydrALAZINE HCl 50 MG TABLET PO ×3 (08:35→20:56)
[2021-11-20] MEDS: Folic Acid 1 MG TABLET PO (08:36)
[2021-11-20] MEDS: Erythromycin Base 0.5% Oph Oin 1 GM TUBE 1 CM EYE-RIGHT ×3 (08:36→20:55)
[2021-11-20] MEDS: rifAXIMin 550 MG TABLET PO ×2 (08:36→20:55)
[2021-11-20] MEDS: amLODIPine Besylate 10 MG TABLET PO (08:36)
[2021-11-20] MEDS: Ferrous Sulfate 324 MG TABLET.DR PO (08:36)
[2021-11-20] MEDS: Cyanocobalamin (Vitamin B-12) 1,000 MCG TABLET 1000 MCG PO (08:36)
[2021-11-20] MEDS: Isosorbide Dinitrate 10 MG TABLET PO ×2 (08:36→20:56)
[2021-11-20] MEDS: Lactulose 20 GM/30 ML SOLUTION 45 GM PO (08:37)
[2021-11-20] MEDS: timoloL maleate 0.5 % Oph Sol 5 ML DRBTL 1 DROP EYE-RIGHT ×2 (08:37→20:57)
--- NOTE | 2021-11-20 09:27 | P.PNIM_ITS ---
Subjective Subjective Date of Service: 11/20/21 Physical Exam Vital Signs: Vital Signs: Last Vital Signs Temp 98.6 F 11/20/21 07:34 Pulse 70 11/20/21 07:34 Resp 18 11/20/21 07:34 BP 137/64 11/20/21 07:34 Pulse Ox 98 11/20/21 07:34 BMI result Body Mass Index 18.5 Objective Data Active Medications Amlodipine Besylate (Amlodipine Besylate 10 Mg Tablet) 10 mg PO DAILY [facility]; Protocol Last Admin: 11/20/21 08:36 Dose: 10 mg Documented by: PRATIK Cyanocobalamin (Cyanocobalamin (Vitamin B-12) 1,000 Mcg Tablet) 1,000 mcg PO DAILY [facility] Last Admin: 11/20/21 08:36 Dose: 1,000 mcg Documented by: PRATIK Dextrose (Dextrose 50 % 25 Gm/50 Ml Vial) 25 gm IVPUSH Q15M PRN; Protocol PRN Reason: per Hypoglycemia Standing Ord. Erythromycin (Erythromycin Base 0.5% Oph Oin 1 Gm Tube) 1 cm EYE-RIGHT TID [facility] Last Admin: 11/20/21 08:36 Dose: 1 cm Documented by: PRATIK Fentanyl (Fentanyl Citrate/Pf 100 Mcg/2 Ml Vial) 25 mcg IVPUSH Q5M PRN; Protocol PRN Reason: Pain, Moderate (Pain Scale 4-6 Ferrous Sulfate (Ferrous Sulfate 324 Mg Tablet.Dr) 324 mg PO DAILY [facility] Last Admin: 11/20/21 08:36 Dose: 324 mg Documented by: PRATIK Folic Acid (Folic Acid 1 Mg Tablet) 1 mg PO DAILY [facility] Last Admin: 11/20/21 08:36 Dose: 1 mg Documented by: PRATIK Glucose (Glucose Gel 15 Gm Gel..Gram.) 15 gm PO Q15M PRN; Protocol PRN Reason: per Hypoglycemia Standing Ord. Hydralazine HCl (Hydralazine Hcl 50 Mg Tablet) 50 mg PO TID [facility]; Protocol Last Admin: 11/20/21 08:35 Dose: 50 mg Documented by: PRATIK Insulin Glargine (Insulin Glargine,Hum.Rec.Anlog 100 Unit/Ml 10 Ml Vial) 10 unit SUBCUT BEDTIME [facility] Last Admin: 11/14/21 21:16 Dose: 10 unit Documented by: CARMEN Insulin Human Lispro (Insulin Lispro 100 Unit/Ml 3 Ml Vial) 0 unit SUBCUT QIDACHS [facility]; Protocol Last Admin: 11/20/21 07:51 Dose: Not Given Documented by: PRATIK Non-Admin Reason: No Insulin Coverage Isosorbide Dinitrate (Isosorbide Dinitrate 10 Mg Tablet) 10 mg PO BID [facility]; Protocol Last Admin: 11/20/21 08:36 Dose: 10 mg Documented by: PRATIK Lactulose (Lactulose 20 Gm/30 Ml Solution) 45 gm PO QID [facility] Last Admin: 11/20/21 08:37 Dose: 45 gm Documented by: PRATIK Levothyroxine Sodium (Levothyroxine Sodium 75 Mcg Tablet) 75 mcg PO DAILY@0600 [facility] Last Admin: 11/20/21 06:05 Dose: 75 mcg Documented by: PATRICIA Montelukast Sodium (Montelukast Sodium 10 Mg Tablet) 10 mg PO BEDTIME [facility] Last Admin: 11/19/21 20:18 Dose: 10 mg Documented by: PATRICIA Ondansetron HCl (Ondansetron Hcl 4 Mg/2 Ml Vial) 4 mg IVPUSH ONCE PRN PRN Reason: Nausea and Vomiting Pharmacy Consult (Consult Rx Perform Med Rec) 1 each MISCELLANE ONCE PRN PRN Reason: Consult order Polyethylene Glycol (Polyethylene Glycol 3350 17 Gm Powd.Pack) 17 gm PO DAILY [facility] Last Admin: 11/20/21 08:38 Dose: Not Given Documented by: PRATIK Non-Admin Reason: pt had 3 loose stools last night Rifaximin (Rifaximin 550 Mg Tablet) 550 mg PO BID [facility] Last Admin: 11/20/21 08:36 Dose: 550 mg Documented by: PRATIK Sodium Chloride (0.9 % Sodium Chloride Flush 3 Ml Syringe) 3 ml IVFLUSH QSHIFT [facility] Last Admin: 11/20/21 08:35 Dose: 3 ml Documented by: PRATIK Spironolactone (Spironolactone 25 Mg Tablet) 50 mg PO DAILY [facility]; Protocol Last Admin: 11/15/21 08:04 Dose: 50 mg Documented by: RIKKI Timolol Maleate (Timolol Maleate 0.5 % Oph Alexandra 5 Ml Drbtl) 1 drop EYE-RIGHT BID [facility] Last Admin: 11/20/21 08:37 Dose: 1 drop Documented by: PRATIK Labs CBC & Chem 7: 11/18/21 07:18 11/18/21 07:18 Labs: Laboratory Results - last 24 hr 11/19/21 11/19/21 11/19/21 11:22 15:16 19:35 POC Glucose 196 H 210 H 153 H 11/20/21 07:32 POC Glucose 133 H Assessment and Plan (1) Hepatic encephalopathy: Status: Acute Assessment and Plan: 76F presented with confusion 1.acute metabolic encephalopathy due? hepatic encephalopathy, ammonia level has gone down, she is fully alert. continue lactulose @ 45 mg tid, continue Rifaximin 2. GIB/acute blood loss anemic on chronic anemia. Her hematocrit dropped to 20, and was transfused 1 unit on and hematocrit is now 23 which is her baseline. She had EGD by on 11/17/[address] Cardoso with findings of portal gastropathy, duodenal nodule--biopsy pending. Fall back-hip/pevis xary-otherwise non focal and moving all extermities. 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 multifactorial ckd , poor oral inatke hold eliquis iron panel-studies normal, b12 and folate? normal, fobt added-staff is aware. s/p 1 prbc on -h/h today:7.6/.6 . may need egd once hepati encephalopathy improves. Pt-recomended rehab, will discuss with daughter and discharged. awaiting placement, will discuss with daughter if able to take her home rather than waiting for rehab ? Quality Stroke Does the patient have a stroke diagnosis?: No VTE Prior VTE?: No VTE Risk Level:: Medical - moderate - high VTE Device Contraindication: Treatment Not Indicated VTE Drug Contraindication: N/A - Med Ordered
[2021-11-20 11:42] LABS: Glucose, Whole Blood 161 mg/dL (60-115)
--- NOTE | 2021-11-20 15:47 | MHC.CM.PN ---
Addendum entered by Franci Sierra 11/20/21 16:23: LATE IN DAY, [facility] COULD OFFER SOMETIME NEXT WEEK IF PATIENT IS AGREEABLE, WHICH SHE STATES SHE IS WILLING TO GO. PATIENT WILL DC ON TUESDAY SO REQUEST SENT FOR POSSIBLE SISTER FACILITY BED OFFER Original Note: REHAB FACILITIES ARE UNABLE TO ACCESS PATIENT'S [facility], SHE NEEDS TO CANCEL HER [place] MEDICARE. THIS INFO RELAYED TO DAUGHTER CHAR ([phone]) PATIENT WILL DC TO [facility] ON [address] [place] [address] (APARTMENT 1) ON Tuesday11/21/2021. CHAR STATES THAT PATIENT HAS A NEW PCP VISIT ON Tuesday11/23/21 @ 1300.
--- NOTE | 2021-11-20 16:08 | W.PM.OPN ---
Operative Note Operative Note Date of Service: 11/17/21 Narrative: Pre-op diagnosis:?Anemia, heme positive stools, cirrhosis - screen for varices Post-op diagnosis:?other (portal gastropathy, duodenal nodule) Procedure:? FLEXIBLE TRANSORAL UPPER GASTROINTESTINAL ENDOSCOPY WITH BIOPSIES Consent:?Indications for the procedure and potential complications of bleeding, perforation, reaction to medications and missed diagnosis were discussed with the patient and informed consent was obtained. Instrument:?Olympus GIF H 190 mid size upper endoscope Monitoring: Vital signs and clinical assessment, continuous EKG monitoring, Pulse oximetry, Carbon Dioxide monitoring and blood pressure monitoring were done throughout the procedure. Procedure:?The patient was placed in the left lateral decubitis position and pre-procedure medications were administered and a bite block was placed. The endoscope was inserted into the mouth and advanced under direct vision to the third part of duodenum. A careful inspection was made as the upper endoscope was withdrawn including a retroflexed examination of the proximal stomach; Findings and interventions are described below. Findings: Larynx:? Normal with ETT in place Esophagus: GE junction at 38 cms. ? No esophagitis or esophageal varices noted. Stomach: Diffuse gastric erythema with snake skin appearance of the gastric mucosa due to portal hypertensive gastropathy.? Antral biopsies were obtained. No gastric varices seen and grade 2 flap valve on retroflexed examination of the cardia. Duodenum: A 1 cms benign appearing nodule in the floor of the apex of the bulb - biopsied. Normal descending duodenum Intervention: Biopsies as noted above Impression and Post Procedure Diagnosis: Endoscopy Findings: LARYNX: Normal with ETT in place ESOPHAGUS:? GE junction at 38 cms. ? No esophagitis or esophageal varices noted. STOMACH: Diffuse gastric erythema with snake skin appearance of the gastric mucosa due to portal hypertensive gastropathy.? Antral biopsies were obtained. No gastric varices seen and grade 2 flap valve on retroflexed examination of the cardia. DUODENUM: A 1 cms benign appearing nodule in the floor of the apex of the bulb - biopsied. Plan: Await pathology results Patient to schedule a FU appointment in the GI Clinic with Haris Malik M.D. after discharge for follow up of cirrhosis Above findings were reviewed with the patient and her daughter, Lindsay at [phone]. Surgeon:?Haris Malik MD Anesthesia:?GETA (Elisa Kim CRNA and Dr Alonzo) Was an Consumer Attorney used for this Procedure?:?Yes Consumer Attorney:?Yasmin Rodriguez Estimated blood loss (mL):?0 Pathology:?other ( A. duodenal nodule? B. gastric antrum bxs, R/O H. pylori) Condition:?stable Disposition:?PACU
--- NOTE | 2021-11-20 16:34 | PC.NURSE ---
DC'd avila catheter that was put in for urinary retention. Will monitor for urine output. Due for bladderscan at 22:30 if pt hasnt voided.
[2021-11-20 16:49] LABS: Glucose, Whole Blood 141 mg/dL (60-115)
[2021-11-20 19:57] LABS: Glucose, Whole Blood 175 mg/dL (60-115)
[2021-11-20] MEDS: Montelukast Sodium 10 MG TABLET PO (20:56)
[2021-11-21] MEDS: 0.9 % Sodium Chloride Flush 3 ML SYRINGE IVFLUSH ×3 (00:11→16:07)
[2021-11-21 04:00] VITALS: BP 124/56; PULSE 63; RESP 16; TEMP 36.7; O2SAT 98
[2021-11-21] MEDS: Levothyroxine Sodium 75 MCG TABLET PO (05:08)
[2021-11-21 07:29] VITALS: BP 121/61; PULSE 63; RESP 17; TEMP 36.4; O2SAT 98
[2021-11-21 07:37] LABS: Glucose, Whole Blood 133 mg/dL (60-115)
--- NOTE | 2021-11-21 09:20 | P.PNIM_ITS ---
Subjective Subjective Date of Service: 11/21/21 Interval History: F/u anemia, hepatic encephalopathy--oriented x 3, No new issues Review of Systems no fever confusion but less Physical Exam Vital Signs: Vital Signs: Last Vital Signs Temp 97.5 F 11/21/21 07:29 Pulse 63 11/21/21 07:29 Resp 17 11/21/21 07:29 BP 121/61 11/21/21 07:29 Pulse Ox 98 11/21/21 07:29 BMI result Body Mass Index 18.5 Const: Other: General: AO X 3, no acute distress Resp: CTA bilateral CVS: S1,S2,RRR GI: +BS, NT, no distention Skin: No rash Neuro: motor grossly intact Psych: appropriate affect Objective Data Active Medications Amlodipine Besylate (Amlodipine Besylate 10 Mg Tablet) 10 mg PO DAILY [facility]; Protocol Last Admin: 11/20/21 08:36 Dose: 10 mg Documented by: PRATIK Cyanocobalamin (Cyanocobalamin (Vitamin B-12) 1,000 Mcg Tablet) 1,000 mcg PO DAILY [facility] Last Admin: 11/20/21 08:36 Dose: 1,000 mcg Documented by: PRATIK Dextrose (Dextrose 50 % 25 Gm/50 Ml Vial) 25 gm IVPUSH Q15M PRN; Protocol PRN Reason: per Hypoglycemia Standing Ord. Erythromycin (Erythromycin Base 0.5% Oph Oin 1 Gm Tube) 1 cm EYE-RIGHT TID [facility] Last Admin: 11/20/21 20:55 Dose: 1 cm Documented by: CARMEN Fentanyl (Fentanyl Citrate/Pf 100 Mcg/2 Ml Vial) 25 mcg IVPUSH Q5M PRN; Protocol PRN Reason: Pain, Moderate (Pain Scale 4-6 Ferrous Sulfate (Ferrous Sulfate 324 Mg Tablet.Dr) 324 mg PO DAILY [facility] Last Admin: 11/20/21 08:36 Dose: 324 mg Documented by: PRATIK Folic Acid (Folic Acid 1 Mg Tablet) 1 mg PO DAILY [facility] Last Admin: 11/20/21 08:36 Dose: 1 mg Documented by: PRATIK Glucose (Glucose Gel 15 Gm Gel..Gram.) 15 gm PO Q15M PRN; Protocol PRN Reason: per Hypoglycemia Standing Ord. Hydralazine HCl (Hydralazine Hcl 50 Mg Tablet) 50 mg PO TID [facility]; Protocol Last Admin: 11/20/21 20:56 Dose: 50 mg Documented by: CARMEN Insulin Glargine (Insulin Glargine,Hum.Rec.Anlog 100 Unit/Ml 10 Ml Vial) 10 unit SUBCUT BEDTIME [facility] Last Admin: 11/14/21 21:16 Dose: 10 unit Documented by: CARMEN Insulin Human Lispro (Insulin Lispro 100 Unit/Ml 3 Ml Vial) 0 unit SUBCUT QIDACHS [facility]; Protocol Last Admin: 11/21/21 07:47 Dose: Not Given Documented by: KERRI Non-Admin Reason: No Insulin Coverage Isosorbide Dinitrate (Isosorbide Dinitrate 10 Mg Tablet) 10 mg PO BID [facility]; Protocol Last Admin: 11/20/21 20:56 Dose: 10 mg Documented by: CARMEN Lactulose (Lactulose 20 Gm/30 Ml Solution) 45 gm PO QID [facility] Last Admin: 11/20/21 20:58 Dose: Not Given Documented by: CARMEN Non-Admin Reason: Patient Refused Levothyroxine Sodium (Levothyroxine Sodium 75 Mcg Tablet) 75 mcg PO DAILY@0600 [facility] Last Admin: 11/21/21 05:08 Dose: 75 mcg Documented by: CHRIS Montelukast Sodium (Montelukast Sodium 10 Mg Tablet) 10 mg PO BEDTIME [facility] Last Admin: 11/20/21 20:56 Dose: 10 mg Documented by: CARMEN Ondansetron HCl (Ondansetron Hcl 4 Mg/2 Ml Vial) 4 mg IVPUSH ONCE PRN PRN Reason: Nausea and Vomiting Pharmacy Consult (Consult Rx Perform Med Rec) 1 each MISCELLANE ONCE PRN PRN Reason: Consult order Polyethylene Glycol (Polyethylene Glycol 3350 17 Gm Powd.Pack) 17 gm PO DAILY [facility] Last Admin: 11/20/21 08:38 Dose: Not Given Documented by: PRATIK Non-Admin Reason: pt had 3 loose stools last night Rifaximin (Rifaximin 550 Mg Tablet) 550 mg PO BID [facility] Last Admin: 11/20/21 20:55 Dose: 550 mg Documented by: CARMEN Sodium Chloride (0.9 % Sodium Chloride Flush 3 Ml Syringe) 3 ml IVFLUSH QSHIFT [facility] Last Admin: 11/21/21 00:11 Dose: 3 ml Documented by: YANELIS Spironolactone (Spironolactone 25 Mg Tablet) 50 mg PO DAILY [facility]; Protocol Last Admin: 11/15/21 08:04 Dose: 50 mg Documented by: RIKKI Timolol Maleate (Timolol Maleate 0.5 % Oph Alexandra 5 Ml Drbtl) 1 drop EYE-RIGHT BID [facility] Last Admin: 11/20/21 20:57 Dose: 1 drop Documented by: ROGERSIT Labs CBC & Chem 7: 11/18/21 07:18 11/18/21 07:18 Labs: Laboratory Results - last 24 hr 11/20/21 11/20/21 11/20/21 11:28 16:29 19:45 POC Glucose 161 H 141 H 175 H 11/21/21 07:25 POC Glucose 133 H Assessment and Plan (1) Hepatic encephalopathy: Status: Acute Assessment and Plan: 76F presented with confusion 1.acute metabolic encephalopathy due? hepatic encephalopathy, ammonia level has gone down, she is fully alert. continue lactulose @ 45 mg tid, continue Rifaximin 2. GIB/acute blood loss anemic on chronic anemia. Her hematocrit dropped to 20, and was transfused 1 unit on and hematocrit is now 23 which is her baseline. She had EGD by on 11/17/[address] Cardoso with findings of portal gastropathy, duodenal nodule--biopsy pending. Fall back-hip/pevis xary-otherwise non focal and moving all extermities. 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 multifactorial ckd , poor oral inatke hold eliquis iron panel-studies normal, b12 and folate? normal, fobt added-staff is aware. s/p 1 prbc on -h/h today:7./.6 . may need egd once hepati encephalopathy improves. Pt-recomended rehab, will discuss with daughter and discharged. awaiting placement, will discuss with daughter if able to take her home rather than waiting for rehabs or home with family ? Quality Stroke Does the patient have a stroke diagnosis?: No VTE Prior VTE?: No VTE Risk Level:: Medical - moderate - high VTE Device Contraindication: Treatment Not Indicated VTE Drug Contraindication: N/A - Med Ordered
[2021-11-21] MEDS: polyethylene glycoL 3350 17 GM POWD.PACK PO (09:39)
[2021-11-21] MEDS: Lactulose 20 GM/30 ML SOLUTION 45 GM PO ×2 (09:40→13:55)
[2021-11-21] MEDS: Folic Acid 1 MG TABLET PO (09:44)
[2021-11-21] MEDS: rifAXIMin 550 MG TABLET PO (09:44)
[2021-11-21] MEDS: Isosorbide Dinitrate 10 MG TABLET PO (09:44)
[2021-11-21] MEDS: hydrALAZINE HCl 50 MG TABLET PO ×2 (09:44→14:00)
[2021-11-21] MEDS: amLODIPine Besylate 10 MG TABLET PO (09:44)
[2021-11-21] MEDS: Ferrous Sulfate 324 MG TABLET.DR PO (09:45)
[2021-11-21] MEDS: Cyanocobalamin (Vitamin B-12) 1,000 MCG TABLET 1000 MCG PO (09:45)
[2021-11-21] MEDS: Erythromycin Base 0.5% Oph Oin 1 GM TUBE 1 CM EYE-RIGHT ×2 (11:14→14:00)
[2021-11-21] MEDS: timoloL maleate 0.5 % Oph Sol 5 ML DRBTL 1 DROP EYE-RIGHT (11:14)
[2021-11-21 11:25] LABS: Glucose, Whole Blood 186 mg/dL (60-115)
[2021-11-21 11:35] VITALS: BP 128/60; PULSE 64; RESP 18; TEMP 36.8; O2SAT 98
[2021-11-21 12:00] VITALS: O2SAT 98
--- NOTE | 2021-11-21 13:54 | MHC.CM.PN ---
PATIENT'S DAUGHTER, CHAR TO BE IN TODAY FOR 1600 TO TRANSPORT PATIENT HOME. PATIENT, MD AND RN AWARE OF PLAN
--- NOTE | 2021-11-21 14:55 | P.DS_ITS ---
DS: Providers Provider Date of Service: 11/21/21 Date of admission: 11/07/21 17:23 Primary care physician: None Physician Consults: 11/15/21 07:45 Consult to Gastroenterology Routine Consulting Provider: Nicolas Cuevas Reason for consultation: anemia /gi bleed Has provider been notified: No DS: Diagnosis Discharge Diagnosis (1) Hepatic encephalopathy: Status: Resolved DS: Summary Hospital Course Hospital Course: Chief Complaint: ams 76F with alcohol and HCV cirrhosis, discharged one day ptp after hospitalization for hepatic encephalopathy. at discharge patient was alert oriented times three and ambulating with assistance. daughter notes that patient did well that day until the evening at which point she started to become more confused, delerius, hallucinating. she did not sleep very well. the next morning patient was even more confused, unable to feed herself as she was the day before. she also had not urinated since night before. so she decided to bring her back to ED. in ED patient noted to have about 500cc urinary retention. ammonia 94, same as on discharge. creatinine around 2, at baseline. avila was placed, patient now more calm, but not quite at baseline. Hospital course: 1.acute metabolic encephalopathy due? hepatic encephalopathy due to lower doses of lactulose. Lactulose has been increased to 45 mg tid with good effect, presently not encephalopathic. Also continue Rifaximinn 2. GIB/acute blood loss anemic on chronic anemia.? Her hematocrit dropped to 20, and was transfused 1 unit on and hematocrit is now 23 which is her baseline. She had EGD by on? 11/17/[address] Cardoso with findings of portal gastropathy, duodenal nodule--biopsy pending. Starting on Prilosec Fall back-hip/pevis xary-otherwise non focal and moving all extermities. 2.alcohol and hcv cirhosis continue aldactone 3.htn: continue amlodinpie, isodril, hydralazine 4.chronic diastolic chf euvolemic 5.dm:fs flactuating between 100-140 range basal bolus insulin, hold? 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 multifactorial ckd , poor oral inatke hold eliquis iron panel-studies normal, b12 and folate? normal, fobt added-staff is aware. s/p 1 prbc on -h/h today:7.6/22.6 . may need egd once hepati encephalopathy improves. Pt-recomended rehab, will discuss with daughter and discharged. awaiting placement, will discuss with daughter if able to take her home rather than waiting for rehabs or home with family Time Spent with Patient Time attestation: Total time spent providing and/or coordinating discharge services: Discharge coordination time: Greater than 30 minutes Quality: Stroke Does the patient have a stroke diagnosis?: No Physical Exam Verdana 4l Vital Signs: Verdana 4d Verdana 4d Vital Signs: Verdana 4d Verdana 4Bd Last Vital Signs Verdana 4d Grain Receiver New 4d Grain Receiver New 4d Temp 98.3 F 11/21/21 11:35 Grain Receiver New 4d Pulse 64 11/21/21 11:35 Grain Receiver New 4d Resp 18 11/21/21 11:35 BP 128/60 11/21/21 11:35 Pulse Ox 98 11/21/21 12:00 Oxygen Flow Rate 2.0 11/21/21 12:00 BMI result Body Mass Index 18.5 DS: Data Data Completed and Pending Completed studies during hospitalization [Text1]: Pending at discharge 11/17/21 12:40 Surgical [PTH] Routine Labs on day of discharge: Laboratory Results - last 24 hr 11/20/21 11/20/21 11/21/21 16:29 19:45 07:25 POC Glucose 141 H 175 H 133 H 11/21/21 11:22 POC Glucose 186 H Discharge Plan Discharge Anticipated Discharge Date/Time: 11/21/21 14:54 Patient Disposition: Home, Self-Care Discharge Diagnosis: Hepatic encephalopathy, GI bleeding anemia Referrals: Haris Malik MD [Physician] - 2 Weeks Physician,None [Primary Care Provider] - 1 Week (PLEASE FOLLOW UP WITH YOUR NEW PRIMARY CARE PHYSICIAN VISIT SCHEDULED (PER YOUR DAUGHTER) AND SECURE [facility] WITH YOUR PCP.) Discharge Medications: Discontinued lactulose 20 gram/30 mL Solution 30 g PO BID Qty: 0 0RF No Action pantoprazole [Protonix] 40 mg tablet,delayed release (DR/EC) 40 mg PO DAILY Qty: 30 1RF hydralazine 50 mg tablet 50 mg PO TID Qty: 90 0RF (DME) pen needle, diabetic [BD Ultra-Fine Mini Pen Needle] 31 gauge x 3/16 needle See Rx Instructions .Route Qty: 100 0RF Rx Instructions: As directed ofloxacin 0.3 % Drops 1 drp ophthalmic-Right QID 0RF levothyroxine [Synthroid] 75 mcg tablet 75 mcg PO DAILY@0600 0RF timolol 0.5 % drops 1 drp ophthalmic-Right BID 0RF Rx Instructions: right eye sodium bicarbonate 650 mg Tablet 650 mg PO BID Qty: 60 0RF rifaximin 550 mg tablet 550 mg PO BID Qty: 60 0RF lactulose 20 gram/30 mL solution 45 g PO TID Qty: 3000 0RF amlodipine [Norvasc] 10 mg tablet 10 mg PO DAILY Qty: 90 0RF Eliquis 2.5 mg tablet 2.5 mg PO BID Qty: 180 0RF cyanocobalamin (vitamin B-12) [Vitamin B-12] 1,000 mcg tablet 1,000 mcg PO DAILY Qty: 90 0RF ferrous fumarate 325 mg (106 mg iron) tablet 325 mg PO DAILY Qty: 90 0RF folic acid 1 mg tablet 1 mg PO DAILY Qty: 90 0RF Lantus Solostar U-100 Insulin 100 unit/mL (3 mL) insulin pen 20 unit SUBCUT BEDTIME Qty: 15 0RF Humalog U-100 Insulin 100 unit/mL cartridge 10 unit SUBCUT TIDWM Qty: 15 0RF isosorbide dinitrate 10 mg tablet 10 mg PO BID Qty: 180 0RF Tradjenta 5 mg tablet 5 mg PO DAILY Qty: 90 0RF montelukast [Singulair] 10 mg tablet 10 mg PO BEDTIME Qty: 90 0RF (DME) diabetic supplies, miscellan. Misc See Rx Instructions .Route Qty: 1 0RF Rx Instructions: glucose monitor (DME) diabetic supplies, miscellan. Misc See Rx Instructions .Route Qty: 25 0RF Rx Instructions: lancets for diabetic monitor furosemide [Lasix] 20 mg tablet 10 mg PO QAM 4 Days Qty: 2 0RF Discharge Orders: Discharge Order (Routine); Ordered 11/21/21 Ordered By: Troy Tillman Diet: advance to usual diet Activity on Discharge: As tolerated Stand Alone Forms: Patient Portal Discharge page Other Ambulatory Orders: Complete Blood Count no Diff (Routine) Timeframe: 20211201 Facility: [facility] - Location: Laboratory Ordered By: Troy Tillman Care Plan Goals: Full recovery from hepatic encephaloapthy Health Concerns: hepatic encephalopathy and gi bleeding Plan of Treatment: Take all your medication as directed and follow up with your docotor in a week, call for appointment Please note that lactulose has been increased to 45 gram 3 times per day Follow up with Follow up with yor Doctor as scheduled on Tuesday Assessment: As above Discharge Date/Time: 11/21/21 17:18
[2021-11-21 15:28] VITALS: BP 133/71; PULSE 60; RESP 20; TEMP 37.1; O2SAT 96
[2021-11-21 16:15] LABS: Hematocrit 24.1 % (37.0-47.0); Mean Corpuscular HGB Conc 33.2 g/dl (31.0-35.0); Mean Corpuscular Hemoglobin 30.3 pg (27.0-33.0); Mean Corpuscular Volume 91.3 fL (80.0-98.0); Mean Platelet Volume 11.9 fL (9.4-12.3); Platelet Count 102 X10*3/uL (160-400); Red Blood Count 2.64 X10*6/uL (4.20-5.50); Red Cell Distribution Width 13.9 % (11.0-16.0)
[2021-11-21 16:29] VITALS: BP 133/61; PULSE 62; RESP 18; TEMP 36.6; O2SAT 97
== END 2021-11-21 17:18 | disposition home or self-care (01) | DRG 441 ==
LOC: HO.ED 16:45 → HO.EDOVER 17:27 → HO.S3 11-08 17:50
PROVIDERS: Internal Medicine; Internal Medicine Gastroenterology; Physician Assistant; Admitting Provider Internal Medicine; Emergency Provider Emergency Medicine Emergency Medical Services; Visit Provider Internal Medicine
PROC: 0DJ08ZZ Inspection of Upper Intestinal Tract, Via Natural or Artificial Opening Endoscopic (ICD-10-PCS; CPT 43235; principal; 2021-11-17 11:50)
DX: K72.00 Acute and subacute hepatic failure without coma (principal); G93.41 Metabolic encephalopathy; K92.2 Gastrointestinal hemorrhage, unspecified; I13.0 Hypertensive heart and chronic kidney disease with heart failure and stage 1 through stage 4 chronic kidney disease, or unspecified chronic kidney disease; N18.4 Chronic kidney disease, stage 4 (severe); I50.32 Chronic diastolic (congestive) heart failure; F05 Delirium due to known physiological condition; K76.6 Portal hypertension; D62 Acute posthemorrhagic anemia; I48.0 Paroxysmal atrial fibrillation; E03.9 Hypothyroidism, unspecified; K70.30 Alcoholic cirrhosis of liver without ascites; R33.9 Retention of urine, unspecified; D63.1 Anemia in chronic kidney disease; K31.89 Other diseases of stomach and duodenum; K31.7 Polyp of stomach and duodenum; E11.22 Type 2 diabetes mellitus with diabetic chronic kidney disease; Z20.822 Contact with and (suspected) exposure to COVID-19; I27.20 Pulmonary hypertension, unspecified; Z91.81 History of falling; Z79.4 Long term (current) use of insulin; Z79.01 Long term (current) use of anticoagulants; Z79.890 Hormone replacement therapy; Z79.899 Other long term (current) drug therapy
CPT/HCPCS: 36415; 51798; 71045; 73521; 80048; 80076; 81001; 82140; 82272; 82607; 82746; 82947; 83605; 83690; 83735; 83880; 84484; 85014; 85018; 85025; 85027; 85610; 86850; 86900; 86901; 86923; 87040; 87635; 88305; 88342; 93005; 97110; 97116; 97162; 99285; 99291; J2370; P9016; P9047

== ENCOUNTER 2021-11-24 20:22 | Inpatient (IN) | payer MEDICARE, MEDICAID, SELFPAY ==
--- NOTE | ~2021-11-24 | XR_ITS ---
EXAMINATION: XR CHEST CLINICAL INFORMATION: Fluid overload COMPARISON: 11/07/2021 TECHNIQUE: Frontal view of the chest was obtained. FINDINGS: Cardiomegaly and pulmonary venous congestion. Bilateral parahilar patchy airspace opacities. No pleural effusion or pneumothorax. No acute or suspicious osseous abnormalities. XR/XR chest 1V IMPRESSION: Cardiomegaly and pulmonary venous congestion. Bilateral parahilar patchy opacities.
[2021-11-24 20:35] VITALS: BP 97/64; PULSE 67; RESP 18; TEMP 36.7; O2SAT 100; BMI 33.3
--- NOTE | 2021-11-24 20:54 | ED_ITS ---
HPI - Altered Mental Status General Chief Complaint: Weakness Stated Complaint: AMS Time Seen by Provider: 11/24/21 20:36 Source: family Limitations: no limitations History of Present Illness HPI narrative: Patient with history of alcohol and hepatitis-C cirrhosis does discharge on 11/21 when she was admitted for metabolic encephalopathy secondary to high ammonia level at time of discharge patient was able to ambulate and less confused ammonia level at time of discharge was 70 on 11/18 no vomiting no diarrhea no blood in the stool according to patient's daughter patient was doing much better yesterday was eating talking and communicating well without much confusion today patient did not eat much nauseated and did not have any bowel movement although she took lactulose 45 g 3 times a day worried about higher ammonia level as in the past just have called the EMS for evaluation also patient has been sleeping all the time Related Data Home Medications Medication Instructions Recorded Confirmed hydralazine 50 mg tablet 50 mg PO TID 11/02/21 11/25/21 pantoprazole 40 mg tablet,delayed 40 mg PO DAILY 11/02/21 11/25/21 release (Protonix) ofloxacin QID 11/09/21 11/23/21 timolol 1 BID 11/09/21 11/23/21 spironolactone 50 mg tablet 50 mg PO DAILY 11/23/21 11/25/21 Previous Rx's Medication Instructions Recorded amlodipine 10 mg tablet (Norvasc) 10 mg PO DAILY #90 tab 11/23/21 apixaban 2.5 mg tablet (Eliquis) 2.5 mg PO BID #180 tab 11/23/21 cyanocobalamin (vitamin B-12) 1,000 mcg PO DAILY #90 tab 11/23/21 1,000 mcg tablet (Vitamin B-12) diabetic supplies, miscellan. #1 ea 11/23/21 diabetic supplies, miscellan. #25 ea 11/23/21 ferrous fumarate 325 mg (106 mg 325 mg PO DAILY #90 tab 11/23/21 iron) tablet folic acid 1 mg tablet 1 mg PO DAILY #90 tab 11/23/21 insulin glargine 100 unit/mL (3 20 unit (0.2 mL) SUBCUT BEDTIME 11/23/21 mL) subcutaneous pen (Lantus #15 ml Solostar U-100 Insulin) insulin lispro 100 unit/mL 10 unit (0.1 mL) SUBCUT TIDWM #15 11/23/21 subcutaneous cartridge (Humalog ml U-100 Insulin) isosorbide dinitrate 10 mg tablet 10 mg PO BID #180 tab 11/23/21 lactulose 20 gram/30 mL oral 45 g (67.5 mL) PO TID #3000 ml 11/23/21 solution levothyroxine 75 mcg tablet 75 mcg PO DAILY #90 tab 11/23/21 (Synthroid) linagliptin 5 mg tablet (Tradjenta) 5 mg PO DAILY #90 tab 11/23/21 montelukast 10 mg tablet 10 mg PO BEDTIME #90 tab 11/23/21 (Singulair) omeprazole 40 mg capsule,delayed 40 mg PO DAILY 90 Days #90 cap 11/23/21 release rifaximin 550 mg tablet 550 mg PO BID #180 tab 11/23/21 timolol 0.5 % eye drops 1 drp OPHTHALMIC (EYE) BID #15 ml 11/23/21 Allergies Allergy/AdvReac Type Severity Reaction Status Date / Time milk [Milk] AdvReac Mild DIARRHEA Verified 11/23/21 13:37 Review of Systems Review of Systems: Yes all other systems are reviewed and are negative PMFSH Past Medical History Medical History Alcoholic cirrhosis of liver Anemia Asthma Chronic diastolic CHF (congestive heart failure) CKD (chronic kidney disease) stage 4, GFR 15-29 ml/min CVA (cerebral vascular accident) Diabetes HCV (hepatitis C virus) Moderate pulmonary hypertension Paroxysmal atrial fibrillation Skin cancer Surgical History History of arthroplasty of right shoulder History of cataract surgery History of hysterectomy History of right knee joint replacement Family History Family History Brother Liver cancer Other Mental health disorder Substance use disorder Social History Social History Household Members: Children Housing: House Do you presently have visiting nurse or other home services: No Unable to assess alcohol history related to: Unknown Alcohol intake: former Patient Tobacco Use Status: Never used Tobacco e-Cigarette/Vaping Use: Never Used Second Hand Smoke Exposure: No Advance Directives: Yes Advance Directives on File: Yes Advance Directives Date on File: 11/03/21 service: No Current occupational status: retired Cognitive needs: Yes (walker) Hearing needs: No Vision needs: Yes (glasses) Physical Exam Vital Signs: Vital Signs: Last Vital Signs Temp 98.0 F 11/24/21 20:35 Pulse 78 11/24/21 23:45 Resp 17 11/24/21 23:45 BP 135/46 L 11/24/21 23:45 Pulse Ox 100 11/24/21 20:35 Oxygen Flow Rate 2 11/24/21 20:35 BMI result Body Mass Index 33.3 Appearance: Alert. Oriented X2. Lethargic and sleepy slow to respond No acute distress. Eyes: PERRLA, No Nystagmus ENT: Pharynx normal. Oral Mucosa moist Neck: Normal inspection. Neck supple. CVS: Normal heart rate and rhythm. Pulses normal. Respiratory: No respiratory distress. Equal air entry bilateral, no wheezing/rales/rhonchi Abdomen: Soft and nontender. Bowel sounds are present, no mass palpable, no CVA tenderness Skin: Skin warm and dry. Normal skin color. Normal skin turgor. Extremities: No lower extremity edema. No calf tenderness hepatic flaps+ Neuro: Oriented X 2. No motor deficit. No sensory deficit.No cerebellar signs , cranial nerves II-XII intact MDM - Altered Mental Status MDM Narrative Medical decision making narrative: Patient with metabolic/hepatic encephalopathy secondary to high ammonia level with CKD and chronic anemia will admit patient for aggressive lactulose treatment will give both p.o. and rectally. 300 mL/200 gm of lactulose was given through rectum as patient refused to take by mouth Lab Data Attestation: I reviewed the patient's lab results. Result diagrams: 11/24/21 21:46 11/24/21 21:46 Labs: Lab Results 11/24/21 11/24/21 11/24/21 Range/Units 21:46 21:46 21:46 WBC 4.7 L (4.8-10.8) X10*3/uL RBC 2.33 L (4.20-5.50) X10*6/uL Hgb 7.1 L (12.0-16.0) g/dl Hct 21.1 L (37.0-47.0) % MCV 90.6 (80.0-98.0) fL MCH 30.5 (27.0-33.0) pg MCHC 33.6 (31.0-35.0) g/dl RDW 14.6 (11.0-16.0) % Plt Count 92 L (160-400) X10*3/uL MPV 11.8 (9.4-12.3) fL Immature Gran % (Auto) 0.6 H (0.0-0.4) % Neut % (Auto) 59.6 (45-73) % Lymph % (Auto) 18.3 L (20-40) % [place] % (Auto) 16.6 H (2-11) % Eos % (Auto) 4.7 H (0-4) % Baso % (Auto) 0.2 (0-2) % Lymph # (Auto) 0.9 L (1.2-4.9) X10*3/uL [place] # (Auto) 0.8 (0.1-1.2) X10*3/uL Eos # (Auto) 0.2 (0.0-0.4) X10*3/uL Baso # (Auto) 0.0 (0.0-0.2) X10*3/uL Abs Immat Gran (auto) 0.03 (0.00-0.03) X10*3/uL Absolute Neuts (auto) 2.8 (2.0-8.3) x10*3/uL Absolute Nucleated RBC 0.000 (0.0-0.012) X10*3/uL Nucleated RBC % (auto) 0.0 (0.0-0.2) /100WBC PT 17.6 H (9.9-13.0) SEC INR 1.5 H (0.9-1.1) Sodium 135 (135-145) mmol/L Potassium 4.0 (3.3-5.1) mmol/L Chloride 112 H (96-108) mmol/L Carbon Dioxide 17 L (22-29) mmol/L Anion Gap 10 L (12-20) BUN 38 H D (9-16) mg/dL Creatinine 2.61 H (0.5-1.4) mg/dL Estim Creat Clear Calc 20.7 Estimated GFR 18 Random Glucose 126 H (60-115) mg/dL Calcium 9.1 (8.4-10.2) mg/dL Magnesium 2.6 (1.6-2.6) mg/dL Total Bilirubin 0.8 (0.0-1.0) mg/dL AST 30 (5-31) U/L ALT 21 (0-31) U/L Alkaline Phosphatase 103 D (39-117) U/L Ammonia (13-55) umol/L Total Protein 6.9 (6.5-8.0) g/dL Albumin 3.1 L (3.5-5.0) g/dL Urine Color Urine Appearance Urine pH (5.0-8.0) Ur Specific Elizabeth (1.005-1.025) Urine Protein (NEG-TRACE) MG/DL Urine Glucose (UA) (NEG) MG/DL Urine Ketones (NEG) MG/DL Urine Blood (NEG) Urine Nitrite (NEG) Ur Leukocyte Esterase (NEG) Urine RBC (0) /HPF Urine WBC (0-4) /HPF Ur Squamous Epith Cells /LPF Urine Bacteria /LPF Urine Mucus /LPF COVID-19 (BEN) (Negative) COVID-19 Clin Com Blood Type 11/24/21 11/24/21 11/24/21 Range/Units 21:46 22:16 22:16 WBC (4.8-10.8) X10*3/uL RBC (4.20-5.50) X10*6/uL Hgb (12.0-16.0) g/dl Hct (37.0-47.0) % MCV (80.0-98.0) fL MCH (27.0-33.0) pg MCHC (31.0-35.0) g/dl RDW (11.0-16.0) % Plt Count (160-400) X10*3/uL MPV (9.4-12.3) fL Immature Gran % (Auto) (0.0-0.4) % Neut % (Auto) (45-73) % Lymph % (Auto) (20-40) % [place] % (Auto) (2-11) % Eos % (Auto) (0-4) % Baso % (Auto) (0-2) % Lymph # (Auto) (1.2-4.9) X10*3/uL [place] # (Auto) (0.1-1.2) X10*3/uL Eos # (Auto) (0.0-0.4) X10*3/uL Baso # (Auto) (0.0-0.2) X10*3/uL Abs Immat Gran (auto) (0.00-0.03) X10*3/uL Absolute Neuts (auto) (2.0-8.3) x10*3/uL Absolute Nucleated RBC (0.0-0.012) X10*3/uL Nucleated RBC % (auto) (0.0-0.2) /100WBC PT (9.9-13.0) SEC INR (0.9-1.1) Sodium (135-145) mmol/L Potassium (3.3-5.1) mmol/L Chloride (96-108) mmol/L Carbon Dioxide (22-29) mmol/L Anion Gap (12-20) BUN (9-16) mg/dL Creatinine (0.5-1.4) mg/dL Estim Creat Clear Calc Estimated GFR Random Glucose (60-115) mg/dL Calcium (8.4-10.2) mg/dL Magnesium (1.6-2.6) mg/dL Total Bilirubin (0.0-1.0) mg/dL AST (5-31) U/L ALT (0-31) U/L Alkaline Phosphatase (39-117) U/L Ammonia 303 H (13-55) umol/L Total Protein (6.5-8.0) g/dL Albumin (3.5-5.0) g/dL Urine Color YELLOW Urine Appearance CLEAR Urine pH 6.0 (5.0-8.0) Ur Specific Elizabeth 1.010 (1.005-1.025) Urine Protein 1+ H (NEG-TRACE) MG/DL Urine Glucose (UA) NEG (NEG) MG/DL Urine Ketones NEG (NEG) MG/DL Urine Blood NEG (NEG) Urine Nitrite NEG (NEG) Ur Leukocyte Esterase NEG (NEG) Urine RBC 1-4 (0) /HPF Urine WBC 5-9 H (0-4) /HPF Ur Squamous Epith Cells 2+ /LPF Urine Bacteria 2+ /LPF Urine Mucus 1+ /LPF COVID-19 (BEN) Negative (Negative) COVID-19 Clin Com See Note Blood Type 11/24/21 Range/Units 23:56 WBC (4.8-10.8) X10*3/uL RBC (4.20-5.50) X10*6/uL Hgb (12.0-16.0) g/dl Hct (37.0-47.0) % MCV (80.0-98.0) fL MCH (27.0-33.0) pg MCHC (31.0-35.0) g/dl RDW (11.0-16.0) % Plt Count (160-400) X10*3/uL MPV (9.4-12.3) fL Immature Gran % (Auto) (0.0-0.4) % Neut % (Auto) (45-73) % Lymph % (Auto) (20-40) % [place] % (Auto) (2-11) % Eos % (Auto) (0-4) % Baso % (Auto) (0-2) % Lymph # (Auto) (1.2-4.9) X10*3/uL [place] # (Auto) (0.1-1.2) X10*3/uL Eos # (Auto) (0.0-0.4) X10*3/uL Baso # (Auto) (0.0-0.2) X10*3/uL Abs Immat Gran (auto) (0.00-0.03) X10*3/uL Absolute Neuts (auto) (2.0-8.3) x10*3/uL Absolute Nucleated RBC (0.0-0.012) X10*3/uL Nucleated RBC % (auto) (0.0-0.2) /100WBC PT (9.9-13.0) SEC INR (0.9-1.1) Sodium (135-145) mmol/L Potassium (3.3-5.1) mmol/L Chloride (96-108) mmol/L Carbon Dioxide (22-29) mmol/L Anion Gap (12-20) BUN (9-16) mg/dL Creatinine (0.5-1.4) mg/dL Estim Creat Clear Calc Estimated GFR Random Glucose (60-115) mg/dL Calcium (8.4-10.2) mg/dL Magnesium (1.6-2.6) mg/dL Total Bilirubin (0.0-1.0) mg/dL AST (5-31) U/L ALT (0-31) U/L Alkaline Phosphatase (39-117) U/L Ammonia (13-55) umol/L Total Protein (6.5-8.0) g/dL Albumin (3.5-5.0) g/dL Urine Color Urine Appearance Urine pH (5.0-8.0) Ur Specific Elizabeth (1.005-1.025) Urine Protein (NEG-TRACE) MG/DL Urine Glucose (UA) (NEG) MG/DL Urine Ketones (NEG) MG/DL Urine Blood (NEG) Urine Nitrite (NEG) Ur Leukocyte Esterase (NEG) Urine RBC (0) /HPF Urine WBC (0-4) /HPF Ur Squamous Epith Cells /LPF Urine Bacteria /LPF Urine Mucus /LPF COVID-19 (BEN) (Negative) COVID-19 Clin Com Blood Type O Positive Discharge Plan Discharge Clinical Impression: Hepatic encephalopathy CKD (chronic kidney disease) Qualifiers: Chronic kidney disease stage: stage 4 (severe) Qualified Code(s): N18.4 - Chronic kidney disease, stage 4 (severe) Patient Disposition: Admitted As Inpatient
[2021-11-24 21:51] LABS: MANUAL DIFF FLAG NO
[2021-11-24 21:55] LABS: Appearance Urine CLEAR; Color Urine YELLOW; Glucose Urine UA NEG (NEG); Leukocyte Esterase Urine NEG (NEG); Nitrite Urine NEG (NEG); UACC Culture Trigger NO; Urine Blood NEG (NEG); Urine Ketones NEG (NEG); Urine Protein 1+ MG/DL (NEG-TRACE)
[2021-11-24 22:02] LABS: INTERNATIONAL NORM RATIO 1.5 (0.9-1.1); Prothrombin Time 17.6 SEC (9.9-13.0)
[2021-11-24 22:06] LABS: Bacteria Urine 2+ /LPF; Mucus Urine 1+ /LPF; Squamous Epithelial Cell Urine 2+ /LPF; UACC CULT YES
[2021-11-24 22:07] LABS: Basophils Percent Auto 0.2 % (0-2); Eosinophils Absolute Auto 0.2 X10*3/uL (0.0-0.4); Eosinophils Percent Auto 4.7 % (0-4); Hematocrit 21.1 % (37.0-47.0); Hemoglobin 7.1 g/dl (12.0-16.0); Imm Gran Abs Auto 0.03 X10*3/uL (0.00-0.03); Imm Gran Pct Auto 0.6 % (0.0-0.4); Lymphocytes Absolute Auto 0.9 X10*3/uL (1.2-4.9); Lymphocytes Percent Auto 18.3 % (20-40); Mean Corpuscular HGB Conc 33.6 g/dl (31.0-35.0); Mean Corpuscular Hemoglobin 30.5 pg (27.0-33.0); Mean Corpuscular Volume 90.6 fL (80.0-98.0); Mean Platelet Volume 11.8 fL (9.4-12.3); Monocytes Absolute Auto 0.8 X10*3/uL (0.1-1.2); Monocytes Percent Auto 16.6 % (2-11); Neutrophils Absolute Auto 2.8 x10*3/uL (2.0-8.3); Neutrophils Percent Auto 59.6 % (45-73); Red Blood Count 2.33 X10*6/uL (4.20-5.50); Red Cell Distribution Width 14.6 % (11.0-16.0); White Blood Count 4.7 X10*3/uL (4.8-10.8)
[2021-11-24 22:09] LABS: Platelet Count 92 X10*3/uL (160-400)
[2021-11-24 22:14] LABS: Alanine Aminotransferase 21 U/L (0-31); Albumin Level 3.1 g/dL (3.5-5.0); Alkaline Phosphatase 103 U/L (39-117); Anion Gap 10 (12-20); Aspartate Amino Transferase 30 U/L (5-31); Bilirubin Total 0.8 mg/dL (0.0-1.0); Blood Urea Nitrogen 38 mg/dL (9-16); Calcium 9.1 mg/dL (8.4-10.2); Carbon Dioxide 17 mmol/L (22-29); Chloride 112 mmol/L (96-108); Creatinine Clr Calc Pharmacy 20.7; Estimated Glomerular Filt Rate 18; Glucose Random 126 mg/dL (60-115); Magnesium 2.6 mg/dL (1.6-2.6); Sodium 135 mmol/L (135-145); Total Protein 6.9 g/dL (6.5-8.0)
[2021-11-24 22:34] LABS: Ammonia 303 umol/L (13-55)
[2021-11-24 22:38] LABS: COVID-19 Test Negative (Negative)
--- NOTE | 2021-11-24 23:19 | PC.NURSE ---
patient refusing lactulose. stating she does not want the medication, multiple attempts, same result
--- NOTE | 2021-11-24 23:28 | ECG_ITS ---
Test Reason : WEAKNESS Blood Pressure : / mmHG Vent. Rate : 081 BPM Atrial Rate : 081 BPM P-R Int : 162 ms QRS Dur : 082 ms QT Int : 388 ms P-R-T Axes : 046 -10 045 degrees QTc Int : 450 ms Normal sinus rhythm Likely normal EKG When compared with ECG of 07-NOV-2021 14:53, No significant changes seen Referred By: Fei Leon Electronically Signed By:YAZMIN SHINE
[2021-11-24 23:45] VITALS: BP 135/46; PULSE 78; RESP 17
--- NOTE | 2021-11-24 23:47 | PC.NURSE ---
PT refusing EKG. Fighting with this PCT when trying to put EKG stickers and leads on. Ripped leads off and stickers.
--- NOTE | 2021-11-24 23:52 | P.HPHOSP_ITS ---
History of Present Illness Date of Service: 11/24/21 Chief Complaint: confusion this is a 76-year-old female with past medical history of alcoholic cirrhosis of the liver, asthma, CHF, CKD, CVA, diabetes, ACVD, moderate pulmonary hypertension, paroxysmal AFib, GERD and hypothyroidism who is brought into the hospital by her daughter for worsening confusion. Of note, patient was discharged from the hospital on 11/21 after being managed for hepatic encephalopathy. Patient's daughter reports that patient was doing well on discharge but developed intermittent confusion on day of presentation that got worse and therefore she brought her to the hospital. According to the daughter the patient received her scheduled doses of lactulose but did not have any bowel movements Today. On my exam patient is somnolent but arousable, does not answer questions appropriately, she is not oriented to place or self. I am unable to obtain review of system otherwise. On arrival to the ED patient hemodynamically stable with no significant abnormal vitals Labs are significant for to BC count of 7.1, hemoglobin of 7.6 which is around her baseline platelet count of 107, PT of 17.6 INR of 1.5, chloride of 1 Blanc, bicarb of 17, creatinine of 2.61 which is around her baseline, ammonia of 303 which is the highest it has been since her last admission, UA positive for WBC with no leukocyte esterase or nitrites, COVID-19 negative. patient given rectal lactulose enema and will be admitted for further managem ent Review of Systems Review of Systems: Yes all other systems are reviewed and are negative [facility] Medical History Alcoholic cirrhosis of liver Anemia Asthma Chronic diastolic CHF (congestive heart failure) CKD (chronic kidney disease) stage 4, GFR 15-29 ml/min CVA (cerebral vascular accident) Diabetes HCV (hepatitis C virus) Moderate pulmonary hypertension Paroxysmal atrial fibrillation Skin cancer Family History Brother Liver cancer Other Mental health disorder Substance use disorder Surgical History History of arthroplasty of right shoulder History of cataract surgery History of hysterectomy History of right knee joint replacement Social History Household Members: Children Housing: House Do you presently have visiting nurse or other home services: No Unable to assess alcohol history related to: Unknown Alcohol intake: never Patient Tobacco Use Status: Never used Tobacco e-Cigarette/Vaping Use: Never Used Second Hand Smoke Exposure: No Advance Directives: Yes Advance Directives on File: Yes Advance Directives Date on File: 11/03/21 service: No Current occupational status: retired Cognitive needs: Yes (walker) Hearing needs: No Vision needs: Yes (glasses) Meds Allergies Allergy/AdvReac Type Severity Reaction Status Date / Time milk [Milk] AdvReac Mild DIARRHEA Verified 11/23/21 13:37 Home Medications Medication Instructions Recorded Confirmed Last Taken Type hydralazine 50 mg tablet 50 mg PO TID 11/02/21 11/25/21 11/07/21 History pantoprazole 40 mg tablet,delayed 40 mg PO DAILY 11/02/21 11/25/21 11/07/21 History release (Protonix) ofloxacin QID 11/09/21 11/23/21 Unknown History timolol 1 BID 11/09/21 11/23/21 11/06/21 08:30 History spironolactone 50 mg tablet 50 mg PO DAILY 11/23/21 11/25/21 11/23/21 08:00 History Physical Exam Vital Signs and Narrative: Vital Signs: Last Vital Signs Temp 98.0 F 11/24/21 20:35 Pulse 78 11/24/21 23:45 Resp 17 11/24/21 23:45 BP 135/46 L 11/24/21 23:45 Pulse Ox 100 11/24/21 20:35 Oxygen Flow Rate 2 11/24/21 20:35 BMI result Body Mass Index 33.3 Const: Other: Pt somnolent but arousable, very confused, not answering questions appropriately Eyes: General: appearance normal, both eyes and all related structures Pupils: Equal, round and reactive pupils present Resp: Effort & Inspection: normal respiratory effort Auscultation: clear to auscultation bilaterally Cardio: Rate: regular rate Rhythm: regular rhythm GI: Palpation (GI): Soft to palpation Auscultation: normal bowel sounds Skin: General skin exam: no rashes or lesions noted Neuro: Cranial nerves: Yes Equal, round and reactive pupils present Extrem: General: Yes normal to inspection and Yes no pedal edema Results Labs CBC and Chem 7: 11/25/21 04:40 11/25/21 04:40 Labs: Laboratory Results - last 24 hr 11/24/21 11/24/21 11/24/21 21:46 21:46 21:46 MCV 90.6 MCH 30.5 MCHC 33.6 RDW 14.6 Plt Count 92 L MPV 11.8 Immature Gran % (Auto) 0.6 H Neut % (Auto) 59.6 Lymph % (Auto) 18.3 L [place] % (Auto) 16.6 H Eos % (Auto) 4.7 H Baso % (Auto) 0.2 Lymph # (Auto) 0.9 L [place] # (Auto) 0.8 Eos # (Auto) 0.2 Baso # (Auto) 0.0 Abs Immat Gran (auto) 0.03 Absolute Neuts (auto) 2.8 Absolute Nucleated RBC 0.000 Nucleated RBC % (auto) 0.0 PT 17.6 H INR 1.5 H Anion Gap 10 L Estim Creat Clear Calc 20.7 Estimated GFR 18 Random Glucose 126 H Calcium 9.1 Magnesium 2.6 Total Bilirubin 0.8 AST 30 ALT 21 Alkaline Phosphatase 103 D Ammonia Total Protein 6.9 Albumin 3.1 L Urine Color Urine Appearance Urine pH Ur Specific [place] Urine Protein Urine Glucose (UA) Urine Ketones Urine Blood Urine Nitrite Ur Leukocyte Esterase Urine RBC Urine WBC Ur Squamous Epith Cells Urine Bacteria Urine Mucus COVID-19 (BEN) COVID-19 Clin Com 11/24/21 11/24/21 11/24/21 21:46 22:16 22:16 MCV MCH MCHC RDW Plt Count MPV Immature Gran % (Auto) Neut % (Auto) Lymph % (Auto) [place] % (Auto) Eos % (Auto) Baso % (Auto) Lymph # (Auto) [place] # (Auto) Eos # (Auto) Baso # (Auto) Abs Immat Gran (auto) Absolute Neuts (auto) Absolute Nucleated RBC Nucleated RBC % (auto) PT INR Anion Gap Estim Creat Clear Calc Estimated GFR Random Glucose Calcium Magnesium Total Bilirubin AST ALT Alkaline Phosphatase Ammonia 303 H Total Protein Albumin Urine Color YELLOW Urine Appearance CLEAR Urine pH 6.0 Ur Specific [place] 1.010 Urine Protein 1+ H Urine Glucose (UA) NEG Urine Ketones NEG Urine Blood NEG Urine Nitrite NEG Ur Leukocyte Esterase NEG Urine RBC 1-4 Urine WBC 5-9 H Ur Squamous Epith Cells 2+ Urine Bacteria 2+ Urine Mucus 1+ COVID-19 (BEN) Negative COVID-19 Clin Com See Note Assessment and Plan (1) Hepatic encephalopathy: Status: Acute (2) Hyperammonemia: Status: Acute 76-year-old female with past medical history of liver cirrhosis presents to [facility] with hepatic encephalopathy # hepatic encephalopathy - found to have ammonia level of 303 - according to the daughter she has been compliant with her lactulose - received 200 mg of lactulose enema - will continue lactulose 45 mg t.i.d. per record - continue rifaximin - monitor mental status # chronic anemia - hemoglobin at baseline - no evidence of bleed - seen by GI on 11/17 with findings of portal gastropathy, duodenal nodule - will switch Prilosec to IV - follow CBC # hypertension - stable - will continue her antihypertensives once patient able to tolerate p.o. # CKD stage 4 - baseline - follow BMP # paroxysmal AFib - will continue Eliquis once patient able to take p.o. DVT prophylaxis: Heparin subQ Quality Stroke Does the patient have a stroke diagnosis?: No VTE Prior VTE?: No VTE Risk Level:: Medical - moderate - high VTE Device Contraindication: Treatment Not Indicated VTE Drug Contraindication: N/A - Med Ordered
[2021-11-25] MEDS: Lactulose 20 GM/30 ML SOLUTION 200 GM PR (00:16)
--- NOTE | 2021-11-25 00:16 | PC.NURSE ---
provider dr. nix, setting up a barium enema kit and filling with lactulose patient receiving medication rectally. patient able to tolerate tube placement. medication running
--- NOTE | 2021-11-25 00:40 | PC.NURSE ---
patient having positive effect from lactulose, having large bowel movement with lactulose. patient removing tube from rectum by herself. staff members at bedside for bed change and patient cleaned up. plan for admission. medication rec completed based off of primary doctors visit yesterday.
[2021-11-25 01:41] VITALS: BP 136/84; PULSE 81; RESP 20; O2SAT 97
--- NOTE | 2021-11-25 04:40 | PC.NURSE ---
PATIENT REPOSITIONED, FOUND TO HAVE A SWOLLEN TONGUE, EDEMA TO FACE. PATIENT HAVING DIFFICULTY OPENING EYES. HOSPITALIST CALLED AND COMING TO BEDSIDE, PATIENTS AIRWAY SUCTIONED. PATIENT O2 REMAINS 98-100% ON ROOM AIR. NASAL TRUMPET PLACED BY MD JENSEN IN THE LEFT NARE. PATIENT HAVING AN EPISODE OF INCONTINENCE. PATIENT AROUSABLE TO PAINFUL STIMULUS. PATIENT IS NOT ORIENTED TO PERSON PLACE OR TIME. PATIENT REMOVING HER NASAL TRUMPET AND HAVING MORE SPONTANEOUS EYE OPENING AFTER IV MEDICATIONS. PATIENT REPOSITIONED AND AND MEDICATIONS GIVEN. PATIENT HAVING REDUCTION TO SWELLING. HOSPITALIST CONTACTING PATIENTS FAMILY MEMBER HER DAUGHTER STATING THAT LAST TIME SHE WAS ADMITTED HAVING A SIMILAR SWELLING EPISODE. FACIAL EDEMA AND TONGUE REMAIN SOFT, CLOSE MONITORING FROM HOSPITALIST AND THIS RN. SUCTIONING NASAL SECRETIONS FROM TIMES TO TIME AND PATIENT GETTING A BLOODY NOSE FROM NASAL TRUMPET. SMALLER NASAL TRUMPET PLACED BY THIS RN. PATIENT TOLERATING MUCH BETTER AND RESPIRATIONS ARE MORE EVEN AT THIS TIME. PATIENT IS AT TIMES BEARING DOWN TO FORCE FLATULENCE AND STOOL. MORE SPONTANEOUS MOVEMENTS AND EYE OPENING NOTED. PATIENT IS VERY SLEEPY DUE TO MEDICATIONS GIVEN FOR SWELLING.
[2021-11-25 04:45] LABS: MANUAL DIFF FLAG NO
[2021-11-25 04:47] LABS: Basophils Percent Auto 0.6 % (0-2); Eosinophils Absolute Auto 0.3 X10*3/uL (0.0-0.4); Eosinophils Percent Auto 3.9 % (0-4); Hemoglobin 7.6 g/dl (12.0-16.0); Imm Gran Abs Auto 0.04 X10*3/uL (0.00-0.03); Imm Gran Pct Auto 0.6 % (0.0-0.4); Lymphocytes Absolute Auto 1.2 X10*3/uL (1.2-4.9); Lymphocytes Percent Auto 16.8 % (20-40); Mean Corpuscular Volume 90.9 fL (80.0-98.0); Mean Platelet Volume 11.8 fL (9.4-12.3); Monocytes Absolute Auto 1.1 X10*3/uL (0.1-1.2); Monocytes Percent Auto 15.8 % (2-11); Neutrophils Absolute Auto 4.4 x10*3/uL (2.0-8.3); Neutrophils Percent Auto 62.3 % (45-73); Platelet Count 107 X10*3/uL (160-400); Red Blood Count 2.53 X10*6/uL (4.20-5.50); Red Cell Distribution Width 14.7 % (11.0-16.0); White Blood Count 7.1 X10*3/uL (4.8-10.8)
[2021-11-25 04:48] LABS: Venous Blood Gas Refer to POC result
[2021-11-25 04:49] LABS: VBG Base Excess -8.4 mmol/L; VBG HCO3 16 mmol/L (22-26); VBG pCO2 28 mmHg; VBG pH 7.35 (7.32-7.43); VBG pO2 73 mmHg
--- NOTE | 2021-11-25 04:56 | P.EN_ITS ---
Event Note Date of Service: 11/25/21 Event Note: Pt developed what appeared to be Angioedema, no difficulty with b reathing, had drooling. Maintained her saturation at 100% on room air. Unclear etiology as she did not receive any new medication spoke to daughter who reports that pt had similar episode on previous admission to the hospital - patient received Pepcid, Benadryl, as well as Solu-Medrol with significant improvement in her tongue swelling as well as eye and face swelling Will continue Benadryl scheduled q.4 as well as Pepcid q.4, - patient did not require intubation but will need monitor
[2021-11-25 05:04] LABS: Anion Gap 13 (12-20); Blood Urea Nitrogen 41 mg/dL (9-16); Calcium 9.6 mg/dL (8.4-10.2); Carbon Dioxide 15 mmol/L (22-29); Chloride 111 mmol/L (96-108); Creatinine Clr Calc Pharmacy 21.7; Estimated Glomerular Filt Rate 19; Glucose Random 192 mg/dL (60-115); Potassium 4.3 mmol/L (3.3-5.1); Sodium 135 mmol/L (135-145)
[2021-11-25] MEDS: diphenhydrAMINE HCL 50 MG/ML VIAL IVPUSH ×5 (05:35→22:37)
[2021-11-25] MEDS: methylPREDNISolone Sod Succ 125 MG/2 ML VIAL IVPUSH ×2 (05:35→17:24)
[2021-11-25] MEDS: Famotidine/PF 20 MG/2 ML VIAL IVPUSH ×2 (05:35→17:24)
[2021-11-25 05:44] VITALS: BP 142/74; PULSE 76; RESP 14; O2SAT 98
--- NOTE | 2021-11-25 05:46 | PC.NURSE ---
SWELLING IS GREATLY REDUCED, PATIENT AIRWAY IS PATENT WITH A NASAL TRUMPET IN PLACE. VITALS ARE STABLE. PATIENT IS SLEEPY DUE TO MEDICATIONS. MUCH BETTER WHEN REPOSITIONED. HOSPITALIST UPDATED ON PATIENT S IMPROVED CONDITION
--- NOTE | 2021-11-25 06:20 | PC.NURSE ---
PATIENT REPOSITIONED AGAIN, CONTINUES TO SLIDE DOWN IN THE STRETCHER. PATIENT HAVING NO MORE EPISODE OF INCONTINENCE. PLAN TO CONTINUE TO CLOSELY MONITOR. NO INCREASED DISTRESS AT THIS TIME.
[2021-11-25 06:37] VITALS: BP 126/58; PULSE 78; RESP 14; O2SAT 97
--- NOTE | 2021-11-25 06:49 | PC.NURSE ---
UPDATE TO DAUGHTER ABOUT PLAN OF CARE FOR ADMISSION, AND DISCUSSING CURRENT SITUATION. REPORT GIVEN TO ONCOMING RN.
[2021-11-25] MEDS: Lactulose 20 GM/30 ML SOLUTION 45 GM PR (09:44)
[2021-11-25] MEDS: Famotidine/PF 20 MG/2 ML VIAL 40 MG IVPUSH ×2 (09:52→13:21)
[2021-11-25 10:19] VITALS: BP 153/69; PULSE 86; RESP 15; TEMP 36.8; O2SAT 97
--- NOTE | 2021-11-25 10:26 | PC.NURSE ---
Pt responsive to painful stimuli only at tis time, nasal trumpet in L nare but pt is mouth and belly breathing at this time with expiratory wheezes. Unable to assess mentation. VS as charted, on 2L NC at this time. Call carvajal within reach, will continue to monitor.
[2021-11-25] MEDS: 0.9 % Sodium Chloride Flush 3 ML SYRINGE IVFLUSH ×2 (11:10→17:25)
--- NOTE | 2021-11-25 12:13 | PC.NURSE ---
Pt given lactulose as per MAR orders, one small piece of stool passed. Call carvajal within reach, will continue to monitor.
[2021-11-25 13:00] LABS: Glucose, Whole Blood 202 mg/dL (60-115)
[2021-11-25] MEDS: Insulin Lispro 100 UNIT/ML 3 ML VIAL SUBCUT (13:20)
--- NOTE | 2021-11-25 14:14 | MHC.CM.PN ---
Attempted to meet with patient in regards to discharge planning. Patient currently lethargic. Spoke with patient's daughter/HCP Lindsay via telephone at [phone]. Since patient was discharged from [facility], patient has been staying with Lindsay. Patient ambulates with a walker. Patient now established with Rebecca Hunter. Copy of HCP verified to be on file. Patient received 3 Pfizer vaccines. Anticipate patient will need some half-way through [facility] at discharge. Referral made to [facility] via [employer]. IMM explained and sent to Lindsay via certified mail. Lindsay will transport patient home when medically stable. continue to monitor for d/c needs.
--- NOTE | 2021-11-25 14:49 | HO.PM.IMPN ---
Subjective Subjective Date of Service: 11/25/21 Interval History: Pt somnolent due to encephalopathy; unable to obtain ROS Review of Systems Review of Systems: Yes Unobtainable due to mental status Physical Exam Vital Signs: Vital Signs: Last Vital Signs Temp 98.2 F 11/25/21 10:19 Pulse 86 11/25/21 10:19 Resp 15 11/25/21 10:19 BP 153/69 H 11/25/21 10:19 Pulse Ox 97 11/25/21 10:19 Oxygen Flow Rate 2 11/24/21 20:35 BMI result Body Mass Index 33.3 Gen: somnolent, chronically ill appearing HEENT: sclera anicteric, moist mucus membranes, nasal trumpet in place, mild tongue + lip swelling, no stridor Neck: supple Lungs: clear to auscultation bilaterally Heart: regular rate and rhythm, no murmurs Abd: soft, non-tender, non-distended Ext: no edema Skin: warm/well-perfused Neuro: somnolent Objective Data Active Medications Dextrose (Dextrose 50 % 25 Gm/50 Ml Vial) 25 gm IVPUSH Q15M PRN; Protocol PRN Reason: per Hypoglycemia Standing Ord. Diphenhydramine HCl (Diphenhydramine Hcl 50 Mg/Ml Vial) 50 mg IVPUSH Q4H [facility] Stop: 11/25/21 17:01 Last Admin: 11/25/21 13:59 Dose: 50 mg Documented by: CAR Famotidine (Famotidine/Pf 20 Mg/2 Ml Vial) 40 mg IVPUSH Q4H [facility] Stop: 11/25/21 16:46 Last Admin: 11/25/21 13:21 Dose: 40 mg Documented by: MARVEL-JOSE Glucose (Glucose Gel 15 Gm Gel..Gram.) 15 gm PO Q15M PRN; Protocol PRN Reason: per Hypoglycemia Standing Ord. Insulin Human Lispro (Insulin Lispro 100 Unit/Ml 3 Ml Vial) 0 unit SUBCUT QIDACHS [facility]; Protocol Last Admin: 11/25/21 13:20 Dose: 4 unit Documented by: MARVEL-JOSE Lactulose (Lactulose 160 Gm/240 Ml Solution) 200 gm IN Q4H [facility] Last Admin: 11/25/21 11:10 Dose: 200 gm Documented by: HO.N-RAMSK Ondansetron HCl (Ondansetron Hcl 4 Mg/2 Ml Vial) 4 mg IVPUSH Q8H PRN PRN Reason: Nausea and Vomiting Sodium Chloride (0.9 % Sodium Chloride Flush 3 Ml Syringe) 3 ml IVFLUSH QSHIFT JACK Last Admin: 11/25/21 11:10 Dose: 3 ml Documented by: RM Labs CBC & Chem 7: 11/25/21 04:40 11/25/21 04:40 Labs: Laboratory Results - last 24 hr 11/24/21 11/24/21 11/24/21 21:46 21:46 21:46 MCV 90.6 MCH 30.5 MCHC 33.6 RDW 14.6 Plt Count 92 L MPV 11.8 Immature Gran % (Auto) 0.6 H Neut % (Auto) 59.6 Lymph % (Auto) 18.3 L [place] % (Auto) 16.6 H Eos % (Auto) 4.7 H Baso % (Auto) 0.2 Lymph # (Auto) 0.9 L [place] # (Auto) 0.8 Eos # (Auto) 0.2 Baso # (Auto) 0.0 Abs Immat Gran (auto) 0.03 Absolute Neuts (auto) 2.8 Absolute Nucleated RBC 0.000 Nucleated RBC % (auto) 0.0 PT 17.6 H INR 1.5 H VBG pH VBG pCO2 VBG pO2 VBG HCO3 VBG O2 Saturation VBG Base Excess Anion Gap 10 L Estim Creat Clear Calc 20.7 Estimated GFR 18 POC Glucose Random Glucose 126 H Calcium 9.1 Magnesium 2.6 Total Bilirubin 0.8 AST 30 ALT 21 Alkaline Phosphatase 103 D Ammonia Total Protein 6.9 Albumin 3.1 L Urine Color Urine Appearance Urine pH Ur Specific [place] Urine Protein Urine Glucose (UA) Urine Ketones Urine Blood Urine Nitrite Ur Leukocyte Esterase Urine RBC Urine WBC Ur Squamous Epith Cells Urine Bacteria Urine Mucus COVID-19 (BEN) COVID-19 Clin Com Blood Type Antibody Screen 11/24/21 11/24/21 11/24/21 21:46 22:16 22:16 MCV MCH MCHC RDW Plt Count MPV Immature Gran % (Auto) Neut % (Auto) Lymph % (Auto) [place] % (Auto) Eos % (Auto) Baso % (Auto) Lymph # (Auto) [place] # (Auto) Eos # (Auto) Baso # (Auto) Abs Immat Gran (auto) Absolute Neuts (auto) Absolute Nucleated RBC Nucleated RBC % (auto) PT INR VBG pH VBG pCO2 VBG pO2 VBG HCO3 VBG O2 Saturation VBG Base Excess Anion Gap Estim Creat Clear Calc Estimated GFR POC Glucose Random Glucose Calcium Magnesium Total Bilirubin AST ALT Alkaline Phosphatase Ammonia 303 H Total Protein Albumin Urine Color YELLOW Urine Appearance CLEAR Urine pH 6.0 Ur Specific [place] 1.010 Urine Protein 1+ H Urine Glucose (UA) NEG Urine Ketones NEG Urine Blood NEG Urine Nitrite NEG Ur Leukocyte Esterase NEG Urine RBC 1-4 Urine WBC 5-9 H Ur Squamous Epith Cells 2+ Urine Bacteria 2+ Urine Mucus 1+ COVID-19 (BEN) Negative COVID-19 Clin Com See Note Blood Type Antibody Screen 11/24/21 11/25/21 11/25/21 23:56 04:40 04:40 MCV 90.9 MCH 30.0 MCHC 33.0 RDW 14.7 Plt Count 107 L MPV 11.8 Immature Gran % (Auto) 0.6 H Neut % (Auto) 62.3 Lymph % (Auto) 16.8 L [place] % (Auto) 15.8 H Eos % (Auto) 3.9 Baso % (Auto) 0.6 Lymph # (Auto) 1.2 [place] # (Auto) 1.1 Eos # (Auto) 0.3 Baso # (Auto) 0.0 Abs Immat Gran (auto) 0.04 H Absolute Neuts (auto) 4.4 Absolute Nucleated RBC 0.000 Nucleated RBC % (auto) 0.0 PT INR VBG pH VBG pCO2 VBG pO2 VBG HCO3 VBG O2 Saturation VBG Base Excess Anion Gap 13 Estim Creat Clear Calc 21.7 Estimated GFR 19 POC Glucose Random Glucose 192 H Calcium 9.6 Magnesium Total Bilirubin AST ALT Alkaline Phosphatase Ammonia Total Protein Albumin Urine Color Urine Appearance Urine pH Ur Specific [place] Urine Protein Urine Glucose (UA) Urine Ketones Urine Blood Urine Nitrite Ur Leukocyte Esterase Urine RBC Urine WBC Ur Squamous Epith Cells Urine Bacteria Urine Mucus COVID-19 (BEN) COVID-19 Clin Com Blood Type O Positive Antibody Screen NEGATIVE 11/25/21 11/25/21 04:42 12:54 MCV MCH MCHC RDW Plt Count MPV Immature Gran % (Auto) Neut % (Auto) Lymph % (Auto) [place] % (Auto) Eos % (Auto) Baso % (Auto) Lymph # (Auto) [place] # (Auto) Eos # (Auto) Baso # (Auto) Abs Immat Gran (auto) Absolute Neuts (auto) Absolute Nucleated RBC Nucleated RBC % (auto) PT INR VBG pH 7.35 VBG pCO2 28 VBG pO2 73 VBG HCO3 16 L VBG O2 Saturation 93.0 VBG Base Excess -8.4 Anion Gap Estim Creat Clear Calc Estimated GFR POC Glucose 202 H Random Glucose Calcium Magnesium Total Bilirubin AST ALT Alkaline Phosphatase Ammonia Total Protein Albumin Urine Color Urine Appearance Urine pH Ur Specific [place] Urine Protein Urine Glucose (UA) Urine Ketones Urine Blood Urine Nitrite Ur Leukocyte Esterase Urine RBC Urine WBC Ur Squamous Epith Cells Urine Bacteria Urine Mucus COVID-19 (BEN) COVID-19 Clin Com Blood Type Antibody Screen Microbiology Microbiology Results: Microbiology 11/24/21 22:16 Urine Culture - Preliminary Urine clean catch - Urine carter top Culture too young to evaluate. Assessment and Plan (1) Hepatic encephalopathy: Status: Acute Assessment and Plan: hospital d#2 76yo F with decompensated EtOH/HCV cirrhosis, DM2, hypothyroidism, HFpEF, CKD4, pAF recent admissions here 11/02-11/06/21 and 11/07/21-11/21/21 for hepatic encephalopathy, GI bleed, and acute/CKD re-admitted with hepatic encephalopathy developed angioedema with unclear cause # hepatic encephalopathy - not taking POs; will give lactulose per retention enema q4h until awake, then transition to PO - rifaximin when awake # angioedema - got IV H2RA + diphenhydramine + methylprednisolone with improvement - unclear cause, will check C4 level and HCV viral load, ESR and CRP # recent UGIB - EGD 11/17/21 by showed portal gastropathy, no esophageal varices, hyperplastic duodenal nodule, mild gastritis without H. pylori on pathology - IV PPI until taking PO # decompensated cirrhosis - HCV viral load pending - no ascites # pancytopenia - due to cirrhosis; monitor counts # coagulopathy - due to cirrhosis; monitor INR # CKD4 - SCr at baseline, monitor + avoid nephrotoxins # pAF - holding apixaban # HTN # chronic HFpEF - holding antihypertensives (amlodipine, Isordil, hydralazine) # hypothyroidism - on 75 mcg/d PO LT4; will give 37.5 mcg/d IV until taking PO # DM2 - correction-dose lispro ?# VTE ppx - SCDs Quality Stroke Does the patient have a stroke diagnosis?: No VTE Prior VTE?: No VTE Risk Level:: Medical - moderate - high VTE Device Contraindication: Treatment Not Indicated VTE Drug Contraindication: N/A - Med Ordered
--- NOTE | 2021-11-25 14:59 | PC.NURSE ---
Pt taken off 2L NC, sat within normal limits, 99% on room air, due for another dose of lactulose at this time, messaged MD to check on necessity. Pt now awakens to name, self repositions in bed but not answering questions at this time. Awaiting bed assignment. Call carvajal within reach, will continue to monitor.
[2021-11-25] MEDS: Levothyroxine Sodium 100 MCG VIAL 37.5 MCG IVPUSH (17:26)
[2021-11-25 18:11] LABS: Glucose, Whole Blood 150 mg/dL (60-115)
--- NOTE | 2021-11-25 19:36 | PC.NURSE ---
awaiting lactulose arrival to dept
--- NOTE | 2021-11-25 19:53 | PC.NURSE ---
Dr Stokes to bedside to inspect pt's swollen tongue that was reported to this RN during shift change. Per Kike, pt's tongue is not as swollen as it was last night. Kike made aware of meds that pt has rec'd for allergix rxn. Pt to be medicated per orders.
[2021-11-25 20:32] VITALS: BP 144/61; PULSE 81; RESP 18; TEMP 36.6; O2SAT 98
[2021-11-25 21:24] LABS: Glucose, Whole Blood 155 mg/dL (60-115)
--- NOTE | 2021-11-25 22:44 | PC.NURSE ---
this rn marked 1900 lactulose not given as dose was not administered until 2244. this RN charted 2244 dosse as 2300. this rn had been unaware of med's arrival to unit and found it incidentally in med room. this rn administered AL lactulose and benadryl per jan.
[2021-11-26] VITALS (9 sets, daily range): BP systolic 123–164; BP diastolic 65–80; PULSE 73–87; RESP 14–22; TEMP 36.5–36.8; O2SAT 97–100
--- NOTE | 2021-11-26 01:50 | PC.NURSE ---
RN sup aware of need for enema setup for this RN to medicate with lactulose LA as ordered at 0300. Awaiting supplies to unit.
--- NOTE | 2021-11-26 03:42 | PC.NURSE ---
Pt's tongue remains very swollen, protruding from mouth. This RN appreciates mild expiratory wheezing despite SpO2 sat 100%. Dr Stokes is aware. This RN to medicate with PRN benadryl.
[2021-11-26] MEDS: diphenhydrAMINE HCL 50 MG/ML VIAL IVPUSH (03:54)
[2021-11-26 03:59] LABS: Glucose, Whole Blood 178 mg/dL (60-115)
[2021-11-26] MEDS: Famotidine/PF 20 MG/2 ML VIAL IVPUSH ×2 (03:59→07:58)
[2021-11-26] MEDS: methylPREDNISolone Sod Succ 40 MG/ML VIAL IVPUSH ×2 (04:00→07:58)
--- NOTE | 2021-11-26 06:25 | PC.NURSE ---
pharmacy to bring solumedrol, pepcid and synthroid iv meds to unit.
[2021-11-26 07:44] LABS: Glucose, Whole Blood 190 mg/dL (60-115)
[2021-11-26] MEDS: Levothyroxine Sodium 100 MCG VIAL 37.5 MCG IVPUSH (07:59)
[2021-11-26 08:03] LABS: Ammonia 59 umol/L (13-55)
[2021-11-26 08:04] LABS: Mean Corpuscular HGB Conc 33.3 g/dl (31.0-35.0); Mean Corpuscular Hemoglobin 30.5 pg (27.0-33.0); Mean Corpuscular Volume 91.4 fL (80.0-98.0); Platelet Count 101 X10*3/uL (160-400); Red Cell Distribution Width 14.6 % (11.0-16.0); White Blood Count 6.6 X10*3/uL (4.8-10.8)
[2021-11-26 08:15] LABS: Hemoglobin 6.7 g/dl (12.0-16.0)
[2021-11-26] MEDS: Insulin Lispro 100 UNIT/ML 3 ML VIAL SUBCUT ×2 (08:15→13:52)
[2021-11-26 08:16] LABS: Hematocrit 20.1 % (37.0-47.0)
--- NOTE | 2021-11-26 08:18 | PC.NURSE ---
Pt responds to verbal stimuli at this time. Uncooperative, lactulose given as per MAR orders. Scattered bruising noted to body. Swabbed mouth with ice water, tongue swelling remains, no stridor at this time. Critical H&H reported to MD. Awaiting bed assignment. Will continue to monitor.
[2021-11-26 08:19] LABS: C Reactive Protein 0.43 mg/dL (< or = 0.50); Magnesium 2.6 mg/dL (1.6-2.6)
[2021-11-26] MEDS: 0.9 % Sodium Chloride Flush 3 ML SYRINGE IVFLUSH (08:21)
[2021-11-26 09:05] LABS: Erythrocyte Sedimentation Rate 44 MM/HR (0-20)
[2021-11-26 10:33] LABS: ABG Base Excess -9.1 mmol/L; ABG HCO3 14 mmol/L (22-26); ABG pCO2 26 mmHg (32-45); ABG pCO2 TC 26 mmHg (32-45); ABG pH 7.35 (7.35-7.45); ABG pH TC 7.35 (7.35-7.45); ABG pO2 112 mmHg (83-108); ABG pO2 TC 111 (83-108)
[2021-11-26 10:42] LABS: Anion Gap 12 (12-20); Blood Urea Nitrogen 51 mg/dL (9-16); Calcium 9.8 mg/dL (8.4-10.2); Carbon Dioxide 17 mmol/L (22-29); Chloride 116 mmol/L (96-108); Creatinine Clr Calc Pharmacy 23.9; Estimated Glomerular Filt Rate 21; Glucose Random 215 mg/dL (60-115); Potassium 4.4 mmol/L (3.3-5.1); Sodium 141 mmol/L (135-145)
[2021-11-26 10:44] LABS: ABG Refer to POC result
[2021-11-26 11:01] LABS: Thyroid Stimulating Hormone 0.28 uIU/mL (0.32-4.0)
[2021-11-26] MEDS: Lactated Ringers 1,000 ML 50 ML IVCONT (11:53)
--- NOTE | 2021-11-26 12:12 | PC.NURSE ---
Pt medicated as per MAR orders, luids running at this time. Pt respond to verbal stimuli at this time. Call carvajal within reach. Will continue to moniotr.
--- NOTE | 2021-11-26 12:33 | HO.PM.IMPN ---
Subjective Subjective Date of Service: 11/26/21 Interval History: Somnolent easily arousable, answer yes or no to questions, complaining of difficulty breathing appears to be in mild respiratory distress, mouth breathing with dry mucosa. Review of Systems Review of Systems: Yes Unobtainable due to mental status Physical Exam Vital Signs: Vital Signs: Last Vital Signs Temp 98.2 F 11/26/21 06:30 Pulse 87 11/26/21 09:49 Resp 18 11/26/21 09:49 BP 161/73 H 11/26/21 09:49 Pulse Ox 100 11/26/21 09:49 Oxygen Flow Rate 2 11/24/21 20:35 BMI result Body Mass Index 33.3 Gen: somnolent, easily arousable, in respiratory distress mild, mouth breathing HEENT: sclera anicteric, dry mucus membranes, swollen tongue and lips as per nurses is improving Neck: supple Lungs: Bilateral expiratory wheeze Heart: regular rate and rhythm, no murmurs Abd: soft, non-tender, non-distended bowel sounds audible Ext: no edema Skin: warm/well-perfused Neuro: somnolent but arousable Objective Data Active Medications Dextrose (Dextrose 50 % 25 Gm/50 Ml Vial) 25 gm IVPUSH Q15M PRN; Protocol PRN Reason: per Hypoglycemia Standing Ord. Diphenhydramine HCl (Diphenhydramine Hcl 50 Mg/Ml Vial) 50 mg IVPUSH Q4H PRN PRN Reason: Allergic Reaction Last Admin: 11/26/21 03:54 Dose: 50 mg Documented by: STEFANO Famotidine (Famotidine/Pf 20 Mg/2 Ml Vial) 20 mg IVPUSH Q12H [facility] Last Admin: 11/26/21 07:58 Dose: 20 mg Documented by: MARVEL-RAMBARRY Glucose (Glucose Gel 15 Gm Gel..Gram.) 15 gm PO Q15M PRN; Protocol PRN Reason: per Hypoglycemia Standing Ord. Lactated Ringer's (Lr) 1,000 mls @ 50 mls/hr IVCONT .Q20H [facility] Last Admin: 11/26/21 11:53 Dose: 50 mls/hr Documented by: MARVEL-RAMBARRY Insulin Human Lispro (Insulin Lispro 100 Unit/Ml 3 Ml Vial) 0 unit SUBCUT QIDACHS [facility]; Protocol Last Admin: 11/26/21 08:15 Dose: 2 unit Documented by: RM Lactulose (Lactulose 160 Gm/240 Ml Solution) 200 gm AL Q4H [facility] Last Admin: 11/26/21 11:53 Dose: 200 gm Documented by: RM Levothyroxine Sodium (Levothyroxine Sodium 100 Mcg Vial) 37.5 mcg IVPUSH DAILY@0600 [facility] Last Admin: 11/26/21 07:59 Dose: 37.5 mcg Documented by: RM Methylprednisolone Sodium Succinate (Methylprednisolone Sod Succ 40 Mg/Ml Vial) 40 mg IVPUSH Q12H [facility] Last Admin: 11/26/21 07:58 Dose: 40 mg Documented by: RM Ondansetron HCl (Ondansetron Hcl 4 Mg/2 Ml Vial) 4 mg IVPUSH Q8H PRN PRN Reason: Nausea and Vomiting Sodium Chloride (0.9 % Sodium Chloride Flush 3 Ml Syringe) 3 ml IVFLUSH QSHIFT [facility] Last Admin: 11/26/21 08:21 Dose: 3 ml Documented by: RM Labs CBC & Chem 7: 11/26/21 07:32 11/26/21 07:32 Labs: Laboratory Results - last 24 hr 11/24/21 11/25/21 11/25/21 23:56 12:54 18:06 MCV MCH MCHC RDW Plt Count MPV Absolute Nucleated RBC Nucleated RBC % (auto) ESR O2 Saturation ABG pH at Pt Temp ABG pH (Temp Correct) ABG pCO2 at Pt Temp ABG pCO2 (Temp Corrct ABG pO2 at Pt Temp ABG pO2 (Temp Correct ABG HCO3 ABG Base Excess (Actual) Anion Gap Estim Creat Clear Calc Estimated GFR POC Glucose 202 H 150 H Random Glucose Calcium Magnesium Ammonia C-Reactive Protein TSH Blood Type O Positive Antibody Screen NEGATIVE Crossmatch See Detail 11/25/21 11/26/21 11/26/21 20:14 03:55 07:26 MCV MCH MCHC RDW Plt Count MPV Absolute Nucleated RBC Nucleated RBC % (auto) ESR O2 Saturation ABG pH at Pt Temp ABG pH (Temp Correct) ABG pCO2 at Pt Temp ABG pCO2 (Temp Corrct ABG pO2 at Pt Temp ABG pO2 (Temp Correct ABG HCO3 ABG Base Excess (Actual) Anion Gap Estim Creat Clear Calc Estimated GFR POC Glucose 155 H 178 H 190 H Random Glucose Calcium Magnesium Ammonia C-Reactive Protein TSH Blood Type Antibody Screen Crossmatch 11/26/21 11/26/21 11/26/21 07:32 07:32 07:32 MCV 91.4 MCH 30.5 MCHC 33.3 RDW 14.6 Plt Count 101 L MPV 12.0 Absolute Nucleated RBC 0.000 Nucleated RBC % (auto) 0.0 ESR 44 H O2 Saturation ABG pH at Pt Temp ABG pH (Temp Correct) ABG pCO2 at Pt Temp ABG pCO2 (Temp Corrct ABG pO2 at Pt Temp ABG pO2 (Temp Correct ABG HCO3 ABG Base Excess (Actual) Anion Gap Estim Creat Clear Calc Estimated GFR POC Glucose Random Glucose Calcium Magnesium 2.6 Ammonia C-Reactive Protein 0.43 TSH Blood Type Antibody Screen Crossmatch 11/26/21 11/26/21 11/26/21 07:32 07:32 10:27 MCV MCH MCHC RDW Plt Count MPV Absolute Nucleated RBC Nucleated RBC % (auto) ESR O2 Saturation 99.0 ABG pH at Pt Temp 7.35 ABG pH (Temp Correct) 7.35 ABG pCO2 at Pt Temp 26 L ABG pCO2 (Temp Corrct 26 L ABG pO2 at Pt Temp 112 H ABG pO2 (Temp Correct 111 H ABG HCO3 14 L ABG Base Excess (Actual) -9.1 Anion Gap 12 Estim Creat Clear Calc 23.9 Estimated GFR 21 POC Glucose Random Glucose 215 H Calcium 9.8 Magnesium Ammonia 59 H C-Reactive Protein TSH 0.28 L Blood Type Antibody Screen Crossmatch Microbiology Microbiology Results: Microbiology 11/24/21 22:16 Urine Culture - Final Urine clean catch - Urine carter top Assessment and Plan (1) Hyperammonemia: Status: Acute (2) Hepatic encephalopathy: Status: Acute (3) CKD (chronic kidney disease): Status: Acute (4) Hypothyroidism: Status: Acute (5) Angioedema: Status: Acute Assessment and Plan: hospital d#3 76yo F with decompensated EtOH/HCV cirrhosis, DM2, hypothyroidism, HFpEF, CKD4, pAF recent admissions here 11/02-11/06/21 and 11/07/21-11/21/21 for hepatic encephalopathy, GI bleed, and acute/CKD re-admitted with hepatic encephalopathy developed angioedema with unclear cause # hepatic encephalopathy - remain somnolent but arousable, unable to take by mouth continue lactulose per retention enema q4h until awake, then transition to PO - noted to rifaximin when awake # angioedema/ mild respiratory distress with no hypoxia - noted to be in mild respiratory distress using accessory muscles tachypneic mouth breathing - got IV H2RA + diphenhydramine + methylprednisolone some improvement in tongue swelling - unclear cause, C4 and HCV viral load pending, ESR and CRP not significantly elevated - ABG consistent with metabolic acidosis with respiratory compensation, case discussed with pulmonology they recommend to obtain respiratory viral panel, salicylate level - place on aerosol mask increase dose of steroids per pulmonology # recent UGIB - EGD 11/17/21 by showed portal gastropathy, no esophageal varices, hyperplastic duodenal nodule, mild gastritis without H. pylori on pathology - continue IV Pepcid, until taking PO -noted to have drop in hematocrit will transfuse 1 unit no active bleeding noted, follow CBC and stool guaiac # decompensated cirrhosis - HCV viral load pending - no ascites # pancytopenia Acute on chronic normocytic anemia no active GI bleed - due to cirrhosis; monitor counts, stable platelet count and wbc, drop in hematocrit will transfuse and follow CBC # coagulopathy - due to cirrhosis;INR 1.5, no active bleed noted # acute on CKD4 - SCr trending down acidosis improving, monitor + avoid nephrotoxins # pAF - holding apixaban, in normal sinus rhythm # HTN # chronic HFpEF - holding antihypertensives (amlodipine, Isordil, hydralazine) # hypothyroidism - on 75 mcg/d PO LT4; will give 37.5 mcg/d IV until taking PO # DM2 - correction-dose lispro ?# VTE ppx SCDs Quality Stroke Does the patient have a stroke diagnosis?: No VTE Prior VTE?: No VTE Risk Level:: Medical - moderate - high VTE Device Contraindication: Treatment Not Indicated VTE Drug Contraindication: N/A - Med Ordered
--- NOTE | 2021-11-26 13:04 | PM.CNPUL ---
History of Present Illness History of Present Illness Consult date: 11/26/21 Chief complaint: Hepatic Encephalopathy Narrative: This is an inpatient pulmonary consultation. The patient is a 76-year-old female with past medical history of alcoholic cirrhosis of the liver, asthma, CHF, CKD, CVA, diabetes, ACVD, moderate pulmonary hypertension, paroxysmal AFib, GERD? and hypothyroidism who is brought into the hospital by her daughter for worsening confusion. The patient was discharged from the hospital on 11/21 after being managed for hepatic encephalopathy.? Patient's daughter reports that patient was doing well on discharge but developed intermittent confusion on day of presentation that got worse and therefore she brought her to the hospital.? According to the daughter the patient received her scheduled doses of lactulose but did not have any bowel movements Today. ? On my exam patient is somnolent but arousable, does not answer questions appropriately, she is not oriented to place or self.? I am unable to obtain review of system otherwise.?Labs are significant for? to BC count of 7.1, hemoglobin of 7.6 which is around her baseline platelet count of 107, PT of 17.6 INR of 1.5,? chloride of 1 Blanc, bicarb of 17, creatinine of 2.61 which is around her baseline, ammonia of 303 which is the highest it has been since her last admission, UA positive for WBC with no leukocyte esterase or nitrites, COVID-19 negative.? The patient has been given lactulose without any significant improvement in her mental status. She did have a blood gas demonstrating initially alkalosis and now normal acid-base status although her pCO2 is significantly decreased as well as at low bicarbonate. It appears the patient has a component of metabolic acidosis which is non gap. This is likely due to her underlying renal failure. The patient should be further evaluated for renal tubular acidosis. In the meantime the patient CO2 was decreased. She has been having some crease wheezing and some shortness of breath. She did receive Solu-Medrol. The patient also may be compensating for her metabolic acidosis. At this point the patient will be given IV fluids which I agree. However, the patient did have an x-ray demonstrating hazy opacities. In view of her altered mental status in the abnormal chest x-ray I believe assessing for respiratory viral conditions are reasonable. Therefore I will request a full respiratory viral panel. Will also check for other toxicities that can cause the tachypnea. It was mention the patient did have some swelling of her tongue. It appears that she is breathing well. Will try an aerosol mask to maintain her airways moist and specially since she tends to breathe through her mouth. Patient is sitting up in seems to be protecting airway. If however her mentation worsens then a revaluation was warranted. Review of Systems Review of Systems: Yes Unobtainable due to mental condition and Unobtainable due to mental status Neurologic: Reports confusion Psychiatric: Psychiatric: Reports confusion [facility] Past Medical History Medical History (Updated 11/26/21 @ 16:48 by Dean Stahl MD) Alcoholic cirrhosis of liver Anemia Asthma Chronic diastolic CHF (congestive heart failure) CKD (chronic kidney disease) stage 4, GFR 15-29 ml/min CVA (cerebral vascular accident) Diabetes HCV (hepatitis C virus) Metabolic acidosis Moderate pulmonary hypertension Paroxysmal atrial fibrillation Pneumonitis Respiratory alkalosis Skin cancer Wheezing Family History Family History Brother Liver cancer Other Mental health disorder Substance use disorder Surgical History Surgical History History of arthroplasty of right shoulder History of cataract surgery History of hysterectomy History of right knee joint replacement Social History Social History Household Members: Children Housing: House Do you presently have visiting nurse or other home services: No Unable to assess alcohol history related to: Unknown Alcohol intake: never Patient Tobacco Use Status: Never used Tobacco e-Cigarette/Vaping Use: Never Used Second Hand Smoke Exposure: No Advance Directives Date on File: 11/03/21 service: No Current occupational status: retired Cognitive needs: Yes (walker) Hearing needs: No Vision needs: Yes (glasses) Meds Allergies Allergy/AdvReac Type Severity Reaction Status Date / Time milk [Milk] AdvReac Mild DIARRHEA Verified 11/23/21 13:37 Active Medications: Current Medications Dextrose (Dextrose 50 % 25 Gm/50 Ml Vial) 25 gm IVPUSH Q15M PRN; Protocol PRN Reason: per Hypoglycemia Standing Ord. Diphenhydramine HCl (Diphenhydramine Hcl 50 Mg/Ml Vial) 50 mg IVPUSH Q4H PRN PRN Reason: Allergic Reaction Last Admin: 11/26/21 03:54 Dose: 50 mg Documented by: Famotidine (Famotidine/Pf 20 Mg/2 Ml Vial) 20 mg IVPUSH Q12H [facility] Last Admin: 11/26/21 07:58 Dose: 20 mg Documented by: Glucose (Glucose Gel 15 Gm Gel..Gram.) 15 gm PO Q15M PRN; Protocol PRN Reason: per Hypoglycemia Standing Ord. Lactated Ringer's (Lr) 1,000 mls @ 50 mls/hr IVCONT .Q20H [facility] Last Admin: 11/26/21 11:53 Dose: 50 mls/hr Documented by: Insulin Human Lispro (Insulin Lispro 100 Unit/Ml 3 Ml Vial) 0 unit SUBCUT QIDACHS [facility]; Protocol Last Admin: 11/26/21 08:15 Dose: 2 unit Documented by: Lactulose (Lactulose 160 Gm/240 Ml Solution) 200 gm MS Q4H [facility] Last Admin: 11/26/21 11:53 Dose: 200 gm Documented by: Levothyroxine Sodium (Levothyroxine Sodium 100 Mcg Vial) 37.5 mcg IVPUSH DAILY@0600 [facility] Last Admin: 11/26/21 07:59 Dose: 37.5 mcg Documented by: Methylprednisolone Sodium Succinate (Methylprednisolone Sod Succ 40 Mg/Ml Vial) 60 mg IVPUSH Q6H [facility] Ondansetron HCl (Ondansetron Hcl 4 Mg/2 Ml Vial) 4 mg IVPUSH Q8H PRN PRN Reason: Nausea and Vomiting Sodium Chloride (0.9 % Sodium Chloride Flush 3 Ml Syringe) 3 ml IVFLUSH QSHIFT [facility] Last Admin: 11/26/21 08:21 Dose: 3 ml Documented by: Home Medications Medication Instructions Recorded Confirmed Last Taken Type hydralazine 50 mg tablet 50 mg PO TID 11/02/21 11/25/21 11/24/21 History pantoprazole 40 mg tablet,delayed 40 mg PO DAILY 11/02/21 11/25/21 11/24/21 History release (Protonix) levothyroxine 75 mcg tablet 75 mcg PO DAILY@0600 11/25/21 11/25/21 11/24/21 History (Synthroid) ofloxacin 0.3 % eye drops 1 drp OPHTHALMIC-RIGHT QID 11/25/21 11/25/21 11/24/21 History timolol 0.5 % eye drops 1 drp OPHTHALMIC-RIGHT BID 11/25/21 11/25/21 11/24/21 History Physical Exam Vital Signs: Vital Signs: Last Vital Signs Temp 98.2 F 11/26/21 06:30 Pulse 87 11/26/21 09:49 Resp 18 11/26/21 09:49 BP 161/73 H 11/26/21 09:49 Pulse Ox 100 11/26/21 09:49 Oxygen Flow Rate 2 11/24/21 20:35 BMI result Body Mass Index 33.3 Const: General: confusion, ill appearing and lethargic Orientation/consciousness: confusion and lethargic Neck: Neck: Yes normal visual inspection, Yes full ROM and Yes no lymphadenopathy Chest: Chest palpation & inspection: normal inspection of the chest Resp: Auscultation: rhonchi, wheezes and diminished lung sounds Cardio: Rate: regular rate Rhythm: regular rhythm Heart sounds: S1 normal heart sound present and S2 normal heart sound present GI: Palpation (GI): Soft to palpation and nontender Auscultation: normal bowel sounds Skin: General skin exam: rashes and/or lesions noted Neuro: General: confusion Results Laboratory Findings CBC and BMP: 11/26/21 07:32 11/26/21 07:32 ABG, PT/INR, D-dimer: PT/INR, D-dimer PT 17.6 SEC (9.9-13.0) H 11/24/21 21:46 INR 1.5 (0.9-1.1) H 11/24/21 21:46 Abnormal lab findings: Abnormal Labs 11/24/21 11/24/21 11/24/21 21:46 21:46 21:46 WBC 4.7 L RBC 2.33 L Hgb 7.1 L Hct 21.1 L Plt Count 92 L Immature Gran % (Auto) 0.6 H Lymph % (Auto) 18.3 L [place] % (Auto) 16.6 H Eos % (Auto) 4.7 H Lymph # (Auto) 0.9 L Abs Immat Gran (auto) ESR PT 17.6 H INR 1.5 H ABG pCO2 at Pt Temp ABG pCO2 (Temp Corrct ABG pO2 at Pt Temp ABG pO2 (Temp Correct ABG HCO3 VBG HCO3 Chloride 112 H Carbon Dioxide 17 L Anion Gap 10 L BUN 38 H D Creatinine 2.61 H POC Glucose Random Glucose 126 H Ammonia Albumin 3.1 L TSH Urine Protein Urine WBC Crossmatch 11/24/21 11/24/21 11/24/21 21:46 22:16 23:56 WBC RBC Hgb Hct Plt Count Immature Gran % (Auto) Lymph % (Auto) [place] % (Auto) Eos % (Auto) Lymph # (Auto) Abs Immat Gran (auto) ESR PT INR ABG pCO2 at Pt Temp ABG pCO2 (Temp Corrct ABG pO2 at Pt Temp ABG pO2 (Temp Correct ABG HCO3 VBG HCO3 Chloride Carbon Dioxide Anion Gap BUN Creatinine POC Glucose Random Glucose Ammonia 303 H Albumin TSH Urine Protein 1+ H Urine WBC 5-9 H Crossmatch See Detail 11/25/21 11/25/21 11/25/21 04:40 04:40 04:42 WBC RBC 2.53 L Hgb 7.6 L Hct 23.0 L Plt Count 107 L Immature Gran % (Auto) 0.6 H Lymph % (Auto) 16.8 L [place] % (Auto) 15.8 H Eos % (Auto) Lymph # (Auto) Abs Immat Gran (auto) 0.04 H ESR PT INR ABG pCO2 at Pt Temp ABG pCO2 (Temp Corrct ABG pO2 at Pt Temp ABG pO2 (Temp Correct ABG HCO3 VBG HCO3 16 L Chloride 111 H Carbon Dioxide 15 L Anion Gap BUN 41 H Creatinine 2.49 H POC Glucose Random Glucose 192 H Ammonia Albumin TSH Urine Protein Urine WBC Crossmatch 11/25/21 11/25/21 11/25/21 12:54 18:06 20:14 WBC RBC Hgb Hct Plt Count Immature Gran % (Auto) Lymph % (Auto) [place] % (Auto) Eos % (Auto) Lymph # (Auto) Abs Immat Gran (auto) ESR PT INR ABG pCO2 at Pt Temp ABG pCO2 (Temp Corrct ABG pO2 at Pt Temp ABG pO2 (Temp Correct ABG HCO3 VBG HCO3 Chloride Carbon Dioxide Anion Gap BUN Creatinine POC Glucose 202 H 150 H 155 H Random Glucose Ammonia Albumin TSH Urine Protein Urine WBC Crossmatch 11/26/21 11/26/21 11/26/21 03:55 07:26 07:32 WBC RBC 2.20 L Hgb 6.7 L* Hct 20.1 L* Plt Count 101 L Immature Gran % (Auto) Lymph % (Auto) [place] % (Auto) Eos % (Auto) Lymph # (Auto) Abs Immat Gran (auto) ESR PT INR ABG pCO2 at Pt Temp ABG pCO2 (Temp Corrct ABG pO2 at Pt Temp ABG pO2 (Temp Correct ABG HCO3 VBG HCO3 Chloride Carbon Dioxide Anion Gap BUN Creatinine POC Glucose 178 H 190 H Random Glucose Ammonia Albumin TSH Urine Protein Urine WBC Crossmatch 11/26/21 11/26/21 11/26/21 07:32 07:32 07:32 WBC RBC Hgb Hct Plt Count Immature Gran % (Auto) Lymph % (Auto) [place] % (Auto) Eos % (Auto) Lymph # (Auto) Abs Immat Gran (auto) ESR 44 H PT INR ABG pCO2 at Pt Temp ABG pCO2 (Temp Corrct ABG pO2 at Pt Temp ABG pO2 (Temp Correct ABG HCO3 VBG HCO3 Chloride 116 H Carbon Dioxide 17 L Anion Gap BUN 51 H Creatinine 2.26 H POC Glucose Random Glucose 215 H Ammonia 59 H Albumin TSH 0.28 L Urine Protein Urine WBC Crossmatch 11/26/21 10:27 WBC RBC Hgb Hct Plt Count Immature Gran % (Auto) Lymph % (Auto) [place] % (Auto) Eos % (Auto) Lymph # (Auto) Abs Immat Gran (auto) ESR PT INR ABG pCO2 at Pt Temp 26 L ABG pCO2 (Temp Corrct 26 L ABG pO2 at Pt Temp 112 H ABG pO2 (Temp Correct 111 H ABG HCO3 14 L VBG HCO3 Chloride Carbon Dioxide Anion Gap BUN Creatinine POC Glucose Random Glucose Ammonia Albumin TSH Urine Protein Urine WBC Crossmatch Microbiology: Microbiology 11/24/21 22:16 Urine clean catch - Urine carter top Urine Culture - Final Assessment and Plan (1) Hepatic encephalopathy: Status: Acute (2) Pneumonitis: Status: Acute (3) Wheezing: Status: Acute (4) Metabolic acidosis: Status: Acute (5) Respiratory alkalosis: Status: Acute Increase solumedrol nebulizer therapy respiratory viral panel checking salicylate level keep HOB elevated Aerosol mask monitoring mental status guarded Procedures Date of Service Date of Service: 11/26/21
[2021-11-26] MEDS: methylPREDNISolone Sod Succ 40 MG/ML VIAL 60 MG IVPUSH ×2 (13:51→22:20)
[2021-11-26 13:55] LABS: Glucose, Whole Blood 174 mg/dL (60-115)
[2021-11-26 15:28] LABS: Salicylate < 5.0 mg/dL (15-30)
--- NOTE | 2021-11-26 16:33 | PC.NURSE ---
Blood tranfusiion order on file, no consent signed at this time, MD aware consent not signed, requested transfusion with no consent, this RN will not transfuse without documentation. Pt now alert, answering questions, using bed whitley, good PO intake, made aware for order change to PO lactulose. Will contiue to monitor.
[2021-11-26 20:41] LABS: Glucose, Whole Blood 163 mg/dL (60-115)
[2021-11-26] MEDS: Lactulose 20 GM/30 ML SOLUTION 30 GM PO (22:22)
[2021-11-27] VITALS (7 sets, daily range): BP systolic 127–162; BP diastolic 61–78; PULSE 65–80; RESP 16–24; TEMP 36.4–37.5; O2SAT 96–100
[2021-11-27] MEDS: Lactated Ringers 1,000 ML 50 ML IVCONT (01:58)
[2021-11-27] MEDS: methylPREDNISolone Sod Succ 40 MG/ML VIAL 60 MG IVPUSH ×3 (02:20→12:48)
[2021-11-27] MEDS: Famotidine/PF 20 MG/2 ML VIAL IVPUSH (05:32)
[2021-11-27 06:40] LABS: Hemoglobin 7.2 g/dl (12.0-16.0); Mean Corpuscular HGB Conc 32.7 g/dl (31.0-35.0); Mean Corpuscular Hemoglobin 29.8 pg (27.0-33.0); Mean Corpuscular Volume 90.9 fL (80.0-98.0); Mean Platelet Volume 11.8 fL (9.4-12.3); Red Blood Count 2.42 X10*6/uL (4.20-5.50); Red Cell Distribution Width 14.6 % (11.0-16.0); White Blood Count 4.9 X10*3/uL (4.8-10.8)
[2021-11-27 06:46] LABS: Ammonia 75 umol/L (13-55)
[2021-11-27 07:09] LABS: Platelet Count 77 X10*3/uL (160-400)
[2021-11-27 07:10] LABS: Anion Gap 13 (12-20); Blood Urea Nitrogen 60 mg/dL (9-16); Calcium 9.2 mg/dL (8.4-10.2); Carbon Dioxide 16 mmol/L (22-29); Chloride 115 mmol/L (96-108); Creatinine Clr Calc Pharmacy 23.9; Estimated Glomerular Filt Rate 21; Glucose Random 221 mg/dL (60-115); Potassium 4.4 mmol/L (3.3-5.1); Sodium 140 mmol/L (135-145)
[2021-11-27 07:54] LABS: Glucose, Whole Blood 194 mg/dL (60-115)
[2021-11-27] MEDS: Lactulose 20 GM/30 ML SOLUTION 30 GM PO (08:23)
[2021-11-27] MEDS: Insulin Lispro 100 UNIT/ML 3 ML VIAL SUBCUT ×4 (08:24→21:08)
[2021-11-27 11:29] LABS: Glucose, Whole Blood 223 mg/dL (60-115)
[2021-11-27 12:48] LABS: Adenovirus PCR Not Detected (Not Detect.); Bordetella parapertussis PCR Not Detected (Not Detect.); Bordetella pertussis PCR Not Detected (Not Detect.); Chlamydia pneumoniae PCR Not Detected (Not Detect.); Coronavirus 229E PCR Not Detected (Not Detect.); Coronavirus HKU1 PCR Not Detected (Not Detect.); Coronavirus NL63 PCR Not Detected (Not Detect.); Coronavirus OC43 PCR Not Detected (Not Detect.); Human metapneumovirus PCR Not Detected (Not Detect.); Influenza A PCR Not Detected (Not Detect.); Influenza B PCR Not Detected (Not Detect.); Mycoplasma pneumoniae PCR Not Detected (Not Detect.); Parainfluenza 1 PCR Not Detected (Not Detect.); Parainfluenza 2 PCR Not Detected (Not Detect.); Parainfluenza 3 PCR Not Detected (Not Detect.); Parainfluenza 4 PCR Not Detected (Not Detect.); RSV PCR Not Detected (Not Detect.); Rhino/Enterovirus PCR Not Detected (Not Detect.); SARS-CoV-2 PCR Not Detected (Not Detect.)
--- NOTE | 2021-11-27 12:51 | P.PNPL_ITS ---
Subjective Subjective Date of Service: 11/27/21 Interval history: The patient was seen and examined this morning. Overall she is doing a lot better. Her swelling has decreased significantly. Her wheezing has improved. Her mentation is back to baseline. She is off all oxygen. Objective Data Labs CBC & Chem 7: 11/27/21 06:28 11/27/21 06:28 Labs: Laboratory Results - last 24 hr 11/24/21 11/26/21 11/26/21 23:56 07:32 13:36 WBC RBC Hgb Hct MCV MCH MCHC RDW Plt Count MPV Absolute Nucleated RBC Nucleated RBC % (auto) Smear Path Review Cancelled Sodium Potassium Chloride Carbon Dioxide Anion Gap BUN Creatinine Estim Creat Clear Calc Estimated GFR POC Glucose 174 H Random Glucose Calcium Ammonia Salicylates Blood Type O Positive Antibody Screen NEGATIVE Crossmatch See Detail 11/26/21 11/26/21 11/26/21 14:50 14:50 18:50 WBC RBC Hgb Hct MCV MCH MCHC RDW Plt Count MPV Absolute Nucleated RBC Nucleated RBC % (auto) Smear Path Review Sodium Potassium Chloride Carbon Dioxide Anion Gap BUN Creatinine Estim Creat Clear Calc Estimated GFR POC Glucose 163 H Random Glucose Calcium Ammonia Salicylates Cancelled < 5.0 L Blood Type Antibody Screen Crossmatch 11/27/21 11/27/21 11/27/21 06:27 06:28 06:28 WBC 4.9 RBC 2.42 L Hgb 7.2 L Hct 22.0 L MCV 90.9 MCH 29.8 MCHC 32.7 RDW 14.6 Plt Count 77 L MPV 11.8 Absolute Nucleated RBC 0.000 Nucleated RBC % (auto) 0.0 Smear Path Review Sodium 140 Potassium 4.4 Chloride 115 H Carbon Dioxide 16 L Anion Gap 13 BUN 60 H Creatinine 2.26 H Estim Creat Clear Calc 23.9 Estimated GFR 21 POC Glucose Random Glucose 221 H Calcium 9.2 D Ammonia 75 H Salicylates Blood Type Antibody Screen Crossmatch 11/27/21 11/27/21 07:39 11:20 WBC RBC Hgb Hct MCV MCH MCHC RDW Plt Count MPV Absolute Nucleated RBC Nucleated RBC % (auto) Smear Path Review Sodium Potassium Chloride Carbon Dioxide Anion Gap BUN Creatinine Estim Creat Clear Calc Estimated GFR POC Glucose 194 H 223 H Random Glucose Calcium Ammonia Salicylates Blood Type Antibody Screen Crossmatch Microbiology Microbiology Results: Microbiology 01/11/22 22:16 Urine clean catch - Urine carter top Urine Culture - Final Review of Systems Constitutional: Denies night sweats Denies change in voice, Denies lip swelling, Denies mouth pain, Reports nasal congestion, Reports nasal discharge, Denies neck pain and Denies tongue swelling Cardiovascular: Denies chest pain and Denies dyspnea Respiratory: Denies cough and Denies dyspnea Gastrointestinal: Denies abdominal pain Musculoskeletal: Denies no additional musculoskeletal complaints and Denies neck pain Denies Neuro-related abnormal movements Psychiatric: Denies no additional psychiatric complaints Hematologic/Lymphatic: Denies easy bleeding and Denies lymphadenopathy Allergic/Immunologic: Denies lip swelling and Denies tongue swelling Physical Exam Vital Signs: Vital Signs: Last Vital Signs Temp 90.1 F L 11/27/21 12:00 Pulse 75 11/27/21 12:00 Resp 20 11/27/21 12:00 BP 127/72 11/27/21 12:00 Pulse Ox 100 11/27/21 12:00 Oxygen Flow Rate 2 11/24/21 20:35 BMI result Body Mass Index 33.3 Const: General: alert Orientation/consciousness: patient oriented x3 Eyes: Pupils: Equal, round and reactive pupils present Neck: Neck: Yes normal visual inspection, Yes full ROM and Yes no lymphadenopathy Chest: Chest palpation & inspection: normal inspection of the chest Resp: Auscultation: no rales, no rhonchi, no wheezes and diminished lung sounds Cardio: Rate: regular rate Rhythm: regular rhythm Heart sounds: S1 normal heart sound present and S2 normal heart sound present GI: Palpation (GI): Soft to palpation and nontender Auscultation: normal bowel sounds Skin: General skin exam: rashes and/or lesions noted Neuro: General: patient oriented x3 Cranial nerves: Yes Equal, round and reactive pupils present Procedures Date of Service Date of Service: 11/27/21 Assessment and Plan Assessment and plan (1) Pneumonitis: Status: Acute (2) Metabolic acidosis: Status: Acute (3) Angioedema: Status: Acute Assessment and Plan: Overall better. REC: -change to PO Prednisone with taper -Consider PO bicarbonate for non anion gap metabolic acidosis -F/U pulmonary outpt for allergy testing Time Spent With Patient Time: Total time spent is greater than 50% in coordination of care (as d ocumented) at patient's floor/unit and/or counseling patient: Time with patient: 15 - 24 minutes Progress Note: Quality Stroke Does the patient have a stroke diagnosis?: No
[2021-11-27 16:13] LABS: Glucose, Whole Blood 216 mg/dL (60-115)
--- NOTE | 2021-11-27 16:18 | P.PNIM_ITS ---
Subjective Subjective Date of Service: 11/27/21 Interval History: History obtained via translator and interpreter, patient awake alert offers no acute complaints, tolerating diet no sore throat, no shortness of breath, no chest pain, no fevers, no chills. Review of Systems Review of Systems: Yes all other systems are reviewed and are negative Physical Exam Vital Signs: Vital Signs: Last Vital Signs Temp 97.8 F 11/27/21 15:43 Pulse 65 11/27/21 15:43 Resp 19 11/27/21 15:43 BP 129/77 11/27/21 15:43 Pulse Ox 97 11/27/21 15:43 Oxygen Flow Rate 2 11/24/21 20:35 BMI result Body Mass Index 33.3 NGen: Awake alert no respiratory dis tress HEENT: Ton edel and lip swelli ng resolved Neck: supple,no jvd Valdez gs:? No respirator y distress, clear to auscultation He art: regular rate and rhythm, no mur murs Abd: soft, no n-tender, non-dist ended bowel sounds audible Ext: no e boni Skin: warm/we ll-perfused Neuro: Nonfocal Objective Data Active Medications Dextrose (Dextrose 50 % 25 Gm/50 Ml Vial) 25 gm IVPUSH Q15M PRN; Protocol PRN Reason: per Hypoglycemia Standing Ord. Diphenhydramine HCl (Diphenhydramine Hcl 50 Mg/Ml Vial) 50 mg IVPUSH Q4H PRN PRN Reason: Allergic Reaction Last Admin: 11/26/21 03:54 Dose: 50 mg Documented by: STEFANO Famotidine (Famotidine/Pf 20 Mg/2 Ml Vial) 20 mg IVPUSH Q12H [facility] Last Admin: 11/27/21 05:32 Dose: 20 mg Documented by: JUAN Glucose (Glucose Gel 15 Gm Gel..Gram.) 15 gm PO Q15M PRN; Protocol PRN Reason: per Hypoglycemia Standing Ord. Insulin Human Lispro (Insulin Lispro 100 Unit/Ml 3 Ml Vial) 0 unit SUBCUT QIDACHS [facility]; Protocol Last Admin: 11/27/21 11:41 Dose: 4 unit Documented by: BONNIE Lactulose (Lactulose 20 Gm/30 Ml Solution) 30 gm PO TID [facility] Last Admin: 11/27/21 08:23 Dose: 30 gm Documented by: RIKKI Levothyroxine Sodium (Levothyroxine Sodium 100 Mcg Vial) 37.5 mcg IVPUSH DAILY@0600 [facility] Last Admin: 11/27/21 05:32 Dose: Not Given Documented by: JUAN Non-Admin Reason: no available Methylprednisolone Sodium Succinate (Methylprednisolone Sod Succ 40 Mg/Ml Vial) 60 mg IVPUSH Q6H [facility] Last Admin: 11/27/21 12:48 Dose: 60 mg Documented by: RIKKI Ondansetron HCl (Ondansetron Hcl 4 Mg/2 Ml Vial) 4 mg IVPUSH Q8H PRN PRN Reason: Nausea and Vomiting Sodium Chloride (0.9 % Sodium Chloride Flush 3 Ml Syringe) 3 ml IVFLUSH QSHIFT [facility] Last Admin: 11/27/21 08:30 Dose: Not Given Documented by: RIKKI Non-Admin Reason: IV Running Labs CBC & Chem 7: 11/27/21 06:28 11/27/21 06:28 Labs: Laboratory Results - last 24 hr 11/24/21 11/26/21 11/26/21 23:56 07:32 18:50 MCV MCH MCHC RDW Plt Count MPV Absolute Nucleated RBC Nucleated RBC % (auto) Smear Path Review Cancelled Anion Gap Estim Creat Clear Calc Estimated GFR POC Glucose 163 H Random Glucose Calcium Ammonia Respiratory Panel Murphy Adenovirus (Rapid PCR) B.pert (TEM-PCR) B.parapertussis DNA PCR C. pneumoniae DNA (PCR) Coronavirus OC43 (PCR) Coronavirus HKU1 (PCR) Coronavirus 229E (PCR) Coronavirus NL63 (PCR) Human Metapneumovir PCR Influenza A (RT-PCR) Influenza B (RT-PCR) M. pneumoniae (PCR) Parainfluenza 1 (PCR) Parainfluenza 2 (PCR) Parainfluenza 3 (PCR) Parainfluenza 4 (PCR) RSV (PCR) Entero/Rhino (PCR) SARS-CoV-2 RNA (RT-PCR) Blood Type O Positive Antibody Screen NEGATIVE Crossmatch See Detail 11/27/21 11/27/21 11/27/21 06:27 06:28 06:28 MCV 90.9 MCH 29.8 MCHC 32.7 RDW 14.6 Plt Count 77 L MPV 11.8 Absolute Nucleated RBC 0.000 Nucleated RBC % (auto) 0.0 Smear Path Review Anion Gap 13 Estim Creat Clear Calc 23.9 Estimated GFR 21 POC Glucose Random Glucose 221 H Calcium 9.2 D Ammonia 75 H Respiratory Panel Murphy Adenovirus (Rapid PCR) B.pert (TEM-PCR) B.parapertussis DNA PCR C. pneumoniae DNA (PCR) Coronavirus OC43 (PCR) Coronavirus HKU1 (PCR) Coronavirus 229E (PCR) Coronavirus NL63 (PCR) Human Metapneumovir PCR Influenza A (RT-PCR) Influenza B (RT-PCR) M. pneumoniae (PCR) Parainfluenza 1 (PCR) Parainfluenza 2 (PCR) Parainfluenza 3 (PCR) Parainfluenza 4 (PCR) RSV (PCR) Entero/Rhino (PCR) SARS-CoV-2 RNA (RT-PCR) Blood Type Antibody Screen Crossmatch 11/27/21 11/27/21 11/27/21 07:39 11:20 12:39 MCV MCH MCHC RDW Plt Count MPV Absolute Nucleated RBC Nucleated RBC % (auto) Smear Path Review Anion Gap Estim Creat Clear Calc Estimated GFR POC Glucose 194 H 223 H Random Glucose Calcium Ammonia Respiratory Panel Murphy See Note Adenovirus (Rapid PCR) Not Detected B.pert (TEM-PCR) Not Detected B.parapertussis DNA PCR Not Detected C. pneumoniae DNA (PCR) Not Detected Coronavirus OC43 (PCR) Not Detected Coronavirus HKU1 (PCR) Not Detected Coronavirus 229E (PCR) Not Detected Coronavirus NL63 (PCR) Not Detected Human Metapneumovir PCR Not Detected Influenza A (RT-PCR) Not Detected Influenza B (RT-PCR) Not Detected M. pneumoniae (PCR) Not Detected Parainfluenza 1 (PCR) Not Detected Parainfluenza 2 (PCR) Not Detected Parainfluenza 3 (PCR) Not Detected Parainfluenza 4 (PCR) Not Detected RSV (PCR) Not Detected Entero/Rhino (PCR) Not Detected SARS-CoV-2 RNA (RT-PCR) Not Detected Blood Type Antibody Screen Crossmatch 11/27/21 16:05 MCV MCH MCHC RDW Plt Count MPV Absolute Nucleated RBC Nucleated RBC % (auto) Smear Path Review Anion Gap Estim Creat Clear Calc Estimated GFR POC Glucose 216 H Random Glucose Calcium Ammonia Respiratory Panel Murphy Adenovirus (Rapid PCR) B.pert (TEM-PCR) B.parapertussis DNA PCR C. pneumoniae DNA (PCR) Coronavirus OC43 (PCR) Coronavirus HKU1 (PCR) Coronavirus 229E (PCR) Coronavirus NL63 (PCR) Human Metapneumovir PCR Influenza A (RT-PCR) Influenza B (RT-PCR) M. pneumoniae (PCR) Parainfluenza 1 (PCR) Parainfluenza 2 (PCR) Parainfluenza 3 (PCR) Parainfluenza 4 (PCR) RSV (PCR) Entero/Rhino (PCR) SARS-CoV-2 RNA (RT-PCR) Blood Type Antibody Screen Crossmatch Assessment and Plan (1) Metabolic acidosis: Status: Acute (2) Angioedema: Status: Acute (3) Hyperammonemia: Status: Acute (4) Hepatic encephalopathy: Status: Acute (5) CKD (chronic kidney disease): Status: Acute (6) LIUDMILA (obstructive sleep apnea): Status: Acute (7) Diabetes mellitus: Status: Acute (8) Alcoholic cirrhosis of liver: Status: Acute Assessment and Plan: 76yo F with decompensated EtOH/HCV cirrhosis, DM2, hypothyroidism, HFpEF, CKD4, pAF recent admissions here 11/02-11/06/21 and 11/07/21-11/21/21 for hepatic encephalop athy, GI bleed, and acute/CKD re-admitted with hepatic encephalopathy developed angioedema with unclear cause # hepatic encephalopathy - awake alert at baseline, ammonia level 75 at her baseline, continue by mouth lactulose and resume rifaximin # angioedema/ mild respiratory distress with no hypoxia - resolved will wean IV steroids - unclear cause, C4 and HCV viral load pending, ESR and CRP not significantly elevated, respiratory viral panel negative Spoke with daughter Josefina Gutierrez, she provided no history of unusual food, patient had similar episode once in [place] and she was told it is related to elevated ammonia level and she required intubation. As per daughter she is compliant with her lactulose # recent UGIB - EGD 11/17/21 by showed portal gastropathy, no esophageal varices, hyperplastic duodenal nodule, mild gastritis without H. pylori on pathology - DC IV Pepcid, will transition to by mouth PPI -hematocrit improved to 22 after 1 units of packed RBC # decompensated cirrhosis - HCV viral load pending - no ascites # pancytopenia ?? Acute on chronic normocytic anemia no active GI bleed - due to cirrhosis; monitor counts, stable platelet count and wbc, hematocrit improved after 1 unit packed RBC # coagulopathy - due to cirrhosis;INR 1.5, no active bleed noted # acute on CKD4 with acidosis - SCr trending down to baseline , acidosis persists will place on soda bicarb and recommend close outpatient nephrology follow up # pAF - resume apixaban, in normal sinus rhythm # HTN # chronic HFpEF, noted to have few high blood pressure readings will resume amlodipine and Isordil continue to hold hydralazine # hypothyroidism - on 75 mcg/d PO LT4; will DC IV levothyroxine # DM2 - bs elevated ,resume low dose lantus cont. correction-dose lispro ?# VTE ppx?resume eliquis Disposition lives home with daughter Quality Stroke Does the patient have a stroke diagnosis?: No VTE Prior VTE?: No VTE Risk Level:: Medical - moderate - high VTE Device Contraindication: Treatment Not Indicated VTE Drug Contraindication: N/A - Med Ordered
[2021-11-27] MEDS: methylPREDNISolone Sod Succ 40 MG/ML VIAL IVPUSH (17:00)
[2021-11-27] MEDS: 0.9 % Sodium Chloride Flush 3 ML SYRINGE IVFLUSH ×2 (17:00→21:06)
[2021-11-27 20:20] LABS: Glucose, Whole Blood 178 mg/dL (60-115)
[2021-11-27] MEDS: Montelukast Sodium 10 MG TABLET PO (21:07)
[2021-11-27] MEDS: Sodium Bicarbonate 650 MG TABLET PO (21:07)
[2021-11-27] MEDS: Lactulose 20 GM/30 ML SOLUTION 45 GM PO (21:07)
[2021-11-27] MEDS: Isosorbide Dinitrate 10 MG TABLET PO (21:07)
[2021-11-27] MEDS: Apixaban 2.5 MG TABLET PO (21:08)
[2021-11-27] MEDS: Insulin Glargine,Hum.rec.anlog 100 UNIT/ML 10 ML VIAL 12 UNIT SUBCUT (21:08)
[2021-11-27] MEDS: rifAXIMin 550 MG TABLET PO (21:08)
[2021-11-28] MEDS: timoloL maleate 0.5 % Oph Sol 5 ML DRBTL 1 DROP EYE-RIGHT ×3 (00:48→21:35)
[2021-11-28] MEDS: Moxifloxacin HCl 0.5 % Oph Sol 3 ML DRPBTL 1 DROP EYE-RIGHT ×4 (00:49→21:34)
[2021-11-28 03:10] VITALS: BP 134/63; PULSE 64; RESP 16; TEMP 37.1; O2SAT 96
[2021-11-28] MEDS: Omeprazole 40 MG CAPSULE.DR PO (06:44)
[2021-11-28] MEDS: Levothyroxine Sodium 75 MCG TABLET PO (06:44)
[2021-11-28] MEDS: methylPREDNISolone Sod Succ 40 MG/ML VIAL IVPUSH (06:44)
[2021-11-28 06:47] LABS: Anion Gap 13 (12-20); Blood Urea Nitrogen 65 mg/dL (9-16); Calcium 9.1 mg/dL (8.4-10.2); Carbon Dioxide 17 mmol/L (22-29); Chloride 111 mmol/L (96-108); Creatinine Clr Calc Pharmacy 22.9; Estimated Glomerular Filt Rate 20; Glucose Random 206 mg/dL (60-115); Potassium 4.7 mmol/L (3.3-5.1); Sodium 136 mmol/L (135-145)
[2021-11-28 07:07] LABS: Hematocrit 22.5 % (37.0-47.0); Hemoglobin 7.4 g/dl (12.0-16.0); Mean Corpuscular HGB Conc 32.9 g/dl (31.0-35.0); Mean Corpuscular Hemoglobin 30.1 pg (27.0-33.0); Mean Corpuscular Volume 91.5 fL (80.0-98.0); Mean Platelet Volume 12.4 fL (9.4-12.3); Red Blood Count 2.46 X10*6/uL (4.20-5.50); Red Cell Distribution Width 14.6 % (11.0-16.0); White Blood Count 3.2 X10*3/uL (4.8-10.8)
[2021-11-28 07:28] LABS: Platelet Count 63 X10*3/uL (160-400)
[2021-11-28 07:29] VITALS: BP 158/72; PULSE 63; RESP 20; TEMP 35.5; O2SAT 95
[2021-11-28 07:41] LABS: Glucose, Whole Blood 186 mg/dL (60-115)
[2021-11-28] MEDS: Folic Acid 1 MG TABLET PO (07:55)
[2021-11-28] MEDS: Isosorbide Dinitrate 10 MG TABLET PO ×2 (07:55→21:34)
[2021-11-28] MEDS: Lactulose 20 GM/30 ML SOLUTION 45 GM PO ×3 (07:55→21:33)
[2021-11-28] MEDS: Apixaban 2.5 MG TABLET PO ×2 (07:55→21:34)
[2021-11-28] MEDS: Ferrous Sulfate 324 MG TABLET.DR PO (07:55)
[2021-11-28] MEDS: Sodium Bicarbonate 650 MG TABLET PO ×2 (07:56→21:34)
[2021-11-28] MEDS: rifAXIMin 550 MG TABLET PO ×2 (07:56→21:34)
[2021-11-28] MEDS: 0.9 % Sodium Chloride Flush 3 ML SYRINGE IVFLUSH ×3 (07:57→21:35)
[2021-11-28] MEDS: Insulin Lispro 100 UNIT/ML 3 ML VIAL SUBCUT ×4 (08:03→21:34)
[2021-11-28 11:03] VITALS: BP 152/70; PULSE 68; RESP 18; TEMP 36; O2SAT 97
[2021-11-28 11:21] LABS: Glucose, Whole Blood 186 mg/dL (60-115)
[2021-11-28] MEDS: predniSONE 10 MG TABLET PO (11:43)
[2021-11-28] MEDS: amLODIPine Besylate 5 MG TABLET PO (11:43)
--- NOTE | 2021-11-28 13:38 | MHC.CM.PN ---
PER ED REGISTRATION PT HAS MEDICARE A&B, POLICY #[id number], CM CONTACTED PT'S DTR CHAR AT 1:30PM [phone] TO DISCUSS DCP, DTR WOULD LIKE PT TO GO TO SNF FOR STR, PT GLADYS REQUESTED AND REFERRALS SENT W/NEW MEDICARE INFO, PER DTR NO PREFERENCE BUT [facility] WOULD BE PREFERRED, DTR AWARE THAT MAY NOT BE POSSIBILITY.
--- NOTE | 2021-11-28 13:49 | P.PNIM_ITS ---
Subjective Subjective Date of Service: 11/28/21 Interval History: History obtained via night custodian, patient offers no complaints, admit compliance with all home medications including lactulose, daughter dispense medications, denies difficulty with swallowing, no acute events overnight moving bowels. Review of Systems Review of Systems: Yes all other systems are reviewed and are negative Physical Exam Vital Signs: Vital Signs: Last Vital Signs Temp 96.8 F 11/28/21 11:03 Pulse 68 11/28/21 11:03 Resp 18 11/28/21 11:03 BP 152/70 H 11/28/21 11:03 Pulse Ox 97 11/28/21 11:03 Oxygen Flow Rate 2 11/24/21 20:35 BMI result Body Mass Index 33.3 Gen:? Awake alert, no respiratory distress HEENT:? Tongue and lip swelling resolved Neck:?supple,no jvd Lungs:? No respiratory distress, clear to auscultation Heart: regular rate and rhythm, no murmurs Abd: soft, non-tender, non-distended bowel sounds?audible Ext: no edema Skin: warm/well-perfused Neuro:? Nonfocal Objective Data Active Medications Amlodipine Besylate (Amlodipine Besylate 5 Mg Tablet) 5 mg PO DAILY [facility]; Protocol Last Admin: 11/28/21 11:43 Dose: 5 mg Documented by: PRATIK Apixaban (Apixaban 2.5 Mg Tablet) 2.5 mg PO BID [facility] Last Admin: 11/28/21 07:55 Dose: 2.5 mg Documented by: PRATIK Dextrose (Dextrose 50 % 25 Gm/50 Ml Vial) 25 gm IVPUSH Q15M PRN; Protocol PRN Reason: per Hypoglycemia Standing Ord. Diphenhydramine HCl (Diphenhydramine Hcl 50 Mg/Ml Vial) 50 mg IVPUSH Q4H PRN PRN Reason: Allergic Reaction Last Admin: 11/26/21 03:54 Dose: 50 mg Documented by: STEFANO Ferrous Sulfate (Ferrous Sulfate 324 Mg Tablet.Dr) 324 mg PO DAILY [facility] Last Admin: 11/28/21 07:55 Dose: 324 mg Documented by: PRATIK Folic Acid (Folic Acid 1 Mg Tablet) 1 mg PO DAILY [facility] Last Admin: 11/28/21 07:55 Dose: 1 mg Documented by: PRATIK Glucose (Glucose Gel 15 Gm Gel..Gram.) 15 gm PO Q15M PRN; Protocol PRN Reason: per Hypoglycemia Standing Ord. Insulin Glargine (Insulin Glargine,Hum.Rec.Anlog 100 Unit/Ml 10 Ml Vial) 12 unit SUBCUT BEDTIME [facility] Last Admin: 11/27/21 21:08 Dose: 12 unit Documented by: FREDDY Insulin Human Lispro (Insulin Lispro 100 Unit/Ml 3 Ml Vial) 0 unit SUBCUT QIDACHS [facility]; Protocol Last Admin: 11/28/21 11:43 Dose: 2 unit Documented by: PRATIK Isosorbide Dinitrate (Isosorbide Dinitrate 10 Mg Tablet) 10 mg PO BID [facility]; Protocol Last Admin: 11/28/21 07:55 Dose: 10 mg Documented by: PRATIK Lactulose (Lactulose 20 Gm/30 Ml Solution) 45 gm PO TID [facility] Last Admin: 11/28/21 07:55 Dose: 45 gm Documented by: PRATIK Levothyroxine Sodium (Levothyroxine Sodium 75 Mcg Tablet) 75 mcg PO DAILY@0600 [facility] Last Admin: 11/28/21 06:44 Dose: 75 mcg Documented by: FREDDY Montelukast Sodium (Montelukast Sodium 10 Mg Tablet) 10 mg PO BEDTIME [facility] Last Admin: 11/27/21 21:07 Dose: 10 mg Documented by: FREDDY Moxifloxacin HCl (Moxifloxacin Hcl 0.5 % Oph Alexandra 3 Ml Drpbtl) 1 drop EYE-RIGHT TID [facility] Last Admin: 11/28/21 07:56 Dose: 1 drop Documented by: PRATIK Omeprazole (Omeprazole 40 Mg Capsule.Dr) 40 mg PO DAILY@0630 [facility] Last Admin: 11/28/21 06:44 Dose: 40 mg Documented by: FREDDY Ondansetron HCl (Ondansetron Hcl 4 Mg/2 Ml Vial) 4 mg IVPUSH Q8H PRN PRN Reason: Nausea and Vomiting Prednisone (Prednisone 10 Mg Tablet) 10 mg PO DAILY [facility] Last Admin: 11/28/21 11:43 Dose: 10 mg Documented by: PRATIK Rifaximin (Rifaximin 550 Mg Tablet) 550 mg PO BID [facility] Last Admin: 11/28/21 07:56 Dose: 550 mg Documented by: PRATIK Sodium Bicarbonate (Sodium Bicarbonate 650 Mg Tablet) 650 mg PO BID [facility] Last Admin: 11/28/21 07:56 Dose: 650 mg Documented by: PRATIK Sodium Chloride (0.9 % Sodium Chloride Flush 3 Ml Syringe) 3 ml IVFLUSH QSHIFT [facility] Last Admin: 11/28/21 07:57 Dose: 3 ml Documented by: PRATIK Timolol Maleate (Timolol Maleate 0.5 % Oph Alexandra 5 Ml Drbtl) 1 drop EYE-RIGHT BID [facility] Last Admin: 11/28/21 07:56 Dose: 1 drop Documented by: PRATIK Labs CBC & Chem 7: 11/28/21 06:13 11/28/21 06:13 Labs: Laboratory Results - last 24 hr 11/26/21 11/27/21 11/27/21 07:32 12:39 16:05 MCV MCH MCHC RDW Plt Count MPV Absolute Nucleated RBC Nucleated RBC % (auto) Anion Gap Estim Creat Clear Calc Estimated GFR POC Glucose 216 H Random Glucose Calcium Complement C4 5 L Respiratory Panel Murphy See Note Adenovirus (Rapid PCR) Not Detected B.pert (TEM-PCR) Not Detected B.parapertussis DNA PCR Not Detected C. pneumoniae DNA (PCR) Not Detected Coronavirus OC43 (PCR) Not Detected Coronavirus HKU1 (PCR) Not Detected Coronavirus 229E (PCR) Not Detected Coronavirus NL63 (PCR) Not Detected Human Metapneumovir PCR Not Detected Influenza A (RT-PCR) Not Detected Influenza B (RT-PCR) Not Detected M. pneumoniae (PCR) Not Detected Parainfluenza 1 (PCR) Not Detected Parainfluenza 2 (PCR) Not Detected Parainfluenza 3 (PCR) Not Detected Parainfluenza 4 (PCR) Not Detected RSV (PCR) Not Detected Entero/Rhino (PCR) Not Detected SARS-CoV-2 RNA (RT-PCR) Not Detected 11/27/21 11/28/21 11/28/21 19:47 06:13 06:13 MCV 91.5 MCH 30.1 MCHC 32.9 RDW 14.6 Plt Count 63 L MPV 12.4 H Absolute Nucleated RBC 0.000 Nucleated RBC % (auto) 0.0 Anion Gap 13 Estim Creat Clear Calc 22.9 Estimated GFR 20 POC Glucose 178 H Random Glucose 206 H Calcium 9.1 Complement C4 Respiratory Panel Murphy Adenovirus (Rapid PCR) B.pert (TEM-PCR) B.parapertussis DNA PCR C. pneumoniae DNA (PCR) Coronavirus OC43 (PCR) Coronavirus HKU1 (PCR) Coronavirus 229E (PCR) Coronavirus NL63 (PCR) Human Metapneumovir PCR Influenza A (RT-PCR) Influenza B (RT-PCR) M. pneumoniae (PCR) Parainfluenza 1 (PCR) Parainfluenza 2 (PCR) Parainfluenza 3 (PCR) Parainfluenza 4 (PCR) RSV (PCR) Entero/Rhino (PCR) SARS-CoV-2 RNA (RT-PCR) 11/28/21 11/28/21 07:29 11:03 MCV MCH MCHC RDW Plt Count MPV Absolute Nucleated RBC Nucleated RBC % (auto) Anion Gap Estim Creat Clear Calc Estimated GFR POC Glucose 186 H 186 H Random Glucose Calcium Complement C4 Respiratory Panel Murphy Adenovirus (Rapid PCR) B.pert (TEM-PCR) B.parapertussis DNA PCR C. pneumoniae DNA (PCR) Coronavirus OC43 (PCR) Coronavirus HKU1 (PCR) Coronavirus 229E (PCR) Coronavirus NL63 (PCR) Human Metapneumovir PCR Influenza A (RT-PCR) Influenza B (RT-PCR) M. pneumoniae (PCR) Parainfluenza 1 (PCR) Parainfluenza 2 (PCR) Parainfluenza 3 (PCR) Parainfluenza 4 (PCR) RSV (PCR) Entero/Rhino (PCR) SARS-CoV-2 RNA (RT-PCR) Assessment and Plan (1) Angioedema: Status: Acute (2) Hyperammonemia: Status: Acute (3) Hepatic encephalopathy: Status: Acute (4) CKD (chronic kidney disease): Status: Acute (5) Diabetes mellitus: Status: Acute Assessment and Plan: 76yo F with decompensated EtOH/HCV cirrhosis, DM2, hypothyroidism, HFpEF, CKD4, pAF recent admissions here 11/02-11/06/21 and 11/07/21-11/21/21 for hepatic encepha lopathy, GI bleed, and acute/CKD re-admitted with hepatic encephalopathy developed angioedema with unclear cause # hepatic encephalopathy - awake alert , ammonia level 75 at her baseline, continue by mouth lactulose and rifaximin # angioedema/ mild respiratory distress with no hypoxia - resolved will dc IV steroids and transition to by mouth prednisone x2 days - C4 level low at 5 normal range (15 to 57 ) likely due to kidney disease and chronic hepatitis, HCV viral load pending, ESR and CRP not significantly elevated, respiratory viral panel negative ? daughter Josefina Gutierrez, provided no history of unusual food, patient had similar episode once in [place] and she was told it is related to elevated ammonia level and she required intubation. ? As per daughter she is compliant with her lactulose # recent UGIB - EGD 11/17/21 by showed portal gastropathy, no esophageal varices, hype rplastic duodenal nodule, mild gastritis without H. pylori on pathology - continue PPI -hematocrit? improved to 22 after 1 units of packed RBC # decompensated cirrhosis - HCV viral load pending - no ascites # pancytopenia ?? Acute on chronic normocytic anemia no active GI bleed - due to cirrhosis; drop in platelets no bleeding noted follow CBC hematocrit improved after 1 unit packed RBC # coagulopathy - due to cirrhosis;INR 1.5, no active bleed noted # acute on CKD4 with acidosis - SCr trending down to baseline , acidosis persists continue soda bicarb and recommend close outpatient nephrology follow up # pAF - continue apixaban, in normal sinus rhythm # HTN # chronic HFpEF, noted to have few high blood pressure readings on amlodipine 5mg (home dose 10mg) and Isordil 10mg bid, continue to hold hydralazine Will increase dose of amlodipine to 10mg # hypothyroidism - on 75 mcg/d PO LT4; will DC IV levothyroxine # DM2 - bs elevated ,resume low dose lantus cont. correction-dose lispro ?# VTE ppx?resume eliquis Disposition lives home with daughter, daughter wishes patient to go to rehab will obtain PT eval manager social looking for rehab bed. Quality Stroke Does the patient have a stroke diagnosis?: No VTE Prior VTE?: No VTE Risk Level:: Medical - moderate - high VTE Device Contraindication: Treatment Not Indicated VTE Drug Contraindication: N/A - Med Ordered
[2021-11-28 16:00] VITALS: BP 140/68; PULSE 69; RESP 18; TEMP 36.7; O2SAT 97
[2021-11-28 16:21] LABS: Glucose, Whole Blood 241 mg/dL (60-115)
[2021-11-28 19:28] VITALS: BP 183/82; PULSE 70; RESP 18; TEMP 36.9; O2SAT 98
[2021-11-28 20:22] LABS: Glucose, Whole Blood 215 mg/dL (60-115)
[2021-11-28] MEDS: Insulin Glargine,Hum.rec.anlog 100 UNIT/ML 10 ML VIAL 12 UNIT SUBCUT (21:34)
[2021-11-28] MEDS: Montelukast Sodium 10 MG TABLET PO (21:34)
[2021-11-28 21:52] VITALS: PULSE 78; RESP 16; O2SAT 97
[2021-11-29 01:07] VITALS: BP 146/67; PULSE 67; RESP 16; TEMP 36.7; O2SAT 98
[2021-11-29] MEDS: Omeprazole 40 MG CAPSULE.DR PO (05:23)
[2021-11-29] MEDS: Levothyroxine Sodium 75 MCG TABLET PO (05:23)
[2021-11-29 07:05] LABS: Hematocrit 23.1 % (37.0-47.0); Hemoglobin 7.3 g/dl (12.0-16.0); Mean Corpuscular HGB Conc 31.6 g/dl (31.0-35.0); Mean Corpuscular Hemoglobin 28.9 pg (27.0-33.0); Mean Corpuscular Volume 91.3 fL (80.0-98.0); Mean Platelet Volume 11.8 fL (9.4-12.3); Red Blood Count 2.53 X10*6/uL (4.20-5.50); Red Cell Distribution Width 14.4 % (11.0-16.0); White Blood Count 3.9 X10*3/uL (4.8-10.8)
[2021-11-29 07:10] LABS: Platelet Count 62 X10*3/uL (160-400)
[2021-11-29 07:17] LABS: Anion Gap 12 (12-20); Blood Urea Nitrogen 61 mg/dL (9-16); Carbon Dioxide 17 mmol/L (22-29); Chloride 112 mmol/L (96-108); Creatinine Clr Calc Pharmacy 24.3; Estimated Glomerular Filt Rate 22; Glucose Random 138 mg/dL (60-115); Potassium 4.2 mmol/L (3.3-5.1); Sodium 137 mmol/L (135-145)
[2021-11-29 07:32] VITALS: BP 146/69; PULSE 69; RESP 19; TEMP 36.1; O2SAT 96
[2021-11-29 07:48] LABS: Glucose, Whole Blood 137 mg/dL (60-115)
[2021-11-29] MEDS: Sodium Bicarbonate 650 MG TABLET PO ×2 (09:25→21:28)
[2021-11-29] MEDS: Apixaban 2.5 MG TABLET PO ×2 (09:26→21:28)
[2021-11-29] MEDS: predniSONE 10 MG TABLET PO (09:26)
[2021-11-29] MEDS: Isosorbide Dinitrate 10 MG TABLET PO ×2 (09:26→21:28)
[2021-11-29] MEDS: rifAXIMin 550 MG TABLET PO ×2 (09:26→21:28)
[2021-11-29] MEDS: Ferrous Sulfate 324 MG TABLET.DR PO (09:26)
[2021-11-29] MEDS: amLODIPine Besylate 10 MG TABLET PO (09:26)
[2021-11-29] MEDS: Folic Acid 1 MG TABLET PO (09:26)
[2021-11-29] MEDS: Lactulose 20 GM/30 ML SOLUTION 45 GM PO ×3 (09:29→21:28)
[2021-11-29] MEDS: timoloL maleate 0.5 % Oph Sol 5 ML DRBTL 1 DROP EYE-RIGHT ×2 (09:41→21:29)
[2021-11-29 11:15] VITALS: BP 134/57; PULSE 64; RESP 20; TEMP 36.1; O2SAT 96
[2021-11-29 11:27] LABS: Glucose, Whole Blood 198 mg/dL (60-115)
--- NOTE | 2021-11-29 13:01 | P.PNIM_ITS ---
Subjective Subjective Date of Service: 11/29/21 Interval History: History obtained via per diem interpreter patient sitting comfortably on recliner taking all her medication having 2 loose stools daily, no other overnight issues Physical Exam Vital Signs: Vital Signs: Last Vital Signs Temp 97 F 11/29/21 11:15 Pulse 64 11/29/21 11:15 Resp 20 11/29/21 11:15 BP 134/57 L 11/29/21 11:15 Pulse Ox 96 11/29/21 11:15 Oxygen Flow Rate 2 11/24/21 20:35 BMI result Body Mass Index 33.3 Gen:? Awake alert, no respiratory di stress HEENT:? Ton edel and lip swelli ng resolved Neck:? supple,no jvd Lung s:? No respiratory distress, clear t o auscultation Hea rt: regular rate a nd rhythm, no murm urs Abd: soft, non -tender, non-diste nded bowel sounds? audible Ext: no ed ihsan Skin: warm/wel l-perfused Neuro:? Nonfocal Objective Data Active Medications Amlodipine Besylate (Amlodipine Besylate 10 Mg Tablet) 10 mg PO DAILY [facility]; Protocol Last Admin: 11/29/21 09:26 Dose: 10 mg Documented by: PAULINA Apixaban (Apixaban 2.5 Mg Tablet) 2.5 mg PO BID [facility] Last Admin: 11/29/21 09:26 Dose: 2.5 mg Documented by: PAULINA Dextrose (Dextrose 50 % 25 Gm/50 Ml Vial) 25 gm IVPUSH Q15M PRN; Protocol PRN Reason: per Hypoglycemia Standing Ord. Diphenhydramine HCl (Diphenhydramine Hcl 50 Mg/Ml Vial) 50 mg IVPUSH Q4H PRN PRN Reason: Allergic Reaction Last Admin: 11/26/21 03:54 Dose: 50 mg Documented by: STEFANO Ferrous Sulfate (Ferrous Sulfate 324 Mg Tablet.) 324 mg PO DAILY [facility] Last Admin: 11/29/21 09:26 Dose: 324 mg Documented by: PAULINA Folic Acid (Folic Acid 1 Mg Tablet) 1 mg PO DAILY [facility] Last Admin: 11/29/21 09:26 Dose: 1 mg Documented by: PAULINA Glucose (Glucose Gel 15 Gm Gel..Gram.) 15 gm PO Q15M PRN; Protocol PRN Reason: per Hypoglycemia Standing Ord. Insulin Glargine (Insulin Glargine,Hum.Rec.Anlog 100 Unit/Ml 10 Ml Vial) 12 unit SUBCUT BEDTIME [facility] Last Admin: 11/28/21 21:34 Dose: 12 unit Documented by: FREDDY Insulin Human Lispro (Insulin Lispro 100 Unit/Ml 3 Ml Vial) 0 unit SUBCUT QIDACHS [facility]; Protocol Last Admin: 11/29/21 09:43 Dose: Not Given Documented by: PAULINA Non-Admin Reason: No Insulin Coverage Isosorbide Dinitrate (Isosorbide Dinitrate 10 Mg Tablet) 10 mg PO BID [facility]; Protocol Last Admin: 11/29/21 09:26 Dose: 10 mg Documented by: PAULINA Lactulose (Lactulose 20 Gm/30 Ml Solution) 45 gm PO TID [facility] Last Admin: 11/29/21 09:29 Dose: 45 gm Documented by: PAULINA Levothyroxine Sodium (Levothyroxine Sodium 75 Mcg Tablet) 75 mcg PO DAILY@0600 [facility] Last Admin: 11/29/21 05:23 Dose: 75 mcg Documented by: FREDDY Montelukast Sodium (Montelukast Sodium 10 Mg Tablet) 10 mg PO BEDTIME [facility] Last Admin: 11/28/21 21:34 Dose: 10 mg Documented by: FREDDY Moxifloxacin HCl (Moxifloxacin Hcl 0.5 % Oph Alexandra 3 Ml Drpbtl) 1 drop EYE-RIGHT TID [facility] Last Admin: 11/28/21 21:34 Dose: 1 drop Documented by: FREDDY Omeprazole (Omeprazole 40 Mg Capsule.Dr) 40 mg PO DAILY@0630 [facility] Last Admin: 11/29/21 05:23 Dose: 40 mg Documented by: FREDDY Ondansetron HCl (Ondansetron Hcl 4 Mg/2 Ml Vial) 4 mg IVPUSH Q8H PRN PRN Reason: Nausea and Vomiting Prednisone (Prednisone 10 Mg Tablet) 10 mg PO DAILY [facility] Last Admin: 11/29/21 09:26 Dose: 10 mg Documented by: PAULINA Rifaximin (Rifaximin 550 Mg Tablet) 550 mg PO BID [facility] Last Admin: 11/29/21 09:26 Dose: 550 mg Documented by: PAULINA Sodium Bicarbonate (Sodium Bicarbonate 650 Mg Tablet) 650 mg PO BID [facility] Last Admin: 11/29/21 09:25 Dose: 650 mg Documented by: PAULINA Sodium Chloride (0.9 % Sodium Chloride Flush 3 Ml Syringe) 3 ml IVFLUSH QSHIFT [facility] Last Admin: 11/29/21 09:46 Dose: Not Given Documented by: PAULINA Non-Admin Reason: No Access Timolol Maleate (Timolol Maleate 0.5 % Oph Alexandra 5 Ml Drbtl) 1 drop EYE-RIGHT BID [facility] Last Admin: 11/29/21 09:41 Dose: 1 drop Documented by: PAULINA Labs CBC & Chem 7: 11/29/21 06:15 11/29/21 06:15 Labs: Laboratory Results - last 24 hr 11/28/21 11/28/21 11/29/21 16:14 19:27 06:15 MCV 91.3 MCH 28.9 MCHC 31.6 RDW 14.4 Plt Count 62 L MPV 11.8 Absolute Nucleated RBC 0.000 Nucleated RBC % (auto) 0.0 Anion Gap Estim Creat Clear Calc Estimated GFR POC Glucose 241 H 215 H Random Glucose Calcium 11/29/21 11/29/21 11/29/21 06:15 07:31 11:14 MCV MCH MCHC RDW Plt Count MPV Absolute Nucleated RBC Nucleated RBC % (auto) Anion Gap 12 Estim Creat Clear Calc 24.3 Estimated GFR 22 POC Glucose 137 H 198 H Random Glucose 138 H Calcium 9.0 Assessment and Plan (1) Metabolic acidosis: Status: Acute (2) Pneumonitis: Status: Acute (3) Angioedema: Status: Acute (4) Hyperammonemia: Status: Acute (5) Hepatic encephalopathy: Status: Acute (6) CKD (chronic kidney disease): Status: Acute (7) LIUDMILA (obstructive sleep apnea): Status: Acute Assessment and Plan: 76yo F with decompensated EtOH/HCV cirrhosis, DM2, hypothyroidism, HFpEF, CKD4, pAF recent admissions here 11/02-11/06/21 and 11/07/21-11/21/21 for hepatic encephalopathy, GI bleed, and acute/CKD re-admitted with hepatic encephalopathy developed angioedema with unclear cause # hepatic encephalopathy - resolved, awake alert , ammonia level 75 at her baseline, continue by mouth lactulose and rifaximin # angioedema/ mild respiratory distress with no hypoxia - resolved s/p IV steroids ,on prednisone day 3 will DC prednisone after today's dose - C4 level low at 5 normal range (15 to 57 ) likely due to kidney disease and chronic hepatitis,? HCV viral load pending, ESR and CRP not significantly elevated, respiratory viral panel negative ? daughter Josefina Gutierrez, provided no history of unusual food, patient had similar episode once in [place] and she was told it is related to elevated ammonia level and she required intubation. ? As per daughter she is compliant with her lactulose Patient evaluated by manager customs they recommend outpatient pulmonary follow- up for allergy testing # recent UGIB - EGD 11/17/21 by showed portal gastropathy, no esophageal varices, hyperplastic duodenal nodule, mild gastritis without H. pylori on pathology - continue PPI -hematocrit? improved to 23.1 after 1 units of packed RBC # cirrhosis - HCV viral load pending, no ascites # pancytopenia ?? Acute on chronic normocytic anemia no active GI bleed - due to cirrhosis; drop in platelets no bleeding noted follow CBC ?? hematocrit improved after 1 unit packed RBC # coagulopathy - due to cirrhosis;INR 1.5, no active bleed noted # acute on CKD4 with acidosis - SCr trending down to baseline , acidosis persists continue soda bicarb and recommend close outpatient nephrology follow up # pAF - continue apixaban, in normal sinus rhythm # HTN # chronic HFpEF, on amlodipine 10 mg and Isordil 10mg bid, follow BP closely continue to hold hydralazine, noted to have elevated blood pressure will resume hydralazine ?? # hypothyroidism - continue levothyroxine 75 mcg # DM2 - bs stable,cont. low dose lantus ( home dose of Lantus 20 units) cont. correction-dose lispro ?# VTE ppx?resume eliquis Disposition lives home with daughter, daughter wishes patient to go to rehab PT eval pending social work program coordinator looking for rehab bed. Quality Stroke Does the patient have a stroke diagnosis?: No VTE Prior VTE?: No VTE Risk Level:: Medical - moderate - high VTE Device Contraindication: Treatment Not Indicated VTE Drug Contraindication: N/A - Med Ordered
[2021-11-29] MEDS: Insulin Lispro 100 UNIT/ML 3 ML VIAL SUBCUT ×3 (14:04→21:27)
[2021-11-29] MEDS: Moxifloxacin HCl 0.5 % Oph Sol 3 ML DRPBTL 1 DROP EYE-RIGHT ×3 (14:11→21:29)
[2021-11-29 15:13] VITALS: BP 153/65; PULSE 68; RESP 20; TEMP 37.1; O2SAT 98
[2021-11-29] MEDS: 0.9 % Sodium Chloride Flush 3 ML SYRINGE IVFLUSH (15:32)
--- NOTE | 2021-11-29 16:24 | MHC.CM.PN ---
[facility] HAS BED AVAILABLE PENDING PT EVAL THURSDAY 11/30. IF HCP DECLINES SHE WILL NEED TO [facility] AND TRANSPORT HER HOME.
[2021-11-29 16:26] LABS: Glucose, Whole Blood 152 mg/dL (60-115)
[2021-11-29 19:06] VITALS: BP 160/70; PULSE 66; RESP 18; TEMP 37.1; O2SAT 98
[2021-11-29 20:22] LABS: Glucose, Whole Blood 185 mg/dL (60-115)
[2021-11-29] MEDS: Insulin Glargine,Hum.rec.anlog 100 UNIT/ML 10 ML VIAL 12 UNIT SUBCUT (21:26)
[2021-11-29] MEDS: Montelukast Sodium 10 MG TABLET PO (21:27)
[2021-11-29 23:54] VITALS: BP 158/70; PULSE 65; RESP 17; TEMP 36.4; O2SAT 97
[2021-11-30] VITALS (7 sets, daily range): BP systolic 136–180; BP diastolic 63–77; PULSE 61–66; RESP 16–18; TEMP 36.2–37; O2SAT 95–98
[2021-11-30] MEDS: 0.9 % Sodium Chloride Flush 3 ML SYRINGE IVFLUSH ×4 (00:51→23:24)
[2021-11-30] MEDS: Levothyroxine Sodium 75 MCG TABLET PO (05:53)
[2021-11-30] MEDS: Omeprazole 40 MG CAPSULE.DR PO (05:53)
[2021-11-30 07:11] LABS: Glucose, Whole Blood 98 mg/dL (60-115)
[2021-11-30] MEDS: Sodium Bicarbonate 650 MG TABLET PO ×2 (09:19→20:38)
[2021-11-30] MEDS: Apixaban 2.5 MG TABLET PO ×2 (09:19→20:38)
[2021-11-30] MEDS: Isosorbide Dinitrate 10 MG TABLET PO ×2 (09:19→20:38)
[2021-11-30] MEDS: Lactulose 20 GM/30 ML SOLUTION 45 GM PO ×3 (09:19→20:38)
[2021-11-30] MEDS: rifAXIMin 550 MG TABLET PO ×2 (09:19→20:38)
[2021-11-30] MEDS: amLODIPine Besylate 10 MG TABLET PO (09:20)
[2021-11-30] MEDS: Folic Acid 1 MG TABLET PO (09:20)
[2021-11-30] MEDS: Ferrous Sulfate 324 MG TABLET.DR PO (09:20)
[2021-11-30] MEDS: Moxifloxacin HCl 0.5 % Oph Sol 3 ML DRPBTL 1 DROP EYE-RIGHT ×3 (09:21→20:40)
[2021-11-30] MEDS: timoloL maleate 0.5 % Oph Sol 5 ML DRBTL 1 DROP EYE-RIGHT ×2 (09:21→20:40)
[2021-11-30 11:00] LABS: Glucose, Whole Blood 123 mg/dL (60-115)
--- NOTE | 2021-11-30 16:12 | MHC.CM.PN ---
[facility] WILLING TO OFFER SERVICES. [facility] REFERRAL ALSO PLACED PER DAUGHTER CHAR'S REQUEST ([phone]) PLAN IS RETURN HOME TOMORROW. HOSPITALIST MADE AWARE
--- NOTE | 2021-11-30 16:38 | P.PNIM_ITS ---
Subjective Subjective Date of Service: 11/30/21 Interval History: This history was taken in [place] from the patient. No hematemesis/melena/hematochezia 3 soft BM/d Review of Systems Review of Systems: Yes all other systems are reviewed and are negative Physical Exam Vital Signs: Vital Signs: Last Vital Signs Temp 98.1 F 11/30/21 15:36 Pulse 66 11/30/21 15:36 Resp 18 11/30/21 15:36 BP 180/77 H 11/30/21 15:36 Pulse Ox 95 11/30/21 15:36 Oxygen Flow Rate 2 11/24/21 20:35 BMI result Body Mass Index 33.3 Gen: chronically ill-appearing HEENT: sclera anicteric, moist mucus membranes Neck: supple Lungs: clear to auscultation bilaterally Heart: regular rate and rhythm, no murmurs Abd: soft, non-tender, non-distended Ext: no edema Skin: warm/well-perfused Neuro: alert and oriented x3, a few beats of asterixis elicited Psych: appropriate affect Objective Data Active Medications Amlodipine Besylate (Amlodipine Besylate 10 Mg Tablet) 10 mg PO DAILY [facility]; Protocol Last Admin: 11/30/21 09:20 Dose: 10 mg Documented by: CLARENCE Apixaban (Apixaban 2.5 Mg Tablet) 2.5 mg PO BID [facility] Last Admin: 11/30/21 09:19 Dose: 2.5 mg Documented by: CLARENCE Dextrose (Dextrose 50 % 25 Gm/50 Ml Vial) 25 gm IVPUSH Q15M PRN; Protocol PRN Reason: per Hypoglycemia Standing Ord. Diphenhydramine HCl (Diphenhydramine Hcl 50 Mg/Ml Vial) 50 mg IVPUSH Q4H PRN PRN Reason: Allergic Reaction Last Admin: 11/26/21 03:54 Dose: 50 mg Documented by: STEFANO Ferrous Sulfate (Ferrous Sulfate 324 Mg Tablet.Dr) 324 mg PO DAILY [facility] Last Admin: 11/30/21 09:20 Dose: 324 mg Documented by: CLARENCE Folic Acid (Folic Acid 1 Mg Tablet) 1 mg PO DAILY [facility] Last Admin: 11/30/21 09:20 Dose: 1 mg Documented by: CLARENCE Glucose (Glucose Gel 15 Gm Gel..Gram.) 15 gm PO Q15M PRN; Protocol PRN Reason: per Hypoglycemia Standing Ord. Insulin Glargine (Insulin Glargine,Hum.Rec.Anlog 100 Unit/Ml 10 Ml Vial) 12 unit SUBCUT BEDTIME [facility] Last Admin: 11/29/21 21:26 Dose: 12 unit Documented by: CARMEN Insulin Human Lispro (Insulin Lispro 100 Unit/Ml 3 Ml Vial) 0 unit SUBCUT QIDACHS [facility]; Protocol Last Admin: 11/30/21 11:02 Dose: Not Given Documented by: CLARENCE Non-Admin Reason: No Insulin Coverage Isosorbide Dinitrate (Isosorbide Dinitrate 10 Mg Tablet) 10 mg PO BID [facility]; Protocol Last Admin: 11/30/21 09:19 Dose: 10 mg Documented by: CLARENCE Lactulose (Lactulose 20 Gm/30 Ml Solution) 45 gm PO TID [facility] Last Admin: 11/30/21 09:19 Dose: 45 gm Documented by: CLARENCE Levothyroxine Sodium (Levothyroxine Sodium 75 Mcg Tablet) 75 mcg PO DAILY@0600 [facility] Last Admin: 11/30/21 05:53 Dose: 75 mcg Documented by: MARYANN Montelukast Sodium (Montelukast Sodium 10 Mg Tablet) 10 mg PO BEDTIME [facility] Last Admin: 11/29/21 21:27 Dose: 10 mg Documented by: CARMEN Moxifloxacin HCl (Moxifloxacin Hcl 0.5 % Oph Alexandra 3 Ml Drpbtl) 1 drop EYE-RIGHT TID [facility] Last Admin: 11/30/21 09:21 Dose: 1 drop Documented by: CLARENCE Omeprazole (Omeprazole 40 Mg Capsule.Dr) 40 mg PO DAILY@0630 [facility] Last Admin: 11/30/21 05:53 Dose: 40 mg Documented by: MARYANN Ondansetron HCl (Ondansetron Hcl 4 Mg/2 Ml Vial) 4 mg IVPUSH Q8H PRN PRN Reason: Nausea and Vomiting Rifaximin (Rifaximin 550 Mg Tablet) 550 mg PO BID [facility] Last Admin: 11/30/21 09:19 Dose: 550 mg Documented by: CLARENCE Sodium Bicarbonate (Sodium Bicarbonate 650 Mg Tablet) 650 mg PO BID [facility] Last Admin: 11/30/21 09:19 Dose: 650 mg Documented by: CLARENCE Sodium Chloride (0.9 % Sodium Chloride Flush 3 Ml Syringe) 3 ml IVFLUSH QSHIFT [facility] Last Admin: 11/30/21 09:20 Dose: 3 ml Documented by: CLARENCE Timolol Maleate (Timolol Maleate 0.5 % Oph Alexandra 5 Ml Drbtl) 1 drop EYE-RIGHT BID [facility] Last Admin: 11/30/21 09:21 Dose: 1 drop Documented by: CLARENCE Labs CBC & Chem 7: 11/29/21 06:15 11/29/21 06:15 Labs: Laboratory Results - last 24 hr 11/29/21 11/30/21 11/30/21 20:16 07:00 10:50 POC Glucose 185 H 98 123 H Assessment and Plan (1) Metabolic acidosis: Status: Acute (2) Pneumonitis: Status: Acute (3) Angioedema: Status: Acute (4) Hyperammonemia: Status: Acute (5) Hepatic encephalopathy: Status: Acute (6) CKD (chronic kidney disease): Status: Acute (7) LIUDMILA (obstructive sleep apnea): Status: Acute Assessment and Plan: 76yo F with decompensated EtOH/HCV cirrhosis, DM2, hypothyroidism, HFpEF, CKD4, pAF recent admissions here 11/02-11/06/21 and 11/07/21-11/21/21 for hepatic encephalopathy, GI bleed, and acute/CKD re-admitted with hepatic encephalopathy developed angioedema with unclear cause # hepatic encephalopathy - resolved, awake alert , ammonia level 75 at her baseline, continue by mouth lactulose and rifaximin- will prescribe for home use # angioedema/ mild respiratory distress with no hypoxia - resolved s/p IV steroids + prednisone taper - C4 level low at 5 normal range (15 to 57 ) likely due to kidney disease and chronic hepatitis,? HCV viral load pending, ESR and CRP not significantly elevated, respiratory viral panel negative -?daughter Josefina Titus , provided no history of unusual food; patient had similar episode once in [place] and she was told it is related to elevated ammonia level and she required intubation - as per daughter she is compliant with her lactulose and as thus needs rifaxmin - patient evaluated by teacher visually impaired they recommend outpatient pulmonary follow-up for allergy testing # recent UGIB - EGD 11/17/21 by showed portal gastropathy, no esophageal varices, hyperplastic duodenal nodule, mild gastritis without H. pylori on pathology - continue PPI - hematocrit? improved to 23.1 after 1 units of packed RBC # cirrhosis - HCV viral load pending, no ascites noted # pancytopenia - acute on chronic normocytic anemia with no active GI bleed - due to cirrhosis; drop in platelets no bleeding noted; follow CBC - hematocrit improved after 1 unit packed RBC # coagulopathy - due to cirrhosis; INR 1.5, no active bleed noted # acute on CKD4 with acidosis - SCr trending down to baseline , acidosis persists, continue sod bicabonate and recommend close outpatient nephrology follow up as she is at high risk of hepatorenal syndrome # pAF - continue apixaban, in normal sinus rhythm # HTN # chronic HFpEF, on amlodipine 10 mg and Isordil 10mg bid, follow BP closely continue to hold hydralazine, noted to have elevated blood pressure; resumed hydralazine ?? # hypothyroidism - continue levothyroxine 75 mcg # DM2 - continue Lantus ( home dose of Lantus 20 units) + correction-dose lispro ?# VTE ppx - resumed apixaban- careful monitoring of CBC # dispo - PT now recommends [facility]- trying to set up Quality Stroke Does the patient have a stroke diagnosis?: No VTE Prior VTE?: No VTE Risk Level:: Medical - moderate - high VTE Device Contraindication: Treatment Not Indicated VTE Drug Contraindication: N/A - Med Ordered
[2021-11-30 17:03] LABS: Glucose, Whole Blood 135 mg/dL (60-115)
[2021-11-30 20:25] LABS: Glucose, Whole Blood 185 mg/dL (60-115)
[2021-11-30] MEDS: Insulin Lispro 100 UNIT/ML 3 ML VIAL SUBCUT (20:38)
[2021-11-30] MEDS: Montelukast Sodium 10 MG TABLET PO (20:38)
[2021-11-30] MEDS: Insulin Glargine,Hum.rec.anlog 100 UNIT/ML 10 ML VIAL 12 UNIT SUBCUT (20:40)
[2021-12-01 03:49] VITALS: BP 153/65; PULSE 64; RESP 18; TEMP 36.9; O2SAT 97
[2021-12-01] MEDS: Omeprazole 40 MG CAPSULE.DR PO (06:25)
[2021-12-01] MEDS: Levothyroxine Sodium 75 MCG TABLET PO (06:25)
[2021-12-01] MEDS: Isosorbide Dinitrate 10 MG TABLET PO (07:04)
[2021-12-01] MEDS: amLODIPine Besylate 10 MG TABLET PO (07:04)
[2021-12-01] MEDS: Apixaban 2.5 MG TABLET PO (07:04)
[2021-12-01] MEDS: Ferrous Sulfate 324 MG TABLET.DR PO (07:04)
[2021-12-01] MEDS: rifAXIMin 550 MG TABLET PO (07:04)
[2021-12-01] MEDS: Sodium Bicarbonate 650 MG TABLET PO (07:04)
[2021-12-01] MEDS: Folic Acid 1 MG TABLET PO (07:04)
[2021-12-01] MEDS: timoloL maleate 0.5 % Oph Sol 5 ML DRBTL 1 DROP EYE-RIGHT (07:05)
[2021-12-01] MEDS: 0.9 % Sodium Chloride Flush 3 ML SYRINGE IVFLUSH ×2 (07:06→14:34)
[2021-12-01] MEDS: Moxifloxacin HCl 0.5 % Oph Sol 3 ML DRPBTL 1 DROP EYE-RIGHT ×2 (07:06→14:33)
[2021-12-01 07:08] VITALS: BP 157/69; PULSE 65; RESP 19; TEMP 37.1; O2SAT 99
[2021-12-01 07:28] LABS: Glucose, Whole Blood 67 mg/dL (60-115)
--- NOTE | 2021-12-01 10:38 | W.MHC.F2F ---
Service Date Service Date: 12/01/21 Encounter Date of encounter: 12/01/21 Reasons for Services Signs and symptoms assessed: encephalopathy cirrhosis Reason for penitentiary: neurological assessment, medication management, medication treatment and teach disease management Reason for physical therapy: home safety and mobility, therapeutic exercises, gait/transfer training, assess need for DME, ADL training and energy conservation MD Overseeing Care: Rebecca Loomis Homebound: Leaving the home is medically contraindicated at this time without the asist of a device and/or another person due th the listed conditions above and below. Reason homebound: unsteady gait / fall risk, immunosuppression / infection risk, cognitively impaired / unsafe and weakness related to hospital stay Certification: Based on the above findings, I certify that this patient is confined to the home and needs intermittent penitentiary care, physical therapy and/or speech therapy, or continues to need occupational therapy. The patient is under my care, and I have initiated the establishment of the plan of care. The patient will be followed by a physician who will periodically review the plan of care.
[2021-12-01 11:06] VITALS: BP 147/69; PULSE 60; RESP 17; TEMP 37; O2SAT 98
--- NOTE | 2021-12-01 11:21 | P.DS_ITS ---
DS: Providers Provider Date of Service: 12/01/21 Date of admission: 11/24/21 23:52 Date of discharge: 12/01/21 Primary care physician: Rebecca Loomis CNP Admitting clinician: Emily Stokes Consults: 11/26/21 12:36 Consult to Pulmonology Routine Consulting Provider: Dean Stahl Reason for consultation: sob Has provider been notified: Yes Attending physician on discharge: Rashard Martinez DS: Diagnosis Discharge Diagnosis (1) Metabolic acidosis: Status: Acute (2) Angioedema: Status: Acute (3) Hepatic encephalopathy: Status: Acute (4) CKD (chronic kidney disease) stage 4, GFR 15-29 ml/min: Status: Acute (5) Alcoholic cirrhosis of liver: Status: Acute (6) HCV (hepatitis C virus): Status: Acute (7) Anemia: Status: Acute DS: Summary Hospital Course Hospital Course: From admission H+P by Dr Stokes, 11/24/21: this is a 76-year-old female with past medical history of alcoholic cirrhosis of the liver, asthma, CHF, CKD, CVA, diabetes, ACVD, moderate pulmonary hypertension, paroxysmal AFib, GERD? and hypothyroidism who is brought into the hospital by her daughter for worsening confusion. ? Of note, patient was discharged from the hospital on 11/21 after being managed for hepatic encephalopathy.? Patient's daughter reports that patient was doing well on discharge but developed intermittent confusion on day of presentation that got worse and therefore she brought her to the hospital.? According to the daughter the patient received her scheduled doses of lactulose but did not have any bowel movements Today. ? On my exam patient is somnolent but arousable, does not answer questions appropriately, she is not oriented to place or self.? I am unable to obtain review of system otherwise.? On arrival to the ED patient hemodynamically stable with no significant abnormal vitals Labs are significant for? to BC count of 7.1, hemoglobin of 7.6 which is around her baseline platelet count of 107, PT of 17.6 INR of 1.5,? chloride of 1 Blanc, bicarb of 17, creatinine of 2.61 which is around her baseline, ammonia of 303 which is the highest it has been since her last admission, UA positive for WBC with no leukocyte esterase or nitrites, COVID-19 negative.? ?patient given rectal lactulose enema and will be admitted for further management This 76yo F with decompensated EtOH/HCV cirrhosis, DM2, hypothyroidism, HFpEF, CKD4, pAF and recent admissions here 11/02-11/06/21 and 11/07/21-11/21/21 for hepatic encephalopathy, GI bleed, and acute/CKD, was re-admitted with hepatic encephalopathy and also developed angioedema with unclear cause. Hospital course by problem: 1. hepatic encephalopathy This resolved with lactulose retention enemas and she was transitioned to oral lactulose plus rifaximin. 2. Angioedema This resolved with steroid taper, famotidine, and diphenhydramine. C4 was low, likely due to HCV and CKD. HCV viral load is pending. Patient has a history of prior angioedema of unknown cause. She will follow up with the pulmonology senior treasury consultant for allergy workup. 3. 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 pylori on pathology. PPI was continued and she was transfused 1 unit of packed red blood cells. 4. Cirrhosis Likely due to past alcohol abuse and HCV; HCV antibody positive and viral load pending. She should follow up with Gastroenterology as an outpatient. Labs in 1 week were ordered: PT/INR, CBCd, and CMP 5. CKD4 with metabolic acidosis She was started on oral bicarbonate supplementation and will need close outpatient nephrology follow up, as she is at high risk of hepatorenal syndrome. She was discharged home with VNA services. Time Spent with Patient Time attestation: Total time spent providing and/or coordinating discharge services: Discharge coordination time: Greater than 30 minutes Quality: Stroke Does the patient have a stroke diagnosis?: No Physical Exam Vital Signs: Vital Signs: Last Vital Signs Temp 98.6 F 12/01/21 11:06 Pulse 60 12/01/21 11:06 Resp 17 12/01/21 11:06 BP 147/69 H 12/01/21 11:06 Pulse Ox 98 12/01/21 11:06 Oxygen Flow Rate 2 11/24/21 20:35 BMI result Body Mass Index 33.3 Gen: chronically ill-appearing HEENT: sclera anicteric, pale and moist mucus membranes Neck: supple Lungs: clear to auscultation bilaterally Heart: regular rate and rhythm, no murmurs Abd: soft, non-tender, non-distended Ext: no edema Skin: warm/well-perfused Neuro: alert and oriented x3, no asterixis Psych: appropriate affect DS: Data Data Completed and Pending Completed studies during hospitalization [Text1]: Laboratory Results WBC 3.9 X10*3/uL (4.8-10.8) L 11/29/21 06:15 RBC 2.53 X10*6/uL (4.20-5.50) L 11/29/21 06:15 Hgb 7.3 g/dl (12.0-16.0) L 11/29/21 06:15 Hct 23.1 % (37.0-47.0) L 11/29/21 06:15 MCV 91.3 fL (80.0-98.0) 11/29/21 06:15 MCH 28.9 pg (27.0-33.0) 11/29/21 06:15 MCHC 31.6 g/dl (31.0-35.0) 11/29/21 06:15 RDW 14.4 % (11.0-16.0) 11/29/21 06:15 Plt Count 62 X10*3/uL (160-400) L 11/29/21 06:15 MPV 11.8 fL (9.4-12.3) 11/29/21 06:15 Immature Gran % (Auto) 0.6 % (0.0-0.4) H 11/25/21 04:40 Neut % (Auto) 62.3 % (45-73) 11/25/21 04:40 Lymph % (Auto) 16.8 % (20-40) L 11/25/21 04:40 [place] % (Auto) 15.8 % (2-11) H 11/25/21 04:40 Eos % (Auto) 3.9 % (0-4) 11/25/21 04:40 Baso % (Auto) 0.6 % (0-2) 11/25/21 04:40 Lymph # (Auto) 1.2 X10*3/uL (1.2-4.9) 11/25/21 04:40 [place] # (Auto) 1.1 X10*3/uL (0.1-1.2) 11/25/21 04:40 Eos # (Auto) 0.3 X10*3/uL (0.0-0.4) 11/25/21 04:40 Baso # (Auto) 0.0 X10*3/uL (0.0-0.2) 11/25/21 04:40 Abs Immat Gran (auto) 0.04 X10*3/uL (0.00-0.03) H 11/25/21 04:40 Absolute Neuts (auto) 4.4 x10*3/uL (2.0-8.3) 11/25/21 04:40 Absolute Nucleated RBC 0.000 X10*3/uL (0.0-0.012) 11/29/21 06:15 Nucleated RBC % (auto) 0.0 /100WBC (0.0-0.2) 11/29/21 06:15 Smear Path Review Cancelled 11/26/21 07:32 ESR 44 MM/HR (0-20) H 11/26/21 07:32 PT 17.6 SEC (9.9-13.0) H 11/24/21 21:46 INR 1.5 (0.9-1.1) H 11/24/21 21:46 O2 Saturation 99.0 % 11/26/21 10:27 ABG pH at Pt Temp 7.35 (7.35-7.45) 11/26/21 10:27 ABG pH (Temp Correct) 7.35 (7.35-7.45) 11/26/21 10:27 ABG pCO2 at Pt Temp 26 mmHg (32-45) L 11/26/21 10:27 ABG pCO2 (Temp Corrct 26 mmHg (32-45) L 11/26/21 10:27 ABG pO2 at Pt Temp 112 mmHg (83-108) H 11/26/21 10:27 ABG pO2 (Temp Correct 111 (83-108) H 11/26/21 10:27 ABG HCO3 14 mmol/L (22-26) L 11/26/21 10:27 ABG Base Excess (Actual) -9.1 mmol/L 11/26/21 10:27 VBG pH 7.35 (7.32-7.43) 11/25/21 04:42 VBG pCO2 28 mmHg 11/25/21 04:42 VBG pO2 73 mmHg 11/25/21 04:42 VBG HCO3 16 mmol/L (22-26) L 11/25/21 04:42 VBG O2 Saturation 93.0 % 11/25/21 04:42 VBG Base Excess -8.4 mmol/L 11/25/21 04:42 Sodium 137 mmol/L (135-145) 11/29/21 06:15 Potassium 4.2 mmol/L (3.3-5.1) 11/29/21 06:15 Chloride 112 mmol/L (96-108) H 11/29/21 06:15 Carbon Dioxide 17 mmol/L (22-29) L 11/29/21 06:15 Anion Gap 12 (12-20) 11/29/21 06:15 BUN 61 mg/dL (9-16) H 11/29/21 06:15 Creatinine 2.22 mg/dL (0.5-1.4) H 11/29/21 06:15 Estim Creat Clear Calc 24.3 11/29/21 06:15 Estimated GFR 11/29/21 06:15 POC Glucose 117 mg/dL (60-115) H 12/01/21 11:05 Random Glucose 138 mg/dL (60-115) H 11/29/21 06:15 Calcium 9.0 mg/dL (8.4-10.2) 11/29/21 06:15 Magnesium 2.6 mg/dL (1.6-2.6) 11/26/21 07:32 Total Bilirubin 0.8 mg/dL (0.0-1.0) 11/24/21 21:46 AST 30 U/L (5-31) 11/24/21 21:46 ALT 21 U/L (0-31) 11/24/21 21:46 Alkaline Phosphatase 103 U/L (39-117) D 11/24/21 21:46 Ammonia 75 umol/L (13-55) H 11/27/21 06:27 C-Reactive Protein 0.43 mg/dL (< or = 0.50) 11/26/21 07:32 Total Protein 6.9 g/dL (6.5-8.0) 11/24/21 21:46 Albumin 3.1 g/dL (3.5-5.0) L 11/24/21 21:46 TSH 0.28 uIU/mL (0.32-4.0) L 11/26/21 07:32 Urine Color YELLOW 11/24/21 21:46 Urine Appearance CLEAR 11/24/21 21:46 Urine pH 6.0 (5.0-8.0) 11/24/21 21:46 Ur Specific [place] 1.010 (1.005-1.025) 11/24/21 21:46 Urine Protein 1+ MG/DL (NEG-TRACE) H 11/24/21 21:46 Urine Glucose (UA) NEG MG/DL (NEG) 11/24/21 21:46 Urine Ketones NEG MG/DL (NEG) 11/24/21 21:46 Urine Blood NEG (NEG) 11/24/21 21:46 Urine Nitrite NEG (NEG) 11/24/21 21:46 Ur Leukocyte Esterase NEG (NEG) 11/24/21 21:46 Urine RBC 1-4 /HPF (0) 11/24/21 21:46 Urine WBC 5-9 /HPF (0-4) H 11/24/21 21:46 Ur Squamous Epith Cells 2+ /LPF 11/24/21 21:46 Urine Bacteria 2+ /LPF 11/24/21 21:46 Urine Mucus 1+ /LPF 11/24/21 21:46 Salicylates < 5.0 mg/dL (15-30) L 11/26/21 14:50 Salicylates Cancelled 11/26/21 14:50 Complement C4 5 mg/dL (15-57) L 11/26/21 07:32 Respiratory Panel Murphy See Note 11/27/21 12:39 Adenovirus (Rapid PCR) Not Detected (Not Detect.) 11/27/21 12:39 B.pert (TEM-PCR) Not Detected (Not Detect.) 11/27/21 12:39 B.parapertussis DNA PCR Not Detected (Not Detect.) 11/27/21 12:39 C. pneumoniae DNA (PCR) Not Detected (Not Detect.) 11/27/21 12:39 Coronavirus OC43 (PCR) Not Detected (Not Detect.) 11/27/21 12:39 Coronavirus HKU1 (PCR) Not Detected (Not Detect.) 11/27/21 12:39 Coronavirus 229E (PCR) Not Detected (Not Detect.) 11/27/21 12:39 COVID-19 (BEN) Negative (Negative) 11/24/21 22:16 COVID-19 Clin Com See Note 11/24/21 22:16 Coronavirus NL63 (PCR) Not Detected (Not Detect.) 11/27/21 12:39 Human Metapneumovir PCR Not Detected (Not Detect.) 11/27/21 12:39 Influenza A (RT-PCR) Not Detected (Not Detect.) 11/27/21 12:39 Influenza B (RT-PCR) Not Detected (Not Detect.) 11/27/21 12:39 M. pneumoniae (PCR) Not Detected (Not Detect.) 11/27/21 12:39 Parainfluenza 1 (PCR) Not Detected (Not Detect.) 11/27/21 12:39 Parainfluenza 2 (PCR) Not Detected (Not Detect.) 11/27/21 12:39 Parainfluenza 3 (PCR) Not Detected (Not Detect.) 11/27/21 12:39 Parainfluenza 4 (PCR) Not Detected (Not Detect.) 11/27/21 12:39 RSV (PCR) Not Detected (Not Detect.) 11/27/21 12:39 Entero/Rhino (PCR) Not Detected (Not Detect.) 11/27/21 12:39 SARS-CoV-2 RNA (RT-PCR) Not Detected (Not Detect.) 11/27/21 12:39 Blood Type O Positive 11/24/21 23:56 Antibody Screen NEGATIVE 11/24/21 23:56 Crossmatch See Detail 11/24/21 23:56 Impressions Chest X-Ray 11/25/21 04:45 IMPRESSION: Cardiomegaly and pulmonary venous congestion. Bilateral parahilar patchy opacities. Discharge Plan Discharge Patient Disposition: Home Health Service Discharge Diagnosis: hepatic encephalopathy, angioedema, cirrhosis of the liver, chronic kidney disease stage 4 with metabolic acidosis Referrals: Yeyo Pineda MD [Physician] - 1 Week Rebecca Loomis CNP [Primary Care Provider] - 1 Week Fady Marshall MD [Physician] - 1 Week Dean Stahl MD [Physician] - 1 Week Discharge Medications: New sodium bicarbonate 650 mg Tablet 650 mg PO BID Qty: 60 RF: 0 Continued pantoprazole [Protonix] 40 mg Tablet,Delayed Release (Dr/Ec) 40 mg PO DAILY RF: 0 hydralazine 50 mg Tablet 50 mg PO TID RF: 0 ofloxacin 0.3 % Drops 1 drp ophthalmic-Right QID RF: 0 levothyroxine [Synthroid] 75 mcg tablet 75 mcg PO DAILY@0600 RF: 0 timolol 0.5 % drops 1 drp ophthalmic-Right BID RF: 0 rifaximin 550 mg tablet 550 mg PO BID Qty: 60 RF: 0 lactulose 20 gram/30 mL solution 45 g PO TID Qty: 3000 RF: 0 amlodipine [Norvasc] 10 mg tablet 10 mg PO DAILY Qty: 90 RF: 0 Eliquis 2.5 mg tablet 2.5 mg PO BID Qty: 180 RF: 0 cyanocobalamin (vitamin B-12) [Vitamin B-12] 1,000 mcg tablet 1,000 mcg PO DAILY Qty: 90 RF: 0 ferrous fumarate 325 mg (106 mg iron) tablet 325 mg PO DAILY Qty: 90 RF: 0 folic acid 1 mg tablet 1 mg PO DAILY Qty: 90 RF: 0 Lantus Solostar U-100 Insulin 100 unit/mL (3 mL) insulin pen 20 unit SUBCUT BEDTIME Qty: 15 RF: 0 Humalog U-100 Insulin 100 unit/mL cartridge 10 unit SUBCUT TIDWM Qty: 15 RF: 0 isosorbide dinitrate 10 mg tablet 10 mg PO BID Qty: 180 RF: 0 Tradjenta 5 mg tablet 5 mg PO DAILY Qty: 90 RF: 0 montelukast [Singulair] 10 mg tablet 10 mg PO BEDTIME Qty: 90 RF: 0 (DME) diabetic supplies, miscellan. Misc See Rx Instructions .Route Qty: 1 RF: 0 (DME) diabetic supplies, miscellan. Misc See Rx Instructions .Route Qty: 25 RF: 0 Discharge Orders: Discharge Order (Routine); Ordered 12/01/21 Ordered By: Rashard Martinez Diet: advance to usual diet and diabetic diet Activity on Discharge: As tolerated Stand Alone Forms: Patient Portal Discharge page Other Ambulatory Orders: Complete Blood Count Auto Diff (Routine) Timeframe: 1 Week Facility: [facility] - Location: Laboratory Ordered By: Rashard Martinez Comprehensive Met. Panel (Routine) Timeframe: 1 Week Facility: [facility] - Location: Laboratory Ordered By: Rashard Martinez Prothrombin Time INR (Routine) Timeframe: 1 Week Facility: [facility] - Location: Laboratory Ordered By: Rashard Martinez Care Plan Goals: avoid complications of cirrhosis Health Concerns: hepatic encephalopathy, cirrhosis of the liver, angioedema, chronic kidney disease stage 4 with metabolic acidosis Plan of Treatment: take lactulose 30 mL 3x a day, titrate to achieve 3-4 soft BMs/day; also take rifaximin 550 mg 2x a day check labs in 1 week: CBCd, CMP, PT/INR [place] [facility] [place] 2 weeks for management of cirrhosis follow up with [facility] [place] in 2 weeks for workup of angioedema take sodium bicarbonate 650 mg 2x a day follow up with [facility] [Nephrology] in 2 weeks for management of chronic kidney disease see your primary care doctor in 1 week Assessment: see Discharge Summary Patient Instructions: Cirrhosis (DC), Chronic Kidney Disease (DC), Hepatic Encephalopathy (DC)
[2021-12-01 11:25] LABS: Glucose, Whole Blood 117 mg/dL (60-115)
--- NOTE | 2021-12-01 11:45 | MHC.CM.PN ---
PATIENT IS RETURNING HOME WITH [facility], WELL ACCEPTANCE FROM [facility]. DAUGHTER CHAR ([phone]) IS AWARE OF PLAN. PATIENT WILL BE DC TO DAUGHTER'S HOME AT [address] [place] [address] [place] [address]. IMM 11/30 IN CHART.
[2021-12-01 16:30] LABS: Glucose, Whole Blood 122 mg/dL (60-115)
[2021-12-01 22:21] LABS: HCV Log PCR <1.18 log IU/mL; HepC Viral Load <15 IU/mL
== END 2021-12-01 19:32 | disposition home health service (06) | DRG 441 ==
LOC: HO.ED 11-25 00:47 → HO.EDOVER 11-25 01:00 → HO.S3 11-26 19:36
PROVIDERS: Hospitalist; Admitting Provider Internal Medicine; Emergency Provider Internal Medicine; PCP Nurse Practitioner Acute Care; Visit Provider Family Medicine
DX: K72.90 Hepatic failure, unspecified without coma (principal); J18.9 Pneumonia, unspecified organism; I13.0 Hypertensive heart and chronic kidney disease with heart failure and stage 1 through stage 4 chronic kidney disease, or unspecified chronic kidney disease; N18.4 Chronic kidney disease, stage 4 (severe); D61.818 Other pancytopenia; D68.9 Coagulation defect, unspecified; I50.32 Chronic diastolic (congestive) heart failure; E87.2 Acidosis; N17.9 Acute kidney failure, unspecified; E11.22 Type 2 diabetes mellitus with diabetic chronic kidney disease; I48.0 Paroxysmal atrial fibrillation; K70.30 Alcoholic cirrhosis of liver without ascites; T78.3XXA Angioneurotic edema, initial encounter; R06.03 Acute respiratory distress; G47.33 Obstructive sleep apnea (adult) (pediatric); E03.9 Hypothyroidism, unspecified; F10.11 Alcohol abuse, in remission; D63.8 Anemia in other chronic diseases classified elsewhere; Z20.822 Contact with and (suspected) exposure to COVID-19; Z96.651 Presence of right artificial knee joint; Z79.4 Long term (current) use of insulin; Z79.01 Long term (current) use of anticoagulants; Z79.890 Hormone replacement therapy; Z79.899 Other long term (current) drug therapy
CPT/HCPCS: 36415; 36600; 71045; 80048; 80053; 80179; 81001; 82140; 82803; 82947; 83735; 84443; 85025; 85027; 85610; 85652; 86140; 86160; 86850; 86900; 86901; 86923; 87086; 87522; 87633; 87635; 93005; 94660; 97162; 99285; J1200; J2920; J2930; P9016

== ENCOUNTER → 2021-12-02 08:03 | Outpatient (BNVA) | payer MEDICARE, MEDICAID, SELFPAY | PROVIDERS: PCP Nurse Practitioner Acute Care; Visit Provider Psychiatry & Neurology Neurology | DX: G47.33 Obstructive sleep apnea (adult) (pediatric) (principal); R41.89 Other symptoms and signs involving cognitive functions and awareness | CPT/HCPCS: 99202 ==